=== PATIENT | female | born 1960 | race Caucasian/White ===

== ENCOUNTER 2018-03-26 00:06 | Emergency (ER) | payer SELFPAY ==
[2018-03-26] MEDS ORDERED: LIDOCAINE 1% MPF 5 ML VIAL ONE (00:34)
[2018-03-26] MEDS ORDERED: TETANUS & DIPHTHERIA TOX,ADULT 0.5 ML VIAL ONE (01:05)
--- NOTE | 2018-03-26 01:51 | ER ---
Nurse's Notes [facility] Name: Mica Baker Age: 57 yrs Sex: Female : 1960 Arrival Date: 03/26/2018 Time: 00:10 Bed 17 Private MD: Diagnosis: Finger Laceration Presentation: 03/26 00:10 Presenting complaint: Patient states: that she was making dinner and cut her left index fc finger with a knife. Approx 1.5 cm laceration noted. Bleeding controlled. Transition of care: patient was not received from another setting of care. Onset of symptoms was March 25, 2018 at 20:00. Risk Assessment: Do you want to hurt yourself or someone else? Patient reports no desire to harm self or others. Initial Sepsis Screen: Does the patient meet any 2 criteria? No. Patient's initial sepsis screen is negative. Does the patient have a suspected source of infection? No. Patient's initial sepsis screen is negative. Care prior to arrival: Bleeding of injury controlled. Injury dressed. 00:10 Method Of Arrival: Ambulatory 00:10 Acuity: LUCIANO 4 fc Historical: - Allergies: 00:25 Hydrochlorothiazide; fc 00:25 Iodine; fc 00:25 Latex, Natural Rubber; fc 00:25 telisitine; fc - Home Meds: 00:25 None [Active]; fc - PMHx: 00:25 Hypertension; fc - PSHx: 00:25 ; fc - Immunization history:: Last tetanus immunization: unknown, Flu vaccine is not up to date. - Social history:: Smoking status: Patient/guardian denies using tobacco, Patient uses alcohol, but reports only rare drinking. Patient/guardian denies using street drugs. - Ebola Screening: : Patient negative for fever greater than or equal to 101.5 degrees Fahrenheit, and additional compatible Ebola Virus Disease symptoms Patient denies exposure to infectious person Patient denies travel to an Ebola-affected area in the 21 days before illness onset. Screenin:23 Abuse screen: Denies threats or abuse. Nutritional screening: No deficits noted. fc Tuberculosis screening: No symptoms or risk factors identified. Fall Risk No fall in past 12 months (0 pts). Secondary diagnosis (15 points) impaired mobility, No IV (0 pts). Ambulatory Aid- Crutches/Cane/Walker (15 pts). Gait- Impaired (20 pts.). Mental Status- Overestimates/Forgets Limitations (15 pts.). Total Mancera Fall Scale indicates Low Risk Score (25-44 pts). Fall prevention measures have been instituted. Side Rails Up X 2 Placed close to Nursing Station Frequent Obs/Assesments occuring As available Patient and Family Educated on Fall Prevention Program and strategies. Assessment: 01:07 General: Appears in no apparent distress. Behavior is calm, cooperative, appropriate tl1 for age. Pain: Complains of pain in dorsal aspect of middle phalanx of left middle finger. Neuro: Level of Consciousness is awake, alert, obeys commands. Cardiovascular: No deficits noted. Respiratory: Airway is patent Trachea midline Respiratory effort is even, unlabored, Breath sounds are clear bilaterally. GI: No signs and/or symptoms were reported involving the gastrointestinal system. : No signs and/or symptoms were reported regarding the genitourinary system. EENT: No signs and/or symptoms were reported regarding the EENT system. Derm: No deficits noted. Musculoskeletal: No deficits noted. Injury Description: Laceration sustained to dorsal aspect of middle phalanx of left middle finger is clean, superficial, 0.5 to 2.5 cm long, was sustained 4-6 hours ago. a small amount of bleeding noted at this time. Vital Signs: 00:10 BP 181 / 84; Pulse 65; Resp 18; Temp 98.6(O); Pulse Ox 99% on R/A; Weight 174.8 kg (M); fc Height 5 ft. 8 in. (172.72 cm) (R); Pain 7/10; 01:33 BP 151 / 72; Pulse 53; Resp 16; Pulse Ox 99% ; Pain 0/10; tl1 00:10 Body Mass Index 58.59 (174.80 kg, 172.72 cm) ED Course: 00:10 Patient arrived in ED. es 00:10 Arm band placed on Patient placed in an exam room, on a stretcher. 00:14 Derick Zarate PA is PHCP. jmclaude 00:14 Evelio Williamson MD is Attending Physician. jmm 00:22 Triage completed. 00:23 Patient has correct armband on for positive identification. Bed in low position. Call light in reach. 01:03 Huyen Freedman, RN is Primary Nurse. tl1 01:10 No provider procedures requiring assistance completed. Patient did not have IV access tl1 during this emergency room visit. 01:11 Wound care: to laceration located on dorsal aspect of middle phalanx of left middle tl1 finger was cleaned with Hibiclens. 01:12 Assist provider with laceration repair on dorsal aspect of middle phalanx of left tl1 middle finger that was 2.5 cm. or less using sutures. Set up tray. Performed by Derick WELLS Dressed with Neosporin. 01:32 Dressings:. tl1 Administered Medications: 00:58 Drug: Tetanus-Diphtheria Toxoid Adult 0.5 ml {[employer]: [employer]. Exp: tl2 05/06/2020. Lot #: [id number]. } Route: IM; Site: left deltoid; 02:04 Follow up: Response: No adverse reaction; No change in condition tl1 01:03 Not Given (not in stock): Marcaine (0.5 %) 10 ml 10 ml Infiltration once tl1 01:04 Drug: Lidocaine (1 %) 5 mg {Note: Administered by Derick WELLS to left middle tl1 finger.} Route: Infiltration; Site: wound; 02:04 Follow up: Response: No adverse reaction; No change in condition tl1 Outcome: 01:50 Discharge ordered by MD. pena 02:03 Discharged to home ambulatory. tl1 02:03 Condition: good 02:03 Discharge instructions given to patient, Instructed on discharge instructions, follow up and referral plans. medication usage, Demonstrated understanding of instructions, follow-up care, medications, Prescriptions given X 1. 02:05 Patient left the ED. tl1 Signatures: Derick Zarate PA PA jmm Salyer, Edna es Chretien, Felicia, RN RN Huyen Freedman, RN RN tl1 Ana Lunsford RN RN tl2 Corrections: (The following items were deleted from the chart) 01:23 00:10 Presenting complaint: Patient states: that she was making dinner and cut her fc right index finger with a knife. Approx 1.5 cm laceration noted. Bleeding controlled fc
--- NOTE | 2018-03-26 01:51 | EDPHYS ---
Physician Documentation [facility] Name: Mica Baker Age: 57 yrs Sex: Female : 1960 Arrival Date: 03/26/2018 Time: 00:10 Bed 17 Private MD: ED Physician Evelio Williamson HPI: 03/26 00:17 This 57 yrs old Female presents to ER via Ambulatory with complaints of jmm Finger Injury. 00:17 The patient or guardian reports injury, a laceration. The complaints affect the dorsal jmm aspect of middle phalanx of left index finger. Onset: The symptoms/episode began/occurred acutely, just prior to arrival. Associated signs and symptoms: Pertinent negatives: cyanosis distally, decreased sensation distally, numbness distally, tingling distally. This is a 57 year old female with a history of htn that presents to the ED with a laceration to the left 2nd finger. This occurred while the patient was sharpening a knife. . Historical: - Allergies: 00:25 Hydrochlorothiazide; fc 00:25 Iodine; fc 00:25 Latex, Natural Rubber; fc 00:25 telisitine; fc - Home Meds: 00:25 None [Active]; fc - PMHx: 00:25 Hypertension; fc - PSHx: 00:25 ; fc - Immunization history:: Last tetanus immunization: unknown, Flu vaccine is not up to date. - Social history:: Smoking status: Patient/guardian denies using tobacco, Patient uses alcohol, but reports only rare drinking. Patient/guardian denies using street drugs. - Ebola Screening: : Patient negative for fever greater than or equal to 101.5 degrees Fahrenheit, and additional compatible Ebola Virus Disease symptoms Patient denies exposure to infectious person Patient denies travel to an Ebola-affected area in the 21 days before illness onset. ROS: 00:17 Constitutional: Negative for fever, chills, and weight loss, Cardiovascular: Negative jmm for chest pain, palpitations, and edema, Respiratory: Negative for shortness of breath, cough, wheezing, and pleuritic chest pain. 00:17 Constitutional: Positive for 00:17 Skin: Positive for laceration(s). 00:17 All other systems are negative. Exam: 00:17 Constitutional: This is a well developed, well nourished patient who is awake, alert, jmm and in no acute distress. Head/Face: atraumatic. Eyes: EOMI, no conjunctival erythema appreciated ENT: Moist Mucus Membranes Neck: Trachea midline, Supple Chest/axilla: Normal chest wall appearance and motion. Cardiovascular: Regular rate and rhythm. No edema appreciated Respiratory: Normal respirations, no respiratory distress appreciated Abdomen/GI: Non distended, soft Back: Normal ROM 00:17 Musculoskeletal/extremity: FROM appreciated to the left 2nd PIP, < 2 sec dist cap refill, NVI. 00:17 Skin: 1.5 cm laceration noted ot the left index finger. 00:17 Neuro: Orientation: is normal, Mentation: is normal, Memory: is normal. 00:17 Psych: Behavior/mood is pleasant, cooperative. Vital Signs: 00:10 BP 181 / 84; Pulse 65; Resp 18; Temp 98.6(O); Pulse Ox 99% on R/A; Weight 174.8 kg (M); fc Height 5 ft. 8 in. (172.72 cm) (R); Pain 7/10; 01:33 BP 151 / 72; Pulse 53; Resp 16; Pulse Ox 99% ; Pain 0/10; tl1 00:10 Body Mass Index 58.59 (174.80 kg, 172.72 cm) fc Laceration: 01:48 Wound Repair of 1.5cm ( 0.6in ) subcutaneous laceration to dorsal aspect of middle jmm phalanx of left index finger. Distal neuro/vascular/tendon intact. Anesthesia: Digital block administered with 3 mls of 1% lidocaine. Wound prep: Simple cleansing with betadine by nc. Skin closed with 4 5-0 Prolene using simple sutures and sterile technique. Patient tolerated well. MDM: 00:17 Patient medically screened. [facility] 01:48 Data reviewed: vital signs, nurses notes. [facility] 01:49 Counseling: I had a detailed discussion with the patient and/or guardian regarding: the [facility] historical points, exam findings, and any diagnostic results supporting the discharge/admit diagnosis, the need for outpatient follow up, to return to the emergency department if symptoms worsen or persist or if there are any questions or concerns that arise at home. ED course: Patient given wound infection return precautions. . 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 Exp: tl2 05/06/2020. Lot #: [id number]. } Route: IM; Site: left deltoid; 02:04 Follow up: Response: No adverse reaction; No change in condition tl1 01:03 Not Given (not in stock): Marcaine (0.5 %) 10 ml 10 ml Infiltration once tl1 01:04 Drug: Lidocaine (1 %) 5 mg {Note: Administered by Derick WELLS to left middle tl1 finger.} Route: Infiltration; Site: wound; 02:04 Follow up: Response: No adverse reaction; No change in condition tl1 Disposition: 07:34 Co-signature as Attending Physician, Evelio Williamson MD I agree with the assessment and yadira plan of care. Disposition: 03/26/18 01:50 Discharged to Home. Impression: Finger Laceration. - Condition is Stable. - Discharge Instructions: Laceration Care, Adult. - Prescriptions for Cephalexin 500 mg Oral Capsule - take 1 capsule by ORAL route every 6 hours for 7 days; 28 capsule. - Medication Reconciliation Form, Thank You Letter, Antibiotic Education, Prescription Opioid Use form. - Follow up: Private Physician; When: 1 week; Reason: Recheck today's complaints, Continuance of care, Staple/Suture removal, Re-evaluation by your physician. Signatures: Evelio Williamson MD MD cha Mickail, Joel, PA PA jmm Chretien, Felicia, RN RN Huyen Wallis RN RN tl1 Ana Lunsford RN RN tl2 Corrections: (The following items were deleted from the chart) 02:05 01:50 03/26/2018 01:50 Discharged to Home. Impression: Finger Laceration. Condition is tl1 Stable. Forms are Medication Reconciliation Form, Thank You Letter, Antibiotic Education, Prescription Opioid Use. Follow up: Private Physician; When: 1 week; Reason: Recheck today's complaints, Continuance of care, Staple/Suture removal, Re-evaluation by your physician. jean
[2018-03-26 02:22] VITALS: TEMP 98.6; O2SAT 99
[2018-03-26 02:23] VITALS: BP 151/72
== END 2018-03-26 02:05 | disposition home or self-care (01) ==
LOC: ER 00:06
PROC: 0JQK0ZZ Repair Left Hand Subcutaneous Tissue and Fascia, Open Approach (ICD-10-PCS; principal; 2018-03-26)
DX: S61.211A Laceration without foreign body of left index finger without damage to nail, initial encounter (principal); I10 Essential (primary) hypertension; W26.0XXA Contact with knife, initial encounter; Y93.89 Activity, other specified; Y92.9 Unspecified place or not applicable; Z23 Encounter for immunization; Z88.8 Allergy status to other drugs, medicaments and biological substances; Z91.040 Latex allergy status; Z91.048 Other nonmedicinal substance allergy status
CPT/HCPCS: 90714; 99284

== ENCOUNTER 2018-06-28 11:58 | Inpatient (IN) | payer SELFPAY ==
--- NOTE | 2018-06-28 13:07 | EDPHYS ---
Physician Documentation [facility] Name: Mica Baker Age: 58 yrs Sex: Female : 1960 Arrival Date: 06/28/2018 Time: 12:01 Bed 16 Private MD: ED Physician Evelio Williamson HPI: 06/28 13:01 This 58 yrs old Female presents to ER via Ambulatory with complaints of Ankle yadira Swelling. 13:01 The patient presents with decreased range of motion, pain, swelling, tenderness. The yadira complaints affect the left ankle, left lateral ankle, lateral aspect of left foot, left Achilles, left heel, left medial ankle, medial aspect of left foot, left gutierrez, anterior aspect of left ankle and dorsum of left foot. Onset: The symptoms/episode began/occurred 2 day(s) ago. Context: The problem was sustained at home. Associated signs and symptoms: Pertinent positives: fever. Modifying factors: The symptoms are alleviated by elevation of extremity, the symptoms are aggravated by weight bearing, movement. Severity of symptoms: At their worst the symptoms were mild, moderate, in the emergency department the symptoms are unchanged. The patient has experienced similar episodes in the past, several times. Historical: - Allergies: 12:07 Hydrochlorothiazide; ss 12:07 Iodine; ss 12:07 Latex, Natural Rubber; ss 12:07 telisitine; ss - PMHx: 12:07 Hypertension; ss - PSHx: 12:07 ; ss - Immunization history:: Adult Immunizations unknown. - Social history:: Smoking status: Patient/guardian denies using tobacco. - Ebola Screening: : Patient denies exposure to infectious person Patient denies travel to an Ebola-affected area in the 21 days before illness onset. - Family history:: not pertinent. ROS: 13:01 Eyes: Negative for injury, pain, redness, and discharge, ENT: Negative for injury, yadira pain, and discharge, Neck: Negative for injury, pain, and swelling, Cardiovascular: Negative for chest pain, palpitations, and edema, Respiratory: Negative for shortness of breath, cough, wheezing, and pleuritic chest pain, Abdomen/GI: Negative for abdominal pain, nausea, vomiting, diarrhea, and constipation, Back: Negative for injury and pain, : Negative for injury, bleeding, discharge, and swelling, Skin: Negative for injury, rash, and discoloration, Neuro: Negative for headache, weakness, numbness, tingling, and seizure, Psych: Negative for depression, anxiety, suicide ideation, homicidal ideation, and hallucinations, Allergy/Immunology: Negative for hives, rash, and allergies, Endocrine: Negative for neck swelling, polydipsia, polyuria, polyphagia, and marked weight changes, Hematologic/Lymphatic: Negative for swollen nodes, abnormal bleeding, and unusual bruising. 13:01 : Positive for urinary frequency. Exam: 13:01 Constitutional: This is a well developed, well nourished patient who is awake, alert, yadira and in no acute distress. Head/Face: Normocephalic, atraumatic. Eyes: Pupils equal round and reactive to light, extra-ocular motions intact. Lids and lashes normal. Conjunctiva and sclera are non-icteric and not injected. Cornea within normal limits. Periorbital areas with no swelling, redness, or edema. ENT: Nares patent. No nasal discharge, no septal abnormalities noted. Tympanic membranes are normal and external auditory canals are clear. Oropharynx with no redness, swelling, or masses, exudates, or evidence of obstruction, uvula midline. Mucous membranes moist. Neck: Trachea midline, no thyromegaly or masses palpated, and no cervical lymphadenopathy. Supple, full range of motion without nuchal rigidity, or vertebral point tenderness. No Meningismus. Chest/axilla: Normal chest wall appearance and motion. Nontender with no deformity. No lesions are appreciated. Cardiovascular: Regular rate and rhythm with a normal S1 and S2. No gallops, murmurs, or rubs. Normal PMI, no JVD. No pulse deficits. Respiratory: Lungs have equal breath sounds bilaterally, clear to auscultation and percussion. No rales, rhonchi or wheezes noted. No increased work of breathing, no retractions or nasal flaring. Abdomen/GI: Soft, non-tender, with normal bowel sounds. No distension or tympany. No guarding or rebound. No evidence of tenderness throughout. Back: No spinal tenderness. No costovertebral tenderness. Full range of motion. Neuro: Awake and alert, GCS 15, oriented to person, place, time, and situation. Cranial nerves II-XII grossly intact. Motor strength 5/5 in all extremities. Sensory grossly intact. Cerebellar exam normal. Normal gait. Psych: Awake, alert, with orientation to person, place and time. Behavior, mood, and affect are within normal limits. 13:01 Skin: Appearance: Color: erythematous, Temperature: hot, Moisture: normal moisture, petechiae, not noted, cellulitis, that is mild, that is moderate, induration, that is mild is noted. Vital Signs: 12:07 BP 166 / 99; Pulse 110; Resp 19; Temp 99.4(O); Pulse Ox 99% on R/A; Weight 160.3 kg; ss Height 5 ft. 7 in. (170.18 cm); Pain 9/10; 12:07 Body Mass Index 55.35 (160.30 kg, 170.18 cm) ss MDM: 12:15 Patient medically screened. [facility] 13:03 Data reviewed: vital signs, nurses notes, lab test result(s), EKG, radiologic studies, yadira plain films. 06/28 12:47 Order name: Urine Culture 06/28 13:01 Order name: Basic Metabolic Panel [facility] 06/28 13:01 Order name: CBC with Diff [facility] 06/28 13:01 Order name: LFT's; Complete Time: 16:15 yadira 06/28 13:01 Order name: Magnesium; Complete Time: 16:15 [facility] 06/28 13:01 Order name: NT PRO-BNP; Complete Time: 16:15 [facility] 06/28 13:01 Order name: PT-INR; Complete Time: 16:15 yadira 06/28 13:01 Order name: Troponin (emerg Dept Use Only); Complete Time: 16:15 [facility] 06/28 13:01 Order name: Blood Culture Adult (2) [facility] 06/28 13:01 Order name: Procalcitonin; Complete Time: 16:15 [facility] 06/28 13:01 Order name: Lactate; Complete Time: 16:15 [facility] 06/28 13:01 Order name: Basic Metabolic Panel; Complete Time: 16:15 EDMS 06/28 13:01 Order name: CBC with Automated Diff EDMS 06/28 13:31 Order name: Urine Dipstick--Ancillary (enter results) 06/28 13:01 Order name: XRAY Chest (1 view); Complete Time: 16:15 [facility] 06/28 13:01 Order name: EKG; Complete Time: 13:02 [facility] 06/28 13:01 Order name: Cardiac monitoring; Complete Time: 16:42 [facility] 06/28 13:01 Order name: EKG - Nurse/Tech; Complete Time: 16:42 [facility] 06/28 13:01 Order name: IV Saline Lock; Complete Time: 14:40 [facility] 06/28 13:01 Order name: Labs collected and sent; Complete Time: 14:40 [facility] 06/28 13:01 Order name: O2 Per Protocol; Complete Time: 16:29 [facility] 06/28 13:01 Order name: O2 Sat Monitoring; Complete Time: 16:28 [facility] 06/28 13:01 Order name: US Extremity Venous W Compression Kobe; Complete Time: 14:28 [facility] 06/28 16:28 Order name: CBC Smear Scan EDMS Administered Medications: 14:53 Drug: fentaNYL (PF) 50 mcg Route: IVP; Site: left antecubital; hj 16:41 Follow up: Response: No adverse reaction; Pain is decreased hj 14:53 Drug: Zofran 4 mg Route: IVP; Site: left antecubital; hj 16:40 Follow up: Response: No adverse reaction; Nausea is decreased hj 14:54 Drug: NS 0.9% 1000 ml Route: IV; Rate: 1 bolus; Site: left antecubital; hj 16:42 Follow up: IV Status: Completed infusion hj 14:54 Drug: Zosyn 3.375 grams Route: IVPB; Infused Over: 60 mins; Site: left antecubital; hj 16:41 Follow up: IV Status: Completed infusion hj 15:42 Drug: NS 0.9% 1000 ml Route: IV; Rate: 125 ml/hr; Site: left antecubital; hj 16:42 Follow up: IV Status: Infusion continued upon admission hj 16:10 Drug: vancoMYCIN 1 grams Route: IVPB; Infused Over: 2 hrs; Site: left antecubital; hj 16:41 Follow up: IV Status: Infusion continued upon admission hj Disposition: 06/28/18 13:06 Hospitalization ordered by Jadiel Elam for Inpatient Admission. Preliminary diagnosis are Cellulitis and acute lymphangitis of other parts of limb, Fever, unspecified, Obesity, unspecified, Cystitis, Elevated white blood cell count, Hypokalemia. - Bed requested for Telemetry/MedSurg (Inpatient). - Status is Inpatient Admission. hj - Condition is Fair. - Problem is new. - Symptoms are unchanged. UTI on Admission? Yes Signatures: Dispatcher [employer] EDMS Patricia santos Evelio Asencio MD MD cha Smirch, Shelby, RN RN Eric Smiley RN RN Corrections: (The following items were deleted from the chart) 13:07 13:06 Hospitalization Ordered by Jadiel Elam MD for Inpatient Admission. Preliminary yadira diagnosis is Cellulitis and acute lymphangitis of other parts of limb; Fever, unspecified; Obesity, unspecified. Bed requested for Telemetry/MedSurg (Inpatient). Status is Inpatient Admission. Condition is Fair. Problem is new. Symptoms are unchanged. UTI on Admission? No. [facility] 14:38 13:07 06/28/2018 13:06 Hospitalization Ordered by Jadiel Elam MD for Inpatient bd Admission. Preliminary diagnosis is Cellulitis and acute lymphangitis of other parts of limb; Fever, unspecified; Obesity, unspecified; Cystitis. Bed requested for Telemetry/MedSurg (Inpatient). Status is Inpatient Admission. Condition is Fair. Problem is new. Symptoms are unchanged. UTI on Admission? Yes. [facility] 16:16 14:38 06/28/2018 13:06 Hospitalization Ordered by Jadiel Elam MD for Inpatient yadira Admission. Preliminary diagnosis is Cellulitis and acute lymphangitis of other parts of limb; Fever, unspecified; Obesity, unspecified; Cystitis. Bed requested for Telemetry/MedSurg (Inpatient). Status is Inpatient Admission. Condition is Fair. Problem is new. Symptoms are unchanged. UTI on Admission? Yes. bd 16:53 16:16 06/28/2018 13:06 Hospitalization Ordered by Jadiel Elam MD for Inpatient hj Admission. Preliminary diagnosis is Cellulitis and acute lymphangitis of other parts of limb; Fever, unspecified; Obesity, unspecified; Cystitis; Elevated white blood cell count; Hypokalemia. Bed requested for Telemetry/MedSurg (Inpatient). Status is Inpatient Admission. Condition is Fair. Problem is new. Symptoms are unchanged. UTI on Admission? Yes. yadira
--- NOTE | 2018-06-28 13:07 | ER ---
Nurse's Notes [facility] Name: Mica Baker Age: 58 yrs Sex: Female : 1960 Arrival Date: 06/28/2018 Time: 12:01 Bed 16 Private MD: Diagnosis: Cellulitis and acute lymphangitis of other parts of limb;Fever, unspecified;Obesity, unspecified;Cystitis;Elevated white blood cell count;Hypokalemia Presentation: 06/28 12:05 Presenting complaint: Patient states: redness and swelling to L ankle area that began 3 ss days ago. Pt reports she had a small scrap that had purulent drainage 3 days ago and was attempting to care for it while at home. Transition of care: patient was not received from another setting of care. Onset of symptoms was June 25, 2018. Risk Assessment: Do you want to hurt yourself or someone else? Patient reports no desire to harm self or others. Initial Sepsis Screen: Does the patient meet any 2 criteria? HR > 90 bpm. Does the patient have a suspected source of infection? Yes: Skin breakdown/wound. Care prior to arrival: None. 12:05 Method Of Arrival: Ambulatory ss 12:05 Acuity: LUCIANO 3 ss Historical: - Allergies: 12:07 Hydrochlorothiazide; ss 12:07 Iodine; ss 12:07 Latex, Natural Rubber; ss 12:07 telisitine; ss - PMHx: 12:07 Hypertension; ss - PSHx: 12:07 ; ss - Immunization history:: Adult Immunizations unknown. - Social history:: Smoking status: Patient/guardian denies using tobacco. - Ebola Screening: : Patient denies exposure to infectious person Patient denies travel to an Ebola-affected area in the 21 days before illness onset. - Family history:: not pertinent. Screenin:45 Abuse screen: Denies threats or abuse. Denies injuries from another. Nutritional jl7 screening: No deficits noted. Tuberculosis screening: No symptoms or risk factors identified. Assessment: 12:45 General: Appears in no apparent distress. uncomfortable, Behavior is calm, cooperative, jl7 appropriate for age. Pain: Complains of pain in left ankle Pain radiates to left knee Pain currently is 7 out of 10 on a pain scale. Is continuous. Neuro: Level of Consciousness is awake, alert, obeys commands, Oriented to person, place, time, situation. Cardiovascular: Patient's skin is warm and dry. Respiratory: Airway is patent Respiratory effort is even, unlabored, Respiratory pattern is regular, symmetrical. GI: No signs and/or symptoms were reported involving the gastrointestinal system. : No signs and/or symptoms were reported regarding the genitourinary system. EENT: No signs and/or symptoms were reported regarding the EENT system. Derm: Skin is pink, warm \T\ dry. Musculoskeletal: No signs and/or symptoms reported regarding the musculoskeletal system. Vital Signs: 12:07 BP 166 / 99; Pulse 110; Resp 19; Temp 99.4(O); Pulse Ox 99% on R/A; Weight 160.3 kg; ss Height 5 ft. 7 in. (170.18 cm); Pain 9/10; 12:07 Body Mass Index 55.35 (160.30 kg, 170.18 cm) ED Course: 12:01 Patient arrived in ED. mr 12:06 Triage completed. ss 12:07 Arm band placed on right wrist. ss 12:14 Evelio Williamson MD is Attending Physician. yadira 12:26 Triston Lawrence RN is Primary Nurse. jl7 12:45 Patient has correct armband on for positive identification. Placed in gown. Bed in low jl7 position. Call light in reach. Side rails up X 1. Pulse ox on. NIBP on. Warm blanket given. 13:05 Jadiel Elam MD is Hospitalizing Provider. yadira 13:22 US Extremity Venous W Compression Kobe In Process Unspecified. EDMS 14:28 XRAY Chest (1 view) In Process Unspecified. EDMS 14:30 Initial lab(s) drawn, by wv, sent to lab. First set of blood cultures drawn by wv. hj 14:40 Inserted saline lock: 20 gauge in left antecubital area, using aseptic technique. Blood collected. 14:45 Second set of blood cultures drawn by wv. Administered Medications: 14:53 Drug: fentaNYL (PF) 50 mcg Route: IVP; Site: left antecubital; hj 16:41 Follow up: Response: No adverse reaction; Pain is decreased hj 14:53 Drug: Zofran 4 mg Route: IVP; Site: left antecubital; hj 16:40 Follow up: Response: No adverse reaction; Nausea is decreased hj 14:54 Drug: NS 0.9% 1000 ml Route: IV; Rate: 1 bolus; Site: left antecubital; hj 16:42 Follow up: IV Status: Completed infusion hj 14:54 Drug: Zosyn 3.375 grams Route: IVPB; Infused Over: 60 mins; Site: left antecubital; hj 16:41 Follow up: IV Status: Completed infusion hj 15:42 Drug: NS 0.9% 1000 ml Route: IV; Rate: 125 ml/hr; Site: left antecubital; hj 16:42 Follow up: IV Status: Infusion continued upon admission hj 16:10 Drug: vancoMYCIN 1 grams Route: IVPB; Infused Over: 2 hrs; Site: left antecubital; hj 16:41 Follow up: IV Status: Infusion continued upon admission Outcome: 13:06 Decision to Hospitalize by Provider. [facility] 16:53 Patient left the ED. Signatures: Dispatcher [employer] EDMS Evelio Williamson MD MD cha Rivera, Mary mr Smirch, Shelby, RN RN ss Joaquin, Henry, RN RN hj Leal, Jahala, RN RN jl7
[2018-06-28 13:54] LABS: Urine Blood 1+ (NEG); Urine Glucose NEGATIVE (NEG); Urine Protein NEGATIVE (NEG)
--- NOTE | 2018-06-28 14:02 | RAD REPORT ---
EXAM DESCRIPTION: US - Extrem Venous W Compress Kobe - 06/28/2018 1:46 pm CLINICAL HISTORY: Left leg pain and swelling, palpable mass left calf COMPARISON: None. TECHNIQUE: Real-time sonographic evaluation of the bilateral lower extremity common femoral, superfi cial femoral, popliteal and posterior tibial veins was performed. FINDINGS: Normal compressibility, flow augmentation, phasic flow and spontaneous flow are identified in the left and right lower extremity common femoral, superficial femoral, popliteal and posterior t ibial veins. No intraluminal filling defects seen. Approximately 13 millimeter round mass in the superficial soft tissues of the left calf seen at the a tiffany of concern. Calcifications are evident. This is probably the sequela of old trauma. IMPRESSION: No DVT in either lower extremity.
--- NOTE | 2018-06-28 14:38 | RAD REPORT ---
EXAM DESCRIPTION: RAD - Chest Single View - 06/28/2018 2:27 pm CLINICAL HISTORY: Cough, shortness of breath COMPARISON: November 2008 TECHNIQUE: AP portable chest image was obtained 1407 hours . FINDINGS: Lungs are clear. Heart and vasculature are normal. No measurable pleural effusion and no p neumothorax. No acute bony abnormality seen. No acute aortic findings suspected. IMPRESSION: No acute cardiopulmonary process. No significant interval change.
[2018-06-28] MEDS ORDERED: VANCOMYCIN/NS 1 gm 1 GM/250 ML BAG IV ONE (14:45)
[2018-06-28] MEDS ORDERED: ONDANSETRON 4 MG/2 ML VIAL ONE (14:46)
[2018-06-28] MEDS ORDERED: NA CHLORIDE 0.9% 2,000 ML ONE (14:47)
[2018-06-28] MEDS ORDERED: PIPER/TAZO/NS 3.375gm 3.375 GM/100 ML BAG ONE (14:47)
[2018-06-28 14:49] LABS: Absolute Lymphocytes (CBC) 1.1 K/uL (0.7-4.9); Absolute Monocytes 0.9 K/uL (0.1-1.3); Absolute Neutrophil 11.7 K/uL (1.8-8.0); Basophils % 0.3 % (0-1.3); Eosinophils % 0.1 % (0-4.4); Hematocrit 40.6 % (36.0-45.0); Lymphocytes % 7.8 % (15.3-44.8); MPV 8.7 fL (7.6-11.3); Monocytes % 6.6 % (3.3-12.3); RBC Red Blood Cell Count 4.41 M/uL (3.86-4.86)
[2018-06-28 14:51] LABS: Protime INR 1.11
[2018-06-28 15:23] LABS: ALT/SGPT 30 U/L (12-78); AST/SGOT 26 U/L (15-37); Albumin 3.6 g/dL (3.4-5.0); Alkaline Phosphatase 102 U/L (45-117); BUN Blood Urea Nitrogen 8 mg/dL (7-18); Bicarbonate 27 mmol/L (21-32); Bilirubin Direct 0.3 mg/dL (0-0.2); Glucose Level 115 mg/dL (74-106); Magnesium 2.2 mg/dL (1.8-2.4); NT PRO-BNP 274 pg/mL (<125); Sodium Level 141 mmol/L (136-145); Troponin (Emerg Dept Use Only) < 0.02 ng/mL (0.0-0.045)
[2018-06-28 16:27] LABS: Platelet Estimate ADEQ; Urine White Blood Cell Casts OK
[2018-06-28 16:28] LABS: Blood Morphology Comment NOT SEEN (NOT SEEN)
[2018-06-28] MEDS ORDERED: VANCOMYCIN/NS 1 gm 1 GM/250 ML BAG IVPB SCH (17:35)
[2018-06-28] MEDS ORDERED: ONDANSETRON 4 MG/2 ML VIAL IV PRN (17:35)
[2018-06-28] MEDS: NA CHLORIDE 0.9% 1,000 ML IV SCH (17:35)
[2018-06-28 18:01] VITALS: BMI 54.5
[2018-06-28] MEDS ORDERED: VANCOMYCIN/NS 1 gm 1 GM/250 ML BAG IV SCH (20:00)
[2018-06-28] MEDS ORDERED: VANCOMYCIN 2 GM in NA CHLORIDE 0.9% 500 ML IVPB SCH (20:00)
--- NOTE | 2018-06-28 20:53 | RAD REPORT ---
EXAM DESCRIPTION: US - Pelvis Complete - 06/28/2018 8:46 pm CLINICAL HISTORY: abnormal uterine bleeding Pelvic pain. COMPARISON: No comparisons FINDINGS: The uterus is normal in size, shape and echotexture. The uterus measures 10.6 x 4.9 x 3.1 cm. The endometrial stripe measures 7 mm, normal. Both ovaries were obscured by bowel gas shadowing. No significant pelvic ascites. IMPRESSION: Unremarkable examination except for nonvisualization of the ovaries.
[2018-06-28] MEDS ORDERED: CEFEPIME 2 GM VIAL IV SCH (21:00)
[2018-06-28] MEDS: CEFEPIME/SWI 2gm 2 GM/20 ML SYR IV SCH (21:30)
[2018-06-28] MEDS ORDERED: VANCOMYCIN 1 GM/VIAL ONE (22:35)
[2018-06-28] MEDS ORDERED: NA CHLORIDE 0.9% 250 ML ONE (22:45)
[2018-06-28] MEDS: ACETAMINOPHEN 500 MG TAB PO PRN (23:00)
--- NOTE | 2018-06-29 02:34 | HP ---
Date of Admission: 06/28/2018 Primary Care Physician: At [facility]. Chief Complaint: Erythema, swelling of the left lower extremity. History Of Present Illness: The patient is a 58-year-old female with no significant past medical history other than morbid obesity and abnormal uterine bleeding, who was recently started seeing a physician at the [facility] along with some weight loss of approximately 88 pounds since February, comes in with left lower extremity swelling, edema, and redness. The patient states that the night prior to admission, the patient had some lesion on the lower extremity, which has worsened. She does report chronic lower extremity venous stasis changes and patient uses crutches to help her walk. The patient's symptoms are constant, moderate, progressively worsening. Her workup revealed elevated white blood cell count at 13,000. Doppler was negative for DVT. The patient was then referred for admission. When seen in the ER, she was awake, alert, oriented x3, in some mild distress. Past Medical History: Chronic venous stasis changes, abnormal uterine bleeding , currently under workup. Surgical History: . Allergies: TO HYDROCHLOROTHIAZIDE, IODINE, LATEX, RUBBER Medications: None. Social History: The patient denies tobacco use. Drinks on special occasions, no more than 2 or 3 times a year. No illicit drug use. The patient does require crutches to walk. The patient is , has a daughter and a son. Independent in her activities of daily living. Family History: Positive for diabetes and hypertension. Review of Systems: An 11-point system reviewed, negative except as per HPI. Physical Examination: Vital Signs: Blood pressure 166/99, pulse 110, respirations 19, temperature 99.4, O2 99% on room air. BMI is 55. General: Awake, alert, oriented x3, ill-appearing female, morbidly obese, BMI 55. HEENT: Normocephalic, atraumatic. PERRLA. EOMI. Moist mucous membranes. Oropharynx is clear. Conjunctivae are anicteric. Neck: Supple. No JVD. Trachea midline. CV: S1, S2. Regular rate and rhythm. Peripheral pulses present. No murmurs. Respiratory: Moving air well bilaterally. No wheezing or stridor. Gastrointestinal: Abdomen is soft, nontender, nondistended. Positive bowel sounds. No guarding or rigidity. Extremities: No clubbing, cyanosis. The patient does have bilateral lower extremity edema. No calf tenderness. Neuro: Cranial nerves 2-12 intact grossly. No focal neurological deficit. Speech is normal. Strength is 5/5 in bilateral upper and lower extremities. Sensation intact to light touch. Musculoskeletal: The patient has some tenderness to palpation on the right leg anterior aspect calcified area. Skin: The patient has multiple abrasions and ulcerations on bilateral lower extremities, likely related to her chronic venous stasis changes. The patient has erythema of the left lower extremity and edema. Psych: Mood is okay. Affect is full. Insight and judgment are good. Laboratory Data: WBC 13.7, H and H 13.4 and 40.6, platelets 289, neutrophils 85 %. INR 1.11. Sodium 141, potassium 3, chloride 106, CO2 27, BUN 8, creatinine 0.99, glucose 115, lactate 1.4, calcium 9, magnesium 2.2. Troponin less than 0.02. Procalcitonin 0.06. UA; negative nitrite, 2+ leukocyte esterase. Bronchoscopy pending. Chest x-ray shows no acute cardiopulmonary process, no significant change. Doppler, venous, shows no DVT in either lower extremity, 13 mm round mass in the superficial soft tissues of the left calf seen at the area of concern. Calcifications are evident. This is probably sequela of old trauma. Assessment And Plan: A 58-year-old female with: 1. Left lower extremity cellulitis secondary to chronic venous stasis ulcerations. We will start on broad-spectrum IV antibiotics and follow up on cultures. We will obtain wound cultures as well. We will consult wound healing center. The patient will likely benefit from chronic lymphedema treatment. White count is 13.7. 2. Abnormal UA. No history of dysuria. The patient will be covered with antibiotics regardless. We will follow up on urine culture. 3. Morbid obesity, BMI 55. 4. Abnormal uterine bleeding. We will check uterine ultrasound. The patient may benefit from REAL ESTATE UTILIZATION OFFICER consultation. The patient recently saw PCP at [facility], but no ultrasound was done at that time. 5. Weight loss, unintentional. The patient is on 88 pounds in the past 4 months. The patient denies any significant cancer screening, had a mammogram 2 years ago. Pap smear recently was also normal. Has not had a colonoscopy. Admit the patient to [facility], place as inpatient. Length of stay, greater than 2 midnights. OMAR Voice ID: [id number] MTDD
[2018-06-29] MEDS: NA CHLORIDE 0.9% 1,000 ML IV SCH ×2 (04:09→21:44)
[2018-06-29 06:12] LABS: Absolute Lymphocytes (CBC) 1.6 K/uL (0.7-4.9); Absolute Monocytes 0.6 K/uL (0.1-1.3); Absolute Neutrophil 4.4 K/uL (1.8-8.0); Basophils % 0.7 % (0-1.3); Hematocrit 34.7 % (36.0-45.0); Lymphocytes % 23.3 % (15.3-44.8); Monocytes % 9.4 % (3.3-12.3); RBC Red Blood Cell Count 3.73 M/uL (3.86-4.86)
[2018-06-29 06:27] LABS: Potassium 3.3 mmol/L (3.5-5.1)
[2018-06-29] MEDS: CEFEPIME/SWI 2gm 2 GM/20 ML SYR IV SCH ×2 (07:53→21:39)
[2018-06-29] MEDS: ACETAMINOPHEN 500 MG TAB PO PRN ×2 (09:27→21:39)
--- NOTE | 2018-06-29 11:41 | EKG ---
Test Date: 2018-06-28 Test Time: 13:13:39 Hospital Wellness Coordinator: CHUNG MEASUREMENT RESULTS: Intervals: Rate: 86 MD: 142 QRSD: 88 QT: 346 QTc: 414 Oxly: P: 50 MD: 142 QRS: 43 T: 58 INTERPRETIVE STATEMENTS: Normal sinus rhythm Nonspecific ST abnormality Abnormal ECG Compared to ECG 07/30/2014 17:57:18 ST (T wave) deviation now present Electronically Signed On 06-28-18 16:09:07 CDT by Brenden Austin
[2018-06-29] MEDS: VANCOMYCIN 2 GM in NA CHLORIDE 0.9% 500 ML IVPB SCH (13:14)
--- NOTE | 2018-06-29 23:15 | P.PN ---
Subjective Date of Service: 06/29/18 Subjective: No new changes Patient seen and examined at bedside. No family at bedside. Chart reviewed and case discussed with nursing staff. Patient complaining of left ankle pain and swelling, unchanged from admission Review of Systems 10-point ROS is otherwise unremarkable Physical Examination - Vital Signs Temperature: 98.4 F Blood Pressure: 160/63 Pulse: 66 Respirations: 18 Pulse Ox (%): 100 - Physical Exam General: Alert, In no apparent distress HEENT: Atraumatic, PERRLA, EOMI Neck: Supple, JVD not distended Respiratory: Clear to auscultation bilaterally, Normal air movement Cardiovascular: Regular rate/rhythm, Normal S1 S2 Gastrointestinal: Normal bowel sounds, No tenderness Musculoskeletal: No tenderness Integumentary: Other (multiple abrasions and ulcerations on bilateral lower extremities, likely related to her chronic venous stasis changes. The patient has erythema of the left lower extremity and edema. ) Neurological: Normal speech, Normal tone, Normal affect Lymphatics: No axilla or inguinal lymphadenopathy Assessment And Plan - Plan A 58-year-old female with Left lower extremity cellulitis secondary to chronic venous stasis ulcerations. Continue broad-spectrum IV antibiotics and follow up on cultures. The patient will likely benefit from chronic lymphedema treatment. Abnormal UA. No history of dysuria. The patient already on antibiotics. Urine culture positive for Staph aureus, sensitive to Bactrim. Morbid obesity, BMI 55. Abnormal uterine bleeding. Pelvic ultrasound normal. The patient may benefit from PETROPHYSICIST consultation as an out patient. No active bleeding noted at this time. Hemoglobin remains stable Weight loss, unintentional. The patient is on 88 pounds in the past 4 months. The patient denies any significant cancer screening, had a mammogram 2 years ago. Pap smear recently was also normal. Has not had a colonoscopy. DVT prophylaxis: Lovenox GI prophylaxis: None Diet: Heart healthy Disposition: Pending symptomatic improvement.
[2018-06-30 08:10] LABS: Absolute Lymphocytes (CBC) 1.5 K/uL (0.7-4.9); Absolute Monocytes 0.5 K/uL (0.1-1.3); Absolute Neutrophil 2.9 K/uL (1.8-8.0); Basophils % 1.1 % (0-1.3); Eosinophils % 3.3 % (0-4.4); Hematocrit 36.4 % (36.0-45.0); Lymphocytes % 29.5 % (15.3-44.8); MPV 8.8 fL (7.6-11.3); RBC Red Blood Cell Count 3.85 M/uL (3.86-4.86)
[2018-06-30 08:17] LABS: Potassium 3.5 mmol/L (3.5-5.1)
[2018-06-30] MEDS: CEFEPIME/SWI 2gm 2 GM/20 ML SYR IV SCH (08:34)
[2018-06-30] MEDS: VANCOMYCIN 2 GM in NA CHLORIDE 0.9% 500 ML IVPB SCH (08:34)
[2018-06-30] MEDS: MEDIHONEY 44 ML TOPICAL TUBE TOP SCH (08:35)
[2018-06-30] MEDS: NA CHLORIDE 0.9% 1,000 ML IV SCH (08:36)
--- NOTE | 2018-06-30 16:31 | RAD REPORT ---
EXAM DESCRIPTION: RAD - Ankle Left 3 View - 06/30/2018 4:23 pm CLINICAL HISTORY: Soft tissue infection, soft tissue swelling COMPARISON: August 2016 FINDINGS: No fracture, dislocation or periosteal reaction. Degenerative changes are present at the a nkle joint similar to comparison. Small plantar spur has not changed. No destructive bone process see n. Osteomyelitis can exist prior to radiographic bone destruction. Prominent soft tissue edema changes are present slightly worse than the comparison. No air or suspic ious foreign body in the soft tissues. IMPRESSION: Bony degenerative change at the ankle. No acute or destructive bone process. Osteomyelitis can exist prior to radiographic bone destruction. Soft tissue swelling. No air or foreign body. Plain film cannot fully exclude small soft tissue absce ss.
[2018-06-30] MEDS: HYDROCODONE/APAP 5/325 MG TAB PO PRN (16:54)
--- NOTE | 2018-06-30 17:52 | P.PN ---
Subjective Date of Service: 06/30/18 Chief Complaint: Lower extremity swelling Subjective: Improving Patient seen and examined at bedside. No family at bedside. Chart reviewed and case discussed with nursing staff. Patient complaining of left ankle pain and swelling, slightly improved from admission. Patient ambulating to the bathroom and back. Review of Systems 10-point ROS is otherwise unremarkable Physical Examination - Vital Signs Temperature: 98.4 F Blood Pressure: 160/63 Pulse: 66 Respirations: 18 Pulse Ox (%): 100 - Physical Exam General: Alert, In no apparent distress Integumentary: Other (multiple abrasions and ulcerations on bilateral lower extremities, likely related to her chronic venous stasis changes. The patient has erythema of the left lower extremity and edema. ) - Studies Microbiology Data (last 24 hrs): 06/28/18 12:47 Clean Catch Urine [place] Count - Final >100,000 CFU/ML. 06/28/18 12:47 Clean Catch Urine - Final Assessment And Plan - Plan A 58-year-old female with Left lower extremity cellulitis secondary to chronic venous stasis ulcerations. Continue broad-spectrum IV antibiotics and follow up on cultures. The patient will likely benefit from chronic lymphedema treatment. Left lower extremity x-ray ordered to evaluate for underlying abscess Abnormal UA. No history of dysuria. The patient already on antibiotics. Urine culture positive for Staph aureus, sensitive to Bactrim. Will adjust accordingly Morbid obesity, BMI 55. Abnormal uterine bleeding. Pelvic ultrasound normal. The patient may benefit from WHARF WORKER consultation as an out patient. No active bleeding noted at this time. Hemoglobin remains stable Weight loss, unintentional. The patient is on 88 pounds in the past 4 months. The patient denies any significant cancer screening, had a mammogram 2 years ago. Pap smear recently was also normal. Has not had a colonoscopy. DVT prophylaxis: Lovenox GI prophylaxis: None Diet: Heart healthy Disposition: Pending symptomatic improvement. Possible discharge home in the next 24-48 hr
[2018-07-01] MEDS: HYDROCODONE/APAP 5/325 MG TAB PO PRN ×3 (00:58→17:32)
[2018-07-01] MEDS: VANCOMYCIN 2 GM in NA CHLORIDE 0.9% 500 ML IVPB SCH ×2 (00:59→20:23)
[2018-07-01] MEDS: NA CHLORIDE 0.9% 1,000 ML IV SCH (00:59)
[2018-07-01 05:46] LABS: Absolute Lymphocytes (CBC) 1.6 K/uL (0.7-4.9); Absolute Monocytes 0.4 K/uL (0.1-1.3); Absolute Neutrophil 2.2 K/uL (1.8-8.0); Basophils % 0.8 % (0-1.3); Eosinophils % 2.9 % (0-4.4); Hematocrit 34.4 % (36.0-45.0); Lymphocytes % 36.9 % (15.3-44.8); MPV 9.2 fL (7.6-11.3); Monocytes % 9.3 % (3.3-12.3); RBC Red Blood Cell Count 3.68 M/uL (3.86-4.86)
[2018-07-01 06:03] LABS: Potassium 3.8 mmol/L (3.5-5.1)
[2018-07-01] MEDS: MEDIHONEY 44 ML TOPICAL TUBE TOP SCH (09:58)
--- NOTE | 2018-07-01 16:38 | P.PN ---
Subjective Date of Service: 07/01/18 Chief Complaint: Lower extremity swelling Subjective: Improving Patient seen and examined at bedside. No family at bedside. Chart reviewed and case discussed with nursing staff. Patient continues to complaining of left ankle pain and swelling, slightly improved from admission. Patient ambulating to the bathroom and back. Review of Systems 10-point ROS is otherwise unremarkable Physical Examination - Vital Signs Temperature: 98.7 F Blood Pressure: 149/67 Pulse: 68 Respirations: 16 Pulse Ox (%): 99 - Physical Exam General: Alert, In no apparent distress HEENT: Atraumatic, PERRLA, EOMI Neck: Supple, JVD not distended Respiratory: Clear to auscultation bilaterally, Normal air movement Cardiovascular: Regular rate/rhythm, Normal S1 S2 Gastrointestinal: Normal bowel sounds, No tenderness Integumentary: Skin lesion, Tenderness/swelling, Erythema, Other (Bilateral chronic skin changes) Neurological: Normal speech, Normal tone, Normal affect Assessment And Plan - Plan A 58-year-old female with Left lower extremity cellulitis secondary to chronic venous stasis ulcerations. Continue broad-spectrum IV antibiotics and follow up on cultures. The patient will likely benefit from chronic lymphedema treatment. Left lower extremity x-ray ordered to evaluate for underlying abscess Abnormal UA. No history of dysuria. The patient already on antibiotics. Urine culture positive for Staph aureus, sensitive to Bactrim. Will adjust accordingly Morbid obesity, BMI 55. Abnormal uterine bleeding. Pelvic ultrasound normal. The patient may benefit from COLLECTIONS ANALYST consultation as an out patient. No active bleeding noted at this time. Hemoglobin remains stable Weight loss, unintentional. The patient is on 88 pounds in the past 4 months. The patient denies any significant cancer screening, had a mammogram 2 years ago. Pap smear recently was also normal. Has not had a colonoscopy. DVT prophylaxis: Lovenox GI prophylaxis: None Diet: Heart healthy Disposition: Pending symptomatic improvement. Possible discharge home in the next 24-48 hr
--- NOTE | 2018-07-01 16:52 | RAD REPORT ---
EXAM DESCRIPTION: MRI - Ankle Left Wo Cont - 07/01/2018 4:25 pm CLINICAL HISTORY: Ankle pain and swelling COMPARISON: June 30, 2018 ankle x-ray TECHNIQUE: Axial, sagittal, and coronal magnetic images of the left ankle obtained FINDINGS: Small ulceration is present along the medial aspect of the ankle. Diffuse edema is present within the medial subcutaneous tissues. No significant abnormal signal is seen within the bones. An abscess is not visualized IMPRESSION: Cellulitis No evidence of osteomyelitis
--- NOTE | 2018-07-01 16:56 | RAD REPORT ---
EXAM DESCRIPTION: MRIFoot Left Wo Cont07/01/2018 4:26 pm CLINICAL HISTORY: Left foot pain and swelling COMPARISON: none TECHNIQUE: Axial, sagittal and coronal magnetic resonance imaging of the left foot was obtained. FINDINGS: Diffuse edema is present within the subcutaneous tissues. A soft tissue abscess is not seen. No significant abnormal signal within the bones is noted. An abscess is not noted. IMPRESSION: Cellulitis No evidence of osteomyelitis
[2018-07-01] MEDS: CIPROFLOXACIN HCL 500 MG TAB PO SCH (17:17)
[2018-07-01] MEDS: MUPIROCIN 2% OINT 22GM TUBE TOP SCH (20:24)
[2018-07-02] MEDS: HYDROCODONE/APAP 5/325 MG TAB PO PRN ×2 (05:55→14:25)
[2018-07-02] MEDS: CIPROFLOXACIN HCL 500 MG TAB PO SCH (09:22)
[2018-07-02] MEDS: MEDIHONEY 44 ML TOPICAL TUBE TOP SCH (09:23)
[2018-07-02] MEDS: MUPIROCIN 2% OINT 22GM TUBE TOP SCH (09:23)
[2018-07-02 09:30] VITALS: O2SAT 99
[2018-07-02] MEDS: VANCOMYCIN 2 GM in NA CHLORIDE 0.9% 500 ML IVPB SCH (14:43)
--- NOTE | 2018-07-02 14:47 | P.DS ---
Admission Date: 06/28/18 Discharge Date: 07/02/18 Disposition: ROUTINE DISCHARGE Discharge Condition: GOOD Reason for Admission: Lower extremity swelling Brief History of Present Illness: The patient is a 58-year-old female with no significant past medical history other than morbid obesity and abnormal uterine bleeding, who was recently started seeing a physician at the [facility] along with some weight loss of approximately 88 pounds since February, comes in with left lower extremity swelling, edema, and redness. The patient states that the night prior to admission, the patient had some lesion on the lower extremity, which has worsened. She does report chronic lower extremity venous stasis changes and patient uses crutches to help her walk. The patient's symptoms are constant, moderate, progressively worsening. Her workup revealed elevated white blood cell count at 13,000. Doppler was negative for DVT. The patient was then referred for admission. When seen in the ER, she was awake, alert, oriented x3 , in some mild distress. Hospital Course: Patient was admitted for left lower some extremity cellulitis secondary to chronic venous stasis ulcerations. She was started on IV antibiotics. Cultures were drawn. Her cultures were positive for Klebsiella pneumoniae and Staph aureus. X-rays of the left lower extremity/ankle along with an ankle and foot MRI were negative for any underlying abscess or osteomyelitis. Her antibiotics were adjusted and she was started on oral ciprofloxacin along with IV vancomycin. At discharge, her vancomycin was discontinued and she was transitioned to oral Bactrim to complete a 14 day course. She was also sent a prescription for ciprofloxacin 500 mg twice a day for to complete a 14 day course. Her symptoms of lower extremity swelling and redness improved. She was ambulating around the room and the hallway prior to discharge. She was tolerating an oral diet. She was denying any other symptoms of chest pain, shortness of breath, headaches, vision changes, GI or complaints. Throughout the hospitalization, her urine analysis was abnormal uterus that was sensitive to Bactrim. She will be treated for the UTI along with the site Lantus as noted above. She also had complaints of abnormal uterine bleeding. Her hemoglobin remained stable throughout the stay. No active bleeding was noted during this stay. She will benefit from auto rebuilder consultation as an outpatient. Information provided at discharge. She may also benefit from a colonoscopy as she has not had 1 yet and she did have this unintentional weight loss. GI information provided to her at discharge paperwork She was discharged home in a stable and safe manner. She otherwise remained stable throughout the stay. She was recommended to follow up with her primary care physician in 2-3 days. She was also recommended to follow up with GI and UPHOLSTERY TECHNICIAN for further evaluation as noted above Vital Signs/Physical Exam: Temp Pulse Resp BP Pulse Ox 98.1 F 66 20 143/71 H 100 07/02/18 12:00 07/02/18 12:00 07/02/18 12:00 07/02/18 12:00 07/02/18 12:00 General: Alert, In no apparent distress, Oriented x3 HEENT: Atraumatic, PERRLA, EOMI Neck: Supple, JVD not distended Respiratory: Clear to auscultation bilaterally, Normal air movement Cardiovascular: Regular rate/rhythm, Normal S1 S2 Gastrointestinal: Normal bowel sounds, No tenderness Musculoskeletal: No tenderness Integumentary: Other (Chronic skin changes bilateral lower extremities) Neurological: Normal speech, Normal tone, Normal affect Laboratory Data at Discharge: WBC 4.4 K/uL (4.3-10.9) 07/01/18 04:58 Hgb 11.3 g/dL (12.0-15.0) L 07/01/18 04:58 Hct 34.4 % (36.0-45.0) L 07/01/18 04:58 Plt Count 242 K/uL (152-406) 07/01/18 04:58 PT 13.1 SECONDS (9.5-12.5) H 06/28/18 14:30 INR 1.11 06/28/18 14:30 Sodium 147 mmol/L (136-145) H 07/01/18 04:58 Potassium 3.8 mmol/L (3.5-5.1) 07/01/18 04:58 BUN 8 mg/dL (7-18) 07/01/18 04:58 Creatinine 0.79 mg/dL (0.55-1.3) 07/01/18 04:58 Glucose 105 mg/dL (74-106) 07/01/18 04:58 Magnesium 2.2 mg/dL (1.8-2.4) 06/28/18 14:30 Total Bilirubin 1.0 mg/dL (0.2-1.0) 06/28/18 14:30 AST 26 U/L (15-37) 06/28/18 14:30 ALT 30 U/L (12-78) 06/28/18 14:30 Alkaline Phosphatase 102 U/L (45-117) 06/28/18 14:30 Home Medications: NK [No Home Meds] 06/28/18 Patient Discharge Instructions: Please follow up with the primary care physician in 2-3 days. Please follow up with gynecology in 2 weeks for further evaluation of your bleeding. Please follow up with Gastroenterology for possible colonoscopy for your unintentional weight loss. New medications: Bactrim, ciprofloxacin. These are both antibiotics for your skin infection of her lower extremities. Please return to the emergency room for worsening symptoms. Diet: AHA Activity: Ad ramesh Time spent managing pt's care (in minutes): 55
[2018-07-02 17:45] VITALS: BP 125/62; TEMP 98.4
[2018-07-03] MEDS ORDERED: VANCOMYCIN 2 GM in NA CHLORIDE 0.9% 500 ML IVPB SCH (14:00)
== END 2018-07-02 20:02 | disposition home or self-care (01) | DRG 603 ==
LOC: ER 11:58 → ERHOLD 14:16 → 4TH 16:31
PROVIDERS: ADMIT Family Medicine; ATTEND Family Medicine
DX: L03.116 Cellulitis of left lower limb (principal); Z68.43 Body mass index [BMI] 50.0-59.9, adult; L97.919 Non-pressure chronic ulcer of unspecified part of right lower leg with unspecified severity; L97.929 Non-pressure chronic ulcer of unspecified part of left lower leg with unspecified severity; N39.0 Urinary tract infection, site not specified; I87.8 Other specified disorders of veins; E66.01 Morbid (severe) obesity due to excess calories; N93.8 Other specified abnormal uterine and vaginal bleeding; R63.4 Abnormal weight loss; I83.009 Varicose veins of unspecified lower extremity with ulcer of unspecified site; B96.5 Pseudomonas (aeruginosa) (mallei) (pseudomallei) as the cause of diseases classified elsewhere; I89.0 Lymphedema, not elsewhere classified; B96.1 Klebsiella pneumoniae [K. pneumoniae] as the cause of diseases classified elsewhere; B95.62 Methicillin resistant Staphylococcus aureus infection as the cause of diseases classified elsewhere
CPT/HCPCS: 36415; 71045; 76856; 80048; 80076; 80202; 81003; 83036; 83605; 83735; 83880; 84145; 84484; 85025; 85610; 87040; 87070; 87077; 87086; 87088; 87186; 87205; 93005; 93970; 96365; 96375; 97162; 99284; J0692; J2405; J2543; J3370; J7030

== ENCOUNTER 2018-08-30 15:38 | Emergency (ER) | payer SELFPAY ==
[2018-08-30 16:46] LABS: Absolute Lymphocytes (CBC) 1.2 K/uL (0.7-4.9); Absolute Monocytes 0.6 K/uL (0.1-1.3); Absolute Neutrophil 5.6 K/uL (1.8-8.0); Basophils % 0.5 % (0-1.3); Eosinophils % 0.2 % (0-4.4); Hematocrit 39.2 % (36.0-45.0); MPV 8.7 fL (7.6-11.3); Monocytes % 8.3 % (3.3-12.3); RBC Red Blood Cell Count 4.25 M/uL (3.86-4.86)
[2018-08-30 16:59] LABS: Potassium 3.6 mmol/L (3.5-5.1)
[2018-08-30] MEDS ORDERED: CLINDAMYCIN 900MG/D5W 900 MG/50 ML IVPB IV ONE (17:18)
--- NOTE | 2018-08-30 17:54 | EDPHYS ---
Physician Documentation [facility] Name: Mica Baker Age: 58 yrs Sex: Female : 1960 Arrival Date: 08/30/2018 Time: 15:42 Bed 16 Private MD: ED Physician Evelio Williamson HPI: 08/30 16:16 This 58 yrs old Female presents to ER via Wheelchair with complaints of Feet kb Swelling. 16:16 The patient presents with cellulitis of the right leg. Description: erythematous, hot, kb swollen. Onset: The symptoms/episode began/occurred 2 day(s) ago. Possible cause(s): unknown. Associated signs and symptoms: Pertinent positives: erythema, fever, swelling, Pertinent negatives: discharge, drainage, foreign body sensation, headache, nausea, shortness of breath, vomiting. Modifying factors: the symptoms are alleviated by nothing, the symptoms are aggravated by nothing. Severity of symptoms: At their worst the symptoms were moderate, in the emergency department the symptoms are unchanged. The patient has experienced a previous episode, approximately 2 months ago, and the symptoms today are exactly the same, on left leg. The patient has not recently seen a physician. Pt states she has had a wound to lateral aspect of right calf since the end of May that hasn't healed. States she started having pain to lower right leg 2 days ago, yesterday it started swelling and today it has gotten worse with redness and warmth. States she had the exact same symptoms on the left leg in June and was admitted for 5 days so she didn't want it to get to that point this time. Historical: - Allergies: 15:45 Hydrochlorothiazide; aj 15:45 Iodine; aj 15:45 Latex, Natural Rubber; aj 15:45 telisitine; aj - Home Meds: 15:45 Unable to obtain [Active]; hj - PMHx: 15:45 Hypertension; hj - PSHx: 15:45 ; hj - Immunization history:: Adult Immunizations up to date. - Social history:: Smoking status: Patient/guardian denies using tobacco, Patient/guardian denies using alcohol. - Ebola Screening: : Patient negative for fever greater than or equal to 101.5 degrees Fahrenheit, and additional compatible Ebola Virus Disease symptoms Patient denies exposure to infectious person Patient denies travel to an Ebola-affected area in the 21 days before illness onset. ROS: 16:22 ENT: Negative for injury, pain, and discharge, Neck: Negative for injury, pain, and kb swelling, Cardiovascular: Negative for chest pain, palpitations, and edema, Respiratory: Negative for shortness of breath, cough, wheezing, and pleuritic chest pain, Abdomen/GI: Negative for abdominal pain, nausea, vomiting, diarrhea, and constipation, Neuro: Negative for headache, weakness, numbness, tingling, and seizure. 16:22 Constitutional: Positive for chills, fever. 16:22 Skin: Positive for cellulitis, erythema, swelling, of the right leg. Exam: 16:22 Constitutional: This is a well developed, well nourished patient who is awake, alert, kb and in no acute distress. Head/Face: Normocephalic, atraumatic. Neck: Trachea midline, no thyromegaly or masses palpated, and no cervical lymphadenopathy. Supple, full range of motion without nuchal rigidity, or vertebral point tenderness. No Meningismus. Chest/axilla: Normal chest wall appearance and motion. Nontender with no deformity. No lesions are appreciated. Cardiovascular: Regular rate and rhythm with a normal S1 and S2. No gallops, murmurs, or rubs. Normal PMI, no JVD. No pulse deficits. Respiratory: Lungs have equal breath sounds bilaterally, clear to auscultation and percussion. No rales, rhonchi or wheezes noted. No increased work of breathing, no retractions or nasal flaring. Abdomen/GI: Soft, non-tender, with normal bowel sounds. No distension or tympany. No guarding or rebound. No evidence of tenderness throughout. MS/ Extremity: Pulses equal, no cyanosis. Neurovascular intact. Full, normal range of motion. Neuro: Awake and alert, GCS 15, oriented to person, place, time, and situation. Cranial nerves II-XII grossly intact. Motor strength 5/5 in all extremities. Sensory grossly intact. Cerebellar exam normal. Normal gait. 16:22 Skin: cellulitis, that is moderate, on the right lower leg. Vital Signs: 15:45 BP 139 / 69; Pulse 85; Resp 18; Temp 98.6; Pulse Ox 96% on R/A; Weight 162.39 kg; aj Height 5 ft. 7 in. (170.18 cm); 16:30 BP 130 / 70; Pulse 75; Resp 18; Pulse Ox 100% on R/A; hj 17:22 BP 129 / 54; Pulse 71; Resp 18; Pulse Ox 98% on R/A; hj 18:30 BP 128 / 60; Pulse 70; Resp 18; Pulse Ox 97% on R/A; hj 15:45 Body Mass Index 56.07 (162.39 kg, 170.18 cm) aj MDM: 16:00 Patient medically screened. kb 16:24 Data reviewed: vital signs, nurses notes. Data interpreted: Pulse oximetry: on room air kb is 96 %. Interpretation: normal. 17:53 Counseling: I had a detailed discussion with the patient and/or guardian regarding: the kb historical points, exam findings, and any diagnostic results supporting the discharge/admit diagnosis, lab results, the need for outpatient follow up, a family practitioner, to return to the emergency department if symptoms worsen or persist or if there are any questions or concerns that arise at home. 17:54 ED course: Pt educated on lab results. Given strict instructions to return for kb worsening symptoms or if symptoms do not started improving in 48 hours. Verbal understanding received. . 08/30 16:11 Order name: CBC with Diff; Complete Time: 16:53 kb 08/30 16:11 Order name: Basic Metabolic Panel; Complete Time: 17:05 kb 08/30 16:11 Order name: Blood Culture Adult (2) kb 08/30 16:11 Order name: Lactate; Complete Time: 16:59 kb 08/30 16:11 Order name: Procalcitonin; Complete Time: 17:54 kb 08/30 17:43 Order name: Urine Dipstick--Ancillary (enter results); Complete Time: 18:21 bd 08/30 16:11 Order name: Urine Dipstick-Ancillary (obtain specimen); Complete Time: 17:44 kb 08/30 16:11 Order name: IV Start; Complete Time: 16:40 kb Administered Medications: 17:03 Drug: Clindamycin 900 mg Route: IVPB; Infused Over: 30 mins; Site: left antecubital; hj 18:38 Follow up: IV Status: Completed infusion; IV Intake: 50ml hj Disposition: 08/30/18 17:53 Discharged to Home. Impression: Cellulitis of right lower limb. - Condition is Stable. - Discharge Instructions: Cellulitis, Adult, [id number]. - Prescriptions for Clindamycin HCl 300 mg Oral Capsule - take 1 capsule by ORAL route every 6 hours for 10 days; 40 capsule. Bactrim DS 800- 160 mg Oral Tablet - take 1 tablet by ORAL route every 12 hours for 10 days; 20 tablet. - Medication Reconciliation Form, Thank You Letter, Antibiotic Education, Prescription Opioid Use form. - Follow up: Emergency Department; When: As needed; Reason: Worsening of condition. Follow up: Private Physician; When: 2 - 3 days; Reason: Recheck today's complaints, Continuance of care, Re-evaluation by your physician. Addendum: 09/06/2018 12:37 Co-signature as Attending Physician, Evelio Williamson MD I agree with the assessment and c gonzalez plan of care. Signatures: Dispatcher [employer] EDMS Kassidy Silveira, AURE-C AURE-Jeanna Bravo RN RN aj Anderson, Corey, MD MD cha Joaquin, Henry RN RN hj Corrections: (The following items were deleted from the chart) 08/30 18:55 17:53 08/30/2018 17:53 Discharged to Home. Impression: Cellulitis of right lower limb. hj Condition is Stable. Forms are Medication Reconciliation Form, Thank You Letter, Antibiotic Education, Prescription Opioid Use. Follow up: Emergency Department; When: As needed; Reason: Worsening of condition. Follow up: Private Physician; When: 2 - 3 days; Reason: Recheck today's complaints, Continuance of care, Re-evaluation by your physician. kb
--- NOTE | 2018-08-30 17:54 | ER ---
Nurse's Notes [facility] Name: Mica Baker Age: 58 yrs Sex: Female : 1960 Arrival Date: 08/30/2018 Time: 15:42 Bed 16 Private MD: Diagnosis: Cellulitis of right lower limb Presentation: 08/30 15:44 Presenting complaint: Patient states: Swelling and redness to RLE. Transition of care: aj patient was not received from another setting of care. Onset of symptoms was August 28, 2018. Care prior to arrival: None. 15:44 Method Of Arrival: Wheelchair 15:44 Acuity: LUCIANO 3 aj 15:45 Risk Assessment: Do you want to hurt yourself or someone else? Patient reports no hj desire to harm self or others. Initial Sepsis Screen: Does the patient meet any 2 criteria? No. Patient's initial sepsis screen is negative. Does the patient have a suspected source of infection? No. Patient's initial sepsis screen is negative. Triage Assessment: 15:45 General: Appears in no apparent distress. comfortable, obese, Behavior is calm, aj cooperative, appropriate for age. Pain: Complains of pain in right leg. Neuro: Level of Consciousness is awake, alert, obeys commands, Oriented to person, place, time, situation, Appropriate for age. Respiratory: Airway is patent Respiratory effort is even, unlabored, Respiratory pattern is regular, symmetrical. Derm: Skin is intact, is healthy with good turgor, Skin is Red to RLE. Historical: - Allergies: 15:45 Hydrochlorothiazide; aj 15:45 Iodine; aj 15:45 Latex, Natural Rubber; aj 15:45 telisitine; aj - Home Meds: 15:45 Unable to obtain [Active]; hj - PMHx: 15:45 Hypertension; hj - PSHx: 15:45 ; hj - Immunization history:: Adult Immunizations up to date. - Social history:: Smoking status: Patient/guardian denies using tobacco, Patient/guardian denies using alcohol. - Ebola Screening: : Patient negative for fever greater than or equal to 101.5 degrees Fahrenheit, and additional compatible Ebola Virus Disease symptoms Patient denies exposure to infectious person Patient denies travel to an Ebola-affected area in the 21 days before illness onset. Screenin:45 Abuse screen: Denies threats or abuse. Denies injuries from another. Nutritional hj screening: No deficits noted. Tuberculosis screening: No symptoms or risk factors identified. Fall Risk None identified. Assessment: 15:45 General: Appears in no apparent distress. uncomfortable, obese, Behavior is calm, hj cooperative, appropriate for age. Pain: Complains of pain in right leg and left leg. Neuro: Level of Consciousness is awake, alert, obeys commands, Oriented to person, place, time, situation, Appropriate for age. Cardiovascular: Capillary refill < 3 seconds Patient's skin is warm and dry. Respiratory: Airway is patent Respiratory effort is even, unlabored, Respiratory pattern is regular, symmetrical. GI: No signs and/or symptoms were reported involving the gastrointestinal system. : No signs and/or symptoms were reported regarding the genitourinary system. EENT: No signs and/or symptoms were reported regarding the EENT system. Derm: No signs and/or symptoms reported regarding the dermatologic system. Musculoskeletal: Reports pain in right leg and left leg. 16:30 Reassessment: Patient and/or family updated on plan of care and expected duration. Pain hj level reassessed. Patient is alert, oriented x 3, equal unlabored respirations, skin warm/dry/pink. awaiting results and POC;. 17:22 Reassessment: Patient and/or family updated on plan of care and expected duration. Pain hj level reassessed. Patient is alert, oriented x 3, equal unlabored respirations, skin warm/dry/pink. clindamycin running;. Vital Signs: 15:45 BP 139 / 69; Pulse 85; Resp 18; Temp 98.6; Pulse Ox 96% on R/A; Weight 162.39 kg; aj Height 5 ft. 7 in. (170.18 cm); 16:30 BP 130 / 70; Pulse 75; Resp 18; Pulse Ox 100% on R/A; hj 17:22 BP 129 / 54; Pulse 71; Resp 18; Pulse Ox 98% on R/A; hj 18:30 BP 128 / 60; Pulse 70; Resp 18; Pulse Ox 97% on R/A; hj 15:45 Body Mass Index 56.07 (162.39 kg, 170.18 cm) aj ED Course: 15:42 Patient arrived in ED. tw3 15:45 Triage completed. aj 15:45 Arm band placed on right wrist. Patient placed in waiting room. aj 15:45 Patient has correct armband on for positive identification. Placed in gown. Bed in low hj position. Call light in reach. Side rails up X2. 15:59 Kassidy Silveira FNP-C [facility]. kb 15:59 Evelio Williamson MD is Attending Physician. kb 16:17 Eric Smiley, RN is Primary Nurse. hj 16:30 Initial lab(s) drawn, by me, sent to lab. First set of blood cultures drawn by me. hj 16:34 Inserted saline lock: 22 gauge in left antecubital area, using aseptic technique. Blood hj collected. 16:40 Lactate Sent. hj 16:40 Procalcitonin Sent. hj 16:40 Blood Culture Adult (2) Sent. hj 16:40 Basic Metabolic Panel Sent. hj 16:40 CBC with Diff Sent. hj 17:42 Urine collected: clean catch specimen, cloudy, carrillo colored. jb1 18:37 No provider procedures requiring assistance completed. IV discontinued, intact, hj bleeding controlled, No redness/swelling at site. Pressure dressing applied. Administered Medications: 17:03 Drug: Clindamycin 900 mg Route: IVPB; Infused Over: 30 mins; Site: left antecubital; hj 18:38 Follow up: IV Status: Completed infusion; IV Intake: 50ml hj Intake: 18:38 IV: 50ml; Total: 50ml. hj Outcome: 17:53 Discharge ordered by . kb 18:37 Discharged to home ambulatory. hj 18:37 Condition: stable 18:37 Discharge instructions given to patient, Instructed on discharge instructions, follow up and referral plans. medication usage, Demonstrated understanding of instructions, follow-up care, medications, Prescriptions given X 2. 18:55 Patient left the ED. hj Signatures: Alex Davis jb1 Kassidy Silveira FNP-C FNP-Jeanna Bravo RN RN Eric Kiser, RN RN Maura Whitlock tw3
[2018-08-30 18:18] LABS: Urine Specific Gravity 1.015 (1.005-1.030)
[2018-08-30 18:19] LABS: Urine Blood TRACE (NEG); Urine Glucose NEGATIVE (NEG); Urine Protein NEGATIVE (NEG); Urine pH 6.5 (5.0-7.0)
[2018-08-30 23:28] VITALS: TEMP 98.6
[2018-08-30 23:31] VITALS: BP 128/60; O2SAT 97
== END 2018-08-30 18:55 | disposition home or self-care (01) ==
LOC: ER 15:38
DX: L03.115 Cellulitis of right lower limb (principal); Z91.09 Other allergy status, other than to drugs and biological substances; Z91.040 Latex allergy status; Z88.8 Allergy status to other drugs, medicaments and biological substances
CPT/HCPCS: 36415; 80048; 81003; 83605; 84145; 85025; 87040; 87077; 87186; 96365; 96366; 99284

== ENCOUNTER 2019-03-14 12:52 | Emergency (ER) | payer SELFPAY ==
[2019-03-14 13:26] LABS: Urine Blood 1+ (NEG); Urine Glucose NEGATIVE (NEG); Urine Protein 1+ (NEG); Urine pH 7.5 (5.0-7.0)
[2019-03-14 13:55] LABS: Urine Bacteria 20-50 /HPF (<20)
[2019-03-14 13:56] LABS: Urine Culture Reflex Order NOT NEEDED
--- NOTE | 2019-03-14 14:13 | EDPHYS ---
Physician Documentation [facility] Name: Mica Baker Age: 58 yrs Sex: Female : 1960 Arrival Date: 03/14/2019 Time: 12:54 Bed 26 Private MD: ED Physician Trenton Schaeffer HPI: 03/14 14:15 This 58 yrs old Female presents to ER via Ambulatory with complaints of kdr Urinary Problem. 14:15 The patient presents with urinary symptoms, dysuria, frequency. Onset: The kdr symptoms/episode began/occurred gradually, 1 month(s) ago. Modifying factors: The symptoms are alleviated by nothing, the symptoms are aggravated by urinating. Associated signs and symptoms: Pertinent positives: dysuria, nausea. Historical: - Allergies: 13:04 Hydrochlorothiazide; ss 13:04 Iodine; ss 13:04 Latex, Natural Rubber; ss 13:04 telisitine; ss - PMHx: 13:04 Hypertension; ss - PSHx: 13:04 ; ss - Immunization history:: Adult Immunizations up to date. - Social history:: Smoking status: unknown. - Ebola Screening: : No symptoms or risks identified at this time. ROS: 14:21 Constitutional: Negative for fever, chills, and weight loss, Eyes: Negative for injury, kdr pain, redness, and discharge, Neck: Negative for injury, pain, and swelling, Cardiovascular: Negative for chest pain, palpitations, and edema, Respiratory: Negative for shortness of breath, cough, wheezing, and pleuritic chest pain, Abdomen/GI: Negative for abdominal pain, nausea, vomiting, diarrhea, and constipation, Back: Negative for injury and pain, MS/Extremity: Negative for injury and deformity, Skin: Negative for injury, rash, and discoloration, Neuro: Negative for headache, weakness, numbness, tingling, and seizure activity. Psych: Negative for depression, anxiety, suicide ideation, homicidal ideation, and hallucinations, Allergy/Immunology: Negative for hives, rash, and allergies, Endocrine: Negative for neck swelling, polydipsia, polyuria, polyphagia, and marked weight changes, Hematologic/Lymphatic: Negative for swollen nodes, abnormal bleeding, and unusual bruising. 14:21 : Positive for urinary symptoms, Negative for small amounts, hematuria, vaginal discharge, vaginal itching, menstrual abnormality. Exam: 14:21 Constitutional: This is a well developed, well nourished patient who is awake, alert, kdr and in no acute distress. Head/Face: Normocephalic, atraumatic. Eyes: Pupils equal round and reactive to light, extra-ocular motions intact. Lids and lashes normal. Conjunctiva and sclera are non-icteric and not injected. Cornea within normal limits. Periorbital areas with no swelling, redness, or edema. Neck: Trachea midline, no thyromegaly or masses palpated, and no cervical lymphadenopathy. Supple, full range of motion without nuchal rigidity, or vertebral point tenderness. No Meningismus. Chest/axilla: Normal chest wall appearance and motion. Nontender with no deformity. No lesions are appreciated. Cardiovascular: Regular rate and rhythm with a normal S1 and S2. No gallops, murmurs, or rubs. Normal PMI, no JVD. No pulse deficits. Respiratory: Lungs have equal breath sounds bilaterally, clear to auscultation and percussion. No rales, rhonchi or wheezes noted. No increased work of breathing, no retractions or nasal flaring. Abdomen/GI: Soft, non-tender, with normal bowel sounds. No distension or tympany. No guarding or rebound. No evidence of tenderness throughout. Back: No spinal tenderness. No costovertebral tenderness. Full range of motion. Skin: Warm, dry with normal turgor. Normal color with no rashes, no lesions, and no evidence of cellulitis. MS/ Extremity: Pulses equal, no cyanosis. Neurovascular intact. Full, normal range of motion. Neuro: Awake and alert, GCS 15, oriented to person, place, time, and situation. Cranial nerves II-XII grossly intact. Motor strength 5/5 in all extremities. Sensory grossly intact. Cerebellar exam normal. Normal gait. Psych: Awake, alert, with orientation to person, place and time. Behavior, mood, and affect are within normal limits. 14:21 Back: CVA tenderness, mild left greater than right . Vital Signs: 13:19 BP 136 / 74; Pulse 66; Resp 18; Temp 98; Pulse Ox 100% on R/A; Weight 154.22 kg; Height mg2 5 ft. 7 in. (170.18 cm); Pain 6/10; 14:52 BP 130 / 70; Pulse 65; Resp 18; Temp 99; Pulse Ox 100% on R/A; mg2 13:19 Body Mass Index 53.25 (154.22 kg, 170.18 cm) mg2 MDM: 14:11 Patient medically screened. kdr 14:25 Data reviewed: vital signs, nurses notes, lab test result(s). Counseling: I had a kdr detailed discussion with the patient and/or guardian regarding: the historical points, exam findings, and any diagnostic results supporting the discharge/admit diagnosis, lab results, the need for outpatient follow up. 03/14 13:19 Order name: Urine Dipstick--Ancillary (enter results) 03/14 13:20 Order name: Urine Microscopic Only 03/14 13:20 Order name: Urine Culture 03/14 13:32 Order name: Urine Dipstick-Ancillary (obtain specimen); Complete Time: 13:34 kdr Administered Medications: 14:29 Drug: Rocephin (cefTRIAXone) 2 grams Route: IM; Site: right gluteus; mg2 14:51 Follow up: Response: No adverse reaction mg2 Disposition: 03/14/19 14:11 Discharged to Home. Impression: Urinary tract infection, site not specified. - Condition is Stable. - Discharge Instructions: Urinary Tract Infection, Adult, [id number]. - Prescriptions for Cipro 500 mg Oral Tablet - take 1 tablet by ORAL route every 12 hours for 10 days; 20 tablet. - Medication Reconciliation Form, Thank You Letter, Antibiotic Education form. - Follow up: Private Physician; When: 2 - 3 days; Reason: If symptoms return, Further diagnostic work-up, Recheck today's complaints, Continuance of care, Re-evaluation by your physician. - Problem is new. - Symptoms have improved. Signatures: Dispatcher [employer] EDMS Trenton Schaeffer MD MD kdr Gabriella Morrell RN RN Carlito Avila RN RN mg2 Corrections: (The following items were deleted from the chart) 14:53 14:11 03/14/2019 14:11 Discharged to Home. Impression: Urinary tract infection, site mg2 not specified. Condition is Stable. Forms are Medication Reconciliation Form, Thank You Letter, Antibiotic Education, Prescription Opioid Use. Follow up: Private Physician; When: 2 - 3 days; Reason: If symptoms return, Further diagnostic work-up, Recheck today's complaints, Continuance of care, Re-evaluation by your physician. Problem is new. Symptoms have improved. kdr
--- NOTE | 2019-03-14 14:13 | ER ---
Nurse's Notes [facility] Name: Mica Baker Age: 58 yrs Sex: Female : 1960 Arrival Date: 03/14/2019 Time: 12:54 Bed 26 Private MD: Diagnosis: Urinary tract infection, site not specified Presentation: 03/14 13:18 Presenting complaint: Patient states: i have back pain radiating to my suprapubic area mg2 since feb 20. this week i started to have chills. Transition of care: patient was not received from another setting of care. Onset of symptoms was February 20, 2019. Risk Assessment: Do you want to hurt yourself or someone else? Patient reports no desire to harm self or others. Initial Sepsis Screen: Does the patient meet any 2 criteria? No. Patient's initial sepsis screen is negative. Does the patient have a suspected source of infection? No. Patient's initial sepsis screen is negative. Care prior to arrival: None. 13:18 Method Of Arrival: Ambulatory mg2 13:18 Acuity: LUCIANO 4 mg2 Historical: - Allergies: 13:04 Hydrochlorothiazide; ss 13:04 Iodine; ss 13:04 Latex, Natural Rubber; ss 13:04 telisitine; ss - PMHx: 13:04 Hypertension; ss - PSHx: 13:04 ; ss - Immunization history:: Adult Immunizations up to date. - Social history:: Smoking status: unknown. - Ebola Screening: : No symptoms or risks identified at this time. Screenin:04 Abuse screen: Denies threats or abuse. Denies injuries from another. Nutritional ss screening: No deficits noted. Tuberculosis screening: Never had TB. 13:41 Fall Risk None identified. mg2 Assessment: 13:35 General: Appears in no apparent distress. comfortable, Behavior is calm, cooperative. mg2 Pain: Complains of pain in back Pain radiates to abdomen. Neuro: Level of Consciousness is awake, alert, obeys commands, Oriented to person, place, time, situation. Cardiovascular: Capillary refill < 3 seconds Patient's skin is warm and dry. Respiratory: Airway is patent Respiratory effort is even, unlabored, Respiratory pattern is regular, symmetrical. GI: No signs and/or symptoms were reported involving the gastrointestinal system. : Reports pain in suprapubic area in lower back. EENT: No signs and/or symptoms were reported regarding the EENT system. Derm: Skin is intact, is healthy with good turgor, Skin is pink, warm \T\ dry. normal. Musculoskeletal: Circulation, motion, and sensation intact. Capillary refill < 3 seconds. 14:52 Reassessment: Patient appears in no apparent distress at this time. mg2 Vital Signs: 13:19 BP 136 / 74; Pulse 66; Resp 18; Temp 98; Pulse Ox 100% on R/A; Weight 154.22 kg; Height mg2 5 ft. 7 in. (170.18 cm); Pain 6/10; 14:52 BP 130 / 70; Pulse 65; Resp 18; Temp 99; Pulse Ox 100% on R/A; mg2 13:19 Body Mass Index 53.25 (154.22 kg, 170.18 cm) mg2 ED Course: 12:54 Patient arrived in ED. ag5 13:11 Trenton Schaeffer MD is Attending Physician. kdr 13:11 Carlito Avila, ALFONSO is Primary Nurse. mg2 13:19 Triage completed. mg2 13:20 Arm band placed on. mg2 13:41 Patient has correct armband on for positive identification. mg2 13:41 No provider procedures requiring assistance completed. Patient did not have IV access mg2 during this emergency room visit. Administered Medications: 14:29 Drug: Rocephin (cefTRIAXone) 2 grams Route: IM; Site: right gluteus; mg2 14:51 Follow up: Response: No adverse reaction mg2 Outcome: 14:11 Discharge ordered by . kdr 14:53 Discharged to home ambulatory. mg2 14:53 Condition: stable 14:53 Discharge instructions given to patient, Instructed on discharge instructions, follow up and referral plans. medication usage, Demonstrated understanding of instructions, follow-up care, medications, Prescriptions given X 1. 14:53 Patient left the ED. mg2 Addendum: 03/16/2019 07:32 Addendum: Culture Results: Positive urine culture. No further action required. Bacteria i w sensitive to prescribed antibiotic. Signatures: Trenton Schaeffer MD MD [facility] Jessica Cage RN RN Gabriella Morrell RN RN Carlito Avila RN RN mg2 Cem Peraza ag5
[2019-03-14] MEDS ORDERED: WATER FOR INJ,STERILE 10 ML ONE (14:16)
[2019-03-14] MEDS ORDERED: CEFTRIAXONE 1000 MG/VIAL ONE (14:16)
[2019-03-14 15:02] VITALS: O2SAT 100
[2019-03-14 15:03] VITALS: BP 130/70; TEMP 99
== END 2019-03-14 14:53 | disposition home or self-care (01) ==
LOC: ER 12:52
DX: N39.0 Urinary tract infection, site not specified (principal); I10 Essential (primary) hypertension; Z88.8 Allergy status to other drugs, medicaments and biological substances; Z91.040 Latex allergy status; Z91.048 Other nonmedicinal substance allergy status
CPT/HCPCS: 81003; 81015; 87077; 87086; 87088; 87186; 96372; 99283

== ENCOUNTER 2019-11-10 14:55 | Emergency (ER) | payer SELFPAY ==
--- NOTE | 2019-11-10 16:41 | EDPHYS ---
Physician Documentation [facility] Name: Mica Baker Age: 59 yrs Sex: Female : 1960 Arrival Date: 11/10/2019 Time: 14:57 Bed 15 Private MD: None, None ED Physician Evelio Williamson HPI: 11/09 15:26 This 59 yrs old Female presents to ER via Ambulatory with complaints of jmm Hearing loss, Leg problem. 15:26 The patient presents with swelling. The complaints affect the right gutierrez. Onset: The jmm symptoms/episode began/occurred gradually, 1 week(s) ago. Modifying factors: The symptoms are alleviated by nothing. the symptoms are aggravated by nothing. This is a 59 year old female with a history of htn that presents to the ED with complaints of right lower extremity swelling. Patient states swelling was worse last week but noticed a few areas of increased swelling. Patient denies fever. Denies shortness of breath. Patient also complains of bilateral hearing loss, worse on the left. Denies cough, congestion. . Historical: - Allergies: 15:18 Hydrochlorothiazide; ls4 15:18 Iodine; ls4 15:18 Latex, Natural Rubber; ls4 15:18 telisitine; ls4 - PMHx: 15:18 Hypertension; ls4 - PSHx: 15:18 ; ls4 - Immunization history:: Adult Immunizations up to date, Flu vaccine is not up to date. - Social history:: Smoking status: Patient denies any tobacco usage or history of. ROS: 15:26 Constitutional: Negative for fever, chills, and weight loss. jmm 15:26 ENT: Positive for hearing loss. 15:26 MS/extremity: Positive for pain, swelling. 15:26 All other systems are negative. Exam: 15:26 Constitutional: This is a well developed, well nourished patient who is awake, alert, jmm and in no acute distress. Head/Face: atraumatic. Eyes: EOMI, no conjunctival erythema appreciated 15:26 Neck: Trachea midline, Supple Chest/axilla: Normal chest wall appearance and motion. Cardiovascular: Regular rate and rhythm. No edema appreciated Respiratory: Normal respirations, no respiratory distress appreciated Abdomen/GI: Non distended, soft Back: Normal ROM 15:26 ENT: TM's: bulging, on the right, on the left, erythema, that is moderate, bilaterally. 15:26 Musculoskeletal/extremity: mild right lower extremity swelling, distended veins noted, compartments are soft, full dorsalis pulse, no induration. NVI. 15:26 Skin: Appearance: Color: normal in color. 15:26 Neuro: Orientation: is normal, Mentation: is normal, Memory: is normal. 15:26 Psych: Behavior/mood is pleasant, cooperative. Vital Signs: 15:15 BP 145 / 108; Pulse 67; Resp 16; Temp 98.5; Pulse Ox 99% on R/A; Weight 158.76 kg; ls4 Height 5 ft. 5 in. (165.10 cm); Pain 4/10; 16:50 BP 132 / 70; Pulse 55; Resp 18; Pulse Ox 100% ; ll1 15:15 Body Mass Index 58.24 (158.76 kg, 165.10 cm) ls4 MDM: 15:07 Patient medically screened. [facility] 16:37 Data reviewed: vital signs, nurses notes. Counseling: I had a detailed discussion with jean the patient and/or guardian regarding: the historical points, exam findings, and any diagnostic results supporting the discharge/admit diagnosis, radiology results, the need for outpatient follow up, to return to the emergency department if symptoms worsen or persist or if there are any questions or concerns that arise at home. ED course: US negative. Patient is alert and non toxic in appearance in the ED. PE findings not consistent with cellulitis. Bilateral OM on PE. Patient is otherwise given strict return precautions. Patient understood and agrees with the plan of care. . 11/09 15:25 Order name: US Extremity Venous Unilateral Ltd [facility] Administered Medications: No medications were administered Disposition: 11/10 10:55 Co-signature as Attending Physician, Evelio iWlliamson MD I agree with the assessment and [facility] plan of care. Disposition: 11/10/19 16:40 Discharged to Home. Impression: Edema, unspecified, Acute serous otitis media, bilateral. - Condition is Stable. - Discharge Instructions: Otitis Media, Adult, Peripheral Edema. - Prescriptions for Augmentin 875- 125 mg Oral Tablet - take 1 tablet by ORAL route every 12 hours for 10 days; 20 tablet. - Medication Reconciliation Form, Thank You Letter, Antibiotic Education, Prescription Opioid Use form. - Follow up: Private Physician; When: 2 - 3 days; Reason: Recheck today's complaints, Continuance of care, Re-evaluation by your physician. Signatures: Dispatcher [employer] Evelio Leo MD MD cha Mickail, Joel, PA PA jmm Stewart, Lisa RN RN ls4 Serena Carver RN RN ll1 Corrections: (The following items were deleted from the chart) 11/09 16:57 16:40 11/10/2019 16:40 Discharged to Home. Impression: Edema, unspecified; Acute serous ll1 otitis media, bilateral. Condition is Stable. Forms are Medication Reconciliation Form, Thank You Letter, Antibiotic Education, Prescription Opioid Use. Follow up: Private Physician; When: 2 - 3 days; Reason: Recheck today's complaints, Continuance of care, Re-evaluation by your physician. jean
--- NOTE | 2019-11-10 16:41 | ER ---
Nurse's Notes [facility] Name: Mica Baker Age: 59 yrs Sex: Female : 1960 Arrival Date: 11/10/2019 Time: 14:57 Bed 15 Private MD: None, None Diagnosis: Edema, unspecified;Acute serous otitis media, bilateral Presentation: 11/09 15:15 Chief complaint: Patient states: I cant hear out of my left ear, its like a roaring ls4 sound in it and my right ear is starting to hurt a little. I also have pain in the lower back of my head that is almost to my neck /10. I also have some bumps on my right leg. Coronavirus screen: Client denies travel out of the [place] in the last 14 days. At this time, the client does not indicate any symptoms associated with coronavirus-19. Ebola Screen: No symptoms or risks identified at this time. Initial Sepsis Screen: Does the patient meet any 2 criteria? No. Patient's initial sepsis screen is negative. Does the patient have a suspected source of infection? No. Patient's initial sepsis screen is negative. Risk Assessment: Do you want to hurt yourself or someone else? Patient reports no desire to harm self or others. Onset of symptoms is unknown. Care prior to arrival: None. Activity prior to arrival: None. 15:15 Method Of Arrival: Ambulatory ls4 15:15 Acuity: LUCIANO 3 ls4 Triage Assessment: 15:18 General: Appears uncomfortable, obese, well groomed, Behavior is cooperative. Pain: ls4 Complains of pain in occipital area Pain currently is 4 out of 10 on a pain scale. Historical: - Allergies: 15:18 Hydrochlorothiazide; ls4 15:18 Iodine; ls4 15:18 Latex, Natural Rubber; ls4 15:18 telisitine; ls4 - PMHx: 15:18 Hypertension; ls4 - PSHx: 15:18 ; ls4 - Immunization history:: Adult Immunizations up to date, Flu vaccine is not up to date. - Social history:: Smoking status: Patient denies any tobacco usage or history of. Screenin:55 Abuse screen: Denies threats or abuse. Nutritional screening: No deficits noted. ll1 Tuberculosis screening: No symptoms or risk factors identified. Fall Risk Ambulatory Aid- Crutches/Cane/Walker (15 pts). Gait- Impaired (20 pts.). Total Mancera Fall Scale indicates Low Risk Score (25-44 pts). Fall prevention measures have been instituted. Placed close to Nursing Station Frequent Obs/Assesments occuring As available Patient and Family Educated on Fall Prevention Program and strategies. Assessment: 16:50 General: Appears in no apparent distress. Behavior is calm, cooperative. Pain: ll1 Complains of pain in both ears Quality of pain is described as aching, Is continuous. Neuro: No deficits noted. Cardiovascular: Reports leg swelling Heart tones S1 S2 Capillary refill < 3 seconds Clubbing of nail beds Patient's skin is warm and dry. Pulses are all present. Edema is 2+ to both legs pitting to both legs. Respiratory: No deficits noted. EENT: Ear canal see Christopher Zarate PA-C note for further ear assessment. . Reports decreased hearing in both ears pain in both ears. Derm: Wound noted right gutierrez Abscess located on right gutierrez is pencil eraser size Reports small bumps to right leg, no drainage. Musculoskeletal: Circulation, motion, and sensation intact. Capillary refill < 3 seconds, Swelling present in B legs Reports pain in both legs. Vital Signs: 15:15 BP 145 / 108; Pulse 67; Resp 16; Temp 98.5; Pulse Ox 99% on R/A; Weight 158.76 kg; ls4 Height 5 ft. 5 in. (165.10 cm); Pain 4/10; 16:50 BP 132 / 70; Pulse 55; Resp 18; Pulse Ox 100% ; ll1 15:15 Body Mass Index 58.24 (158.76 kg, 165.10 cm) ls4 ED Course: 14:57 Patient arrived in ED. mr 14:58 None, None is Private Physician. mr 15:05 Serena Carver, ALFONSO is Primary Nurse. ll1 15:06 Derick Zarate PA is PHCP. jmm 15:06 Evelio Williamson MD is Attending Physician. jmm 15:17 Triage completed. ls4 15:19 Arm band placed on. ls4 16:43 US Extremity Venous Unilateral Ltd In Process Unspecified. EDMS 16:56 Patient has correct armband on for positive identification. Bed in low position. Call ll1 light in reach. Side rails up X 1. 16:56 No provider procedures requiring assistance completed. Patient did not have IV access ll1 during this emergency room visit. Administered Medications: No medications were administered Outcome: 16:40 Discharge ordered by . jean 16:56 Discharged to home ambulatory. ll1 16:56 Condition: stable 16:56 Discharge instructions given to patient, Instructed on discharge instructions, follow up and referral plans. medication usage, Demonstrated understanding of instructions, follow-up care, medications, Prescriptions given X 1. 16:57 Patient left the ED. ll1 Signatures: Dispatcher [employer] EDMS Derick Zarate PA PA jmm Rivera, Mary mr Kita Hagan, RN RN ls4 Serena Carver RN RN ll1
--- NOTE | 2019-11-10 16:56 | RAD REPORT ---
EXAM DESCRIPTION: US - Extremity Venous Uni Ltd - 11/10/2019 4:43 pm CLINICAL HISTORY: swelling, pain COMPARISON: DVT study June 2018 TECHNIQUE: Real-time sonographic evaluation of the left lower extremity deep venous system was perfo rmed. FINDINGS: Normal compressibility, flow augmentation, phasic flow and spontaneous flow are identified in the left lower extremity common femoral, superficial femoral, popliteal and posterior tibial vein s. No intraluminal filling defects seen. IMPRESSION: No DVT in the left lower extremity.
[2019-11-10 17:09] VITALS: TEMP 98.5
[2019-11-10 17:10] VITALS: BP 132/70; O2SAT 100
== END 2019-11-10 16:57 | disposition home or self-care (01) ==
LOC: ER 14:55
DX: H65.03 Acute serous otitis media, bilateral (principal); I10 Essential (primary) hypertension; Z91.040 Latex allergy status; Z88.8 Allergy status to other drugs, medicaments and biological substances; Z91.048 Other nonmedicinal substance allergy status
CPT/HCPCS: 93971; 99283

== ENCOUNTER 2020-06-02 23:56 | Emergency (ER) | payer OTHER, SELFPAY ==
--- NOTE | 2020-06-03 00:38 | EDPHYS ---
Physician Documentation [facility] Name: Mica Baker Age: 60 yrs Sex: Female : 1960 Arrival Date: 06/02/2020 Time: 23:57 Bed 17 Private MD: ED Physician Vaibhav Verde HPI: 06/03 00:31 This 60 yrs old Female presents to ER via Ambulatory with complaints of Ear rn Pain. 00:31 The patient presents with pain. The complaints affect the right jaw. rn 00:32 Onset: The symptoms/episode began/occurred today. Modifying factors: The symptoms are rn alleviated by nothing, the symptoms are aggravated by nothing. 00:32 Duration: The symptoms are continuous. Modifying factors: The symptoms are alleviated rn by nothing, the symptoms are aggravated by nothing. Severity of symptoms: At their worst the symptoms were moderate, in the emergency department the symptoms are unchanged. The patient has not experienced similar symptoms in the past. The patient has not recently seen a physician. Reports right jaw pain, radiates to right ear, no fever or chills, reports bad teeth. . Historical: - Allergies: 00:13 Iodine; bb 00:13 Latex, Natural Rubber; bb 00:13 Hydrochlorothiazide; bb 00:13 telisitine; bb - PMHx: 00:13 lymphadema; Cellulitis; bb - PSHx: 00:13 ; bb - Immunization history:: Adult Immunizations up to date. - Social history:: Smoking status: Patient denies any tobacco usage or history of. - Family history:: not pertinent. - Hospitalizations: : No recent hospitalization is reported. ROS: 00:32 Constitutional: Negative for fever, chills, and weight loss, Eyes: Negative for injury, rn pain, redness, and discharge, ENT: + right jaw pain Cardiovascular: Negative for chest pain, palpitations Respiratory: Negative for shortness of breath, cough, wheezing, and pleuritic chest pain, Abdomen/GI: Negative for abdominal pain, nausea, vomiting, diarrhea, and constipation, Back: Negative for injury and pain, MS/Extremity: Negative for injury and deformity, Skin: Negative for injury, rash, and discoloration, Neuro: Negative for headache, weakness, numbness, tingling, and seizure. 00:32 All other systems are negative. Exam: 00:32 Constitutional: This is a well developed, well nourished patient who is awake, alert, rn holding right jaw Head/Face: Normocephalic, atraumatic. Eyes: Pupils equal round and reactive to light, extra-ocular motions intact. Lids and lashes normal. Conjunctiva and sclera are non-icteric and not injected. Cornea within normal limits. Periorbital areas with no swelling, redness, or edema. ENT: + poor dentition without introral abscess or swelling, + mild tenderness along right submandibular region without swelling/crepitus. Normal right TM. Neck: Trachea midline, no masses palpated, + mildly tender right cervical LAD Cardiovascular: Regular rate and rhythm. No pulse deficits. Respiratory: No increased work of breathing, no retractions or nasal flaring. Skin: Warm, dry, no erythema of lower ext, + chronic lymphedema changes bilateral lower ext MS/ Extremity: Pulses equal, no cyanosis. Neurovascular intact. Full, normal range of motion. Equal circumference. Neuro: Awake and alert, GCS 15, oriented to person, place, time, and situation. Cranial nerves II-XII grossly intact. Motor strength 5/5 in all extremities. Sensory grossly intact. Vital Signs: 00:10 BP 145 / 63; Pulse 61; Resp 16 S; Temp 98.1(O); Pulse Ox 99% on R/A; Weight 149.23 kg bb (R); Height 5 ft. 7 in. (170.18 cm) (R); Pain 9/10; 00:10 Body Mass Index 51.53 (149.23 kg, 170.18 cm) bb MDM: 00:22 Patient medically screened. rn 00:32 Differential diagnosis: dental caries, dental abscess, lymphadenitis, otitis. Data rn reviewed: vital signs, nurses notes, and as a result, I will discharge patient. Counseling: I had a detailed discussion with the patient and/or guardian regarding: the historical points, exam findings, and any diagnostic results supporting the discharge/admit diagnosis, the need for outpatient follow up, to return to the emergency department if symptoms worsen or persist or if there are any questions or concerns that arise at home. Response to treatment: the patient's symptoms have mildly improved after treatment, and as a result, I will discharge patient. Special discussion: I discussed with the patient/guardian in detail that at this point there is no indication for admission to the hospital. It is understood, however, that if the symptoms persist or worsen the patient needs to return immediately for re-evaluation. Administered Medications: 00:47 Drug: TORadol 30 mg Route: IM; Site: left deltoid; jb4 01:07 Follow up: Response: No adverse reaction; Pain is decreased jb4 00:48 Drug: Bactrim (160 mg-800 mg (DS) 1 tablet Route: PO; jb4 01:07 Follow up: Response: No adverse reaction jb4 Disposition: 06/03/20 00:36 Discharged to Home. Impression: Dental caries, Acute lymphadenitis of face, head and neck. - Condition is Stable. - Discharge Instructions: Lymphadenopathy. - Prescriptions for Bactrim DS 800- 160 mg Oral Tablet - take 1 tablet by ORAL route every 12 hours for 10 days; 20 tablet. Tylenol- Codeine #3 300-30 mg Oral Tablet - take 1 tablet by ORAL route every 6 hours As needed; 15 tablet. - Medication Reconciliation Form, Thank You Letter, Antibiotic Education, Prescription Opioid Use form. - Follow up: Private Physician; When: As needed; Reason: Recheck today's complaints, Re-evaluation by your physician. - Problem is new. - Symptoms have improved. Signatures: Jennifer Zamudio RN RN bb Nieto, Roman, MD MD rn Bryson, James, RN RN jb4 Corrections: (The following items were deleted from the chart) 01:07 00:36 06/03/2020 00:36 Discharged to Home. Impression: Dental caries; Acute jb4 lymphadenitis of face, head and neck. Condition is Stable. Forms are Medication Reconciliation Form, Thank You Letter, Antibiotic Education, Prescription Opioid Use. Follow up: Private Physician; When: As needed; Reason: Recheck today's complaints, Re-evaluation by your physician. Problem is new. Symptoms have improved. rn
--- NOTE | 2020-06-03 00:38 | ER ---
Nurse's Notes [facility] Name: Mica Baker Age: 60 yrs Sex: Female : 1960 Arrival Date: 06/02/2020 Time: 23:57 Bed 17 Private MD: Diagnosis: Dental caries;Acute lymphadenitis of face, head and neck Presentation: 06/03 00:10 Chief complaint: Patient states: she is having right jaw pain radiating down her neck bb thinks she may have a bad tooth she is also having right foot pain which is starting to swell a little. Coronavirus screen: At this time, the client does not indicate any symptoms associated with coronavirus-19. Ebola Screen: No symptoms or risks identified at this time. Initial Sepsis Screen: Does the patient meet any 2 criteria? No. Patient's initial sepsis screen is negative. Does the patient have a suspected source of infection? No. Patient's initial sepsis screen is negative. Risk Assessment: Do you want to hurt yourself or someone else? Patient reports no desire to harm self or others. Onset of symptoms was June 03, 2020. 00:10 Method Of Arrival: Ambulatory bb 00:10 Acuity: LUCIANO 3 bb Historical: - Allergies: 00:13 Iodine; bb 00:13 Latex, Natural Rubber; bb 00:13 Hydrochlorothiazide; bb 00:13 telisitine; bb - PMHx: 00:13 lymphadema; Cellulitis; bb - PSHx: 00:13 ; bb - Immunization history:: Adult Immunizations up to date. - Social history:: Smoking status: Patient denies any tobacco usage or history of. - Family history:: not pertinent. - Hospitalizations: : No recent hospitalization is reported. Screenin:48 Abuse screen: Denies threats or abuse. Nutritional screening: No deficits noted. jb4 Tuberculosis screening: No symptoms or risk factors identified. Fall Risk None identified. Assessment: 00:48 General: Appears in no apparent distress. uncomfortable, Behavior is calm, cooperative, jb4 appropriate for age. Pain: Complains of pain in right ear Pain does not radiate. Pain currently is 9 out of 10 on a pain scale. Neuro: Level of Consciousness is awake, alert, obeys commands, Oriented to person, place, time, situation. Cardiovascular: Patient's skin is warm and dry. Respiratory: Airway is patent Respiratory effort is even, unlabored, Respiratory pattern is regular, symmetrical. GI: No signs and/or symptoms were reported involving the gastrointestinal system. : No signs and/or symptoms were reported regarding the genitourinary system. EENT: Reports pain in right ear. Derm: Skin is intact, Skin is pink, warm \T\ dry. Musculoskeletal: Circulation, motion, and sensation intact. Range of motion: intact in all extremities. 00:53 Reassessment: PT on shot time. jb4 Vital Signs: 00:10 BP 145 / 63; Pulse 61; Resp 16 S; Temp 98.1(O); Pulse Ox 99% on R/A; Weight 149.23 kg bb (R); Height 5 ft. 7 in. (170.18 cm) (R); Pain 9/10; 00:10 Body Mass Index 51.53 (149.23 kg, 170.18 cm) bb ED Course: 06/02 23:57 Patient arrived in ED. cl3 06/03 00:12 Triage completed. bb 00:13 Arm band placed on Patient placed in an exam room, on a stretcher, on pulse oximetry. bb 00:21 Vaibhav Verde MD is Attending Physician. rn 00:38 Andi Gutierrez, ALFONSO is Primary Nurse. jb4 00:48 Patient has correct armband on for positive identification. Bed in low position. Call jb4 light in reach. Side rails up X 1. 00:48 No provider procedures requiring assistance completed. Patient did not have IV access jb4 during this emergency room visit. Administered Medications: 00:47 Drug: TORadol 30 mg Route: IM; Site: left deltoid; jb4 01:07 Follow up: Response: No adverse reaction; Pain is decreased jb4 00:48 Drug: Bactrim (160 mg-800 mg (DS) 1 tablet Route: PO; jb4 01:07 Follow up: Response: No adverse reaction jb4 Outcome: 00:36 Discharge ordered by . rn 01:06 Discharged to home ambulatory. jb4 01:06 Condition: stable 01:06 Discharge instructions given to patient, Instructed on discharge instructions, follow up and referral plans. no driving heavy equipment, Demonstrated understanding of instructions, follow-up care, medications, Prescriptions given X 2. 01:07 Patient left the ED. jb4 Signatures: Jennifer Zamudio RN RN bb Vaibhav Verde MD MD rn Bryson, James, RN RN jb4 Radha Carver cl3
[2020-06-03] MEDS ORDERED: KETOROLAC 30 MG/ML INJ ONE (01:00)
[2020-06-03] MEDS ORDERED: SMZ./TMP. 800/160 MG TABLET ONE (01:00)
[2020-06-03 01:11] VITALS: BP 145/63; TEMP 98.1; O2SAT 99
== END 2020-06-03 01:07 | disposition home or self-care (01) ==
LOC: ER 23:56
DX: K02.9 Dental caries, unspecified (principal); L04.0 Acute lymphadenitis of face, head and neck; Z88.8 Allergy status to other drugs, medicaments and biological substances; Z91.040 Latex allergy status; Z91.048 Other nonmedicinal substance allergy status
CPT/HCPCS: 96372; 99283

== ENCOUNTER 2020-08-28 21:46 | Emergency (ER) | payer OTHER ==
--- NOTE | 2020-08-28 22:30 | ER ---
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 Bleeding controlled at this time that patient placed prior to arrival. Bleeding reportedly began 20-30 minutes ago. Coronavirus screen: Client denies travel out of the [place] in the last 14 days. Ebola Screen: Patient denies exposure to infectious person. Patient denies travel to an Ebola-affected area in the 21 days before illness onset. Initial Sepsis Screen: Does the patient meet any 2 criteria? No. Patient's initial sepsis screen is negative. Does the patient have a suspected source of infection? No. Patient's initial sepsis screen is negative. Risk Assessment: Do you want to hurt yourself or someone else? Patient reports no desire to harm self or others. Onset of symptoms was August 28, 2020. 22:00 Method Of Arrival: Ambulatory ss 22:00 Acuity: LUCIANO 4 ss Triage Assessment: 22:15 General: Appears in no apparent distress. Behavior is calm, cooperative. Pain: Denies ak2 pain. Historical: - Allergies: 22:02 Hydrochlorothiazide; ss 22:02 Iodine; ss 22:02 Latex, Natural Rubber; ss 22:02 telisitine; ss - PMHx: 22:02 Cellulitis; Hypertension; Lymphadema; ss - PSHx: 22:02 ; ss - Immunization history:: Adult Immunizations up to date. - Social history:: Smoking status: Patient denies any tobacco usage or history of. Screenin:03 Abuse screen: Denies threats or abuse. Denies injuries from another. Nutritional ss screening: No deficits noted. Tuberculosis screening: Never had TB. Fall Risk None identified. Assessment: 22:20 General: Appears in no apparent distress. comfortable, Behavior is calm, cooperative, jm8 appropriate for age. Pain: Complains of pain in right ankle Pain currently is 2 out of 10 on a pain scale. Quality of pain is described as aching. Neuro: No deficits noted. Level of Consciousness is awake, alert, obeys commands, Oriented to person, place, time. Cardiovascular: No deficits noted. Cardiovascular: Reports varicose vein burst in right ankle 1 hour prior to arrival. Respiratory: No deficits noted. Airway is patent Trachea midline Respiratory effort is even, unlabored, Respiratory pattern is regular, symmetrical. GI: No deficits noted. No signs and/or symptoms were reported involving the gastrointestinal system. : No deficits noted. No signs and/or symptoms were reported regarding the genitourinary system. EENT: No deficits noted. No signs and/or symptoms were reported regarding the EENT system. Derm:. Derm: No deficits noted. No signs and/or symptoms reported regarding the dermatologic system. Musculoskeletal: No deficits noted. No signs and/or symptoms reported regarding the musculoskeletal system. Vital Signs: 22:00 BP 160 / 69; Pulse 68; Resp 18; Temp 98.3(O); Pulse Ox 100% on R/A; Weight 154.22 kg; Height 5 ft. 7 in. (170.18 cm); Pain 0/10; 22:39 BP 142 / 76; Pulse 71; Resp 20; Pulse Ox 97% on R/A; ak2 22:00 Body Mass Index 53.25 (154.22 kg, 170.18 cm) ED Course: 21:49 Patient arrived in ED. bp1 21:59 Amado Ruiz MD is Attending Physician. [facility] 22:02 Triage completed. 22:02 Arm band placed on right wrist. 22:03 Patient has correct armband on for positive identification. Bed in low position. Call light in reach. Side rails up X 1. 22:14 Ruel Greenberg is Primary Nurse. ak2 22:15 No provider procedures requiring assistance completed. ak2 Administered Medications: No medications were administered Outcome: 22:30 Discharge ordered by . 7 22:40 Discharged to home ambulatory. ak2 22:40 Condition: good 22:40 Discharge instructions given to patient. 22:40 Patient left the ED. ak2 Signatures: Gabriella Morrell, ALFONSO RN Annelise Harrison bp1 Amado Ruiz MD MD [facility] Sam Norris RN RN jm8 Ruel Greenberg ak2
--- NOTE | 2020-08-28 22:30 | EDPHYS ---
Physician Documentation [facility] Name: Mica Baker Age: 60 yrs Sex: Female : 1960 Arrival Date: 08/28/2020 Time: 21:49 Bed 17 Private MD: SAMSON Physician Amado Ruiz HPI: 08/28 22:13 This 60 yrs old Female presents to ER via Ambulatory with complaints of mh7 Bleeding from Ankle. 22:13 The patient presents with Bleeding varicose vein. The complaints affect the right mh7 ankle. Onset: The symptoms/episode began/occurred just prior to arrival, today. Context: The problem was sustained at home, resulted from an unknown cause, None The patient can fully bear weight on the affected extremity. the patient is able to ambulate, without difficulty. Associated signs and symptoms: Pertinent negatives: calf tenderness, fever, nausea, numbness, rash, swelling, tingling, vomiting, warmth, weakness. Modifying factors: The symptoms are alleviated by Applying pressure to area the symptoms are aggravated by nothing. Severity of symptoms: At their worst the symptoms were mild, earlier today, in the emergency department the symptoms have resolved, and did so while in waiting room. Historical: - Allergies: 22:02 Hydrochlorothiazide; ss 22:02 Iodine; ss 22:02 Latex, Natural Rubber; ss 22:02 telisitine; ss - PMHx: 22:02 Cellulitis; Hypertension; Lymphadema; ss - PSHx: 22:02 ; ss - Immunization history:: Adult Immunizations up to date. - Social history:: Smoking status: Patient denies any tobacco usage or history of. ROS: 22:13 Constitutional: Negative for fever, chills, and weight loss, Eyes: Negative for injury, mh7 pain, redness, and discharge, ENT: Negative for injury, pain, and discharge, Neck: Negative for injury, pain, and swelling, Cardiovascular: Negative for chest pain, palpitations, and edema, Respiratory: Negative for shortness of breath, cough, wheezing, and pleuritic chest pain, Abdomen/GI: Negative for abdominal pain, nausea, vomiting, diarrhea, and constipation, Back: Negative for injury and pain, : Negative for injury, bleeding, discharge, and swelling, Neuro: Negative for headache, weakness, numbness, tingling, and seizure, Psych: Negative for depression, anxiety, suicide ideation, homicidal ideation, and hallucinations, Allergy/Immunology: Negative for hives, rash, and allergies, Endocrine: Negative for neck swelling, polydipsia, polyuria, polyphagia, and marked weight changes, Hematologic/Lymphatic: Negative for swollen nodes, abnormal bleeding, and unusual bruising. Exam: 22:13 Constitutional: This is a well developed, well nourished patient who is awake, alert, mh7 and in no acute distress. Head/Face: Normocephalic, atraumatic. Eyes: Pupils equal round and reactive to light, extra-ocular motions intact. Lids and lashes normal. Conjunctiva and sclera are non-icteric and not injected. Cornea within normal limits. Periorbital areas with no swelling, redness, or edema. Chest/axilla: Normal chest wall appearance and motion. Nontender with no deformity. No lesions are appreciated. Cardiovascular: Regular rate and rhythm with a normal S1 and S2. No gallops, murmurs, or rubs. Normal PMI, no JVD. No pulse deficits. Respiratory: Lungs have equal breath sounds bilaterally, clear to auscultation and percussion. No rales, rhonchi or wheezes noted. No increased work of breathing, no retractions or nasal flaring. Abdomen/GI: Soft, non-tender, with normal bowel sounds. No distension or tympany. No guarding or rebound. No evidence of tenderness throughout. 22:13 Neuro: Awake and alert, GCS 15, oriented to person, place, time, and situation. Cranial nerves II-XII grossly intact. Motor strength 5/5 in all extremities. Sensory grossly intact. Cerebellar exam normal. Normal gait. Psych: Awake, alert, with orientation to person, place and time. Behavior, mood, and affect are within normal limits. 22:13 Musculoskeletal/extremity: Extremities: noted in the right medial ankle: small pinpoint ulcerated area <0.25 cm, no active bleeding, multiple small varicose veins, ROM: intact in all extremities, Circulation is intact in all extremities. Sensation intact. Compartment Syndrome exam of affected extremity: is normal. no pain, no numbness, no tingling, no sensation deficit, no palor, no weak pulses, Joints: All joints appear normal with full range of motion. Weight bearing: able to fully bear weight, without difficulty, Tendon exam: specific tendon testing normal through active and passive range of motion 22:13 Skin: right medial small pinpoint ulcerated area < 0.25 cm, no active bleeding, multiple small varicose veins. Vital Signs: 22:00 BP 160 / 69; Pulse 68; Resp 18; Temp 98.3(O); Pulse Ox 100% on R/A; Weight 154.22 kg; ss Height 5 ft. 7 in. (170.18 cm); Pain 0/10; 22:39 BP 142 / 76; Pulse 71; Resp 20; Pulse Ox 97% on R/A; ak2 22:00 Body Mass Index 53.25 (154.22 kg, 170.18 cm) ss Procedures: 22:25 Performed Varicose Vein Care. Surgicel and Vaseline gauze dressing to right medial mh7 ankle. No active bleeding. Neurovascularly intact after dressing placement.. MDM: 22:25 Differential diagnosis: cellulitis, puncture wound, abrasion, varicose vein bleeding. [facility] Data reviewed: vital signs, nurses notes. Counseling: I had a detailed discussion with the patient and/or guardian regarding: the historical points, exam findings, and any diagnostic results supporting the discharge/admit diagnosis, the need for outpatient follow up, to return to the emergency department if symptoms worsen or persist or if there are any questions or concerns that arise at home. Response to treatment: the patient's symptoms have resolved after treatment, the patient's blood pressure is in an acceptable range, mental status has returned to baseline, the patient no longer shows bradycardia, the patient is not short of breath, the patient is not tachycardic, the patient's pain is gone, the patient's temperature has normalized. 22:30 Patient medically screened. [facility] 08/28 22:30 Order name: Jas Wrap; Complete Time: 22:31 [facility] Administered Medications: No medications were administered Disposition: 08/28/20 22:30 Discharged to Home. 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 - Condition is Stable. - Discharge Instructions: Varicose Veins, Venous Ulcer, [id number]. - Medication Reconciliation Form, Thank You Letter, Antibiotic Education, Prescription Opioid Use form. - Follow up: Private Physician; When: 1 - 2 days; Reason: Wound Recheck, Worsening of condition, Recheck today's complaints, Continuance of care, Re-evaluation by your physician. - Problem is new. - Symptoms are resolved. Signatures: Gabriella Morrell RN RN Amado Ortiz MD MD [facility] Ruel Greenberg ak2 Corrections: (The following items were deleted from the chart) 22:40 22:30 08/28/2020 22:30 Discharged to Home. Impression: Varicose veins of right lower ak2 extremity with ulcer of ankle - Bleeding, Resolved. Condition is Stable. Forms are Medication Reconciliation Form, Thank You Letter, Antibiotic Education, Prescription Opioid Use. Follow up: Private Physician; When: 1 - 2 days; Reason: Wound Recheck, Worsening of condition, Recheck today's complaints, Continuance of care, Re-evaluation by your physician. Problem is new. Symptoms are resolved. mh7
[2020-08-28 22:51] VITALS: TEMP 98.3
[2020-08-28 22:52] VITALS: BP 142/76; O2SAT 97
== END 2020-08-28 22:40 | disposition home or self-care (01) ==
LOC: ER 21:46
DX: I83.013 Varicose veins of right lower extremity with ulcer of ankle (principal); I10 Essential (primary) hypertension; Z88.8 Allergy status to other drugs, medicaments and biological substances; Z91.040 Latex allergy status; Z91.048 Other nonmedicinal substance allergy status
CPT/HCPCS: 99281

== ENCOUNTER 2020-09-09 17:13 | Emergency (ER) | payer OTHER ==
--- NOTE | 2020-09-09 17:38 | ER ---
Nurse's Notes [facility] Name: Mica Baker Age: 60 yrs Sex: Female : 1960 Arrival Date: 09/09/2020 Time: 17:18 Bed 19 Private MD: Diagnosis: Dental caries Presentation: 09/09 17:20 Chief complaint: Patient states: "I don't know if it is my jaw or my ear, but my right jd3 side of my head hurt and it comes down through my neck.". Coronavirus screen: At this time, the client does not indicate any symptoms associated with coronavirus-19. Ebola Screen: Patient negative for fever greater than or equal to 101.5 degrees Fahrenheit, and additional compatible Ebola Virus Disease symptoms. Initial Sepsis Screen: Does the patient meet any 2 criteria? No. Patient's initial sepsis screen is negative. Does the patient have a suspected source of infection? No. Patient's initial sepsis screen is negative. Risk Assessment: Do you want to hurt yourself or someone else? Patient reports no desire to harm self or others. Note Tylenol at 1500. Onset of symptoms was September 08, 2020. 17:20 Acuity: LUCIANO 4 jd3 17:20 Method Of Arrival: Ambulatory jd3 Triage Assessment: 17:47 General: Appears uncomfortable, Behavior is calm, cooperative. Pain: Complains of pain zb in right ear and right jaw Pain currently is 10 out of 10 on a pain scale. Quality of pain is described as aching, tender. EENT: Ear canal clear on right ear and left ear Oral mucosa is dry. Poor dentition noted. Dental caries noted in lower left third molar (#17), lower right second bicuspid (#29), lower right first molar (#30), lower right second molar (#31) and lower right third molar (#32). Neuro: Level of Consciousness is awake, alert, obeys commands, Oriented to person, place, time, situation, Appropriate for age. Cardiovascular: Patient's skin is warm and dry. Respiratory: Airway is patent Respiratory effort is even, unlabored, Respiratory pattern is regular, symmetrical. GI: No deficits noted. Musculoskeletal: Circulation, motion, and sensation intact. Range of motion: intact in all extremities. Historical: - Allergies: 17:23 telisitine; jd3 17:23 Iodine; jd3 17:23 Latex, Natural Rubber; jd3 17:23 Hydrochlorothiazide; jd3 - Home Meds: 17:23 None [Active]; jd3 - PMHx: 17:23 Cellulitis; Hypertension; Lymphadema; jd3 - PSHx: 17:23 ; jd3 - Immunization history:: Adult Immunizations up to date. - Social history:: Smoking status: Patient denies any tobacco usage or history of. Screenin:47 Abuse screen: Denies threats or abuse. Denies injuries from another. Nutritional zb screening: No deficits noted. On. Tuberculosis screening: No symptoms or risk factors identified. Fall Risk None identified. Vital Signs: 17:23 BP 151 / 73; Pulse 70; Resp 17 S; Temp 97.8(TE); Pulse Ox 98% on R/A; Weight 154.22 kg jd3 (R); Height 5 ft. 7 in. (170.18 cm) (R); Pain 8/10; 17:47 BP 141 / 90; Pulse 70; Resp 18; Pulse Ox 100% on R/A; zb 17:23 Body Mass Index 53.25 (154.22 kg, 170.18 cm) jd3 ED Course: 17:18 Patient arrived in ED. mr 17:22 Triage completed. jd3 17:24 Arm band placed on. jd3 17:25 Carlee Mixon, ALFONSO is Primary Nurse. zb 17:26 Carson Shore NP is PHCP. pm1 17:27 Faith Velazquez MD is Attending Physician. pm1 17:48 No provider procedures requiring assistance completed. Patient did not have IV access zb during this emergency room visit. 17:49 Patient has correct armband on for positive identification. Pulse ox on. NIBP on. zb Administered Medications: 17:46 Drug: [place] (HYDROcodone-acetaminophen) 10 mg-325 mg 1 tabs {Note: RASS +1.} Route: PO; zb 17:46 Follow up: Response: Medication administered at discharge. zb 17:46 Drug: Ondansetron 4 mg Route: PO; zb 17:47 Follow up: Response: Medication administered at discharge. zb Outcome: 17:37 Discharge ordered by . pm1 17:49 Discharged to home ambulatory. zb 17:49 Condition: stable 17:49 Discharge instructions given to patient, Instructed on discharge instructions, follow up and referral plans. medication usage, Demonstrated understanding of instructions, follow-up care, medications, Prescriptions given X 2. 17:49 Patient left the ED. evelio Signatures: Sommer Centeno mr ShoreCarson, DOUGHNUT MACHINE OPERATOR DOUGHNUT MACHINE OPERATOR pm1 Jero Albarado RN RN Carlee Sherman RN RN zb
--- NOTE | 2020-09-09 17:38 | EDPHYS ---
Physician Documentation [facility] Name: Mica Baker Age: 60 yrs Sex: Female : 1960 Arrival Date: 09/09/2020 Time: 17:18 Bed 19 Private MD: ED Physician Faith Velazquez HPI: 09/09 17:41 This 60 yrs old Female presents to ER via Ambulatory with complaints of Ear pm1 Pain. 17:41 The patient presents with pain, to right ear and right lower jaw. The problem is pm1 located in the lower right second molar and lower right third molar. 17:41 Onset: The symptoms/episode began/occurred yesterday. Duration: The symptoms are pm1 continuous. Modifying factors: The symptoms are alleviated by nothing. Associated signs and symptoms: Pertinent negatives: fever. Severity of symptoms: in the emergency department the symptoms are actually worse. Patient reports crown on teeth have been missing since 2001. Historical: - Allergies: 17:23 telisitine; jd3 17:23 Iodine; jd3 17:23 Latex, Natural Rubber; jd3 17:23 Hydrochlorothiazide; jd3 - Home Meds: 17:23 None [Active]; jd3 - PMHx: 17:23 Cellulitis; Hypertension; Lymphadema; jd3 - PSHx: 17:23 ; jd3 - Immunization history:: Adult Immunizations up to date. - Social history:: Smoking status: Patient denies any tobacco usage or history of. ROS: 17:41 Constitutional: Negative for fever, chills, and weight loss. pm1 17:41 Neck: Negative for injury, pain, and swelling, Cardiovascular: Negative for chest pain, palpitations, and edema, Respiratory: Negative for shortness of breath, cough, wheezing, and pleuritic chest pain, Abdomen/GI: Negative for abdominal pain, nausea, vomiting, diarrhea, and constipation, Neuro: Negative for headache, weakness, numbness, tingling, and seizure. 17:41 ENT: Positive for dental pain, ear pain, Negative for sore throat, difficulty swallowing, difficulty handling secretions, hoarseness. 17:41 All other systems are negative. Exam: 17:41 Constitutional: This is a well developed, well nourished patient who is awake, alert, pm1 and in no acute distress. Head/Face: Normocephalic, atraumatic. 17:41 Neck: Trachea midline, no thyromegaly or masses palpated, and no cervical lymphadenopathy. Supple, full range of motion without nuchal rigidity, or vertebral point tenderness. No Meningismus. 17:41 Skin: Warm, dry with normal turgor. Normal color with no rashes, no lesions, and no evidence of cellulitis. MS/ Extremity: Pulses equal, no cyanosis. Neurovascular intact. Full, normal range of motion. 17:41 Eyes: Exam is negative for acute changes, Extraocular movements: no acute changes. 17:41 ENT: External ear(s): are unremarkable, Ear canal(s): are normal, TM's: are normal, Mouth: Lips: normal, Oral mucosa: normal, pink and intact, moist, Dental exam: dental caries, that is moderate, specifically in the lower right second molar (#31) and lower right third molar (#32). 17:41 Cardiovascular: Exam negative for acute changes, Rate: normal, Rhythm: regular, Pulses: no pulse deficits are appreciated. 17:41 Respiratory: Exam negative for acute changes, respiratory distress, shortness of breath. 17:41 Neuro: Exam negative for acute changes, Orientation: is normal, Mentation: is normal, Motor: is normal, moves all fours. Vital Signs: 17:23 BP 151 / 73; Pulse 70; Resp 17 S; Temp 97.8(TE); Pulse Ox 98% on R/A; Weight 154.22 kg jd3 (R); Height 5 ft. 7 in. (170.18 cm) (R); Pain 8/10; 17:47 BP 141 / 90; Pulse 70; Resp 18; Pulse Ox 100% on R/A; zb 17:23 Body Mass Index 53.25 (154.22 kg, 170.18 cm) jd3 MDM: 17:29 Patient medically screened. pm1 17:37 Data reviewed: vital signs. Data interpreted: Pulse oximetry: on room air is 98 %. pm1 Interpretation: normal. 17:41 ED course: [place]MP[place] reviewed. pm1 Administered Medications: 17:46 Drug: [place] (HYDROcodone-acetaminophen) 10 mg-325 mg 1 tabs {Note: RASS +1.} Route: PO; zb 17:46 Follow up: Response: Medication administered at discharge. zb 17:46 Drug: Ondansetron 4 mg Route: PO; zb 17:47 Follow up: Response: Medication administered at discharge. zb Disposition: 09/09/20 17:37 Discharged to Home. Impression: Dental caries. - Condition is Stable. - Discharge Instructions: Dental Pain. - Prescriptions for Augmentin 875- 125 mg Oral Tablet - take 1 tablet by ORAL route every 12 hours for 10 days; 20 tablet. Tylenol- Codeine #3 300-30 mg Oral Tablet - take 2 tablets by ORAL route every 6 hours As needed; 20 tablet. - Medication Reconciliation Form, Thank You Letter, Antibiotic Education, Prescription Opioid Use form. - Follow up: Emergency Department; When: As needed; Reason: Worsening of condition. Follow up: Private Physician; When: 2 - 3 days; Reason: Recheck today's complaints, Continuance of care, Re-evaluation by your physician. - Problem is new. - Symptoms have improved. Signatures: Carson Shore NP SENIOR COUNSEL pm1 Jero Albarado RN RN jd3 Brown, Zipporah, RN RN zb Corrections: (The following items were deleted from the chart) 17:49 17:37 09/09/2020 17:37 Discharged to Home. Impression: Dental caries. Condition is zb Stable. Forms are Medication Reconciliation Form, Thank You Letter, Antibiotic Education, Prescription Opioid Use. Follow up: Emergency Department; When: As needed; Reason: Worsening of condition. Follow up: Private Physician; When: 2 - 3 days; Reason: Recheck today's complaints, Continuance of care, Re-evaluation by your physician. Problem is new. Symptoms have improved. pm1 18:06 17:41 The patient presents with pain, pm1 pm1
[2020-09-09 17:54] VITALS: TEMP 97.8
[2020-09-09 17:56] VITALS: BP 141/90; O2SAT 100
[2020-09-09] MEDS ORDERED: ONDANSETRON 4 MG (ODT) TAB ONE (18:03)
[2020-09-09] MEDS ORDERED: HYDROCODONE/APAP 10/325 TAB ONE (18:03)
== END 2020-09-09 17:49 | disposition home or self-care (01) ==
LOC: ER 17:13
DX: K02.9 Dental caries, unspecified (principal); I10 Essential (primary) hypertension; Z88.8 Allergy status to other drugs, medicaments and biological substances; Z91.040 Latex allergy status; Z91.048 Other nonmedicinal substance allergy status
CPT/HCPCS: 99283

== ENCOUNTER 2020-09-27 09:59 | Emergency (ER) | payer OTHER ==
[2020-09-27] MEDS ORDERED: dexAMETHasone 10 MG/ML VIAL ONE (11:03)
[2020-09-27] MEDS ORDERED: DIPHENHYDRAMINE 25 MG TAB/CAP ONE (11:03)
--- NOTE | 2020-09-27 12:41 | ER ---
Nurse's Notes [facility] Name: Mica Baker Age: 60 yrs Sex: Female : 1960 Arrival Date: 09/27/2020 Time: 10:01 Bed 14 Private MD: Diagnosis: Allergy status to sulfonamides status Presentation: 09/27 10:16 Chief complaint: Patient states: pt went to clinic yesterday for swelling of her feet. tr6 possible cellulitis. pt states she took the abx prescribed to her mupirocin, sulfamethox, and amoxicillin and reports that she has swelling, redness, and itching of her face. Coronavirus screen: At this time, unable to obtain information related to travel outside the [place] Ebola Screen: No symptoms or risks identified at this time. Onset: The symptoms/episode began/occurred acutely. Anaphylaxis evaluation, redness of face. Initial Sepsis Screen: Does the patient meet any 2 criteria? No. Patient's initial sepsis screen is negative. Does the patient have a suspected source of infection? No. Patient's initial sepsis screen is negative. Risk Assessment: Do you want to hurt yourself or someone else? Patient reports no desire to harm self or others. Onset of symptoms was September 27, 2020. 10:16 Method Of Arrival: Ambulatory tr6 11:08 Acuity: LUCIANO 2 tr6 Triage Assessment: 10:18 General: Appears in no apparent distress. Behavior is calm, cooperative, appropriate tr6 for age. Pain: Complains of pain in face. EENT: redness of cheeks and some inflammation. Reports itching of cheeks. Neuro: No deficits noted. Cardiovascular: No deficits noted. Respiratory: No deficits noted. GI: No deficits noted. : No deficits noted. Derm: No deficits noted. Derm: No deficits noted. Skin is red. Musculoskeletal: No deficits noted. Historical: - Allergies: 10:18 hydrochlorothiazide; tr6 10:18 Iodine; tr6 10:18 Latex, Natural Rubber; tr6 10:18 telisitine; tr6 10:35 sulfa drugs; tr6 - PMHx: 10:18 Cellulitis; Hypertension; Lymphadema; tr6 - Immunization history:: Adult Immunizations up to date. - Social history:: Smoking status: unknown. Screenin:20 Abuse screen: Denies threats or abuse. Denies injuries from another. Nutritional tr6 screening: No deficits noted. Tuberculosis screening: No symptoms or risk factors identified. Fall Risk None identified. Assessment: 10:21 Reassessment: see triage assessment. tr6 10:21 Respiratory: Airway is patent Respiratory effort is even, unlabored, Respiratory tr6 pattern is regular, Parent/caregiver reports the patient having pt states "my tongue and throat are swelling." pt was able to ambulate to room with out a problem. pt speaking in clear full sentences with out requiring a break. pt clearing oral secretions without problem. Vital Signs: 11:07 BP 132 / 62; Pulse 52; Resp 18; Temp 97.9(O); Pulse Ox 100% on R/A; tr6 ED Course: 10:01 Patient arrived in ED. 10:02 Lorena Traore, RN is Primary Nurse. tr6 10:08 Andres Rosenbaum PA is PHCP. jr8 10:08 Vaibhav Verde MD is Attending Physician. jr8 10:20 Resting quietly. Awaiting ED provider evaluation. tr6 10:20 Patient has correct armband on for positive identification. Bed in low position. Call tr6 light in reach. Side rails up X 1. Door closed. Noise minimized. Visitors limited. Lights dimmed. Moved to private room. 10:20 No provider procedures requiring assistance completed. tr6 11:08 Triage completed. tr6 13:05 Patient did not have IV access during this emergency room visit. tr6 Administered Medications: 11:00 Drug: Decadron (dexamethasone) 10 mg Route: IM; Site: right deltoid; tr6 11:00 Drug: Benadryl (diphenhydrAMINE) 50 mg Route: PO; tr6 Outcome: 12:40 Discharge ordered by . jr8 13:05 Discharged to home ambulatory. tr6 13:05 Condition: stable 13:05 Discharge instructions given to patient, Instructed on discharge instructions, follow up and referral plans. no drinking with medication, medication usage, safety practices, Demonstrated understanding of instructions, follow-up care, medications, Prescriptions given X 1. 13:05 Patient left the ED. tr6 Signatures: Andres Rosenbaum PA PA jrLorena Snider, ALFONSO RN tr6 Annabelle Garcia
--- NOTE | 2020-09-27 12:41 | EDPHYS ---
Physician Documentation [facility] Name: Mica Baker Age: 60 yrs Sex: Female : 1960 Arrival Date: 09/27/2020 Time: 10:01 Bed 14 Private MD: ED Physician Vaibhav Verde HPI: 09/27 10:48 This 60 yrs old Female presents to ER via Ambulatory with complaints of jr8 Allergic Reaction. 10:48 The patient presents with rash. Onset: The symptoms/episode began/occurred acutely, jr8 today. Associated signs and symptoms: The patient has no apparent associated signs or symptoms. Possible causes: antibiotics, Bactrim. Severity of symptoms: At their worst the symptoms were mild in the emergency department the symptoms are unchanged. The patient has not experienced similar symptoms in the past. The patient has been recently seen by a physician:. Patient recently started on Bactrim and Augmentin for infected venous stasis ulcer. Stated that she started them yesterday. Since then has had redness to face and feels swollen on face. Historical: - Allergies: 10:18 hydrochlorothiazide; tr6 10:18 Iodine; tr6 10:18 Latex, Natural Rubber; tr6 10:18 telisitine; tr6 10:35 sulfa drugs; tr6 - PMHx: 10:18 Cellulitis; Hypertension; Lymphadema; tr6 - Immunization history:: Adult Immunizations up to date. - Social history:: Smoking status: unknown. ROS: 10:48 Constitutional: Negative for fever, chills, and weight loss, Eyes: Negative for injury, jr8 pain, redness, and discharge, ENT: Negative for injury, pain, and discharge, Neck: Negative for injury, pain, and swelling, Cardiovascular: Negative for chest pain, palpitations, and edema, Respiratory: Negative for shortness of breath, cough, wheezing, and pleuritic chest pain, Abdomen/GI: Negative for abdominal pain, nausea, vomiting, diarrhea, and constipation, Back: Negative for injury and pain, MS/Extremity: Negative for injury and deformity, Neuro: Negative for headache, weakness, numbness, tingling, and seizure. 10:48 Skin: Positive for erythema, of the face. Exam: 10:48 Constitutional: This is a well developed, well nourished patient who is awake, alert, jr8 and in no acute distress. Head/Face: Normocephalic, atraumatic. Eyes: Pupils equal round and reactive to light, extra-ocular motions intact. Lids and lashes normal. Conjunctiva and sclera are non-icteric and not injected. Cornea within normal limits. Periorbital areas with no swelling, redness, or edema. ENT: Nares patent. No nasal discharge, no septal abnormalities noted. Tympanic membranes are normal and external auditory canals are clear. Oropharynx with no redness, ulcerations, swelling, or masses, exudates, or evidence of obstruction, uvula midline. Mucous membranes moist. Neck: Trachea midline, no thyromegaly or masses palpated, and no cervical lymphadenopathy. Supple, full range of motion without nuchal rigidity, or vertebral point tenderness. No Meningismus. Cardiovascular: Regular rate and rhythm with a normal S1 and S2. No gallops, murmurs, or rubs. Normal PMI, no JVD. No pulse deficits. Respiratory: Lungs have equal breath sounds bilaterally, clear to auscultation and percussion. No rales, rhonchi or wheezes noted. No increased work of breathing, no retractions or nasal flaring. Abdomen/GI: Soft, non-tender, with normal bowel sounds. No distension or tympany. No guarding or rebound. No evidence of tenderness throughout. Back: No spinal tenderness. No costovertebral tenderness. Full range of motion. MS/ Extremity: Pulses equal, no cyanosis. Neurovascular intact. Full, normal range of motion. Neuro: Awake and alert, GCS 15, oriented to person, place, time, and situation. Motor strength 5/5 in all extremities. Sensory grossly intact. 10:48 Skin: mild erythema noted to forehead and cheeks. No lesions or peeling of skin . Vital Signs: 11:07 BP 132 / 62; Pulse 52; Resp 18; Temp 97.9(O); Pulse Ox 100% on R/A; tr6 MDM: 10:08 Patient medically screened. jr8 10:48 Data reviewed: vital signs, nurses notes. Data interpreted: Pulse oximetry: on room air jr8 is 100 %. Interpretation: normal. Counseling: I had a detailed discussion with the patient and/or guardian regarding: the historical points, exam findings, and any diagnostic results supporting the discharge/admit diagnosis, the need for outpatient follow up, a family practitioner, to return to the emergency department if symptoms worsen or persist or if there are any questions or concerns that arise at home. ED course: Discussed with patient that this is most likely a sulfa allergy. Will treat as such. Needs to monitor herself closely at home for worsening of condition. S/S given to watch for. If worse to immediately come back. Patient good with plan. Explained to her that she could no longer take sulfa based medications and to notify her PCP of this and make sure she adds it to her allergy list. Administered Medications: 11:00 Drug: Decadron (dexamethasone) 10 mg Route: IM; Site: right deltoid; tr6 11:00 Drug: Benadryl (diphenhydrAMINE) 50 mg Route: PO; tr6 Disposition: 15:33 Co-signature as Attending Physician, Vaibhav Verde MD I agree with the assessment and rn plan of care. Disposition Summary: 09/27/20 12:40 Discharge Ordered Location: Home jr8 Problem: new jr8 Symptoms: have improved jr8 Condition: Stable jr8 Diagnosis - Allergy status to sulfonamides status jr8 Followup: jr8 - With: Private Physician - When: 2 - 3 days - Reason: Recheck today's complaints, Continuance of care, Re-evaluation by your physician Discharge Instructions: - Discharge Summary Sheet jr8 - Allergies, Adult jr8 Forms: - Medication Reconciliation Form jr8 - Thank You Letter jr8 - Antibiotic Education jr8 - Prescription Opioid Use jr8 Prescriptions: - Prednisone 20 mg Oral Tablet - take 1 tablet by ORAL route once daily for 5 days; 5 tablet; Refills: 0, jr8 Product Selection Permitted Signatures: Vaibhav Verde MD MD rn Roszak, Josh, PA PA jr8 Lorena Traore RN RN tr6
[2020-09-27 13:12] VITALS: BP 132/62; TEMP 97.9; O2SAT 100
== END 2020-09-27 13:05 | disposition home or self-care (01) ==
LOC: ER 09:59
DX: R21 Rash and other nonspecific skin eruption (principal); Z88.2 Allergy status to sulfonamides; I10 Essential (primary) hypertension; Z88.8 Allergy status to other drugs, medicaments and biological substances; Z91.040 Latex allergy status; Z91.048 Other nonmedicinal substance allergy status
CPT/HCPCS: 96372; 99283; J1100

== ENCOUNTER 2021-02-07 14:18 | Emergency (ER) | payer OTHER ==
--- OUTSIDE RECORDS SUMMARY | 2021-02-07 14:22 | XMS REPORT | Continuity of Care Document ---
:1960 Author Organization [facility] Address [address] [place] [address] [address] [place] [address] Care Team Providers Name Role Phone Pcp, Does Not Have A Primary Care Physician Tomás LUCERO Attending Clinician TOMÁS Attending Clinician Unavailable Payers Payer Name Policy Type Policy Number Effective Date Expiration Date S ource Problems This patient has no known problems. Allergies, Adverse Reactions, Alerts Allergy Allergy Status Severity Reaction(s) Onset Inactive Treating Comm ents Source Name Type Date Date Clinician NO KNOWN Drug Active [facility] ALLERGIE [facility] Social History Social Habit Start Date Stop Date Quantity Comments Source Sex Assigned At [birth year] [facility] 00:00:00 00:00:00 [facility] Smoking Status Start Date Stop Date Source Unknown if ever smoked [facility] Medications This patient has no known medications. Procedures Procedure Date / Time Performing Clinician Source Performed LOWER EXTREMITY ARTERIAL 2020-11-15 16:42:00 Danette Vargas [facility] DUPLEX BILATERAL - BY [facility] VASCULAR LAB DUPLEX VENOUS LEGS 2020-11-15 15:29:00 Danette Vargas [facility] BILATERAL - BY VASCULAR [facility] LAB [facility] PATIENT FINANCIAL 2020-11-15 14:05:44 Doctor Unavinodigned, [facility] POLICY [facility] NO SHOW OR MISSED 2020-11-15 14:05:20 Doctor Slick, [facility] APPOINTMENT POLICY [place] [facility] ACKNOWLEDGEMENT NOTICE OF PRIVACY 2020-11-15 14:05:00 Doctor Slick, [facility] PRACTICES [facility] CONSENT/REFUSAL FOR 2020-11-15 14:04:43 Doctor Unassigned, Unive [facility] DIAGNOSIS AND TREATMENT [facility] ASSIGNMENT OF BENEFITS 2020-11-15 14:04:27 Doctor Unassigned, Saul [facility] Encounters Start End Encounter Admission Attending Care Care Encounter Source Date/Time Date/Time Type Type Clinicians Facility Department ID 2020-12-25 2020-12-25 Telephone [facility] [id number] [facility] 00:00:00 00:00:00 Sosa [facility] [id number] ity of [place] [id number] [place] [id number] [facility] 059 Branch 2020-11-15 2020-11-15 [facility] [id number] Univers 09:10:44 23:59:00 Encounter Rhodasergveronica Kaur [id number] ity of [place] [id number] [facility] [id number] [facility] 850 Branch 2020-11-15 2020-11-15 [facility] [id number] Univers 09:00:00 09:09:00 Encounter Sosa Kaur [id number] ity of [place] [id number] [facility] [id number] [facility] 850 Branch 2020-11-15 2020-11-15 Outpatient R [facility] [id number] Univers 00:00:00 00:00:00 SOSA anderson o f [facility] Results This patient has no known results.
[2021-02-07 15:19] LABS: Urine Blood 3+ (Negative); Urine Glucose Negative (Negative); Urine Protein 3+ (Negative); Urine Specific Gravity 1.025 (1.005-1.030); Urine pH 6.5 (5.0-7.0)
[2021-02-07 15:20] LABS: Absolute Lymphocytes (CBC) 1.3 K/uL (0.7-4.9); Basophils % 0.4 % (0-1.3); Lymphocytes % 14.9 % (15.3-44.8); MPV 7.8 fL (7.6-11.3); RBC Red Blood Cell Count 4.16 M/uL (3.86-4.86)
[2021-02-07 15:36] LABS: Albumin 3.2 g/dL (3.4-5.0); Bilirubin Direct 0.2 mg/dL (0-0.2); Bilirubin Total 0.4 mg/dL (0.2-1.0); Potassium 3.7 mmol/L (3.5-5.1); Protein, Total 7.3 g/dL (6.4-8.2)
[2021-02-07 16:00] LABS: Urine Bacteria <20 /HPF (<20); Urine RBC 20-50 /HPF (NONE SEEN)
--- NOTE | 2021-02-07 17:30 | RAD REPORT ---
EXAM DESCRIPTION: CTStone Protocol - 02/07/2021 5:09 pm CLINICAL HISTORY: ABD PAIN COMPARISON: CT-STONE PROTOCOL dated 03/18/2011 TECHNIQUE: CT of the abdomen and pelvis was performed. All CT scans are performed using dose optimization technique as appropriate and may include automated exposure control or mA/KV adjustment according to patient size. FINDINGS: Lower chest: No acute abnormality. Liver: No acute abnormality or suspicious lesions. Biliary: No biliary ductal dilatation. Cholelithiasis. Stomach: No significant focal abnormality. Duodenum: No significant focal abnormality. Pancreas: No significant abnormality. Spleen: No significant abnormality. Adrenal: No suspicious lesions. Kidney/ureter: Moderate left-sided hydronephrosis. There is renal cortical thinning that is mild. No stones. Retroperitoneum: No retroperitoneal adenopathy. Vascular: No aneurysm. Bowel: No significant focal abnormality. Peritoneum: No ascites or free air. Bladder: Grossly unremarkable. Reproductive: No adnexal masses. Bones: No acute fracture. Other: n/a IMPRESSION: Moderate left-sided hydronephrosis without obstructing stone or mass identified. This gonzalez s worsened since 03/18/2011. This could be secondary to a UPJ stenosis.
--- NOTE | 2021-02-07 17:58 | EDPHYS ---
Physician Documentation [facility] Name: Mica Baker Age: 60 yrs Sex: Female : 1960 Arrival Date: 02/07/2021 Time: 14:21 Bed 13 Private MD: None, None ED Physician Trenton Schaeffer HPI: 02/07 17:30 This 60 yrs old Female presents to ER via Ambulatory with complaints of Possible Kidney jr8 Stone, Back Pain. 17:30 Onset: The symptoms/episode began/occurred gradually, 2 day(s) ago. Modifying factors: jr8 The symptoms are alleviated by nothing. the symptoms are aggravated by nothing. Associated signs and symptoms: The patient has no apparent associated signs or symptoms. Severity of pain: At its worst the pain was moderate in the emergency department the pain is unchanged. It is unknown whether or not the patient has had similar symptoms in the past. The patient has been recently seen by a physician:. This is a 60-year-old female that presented to the emergency room with complaints of left flank pain. Stated that she was treated several days ago for urinary tract infection but continues to have left-sided pain.. Historical: - Allergies: 14:40 hydrochlorothiazide; ss 14:40 Iodine; ss 14:40 Latex, Natural Rubber; ss 14:40 sulfa drugs; ss 14:40 telisitine; ss - PMHx: 14:40 Cellulitis; Hypertension; Lymphadema; ss 14:43 Varicose veins; ss - PSHx: 14:43 section; ss - Immunization history:: Client reports having NOT received the Covid vaccine. - Social history:: Smoking status: Patient denies any tobacco usage or history of. ROS: 17:46 Eyes: Negative for injury, pain, redness, and discharge, ENT: Negative for injury, jr8 pain, and discharge, Neck: Negative for injury, pain, and swelling, Cardiovascular: Negative for chest pain, palpitations, and edema, Respiratory: Negative for shortness of breath, cough, wheezing, and pleuritic chest pain, MS/Extremity: Negative for injury and deformity, Skin: Negative for injury, rash, and discoloration, Neuro: Negative for headache, weakness, numbness, tingling, and seizure. 17:46 Abdomen/GI: Negative for abdominal pain, nausea, vomiting, diarrhea, and constipation. 17:46 Back: Positive for flank pain, on the left. Exam: 17:46 Constitutional: This is a well developed, well nourished patient who is awake, alert, jr8 and in no acute distress. Cardiovascular: Regular rate and rhythm with a normal S1 and S2. No gallops, murmurs, or rubs. Normal PMI, no JVD. No pulse deficits. Respiratory: Lungs have equal breath sounds bilaterally, clear to auscultation and percussion. No rales, rhonchi or wheezes noted. No increased work of breathing, no retractions or nasal flaring. Abdomen/GI: Soft, non-tender, with normal bowel sounds. No distension or tympany. No guarding or rebound. No evidence of tenderness throughout. Skin: Warm, dry with normal turgor. Normal color with no rashes, no lesions, and no evidence of cellulitis. MS/ Extremity: Pulses equal, no cyanosis. Neurovascular intact. Full, normal range of motion. Neuro: Awake and alert, GCS 15, oriented to person, place, time, and situation. Cranial nerves II-XII grossly intact. Motor strength 5/5 in all extremities. Sensory grossly intact. Cerebellar exam normal. Normal gait. 17:46 Back: pain, that is mild, of the left flank, ROM is normal, normal spinal alignment noted, CVA tenderness, is absent, vertebral tenderness, is not appreciated. Vital Signs: 14:38 Pulse 77; Resp 17; Temp 98.9(TE); Pulse Ox 100% on R/A; Weight 142.88 kg; Height 5 ft. ss 7 in. (170.18 cm); Pain 8/10; 14:40 BP 156 / 65; ss 16:11 BP 141 / 66; Pulse 60; Pulse Ox 100% on R/A; ap3 17:23 BP 139 / 67; Pulse 61; Pulse Ox 100% on R/A; ap3 14:38 Body Mass Index 49.34 (142.88 kg, 170.18 cm) ss MDM: 14:53 Patient medically screened. jr8 17:46 Data reviewed: vital signs, nurses notes, lab test result(s), radiologic studies, CT jr8 scan. Data interpreted: Pulse oximetry: on room air is 100 %. Interpretation: normal. Counseling: I had a detailed discussion with the patient and/or guardian regarding: the historical points, exam findings, and any diagnostic results supporting the discharge/admit diagnosis, lab results, radiology results, the need for outpatient follow up, a urologist, to return to the emergency department if symptoms worsen or persist or if there are any questions or concerns that arise at home. ED course: Discussed with patient that she has chronic hydronephrosis of the left side that has worsened. No sign of mass or urolithiasis. Recommended follow-up with urology for further evaluation. Otherwise hemodynamically stable, no increase in white cell count, no bacteriuria noted, and no renal dysfunction. If she were to worsening point time to come back for further evaluation. Patient good with this plan at this time.. 02/07 14:53 Order name: Basic Metabolic Panel; Complete Time: 16:30 [facility] 02/07 14:53 Order name: CBC with Diff; Complete Time: 16:30 [facility] 02/07 14:53 Order name: Hepatic Function; Complete Time: 16:30 [facility] 02/07 14:53 Order name: Lipase; Complete Time: 16:30 [facility] 02/07 14:53 Order name: Urine Microscopic Only; Complete Time: 16:30 [facility] 02/07 15:19 Order name: Urine Dipstick-Ancillary; Complete Time: 16:30 EDMO 02/07 14:53 Order name: IV Saline Lock; Complete Time: 15:16 [facility] 02/07 14:53 Order name: Labs collected and sent; Complete Time: 15:16 [facility] 02/07 14:53 Order name: Urine Dipstick-Ancillary (obtain specimen); Complete Time: 15:16 [facility] 02/07 16:03 Order name: Urine Culture EDMO 02/07 17:06 Order name: Stone Protocol; Complete Time: 17:39 EDMS Administered Medications: No medications were administered Disposition: 02/08 07:15 Co-signature as Attending Physician, Trenton Schaeffer MD I agree with the assessment and kdr plan of care. Disposition Summary: 02/07/21 17:58 Discharge Ordered Location: Home jr8 Problem: new jr8 Symptoms: have improved jr8 Condition: Stable jr8 Diagnosis - Unspecified hydronephrosis jr8 Followup: jr8 - With: Osvaldo Palm MD - When: 2 - 3 days - Reason: Recheck today's complaints, Continuance of care, Re-evaluation by your physician Discharge Instructions: - Discharge Summary Sheet jr8 - Hydronephrosis jr8 Forms: - Medication Reconciliation Form jr8 - Thank You Letter jr8 - Antibiotic Education jr8 - Prescription Opioid Use jr8 Prescriptions: - Tylenol-Codeine #3 300 mg-30 mg Oral - take 2 tablet by ORAL route every 8 hours As needed; 20 tablet; Refills: 0, jr8 Product Selection Permitted - Cipro 500 mg Oral Tablet - take 1 tablet by ORAL route every 12 hours for 7 days; 14 tablet; Refills: 0, jr8 Product Selection Permitted Signatures: Dispatcher [employer] EDMS Trenton Schaeffer MD MD kdr Gabriella Morrell RN RN ss Andres Rosenbaum PA PA jr8 Corrections: (The following items were deleted from the chart) 02/07 16:37 16:31 Stone Protocol+CT.RAD.BRZ ordered. EDMS EDMS 17:06 16:36 Abdomen Pelvis W Con+CT.RAD.BRZ ordered. EDMS EDMS 17:56 17:30 This is a 60-year-old female that presented to the emergency room. jr8 jr8
--- NOTE | 2021-02-07 17:58 | ER ---
Nurse's Notes [facility] Name: Mica Baker Age: 60 yrs Sex: Female : 1960 Arrival Date: 02/07/2021 Time: 14:21 Bed 13 Private MD: None, None Diagnosis: Unspecified hydronephrosis Presentation: 02/07 14:38 Chief complaint: Patient states: Diagnosed with UTI on 01/29. Took 5 day course of Nitrofurantoin, was feeling a little better, but last night began having L flank pain that radiates towards LLQ since last night with blood in urine. Coronavirus screen: Client denies travel out of the [place] in the last 14 days. Ebola Screen: Patient denies exposure to infectious person. Patient denies travel to an Ebola-affected area in the 21 days before illness onset. Initial Sepsis Screen: Does the patient meet any 2 criteria? No. Patient's initial sepsis screen is negative. Does the patient have a suspected source of infection? Yes: Dysuria/Frequency/Urgency/UTI. Risk Assessment: Do you want to hurt yourself or someone else? Patient reports no desire to harm self or others. Onset of symptoms was February 06, 2021. 14:38 Method Of Arrival: Ambulatory ss 14:38 Acuity: LUCIANO 3 ss Historical: - Allergies: 14:40 hydrochlorothiazide; ss 14:40 Iodine; ss 14:40 Latex, Natural Rubber; ss 14:40 sulfa drugs; ss 14:40 telisitine; ss - PMHx: 14:40 Cellulitis; Hypertension; Lymphadema; ss 14:43 Varicose veins; ss - PSHx: 14:43 section; ss - Immunization history:: Client reports having NOT received the Covid vaccine. - Social history:: Smoking status: Patient denies any tobacco usage or history of. Screenin:50 Abuse screen: Denies threats or abuse. Nutritional screening: No deficits noted. ap3 Tuberculosis screening: No symptoms or risk factors identified. Fall Risk None identified. Assessment: 15:17 General: Appears in no apparent distress. comfortable, Behavior is calm, cooperative, ap3 appropriate for age. Pain: Complains of pain in flank Pain currently is 4 out of 10 on a pain scale. Neuro: Level of Consciousness is awake, alert, obeys commands, Oriented to person, place, time, situation, Gait is steady, Speech is normal. Cardiovascular: Patient's skin is warm and dry. Respiratory: Airway is patent Respiratory effort is even, unlabored, Respiratory pattern is regular, symmetrical. GI: Bowel sounds present X 4 quads. Abd is soft X 4 quads Abdomen is tender to palpation in left lower quadrant. : Reports UTI Dx on 01/29. 17:24 Reassessment: No changes from previously documented assessment. Patient and/or family ap3 updated on plan of care and expected duration. Pain level reassessed. Vital Signs: 14:38 Pulse 77; Resp 17; Temp 98.9(TE); Pulse Ox 100% on R/A; Weight 142.88 kg; Height 5 ft. ss 7 in. (170.18 cm); Pain 8/10; 14:40 BP 156 / 65; ss 16:11 BP 141 / 66; Pulse 60; Pulse Ox 100% on R/A; ap3 17:23 BP 139 / 67; Pulse 61; Pulse Ox 100% on R/A; ap3 14:38 Body Mass Index 49.34 (142.88 kg, 170.18 cm) ss ED Course: 14:21 Patient arrived in ED. ap4 14:22 None, None is Private Physician. ap4 14:40 Triage completed. ss 14:40 Arm band placed on right wrist. ss 14:43 Jeanna Gary, RN is Primary Nurse. ap3 14:50 Patient has correct armband on for positive identification. Placed in gown. Bed in low ap3 position. Call light in reach. Side rails up X 1. Pulse ox on. NIBP on. Door closed. Noise minimized. 14:52 Andres Rosenbaum PA is PHCP. jr8 14:52 Trenton Schaeffer MD is Attending Physician. jr8 15:16 Inserted saline lock: 20 gauge in right antecubital area, using aseptic technique. ap3 Blood collected. 17:08 Stone Protocol In Process Unspecified. EDMS 17:58 Osvaldo Palm MD is Referral Physician. jr8 18:23 No provider procedures requiring assistance completed. IV discontinued, intact, ap3 bleeding controlled, No redness/swelling at site. Pressure dressing applied. Administered Medications: No medications were administered Outcome: 17:58 Discharge ordered by . jr8 18:23 Discharged to home ambulatory. ap3 18:23 Condition: good 18:23 Discharge instructions given to patient, Instructed on discharge instructions, follow up and referral plans. Demonstrated understanding of instructions, follow-up care, medications, Prescriptions given X 2. 18:24 Patient left the ED. ap3 Signatures: Dispatcher [employer] EDGabriella Dockery RN RN ss Roszak, Josh, PA PA jr8 Jeanna Gary RN RN ap3 Jocelyne Vazquez4
[2021-02-07 18:45] VITALS: TEMP 98.9; O2SAT 100
[2021-02-07 18:49] VITALS: BP 139/67
== END 2021-02-07 18:24 | disposition home or self-care (01) ==
LOC: ER 14:18
DX: N13.30 Unspecified hydronephrosis (principal); I10 Essential (primary) hypertension; Z88.2 Allergy status to sulfonamides; Z91.040 Latex allergy status; Z91.048 Other nonmedicinal substance allergy status
CPT/HCPCS: 36415; 74176; 76377; 80048; 80076; 81003; 81015; 83690; 85025; 87086; 87088; 99284

== ENCOUNTER 2021-05-21 09:22 | Day surgery (SDC) | payer OTHER ==
--- NOTE | 2021-05-16 16:23 | RAD REPORT ---
EXAM DESCRIPTION: RAD - Chest Pa And Lat (2 Views) - 05/16/2021 4:16 pm CLINICAL HISTORY: Pre op COMPARISON: Chest Single View dated 06/28/2018; CHEST PA AND LAT 2 VIEW dated 12/14/2008; CHEST PA AND LAT 2 VIEW dated 10/11/2008; CHEST SINGLE VIEW dated 10/10/2008 FINDINGS: Lines: None. Lungs: No evidence of edema or pneumonia. Pleural: No significant pleural effusions or pneumothorax. Cardiac: The heart size is within normal limits. Bones: No acute fractures. Other: IMPRESSION: No acute cardiopulmonary disease.
[2021-05-16 16:29] LABS: Absolute Lymphocytes (CBC) 1.5 K/uL (0.7-4.9); Hematocrit 39.2 % (36.0-45.0); Lymphocytes % 24.7 % (15.3-44.8); MPV 8.1 fL (7.6-11.3); RBC Red Blood Cell Count 4.31 M/uL (3.86-4.86)
[2021-05-16 16:30] LABS: Protime INR 0.96
[2021-05-16 16:57] LABS: Potassium 3.5 mmol/L (3.5-5.1)
[2021-05-21] MEDS ORDERED: CEFAZOLIN/SWI 2gm 2 GM/20 ML SYR ONE (09:35)
[2021-05-21] MEDS ORDERED: Ringers Lactate 1,000 ML IV ONE (09:35)
[2021-05-21 10:23] VITALS: O2SAT 100
[2021-05-21] MEDS ORDERED: MIDAZOLAM HCL 2 MG/2 ML INJ ONE (11:08)
[2021-05-21] MEDS ORDERED: propofoL 200 MG/20 ML VIAL IV ONE (11:08)
[2021-05-21] MEDS ORDERED: LIDOCAINE 1% MPF 5 ML VIAL ONE (11:08)
[2021-05-21] MEDS ORDERED: FENTANYL CITR 100 MCG/2 ML ONE (11:08)
[2021-05-21] MEDS ORDERED: dexAMETHasone 10 MG/ML VIAL ONE (11:45)
[2021-05-21] MEDS ORDERED: KETOROLAC 30 MG/ML INJ ONE (11:45)
[2021-05-21] MEDS ORDERED: ONDANSETRON 4 MG/2 ML VIAL ONE (11:52)
[2021-05-21 13:15] VITALS: BP 134/67; TEMP 96.3
--- NOTE | 2021-05-22 13:29 | RAD REPORT ---
EXAM DESCRIPTION: RAD - Urethrocystogrphy Retrograde - 05/22/2021 9:06 am CLINICAL HISTORY: CYSTOSCOPY COMPARISON: No comparisons FINDINGS: Total fluoro time: 0.8 minutes
--- NOTE | 2021-05-23 09:03 | OP ---
Surgeon: ALESHIA MCGOWAN Preoperative Diagnosis: Left hydronephrosis, suspected ureteropelvic junction obstruction. Postoperative Diagnosis: Left hydronephrosis, ureteropelvic junction obstruction. Principal Procedures: 1.Cystoscopy. 2.Left retrograde pyelography. 3.Left ureteroscopy. 4.Left ureteral stent placement. Findings: No evidence of malignancy at the point of obstruction, but anteroposterior compression steven pected potentially due to crossing vessels? The appearance was atypical/not typical for ureteral str icture disease. Indication For Procedure: Ms. Baker presented to the Urology Clinic, referred because of left-sided hydronephrosis. She was counseled on the suspicion for UPJ obstruction, with the need for operative evaluation and stent placement to relieve the obstruction and preserve the renal function. Procedure In Detail: The patient was consented in the preoperative holding area before being transfe rred to the operative suite, where general anesthesia was induced. She was given Ancef IV antimicrob ial prophylaxis and pneumo boots were provided for DVT prophylaxis. She was placed in the lithotomy position, padded and secured to the table appropriately. Her genitalia were prepped using Hibiclens and draped in standard fashion. The case was begun using a 22-Ecuadorean rigid cystoscope to traverse th e urethra and into the bladder with ease. The bladder was surveyed in its entirety, and there were n o mucosal lesions, foreign bodies, or stones noted throughout. The ureteral orifices were orthotopic in location, though slightly more distal and near the bladder neck than perhaps typically would be e xpected. The left ureteral orifice was patent and normal in configuration; so I cannulated it with a tip of a 5-Ecuadorean ureteral access catheter. Left retrograde pyelography: Using a 100% full-strength Cysto-Conray contrast, which was used instead of Omnipaque given the patie nt's noted iodine allergy. The Conray was injected into the distal ureter via the 5-Ecuadorean ureteral access catheter. It did propagate without evidence of dilation of the distal ureter into the mid dis patrick ureter before effluxing into the bladder. I thus advanced the 5-Ecuadorean ureteral access catheter further into the mid distal ureter and again injected contrast, enabling the contrast this time to em anate into the proximal ureter, where a point of narrowing was observed before a very significant deg ree of pelviectasis with caliectasis was observed and an incompletely illuminated renal pelvis. I th us advanced the 5-Ecuadorean ureteral access catheter further into the mid proximal ureter and again inje cted full-strength Cysto-Conray at that point, clearly delineating a point of obstruction at the UPJ with a very hydronephrotic renal pelvis. The pelvis was filled with contrast, and there were no intr aluminal filling defects. As a result, I then advanced a Sensor wire via the 5-Ecuadorean ureteral acces s catheter with ease into the upper pole of the kidney. A coil was observed fluoroscopically there. I then decompressed her bladder and removed the cystoscope leaving the wire in place as a safety wir e. I then employed a semi-rigid ureteroscope, which I was able to navigate with ease via the uretera l orifice under direct vision into the mid and proximal ureter to the point of the UPJ where I was ab le to directly observe the point of obstruction. An image was taken of that point of obstruction and identified what appeared to be superior and inferior compression extrinsically involving the ureter without definitive evidence of scar or stricture. This left a slit like opening across the entire di ameter of the ureteral lumen at the point of obstruction for which the wire did progress and into the renal pelvis. There was no visible evidence of tumor in that location. There was no erythema or ir regularity of the mucosa in that location. As a result, I removed the ureteroscope and backloaded e cystoscope over the indwelling safety wire. I was then able to pass a 6-Ecuadorean x 26 cm double-J le ureteral stent with a coil observed fluoroscopically in the renal pelvis above the point of obstru ction and one cystoscopically within her bladder. Her bladder was then decompressed of fluid and uri ne, and she was taken out of the lithotomy position. She was then awakened from general anesthesia, transferred to a stretcher, and then transferred to the recovery room in good condition. Complications: None. Discharge Disposition: We will arrange a CT scan of her abdomen only with IV contrast administered i n order to obtain arterial phase imaging to assess for the suspected presence of a crossing renal ves dk causing extrinsic compression and left UPJ obstruction. She may then follow up with me after com pleting the CT scan, and we will discuss options for management. BETTY/SORINL Voice ID: [id number] Report ID: [id number]
== END 2021-05-21 14:10 | disposition home or self-care (01) ==
LOC: OR 09:22
PROVIDERS: ATTEND Urology
PROC: 0T778DZ Dilation of Left Ureter with Intraluminal Device, Via Natural or Artificial Opening Endoscopic (ICD-10-PCS; principal; 2021-05-21 10:30)
DX: N30.01 Acute cystitis with hematuria (principal); N13.30 Unspecified hydronephrosis; N13.5 Crossing vessel and stricture of ureter without hydronephrosis; Z20.822 Contact with and (suspected) exposure to COVID-19
CPT/HCPCS: 87088; 85025; 87086; 80048; 36415; 85610; 87077; 87186; 71046; 74450; 51610; 52332; 52351; U0003; J2704; J2250; J3010; J1100; J0690; J7120; J2405

== ENCOUNTER 2021-05-21 20:43 | Emergency (ER) | payer OTHER ==
--- OUTSIDE RECORDS SUMMARY | 2021-05-21 20:48 | XMS REPORT | Continuity of Care Document ---
:1960 Author Organization [facility] t Address [address] [place] [address] Care Team Providers Name Role Phone Pcp, [...] Date Date Clinician NO KNOWN Drug Active [facility] ALLERGIE [facility] Social History Social Habit Start Date Stop Date Quantity Comments Source Sex Assigned At [birth year] [facility] 00:00:00 00:00:00 [facility] Smoking Status Start Date Stop Date Source Unknown if ever smoked [facility] Medications This patient has no known medications. Procedures Procedure Date / Time Performing Clinician Source Performed LOWER EXTREMITY ARTERIAL 2020-11-15 16:42:00 Danette Vargas [facility] DUPLEX BILATERAL - BY Medical anch VASCULAR LAB DUPLEX VENOUS LEGS 2020-11-15 15:29:00 Danette Vargas [facility] BILATERAL - BY VASCULAR Medical Branch LAB [facility] PATIENT FINANCIAL 2020-11-15 14:05:44 [facility] NO SHOW OR MISSED 2020-11-15 14:05:20 Doctor Slick, [facility] APPOINTMENT POLICY [facility] ACKNOWLEDGEMENT NOTICE OF PRIVACY 2020-11-15 14:05:00 Doctor Slick, [facility] PRACTICES [facility] CONSENT/REFUSAL FOR 2020-11-15 14:04:43 Doctor Unassigned, Unive [facility] DIAGNOSIS AND TREATMENT [facility] ASSIGNMENT OF BENEFITS 2020-11-15 14:04:27 Doctor Unassigned, [facility] Encounters Start End Encounter Admission Attending Care Care Encounter Source Date/Time Date/Time Type Type Clinicians Facility Department ID 2020-12-25 2020-12-25 Telephone [facility] [id number] Univers 00:00:00 00:00:[address] [facility] [id number] ity [place] [id number] [id number] [facility] 059 Branch 2020-11-15 2020-11-15 [facility] [id number] Univers 09:10:44 23:59:00 Encounter Marceloveronica [place] [id number] ity of [place] [id number] [facility] [id number] [facility] 850 Branch 2020-11-15 2020-11-15 [facility] [id number] Univers 09:00:00 09:09:00 Encounter Marceloveronica [place] [id number] ity of [place] [id number] [facility] [id number] [facility] 850 Branch 2020-11-15 2020-11-15 [facility] [id number] Univers 00:00:00 00:00:00 SOSA anderson o f [facility] Results This patient has no known results.
[2021-05-21 21:22] LABS: Urine Blood 3+ (Negative); Urine Glucose Negative (Negative); Urine Protein 2+ (Negative); Urine Specific Gravity 1.025 (1.005-1.030); Urine pH 7.5 (5.0-7.0)
[2021-05-21 22:16] LABS: Absolute Lymphocytes (CBC) 0.4 K/uL (0.7-4.9); Hematocrit 40.2 % (36.0-45.0); Lymphocytes % 11.7 % (15.3-44.8); MPV 8.2 fL (7.6-11.3); RBC Red Blood Cell Count 4.44 M/uL (3.86-4.86)
[2021-05-21] MEDS ORDERED: MORPHINE 4 MG/ML SYR ONE (22:18)
[2021-05-21] MEDS ORDERED: ONDANSETRON 4 MG/2 ML VIAL ONE (22:18)
[2021-05-21 22:33] LABS: Protime INR 0.97
[2021-05-21 22:38] LABS: ALT/SGPT 22 U/L (12-78); Albumin 3.6 g/dL (3.4-5.0); Alkaline Phosphatase 97 U/L (45-117); BUN Blood Urea Nitrogen 20 mg/dL (7-18); Bicarbonate 27 mmol/L (21-32); Bilirubin Total 0.3 mg/dL (0.2-1.0); Glucose Level 143 mg/dL (74-106); NT PRO-BNP 389 pg/mL (<125); Protein, Total 8.2 g/dL (6.4-8.2); Sodium Level 140 mmol/L (136-145)
[2021-05-21 22:39] LABS: AST/SGOT 21 U/L (15-37); Bilirubin Direct < 0.1 mg/dL (0-0.2); Magnesium 2.3 mg/dL (1.8-2.4); Potassium 3.9 mmol/L (3.5-5.1)
[2021-05-21 22:49] LABS: Urine Bacteria <20 /HPF (<20); Urine RBC >50 /HPF (NONE SEEN)
[2021-05-21 23:36] LABS: Blood Morphology Comment NOT SEEN (NOT SEEN); Platelet Estimate ADEQ
--- NOTE | 2021-05-21 23:39 | EDPHYS ---
Physician Documentation [facility] Name: Mica Baker Age: 61 yrs Sex: Female : 1960 Arrival Date: 05/21/2021 Time: 20:48 Bed 15 Private MD: ED Physician Vaibhav Verde HPI: 05/21 21:44 This 61 yrs old Female presents to ER via Wheelchair with complaints of Ankle Swelling, cp Urinary Problem, Pain. 21:44 The patient presents with pain, that is acute, swelling, tenderness. The complaints cp affect the right lower leg and left lower leg. 21:44 Onset: The symptoms/episode began/occurred today. Associated signs and symptoms: cp Pertinent positives: calf tenderness, swelling, Pertinent negatives fever, numbness, warmth, weakness. The patient presents with urinary symptoms, hematuria. Onset: The symptoms/episode began/occurred today. 21:45 Patient reports having left side ureter stent placed this morning by DR Palm. cp Discharged home today and noticed blood in urine and small blood clot. Patient reports pain to left flank, swelling of ankles and lower legs after removing compression stockings. Denies shortness of breath, denies chest. Historical: - Allergies: 21:08 hydrochlorothiazide; vc1 21:08 Iodine; vc1 21:08 Latex, Natural Rubber; vc1 21:08 sulfa drugs; vc1 21:08 telisitine; vc1 - Home Meds: 21:08 aspirin 81 mg Oral TbEC once daily [Active]; Leg Veins [Active]; Ciprofloxacin [Active];vc1 - PMHx: 21:08 Cellulitis; varicose veins; Lymphadema; vc1 - PSHx: 21:08 section; vc1 - Immunization history:: Adult Immunizations up to date, Client reports having NOT received the Covid vaccine. Flu vaccine is not up to date. - Social history:: Smoking status: Patient denies any tobacco usage or history of. ROS: 21:50 Constitutional: Negative for body aches, chills, fever, poor PO intake. cp 21:50 Eyes: Negative for injury, pain, redness, and discharge. cp 21:50 Cardiovascular: Negative for chest pain, edema, palpitations. 21:50 Respiratory: Negative for cough, shortness of breath, wheezing. 21:50 Abdomen/GI: Negative for abdominal pain, nausea, vomiting, and diarrhea. 21:50 Back: Negative for pain at rest, pain with movement. 21:50 : Positive for hematuria, left flank pain. 21:50 MS/extremity: Positive for swelling, tenderness, of the left lower leg and right lower leg, Negative for injury or acute deformity, paresthesias. 21:50 Neuro: Negative for altered mental status, dizziness, headache, syncope, weakness. 21:50 All other systems are negative. cp Exam: 21:55 Constitutional: The patient appears in no acute distress, alert, awake, cp non-diaphoretic, non-toxic, well developed, well nourished, obese. 21:55 Head/Face: Normocephalic, atraumatic. cp 21:55 Eyes: Periorbital structures: appear normal, Conjunctiva: normal, no exudate, no cp injection, Sclera: no appreciated abnormality, Lids and lashes: appear normal, bilaterally. 21:55 ENT: External ear(s): are unremarkable, Nose: is normal, Mouth: Lips: moist, Oral cp mucosa: pink and intact, moist, Posterior pharynx: Airway: no evidence of obstruction, patent. 21:55 Neck: ROM/movement: is normal, is supple, without pain, no range of motions limitations. 21:55 Chest/axilla: Inspection: normal, Palpation: is normal, no crepitus, no tenderness. 21:55 Cardiovascular: Rate: normal, Rhythm: regular, Edema: ankle edema, that is very mild, JVD: is not appreciated. 21:55 Respiratory: the patient does not display signs of respiratory distress, Respirations: normal, no use of accessory muscles, no retractions, labored breathing, is not present, Breath sounds: are clear throughout, no decreased breath sounds, no stridor, no wheezing. 21:55 Abdomen/GI: Inspection: abdomen appears normal, Palpation: abdomen is soft and non-tender, in all quadrants. 21:55 Back: pain, is absent, ROM is normal. 21:55 Skin: cellulitis, is not appreciated, no rash present. 21:55 Neuro: Orientation: to person, place \T\ time. Mentation: is normal. 22:10 ECG was reviewed by the Attending Physician. cp Vital Signs: 21:11 Weight 145.15 kg; Height 5 ft. 7 in. (170.18 cm); vc1 21:19 BP 157 / 68; Pulse 61; Resp 16; Temp 97.8(TE); Pulse Ox 100% on R/A; Pain 5/10; vc1 22:30 BP 130 / 52 RA Supine (auto/reg); Pulse 50 MON; Resp 16 S; Temp 98(O); Pulse Ox 100% on tk1 R/A; Pain 2/10; 23:38 BP 140 / 58 RA Supine (auto/reg); Pulse 56 MON; Resp 18 S; Temp 98.3(O); Pulse Ox 99% ; tk1 Pain 2/10; 21:11 Body Mass Index 50.12 (145.15 kg, 170.18 cm) vc1 MDM: 21:22 Patient medically screened. cp 21:55 Physician consultation: Osvaldo Palm MD was called at 21:50, was contacted at 21:50, cp regarding patient's condition, does not want a CT of abdomen/pelvis at this time. Patient can expect hematuria with recent stent placement and ureteroscope. Patient to contact clinic in morning. 22:10 ED course: US tech reports lower extremity US negative for DVT. cp 23:35 Data reviewed: vital signs, nurses notes, lab test result(s), EKG, radiologic studies, cp ultrasound. 23:35 Test interpretation: by ED physician or midlevel provider: ECG. cp 05/21 21:18 Order name: Urine Dipstick-Ancillary; Complete Time: 21:36 EDHI 05/21 21:36 Interpretation: Normal except: UBLD 3+; UPH 7.5; UPROT 2+; UESTR 1+. cp 05/21 21:37 Order name: Urine Microscopic Only; Complete Time: 22:55 cp 05/21 22:55 Interpretation: Abnormal: URBC >50. cp 05/21 21:37 Order name: Basic Metabolic Panel; Complete Time: 22:55 cp 05/21 22:56 Interpretation: Normal except: CL 108; GLUC 143; BUN 20; GFR 57. cp 05/21 21:37 Order name: CBC with Diff; Complete Time: 23:37 cp 05/21 22:33 Interpretation: Normal except: WBC 3.20; MARY% 86.8; LYM% 11.7; MN% 1.4; LYMA 0.4; MNA cp 0.0. 03/01 21:37 Order name: LFT's; Complete Time: 22:55 cp 05/21 21:37 Order name: Magnesium; Complete Time: 22:55 cp 05/21 21:37 Order name: US Extremity Venous W Compression Kobe cp 05/21 21:37 Order name: NT PRO-BNP; Complete Time: 22:55 cp 05/21 21:37 Order name: PT-INR; Complete Time: 22:55 cp 05/21 21:37 Order name: Troponin HS; Complete Time: 22:55 cp 05/21 21:37 Order name: EKG; Complete Time: 21:37 cp 05/21 22:22 Order name: Manual Differential; Complete Time: 23:37 EDMS 05/21 23:37 Interpretation: BANDS [F] 3; Reviewed. cp 05/21 21:37 Order name: Cardiac monitoring; Complete Time: 22:01 cp 05/21 21:37 Order name: EKG - Nurse/Tech; Complete Time: 22:01 cp 05/21 21:37 Order name: IV Saline Lock; Complete Time: 22: cp 05/21 21:37 Order name: Labs collected and sent; Complete Time: 22:01 cp 05/21 21:37 Order name: O2 Per Protocol; Complete Time: 22:01 cp 05/21 21:37 Order name: O2 Sat Monitoring; Complete Time: 22:01 cp 05/21 23:39 Order name: Jas Wrap; Complete Time: 23:54 cp EC:10 Rate is 50 beats/min. Rhythm is regular. [place] interval is normal. QRS interval is normal. cp QT interval is normal. T waves are Inverted in lead aVR. Interpreted by me. Reviewed by me. Administered Medications: 22:19 Drug: Zofran (Ondansetron) 4 mg Route: IVP; Rate: 2 mg/min; Infused Over: 2 mins; Site: tk1 left antecubital; 22:55 Follow up: Response: No adverse reaction tk1 22:21 Drug: morphine 4 mg Route: IVP; Rate: 2 mg/min; Infused Over: 2 mins; Site: left tk1 antecubital; 22:54 Follow up: Response: Pain is decreased; RASS: Alert and Calm (0) tk1 Disposition: 05/22 01:23 Co-signature as Attending Physician, Vaibhav Verde MD I agree with the assessment and rn plan of care. Attestation: The patient's history, exam findings, diagnostics, and a summary of any interventions or procedures was reviewed in detail with Evelio WLELS. Disposition Summary: 05/21/21 23:38 Discharge Ordered Location: Home cp Problem: new cp Symptoms: have improved cp Condition: Stable cp Diagnosis - Hematuria, unspecified cp - Edema, unspecified cp Followup: cp - With: Osvaldo Palm MD - When: As needed - Reason: Worsening of condition Discharge Instructions: - Discharge Summary Sheet cp - Edema cp - Hematuria, Adult cp Forms: - Medication Reconciliation Form cp - Thank You Letter cp - Antibiotic Education cp - Prescription Opioid Use cp Signatures: Dispatcher [employer] EDMS Vaibhav Verde MD MD rn Page, Corey, PA PA cp Lilli Huang tk1 Shante Torrez RN RN vc1 Corrections: (The following items were deleted from the chart) 05/21 21:10 21:08 PSHx: section; vc1 vc1 05/22 22:50 05/21 23:55 Data reviewed: vital signs, nurses notes, lab test result(s), EKG, cp radiologic studies, ultrasound, cp
--- NOTE | 2021-05-21 23:39 | ER ---
Nurse's Notes [facility] Name: Mica Baker Age: 61 yrs Sex: Female : 1960 Arrival Date: 05/21/2021 Time: 20:48 Bed 15 Private MD: Diagnosis: Hematuria, unspecified;Edema, unspecified Presentation: 05/21 21:05 Chief complaint: Patient states: I had a stent placed today in my left ureter for vc1 hydronephrosis. Around 6 o'clock I started feeling burning and hurting to my legs and feet. I had my daughter take off my compression socks and my legs were swollen. I also noticed some blood and one little clot in my urine. 21:08 Coronavirus screen: Vaccine status: Patient reports being unvaccinated. Ebola Screen: vc1 No symptoms or risks identified at this time. Onset of symptoms was May 21, 2021 at 18:00. Care prior to arrival: Medication(s) given: Motrin, 800 mg. 21:08 Method Of Arrival: Wheelchair vc1 21:08 Acuity: LUCIANO 3 vc1 21:20 Initial Sepsis Screen: Does the patient meet any 2 criteria? No. Patient's initial vc1 sepsis screen is negative. Does the patient have a suspected source of infection? No. Patient's initial sepsis screen is negative. Risk Assessment: Do you want to hurt yourself or someone else? Patient reports no desire to harm self or others. Triage Assessment: 21:08 General: Appears in no apparent distress. uncomfortable, obese, Behavior is calm, vc1 cooperative, appropriate for age. Pain: Complains of pain in right leg and left leg Pain does not radiate. Alleviated by rest. Neuro: Level of Consciousness is awake, alert, obeys commands, Oriented to person, place, time, situation, Appropriate for age. Cardiovascular:. Historical: - Allergies: 21:08 hydrochlorothiazide; vc1 21:08 Iodine; vc1 21:08 Latex, Natural Rubber; vc1 21:08 sulfa drugs; vc1 21:08 telisitine; vc1 - Home Meds: 21:08 aspirin 81 mg Oral TbEC once daily [Active]; Leg Veins [Active]; Ciprofloxacin [Active];vc1 - PMHx: 21:08 Cellulitis; varicose veins; Lymphadema; vc1 - PSHx: 21:08 section; vc1 - Immunization history:: Adult Immunizations up to date, Client reports having NOT received the Covid vaccine. Flu vaccine is not up to date. - Social history:: Smoking status: Patient denies any tobacco usage or history of. Screenin:20 Abuse screen: Denies threats or abuse. Nutritional screening: No deficits noted. vc1 Tuberculosis screening: No symptoms or risk factors identified. Fall Risk None identified. Assessment: 21:22 General: Appears in no apparent distress. uncomfortable, obese, well groomed, well tk1 developed, well nourished, Behavior is calm, cooperative, appropriate for age. Neuro: No deficits noted. Level of Consciousness is awake, alert, obeys commands, Oriented to person, place, time, situation, Appropriate for age Cryptographer are equal bilaterally Moves all extremities. Gait is steady, Speech is normal, Facial symmetry appears normal, Pupils are PERRLA, Intact. Cardiovascular: Heart tones S1 S2 Capillary refill < 3 seconds is brisk in bilateral fingers Clubbing of nail beds is absent. Respiratory: No deficits noted. Airway is patent Trachea midline Respiratory effort is even, unlabored, Respiratory pattern is regular, symmetrical. GI: No deficits noted. No signs and/or symptoms were reported involving the gastrointestinal system. : Urine is cloudy, blood tinged, Last void was May 21, 2021. at 21:15. 21:22 Reassessment: 3+ pitting edema to bilateral lower extremities. Skin discolored, tk1 brownish and leathery in appearance. 22:30 Reassessment: No changes from previously documented assessment. Patient and/or family tk1 updated on plan of care and expected duration. Pain level reassessed. Patient is alert, oriented x 3, equal unlabored respirations, skin warm/dry/pink. Pain: Complains of pain in left upper quadrant Pain radiates to left leg Pain currently is 2 out of 10 on a pain scale. Quality of pain is described as pressure, Pain began suddenly, 4 hours ago. Is intermittent. 23:52 Reassessment: D/C per MD order. Discharge instructions given to patient and son. tk1 Verbalized understanding. Vital Signs: 21:11 Weight 145.15 kg; Height 5 ft. 7 in. (170.18 cm); vc1 21:19 BP 157 / 68; Pulse 61; Resp 16; Temp 97.8(TE); Pulse Ox 100% on R/A; Pain 5/10; vc1 22:30 BP 130 / 52 RA Supine (auto/reg); Pulse 50 MON; Resp 16 S; Temp 98(O); Pulse Ox 100% on tk1 R/A; Pain 2/10; 23:38 BP 140 / 58 RA Supine (auto/reg); Pulse 56 MON; Resp 18 S; Temp 98.3(O); Pulse Ox 99% ; tk1 Pain 2/10; 21:11 Body Mass Index 50.12 (145.15 kg, 170.18 cm) vc1 ED Course: 20:48 Patient arrived in ED. ja2 21:03 Evelio Leggett PA is PHCP. cp 21:03 Vaibhav Verde MD is Attending Physician. cp 21:08 Triage completed. vc1 21:08 Arm band placed on right wrist. vc1 21:11 Lilli Huang is Primary Nurse. tk1 21:21 Patient has correct armband on for positive identification. Bed in low position. Call vc1 light in reach. Pulse ox on. NIBP on. 21:30 No provider procedures requiring assistance completed. tk1 21:51 Ultrasound in progress. tk1 21:52 Urine Microscopic Only Sent. tk1 22:01 Basic Metabolic Panel Sent. tk1 22:01 CBC with Diff Sent. tk1 22:01 LFT's Sent. tk1 22:01 Magnesium Sent. tk1 22:01 NT PRO-BNP Sent. tk1 22:01 PT-INR Sent. tk1 22:01 Troponin HS Sent. tk1 22:01 Initial lab(s) drawn, by me, sent to lab. EKG done, by ED staff. tk1 22:01 Inserted saline lock: 20 gauge in left antecubital area, using aseptic technique. Blood tk1 collected. 22:10 Basic Metabolic Panel Sent. tk1 22:10 CBC with Diff Sent. tk1 22:10 LFT's Sent. tk1 22:10 Magnesium Sent. tk1 22:11 NT PRO-BNP Sent. tk1 22:11 PT-INR Sent. tk1 22:11 Troponin HS Sent. tk1 22:13 Urine Microscopic Only Sent. tk1 22:45 US Extremity Venous W Compression Kobe In Process Unspecified. EDMS 23:38 Osvaldo Palm MD is Referral Physician. cp 23:52 IV discontinued, intact, bleeding controlled, No redness/swelling at site. Pressure tk1 dressing applied. 23:52 Jas wrap to left lower leg and right lower leg. tk1 Administered Medications: 22:19 Drug: Zofran (Ondansetron) 4 mg Route: IVP; Rate: 2 mg/min; Infused Over: 2 mins; Site: tk1 left antecubital; 22:55 Follow up: Response: No adverse reaction tk1 22:21 Drug: morphine 4 mg Route: IVP; Rate: 2 mg/min; Infused Over: 2 mins; Site: left tk1 antecubital; 22:54 Follow up: Response: Pain is decreased; RASS: Alert and Calm (0) tk1 Outcome: 23:38 Discharge ordered by MD. cp 23:52 Discharged to home via wheelchair, with family. tk1 23:52 Condition: stable 23:52 Discharge instructions given to patient, family, Instructed on discharge instructions, follow up and referral plans. Demonstrated understanding of instructions, follow-up care. 23:56 Patient left the ED. tk1 Signatures: Dispatcher [employer] EDMS Evelio Leggett PA PA cp Alexander, Jessica ja2 Kirby, Tammie tk1 Shante Torrez RN RN vc1 Corrections: (The following items were deleted from the chart) 21:10 21:08 PSHx: section; vc1 vc1
[2021-05-22 00:18] VITALS: BP 140/58; TEMP 98.3; O2SAT 99
--- NOTE | 2021-05-22 07:54 | RAD REPORT ---
EXAM DESCRIPTION: US - Extrem Venous W Compress Kobe - 05/21/2021 10:45 pm CLINICAL HISTORY: Swelling COMPARISON: None. TECHNIQUE: Real-time sonographic evaluation of the bilateral lower extremity deep venous systems was performed. FINDINGS: Normal compressibility, flow augmentation, phasic flow and spontaneous flow is identified in both the left and right lower extremity deep venous systems. No intraluminal filling defects seen. IMPRESSION: No DVT in either lower extremity.
--- NOTE | 2021-05-22 11:07 | EKG ---
Test Date: 2021-05-21 Test Time: 22:00:34 Staff Psychologist: ZACK MEASUREMENT RESULTS: Intervals: Rate: 50 RI: 138 QRSD: 94 QT: 460 QTc: 419 [place]: P: 45 RI: 138 QRS: 46 T: 54 INTERPRETIVE STATEMENTS: Sinus bradycardia Otherwise normal ECG Compared to ECG 05/16/2021 16:00:55 No significant changes Electronically Signed On 05-22-21 11:07:01 [employer] by Armando Brownlee
== END 2021-05-21 23:56 | disposition home or self-care (01) ==
LOC: ER 20:43
DX: R60.9 Edema, unspecified (principal); R31.9 Hematuria, unspecified; Z79.82 Long term (current) use of aspirin; Z88.2 Allergy status to sulfonamides; Z88.8 Allergy status to other drugs, medicaments and biological substances; Z91.040 Latex allergy status; Z91.048 Other nonmedicinal substance allergy status; Z96.0 Presence of urogenital implants
CPT/HCPCS: 93005; 85025; 80048; 36415; 83735; 85610; 80076; 84484; 83880; 93970; 96375; 96374; 99284; J2405; 81003; 81015

== ENCOUNTER 2021-06-27 21:01 | Emergency (ER) | payer OTHER ==
--- OUTSIDE RECORDS SUMMARY | 2021-06-27 21:03 | XMS REPORT | Continuity of Care Document ---
:1960 Author Organization [facility] t Address [address] [place] [address] Care Team Providers Name Role Phone Pcp, [...] Date Date Clinician NO KNOWN Drug Active [facility] ALLERGIE [facility] [place] Social History Social Habit Start Date Stop Date Quantity Comments Source Sex Assigned At [birth year] [facility] 00:00:00 00:00:00 Medical Branch Smoking Status Start Date Stop Date Source Unknown if ever smoked [facility] [place] Medications This patient has no known medications. Procedures Procedure Date / Time Performing Clinician Source Performed LOWER EXTREMITY ARTERIAL 2020-11-15 16:42:00 Danette Vargas [facility] DUPLEX BILATERAL - BY Medical anch VASCULAR LAB DUPLEX VENOUS LEGS 2020-11-15 15:29:00 Danette Vargas [facility] BILATERAL - BY VASCULAR Medical Branch LAB [facility] PATIENT FINANCIAL 2020-11-15 14:05:44 [facility] [place] [facility] NO SHOW OR MISSED 2020-11-15 14:05:20 Doctor Slick, [facility] APPOINTMENT POLICY [place] [facility] ACKNOWLEDGEMENT NOTICE OF PRIVACY 2020-11-15 14:05:00 Doctor Slick, [facility] PRACTICES [place] [facility] CONSENT/REFUSAL FOR 2020-11-15 14:04:43 Doctor Unassigned, Unive [facility] DIAGNOSIS AND TREATMENT [place] [facility] ASSIGNMENT OF BENEFITS 2020-11-15 14:04:27 Doctor Unassigned, [facility] [place] [facility] Encounters Start End Encounter Admission Attending Care Care Encounter Source Date/Time Date/Time Type Type Clinicians Facility Department ID 2020-12-25 2020-12-[address] [facility] [id number] [facility] 00:00:00 00:00:[address] [facility] [id number] ity of CLINICS [id number] [place] [id number] [facility] 059 Branch 2020-11-15 2020-11-15 [facility] [id number] Univers 09:10:44 23:59:00 Encounter Marceloveronica [place] [id number] ity of [place] [id number] [facility] [id number] [facility] 850 Branch 2020-11-15 2020-11-15 [facility] [id number] Univers 09:00:00 09:09:00 Encounter Marceloveronica [place] [id number] ity of [place] [id number] [facility] [id number] [facility] 850 Branch 2020-11-15 2020-11-15 [facility] [id number] Univers 00:00:00 00:00:00 SOSA anderson o f [facility] Results This patient has no known results.
[2021-06-28 00:09] LABS: Absolute Lymphocytes (CBC) 1.9 K/uL (0.7-4.9); Hematocrit 37.7 % (36.0-45.0); Lymphocytes % 31.4 % (15.3-44.8); MPV 7.9 fL (7.6-11.3); RBC Red Blood Cell Count 4.16 M/uL (3.86-4.86)
[2021-06-28 00:46] LABS: Albumin 3.3 g/dL (3.4-5.0); Bilirubin Direct 0.2 mg/dL (0-0.2); Bilirubin Total 0.6 mg/dL (0.2-1.0); Magnesium 2.2 mg/dL (1.8-2.4); Potassium 3.5 mmol/L (3.5-5.1); Protein, Total 7.2 g/dL (6.4-8.2); Troponin High Sensitivity 5.1 pg/mL (<58.9)
[2021-06-28 01:35] LABS: Urine Blood 3+ (Negative); Urine Glucose Negative (Negative); Urine Protein 2+ (Negative)
[2021-06-28 01:50] LABS: Urine Bacteria 20-50 /HPF (<20); Urine RBC <5 /HPF (NONE SEEN)
--- NOTE | 2021-06-28 02:00 | ER ---
Nurse's Notes [facility] Name: Mica Baker Age: 61 yrs Sex: Female : 1960 Arrival Date: 06/27/2021 Time: 21:04 Bed 23 Private MD: Diagnosis: Peripheral edema;Elevated blood pressure;UTI Presentation: 06/27 21:11 Chief complaint: Patient states: "Thursday evening I started swelling in my left ankle ab2 and now its starting in my right ankle. I told my PCP and she told me to come here to get checked for blood clots". Coronavirus screen: Vaccine status: Patient reports being unvaccinated. Client denies travel out of the [place] in the last 14 days. At this time, the client does not indicate any symptoms associated with coronavirus-19. Ebola Screen: Patient negative for fever greater than or equal to 101.5 degrees Fahrenheit, and additional compatible Ebola Virus Disease symptoms Patient denies exposure to infectious person. Patient denies travel to an Ebola-affected area in the 21 days before illness onset. No symptoms or risks identified at this time. Initial Sepsis Screen: Does the patient meet any 2 criteria? No. Patient's initial sepsis screen is negative. Does the patient have a suspected source of infection? No. Patient's initial sepsis screen is negative. Risk Assessment: Do you want to hurt yourself or someone else? Patient reports no desire to harm self or others. Onset of symptoms is unknown. 21:11 Method Of Arrival: Ambulatory ab2 21:11 Acuity: LUCIANO 3 ab2 Triage Assessment: 21:14 General: Appears in no apparent distress. comfortable, Behavior is calm, cooperative, ab2 appropriate for age. Pain: Complains of pain in right leg and left leg. Neuro: Level of Consciousness is awake, alert, obeys commands, Oriented to person, place, time, situation, Appropriate for age General Accountant are equal bilaterally Moves all extremities. Gait is steady, Speech is normal, Facial symmetry appears normal. Cardiovascular: No deficits noted. Denies chest pain, shortness of breath, Patient's skin is warm and dry. Respiratory: Airway is patent Respiratory effort is even, unlabored, Respiratory pattern is regular, symmetrical. GI: No deficits noted. No signs and/or symptoms were reported involving the gastrointestinal system. Musculoskeletal: Swelling present in right leg and left leg. Historical: - Allergies: 21:12 hydrochlorothiazide; ab2 21:12 Iodine; ab2 21:12 Latex, Natural Rubber; ab2 21:12 sulfa drugs; ab2 21:12 telisitine; ab2 21:12 oxybutynin; ab2 - Home Meds: 06/28 01:39 aspirin 81 mg Oral TbEC once daily [Active]; andre - PMHx: 06/27 21:12 Cellulitis; Hypertension; Lymphadema; varicose veins; ab2 - PSHx: 21:12 section; Kidney Stent; ab2 - Immunization history:: Adult Immunizations up to date. - Social history:: Smoking status: Patient denies any tobacco usage or history of. Screenin:30 Abuse screen: Denies threats or abuse. Denies injuries from another. Nutritional andre screening: No deficits noted. Tuberculosis screening: No symptoms or risk factors identified. Fall Risk None identified. Assessment: 22:31 Reassessment: I recv'd the pt to room 23 \\T\\ [id number]. andre 23:31 Cardiovascular:. Musculoskeletal: Swelling Per the pt's report, her ankles are swollen. andre The pt has anasarca to bilateral ankles and her legs are very large, but this is baseline. The [employer] is performing her study at this time. 06/28 02:36 Reassessment: The MD was informed that the abx he ordered and prescribed, is not andre available in the hospital. The pt acknowledged understanding of getting her prescription filled tomorrow. Vital Signs: 06/27 21:13 BP 154 / 75; Pulse 73; Resp 17; Temp 98.6(TE); Pulse Ox 99% on R/A; Weight 147.87 kg; ab2 Height 5 ft. 7 in. (170.18 cm); Pain 3/10; 22:30 BP 137 / 58; Pulse 66; Resp 18; Temp 98.5; Pulse Ox 99% on R/A; Pain 0/10; andre 06/28 00:49 BP 130 / 57; Pulse 60; Resp 18; Pulse Ox 100% on R/A; Pain 0/10; andre 01:38 BP 137 / 60; Pulse 63; Resp 16; Pulse Ox 100% on R/A; Pain 0/10; andre 02:30 BP 118 / 47; Pulse 64; Resp 16; Temp 98.5; Pulse Ox 100% on R/A; Pain 0/10; andre 06/27 21:13 Body Mass Index 51.06 (147.87 kg, 170.18 cm) ab2 ED Course: 06/27 21:04 Patient arrived in ED. kz 21:12 Triage completed. ab2 21:14 Arm band placed on left wrist. ab2 21:35 Evelio Leggett PA is PHCP. cp 21:35 Dex Garcia DO is Attending Physician. cp 22:31 Jennifer Muhammad, RN is Primary Nurse. andre 23:19 EKG done, by engineering technical writer. wm 23:45 US Extremity Venous W Compression Kobe In Process Unspecified. EDMS 23:48 Basic Metabolic Panel Sent. andre 23:48 CBC with Diff Sent. andre 23:48 LFT's Sent. andre 23:48 Magnesium Sent. andre 23:48 NT PRO-BNP Sent. andre 23:48 Troponin HS Sent. nadre 06/28 01:39 No provider procedures requiring assistance completed. andre 01:40 Patient has correct armband on for positive identification. Placed in gown. Bed in low andre position. Call light in reach. Side rails up X 1. personnel monitor on. Pulse ox on. NIBP on. 01:40 Urine Microscopic Only Sent. andre 01:49 Urine Microscopic Only Sent. andre 02:25 Urine Culture Sent. andre 02:37 intact, bleeding controlled, No redness/swelling at site. Pressure dressing applied. andre Administered Medications: 02:35 Not Given (not availablee): cefPODOXime 100 mg PO once andre Outcome: 01:39 Condition: stable andre 01:59 Discharge ordered by . ms3 02:31 Discharged to home ambulatory. andre 02:31 Discharge instructions given to patient, Instructed on discharge instructions, follow up and referral plans. medication usage, Demonstrated understanding of instructions, follow-up care, medications, Prescriptions given X 1. 02:37 Patient left the ED. andre Signatures: Dispatcher [employer] EDMS Evelio Leggett PA PA cp Dex Garcia DO DO ms3 Annabelle Garcia Jennifer Muhammad RN RN Buzz Suarez ab2 Ivet Gallego
--- NOTE | 2021-06-28 02:00 | EDPHYS ---
Physician Documentation [facility] Name: Mica Baker Age: 61 yrs Sex: Female : 1960 Arrival Date: 06/27/2021 Time: 21:04 Bed 23 Private MD: ED Physician Dex Garcia HPI: 06/27 22:50 This 61 yrs old Female presents to ER via Ambulatory with complaints of Ankle Swelling cp - Both. 22:50 The patient presents with swelling, tenderness. cp 22:50 The complaints affect the left ankle and right ankle. Context: resulted from an unknown cp cause, the patient can fully bear weight, Patient reports swelling started in left ankle and 4 days ago and now having swelling in right ankle. Associated signs and symptoms: Pertinent negatives fever, numbness, warmth, weakness. Historical: - Allergies: 21:12 hydrochlorothiazide; ab2 21:12 Iodine; ab2 21:12 Latex, Natural Rubber; ab2 21:12 sulfa drugs; ab2 21:12 telisitine; ab2 21:12 oxybutynin; ab2 - Home Meds: 06/28 01:39 aspirin 81 mg Oral TbEC once daily [Active]; andre - PMHx: 06/27 21:12 Cellulitis; Hypertension; Lymphadema; varicose veins; ab2 - PSHx: 21:12 section; Kidney Stent; ab2 - Immunization history:: Adult Immunizations up to date. - Social history:: Smoking status: Patient denies any tobacco usage or history of. ROS: 22:55 Constitutional: Negative for body aches, chills, fever, poor PO intake. cp 22:55 Cardiovascular: Negative for chest pain, palpitations. cp 22:55 Respiratory: Negative for cough, shortness of breath, wheezing. 22:55 Abdomen/GI: Negative for abdominal pain, nausea, vomiting, and diarrhea. 22:55 Back: Negative for pain at rest, pain with movement. 22:55 MS/extremity: Positive for swelling, tenderness, of the left ankle and right ankle, Negative for injury or acute deformity, decreased range of motion, paresthesias. 22:55 Skin: Negative for cellulitis, rash. 22:55 Neuro: Negative for altered mental status, dizziness, headache, weakness. 22:55 All other systems are negative. 06/28 02:04 Constitutional: Negative for fever, and chills. ms3 Exam: 06/27 23:00 Constitutional: The patient appears in no acute distress, alert, awake, non-toxic, well cp developed, well nourished. 23:00 Head/Face: Normocephalic, atraumatic. cp 23:00 Eyes: Periorbital structures: appear normal, Conjunctiva: normal, no exudate, no injection, Sclera: no appreciated abnormality, Lids and lashes: appear normal, bilaterally. 23:00 ENT: External ear(s): are unremarkable, Nose: is normal, Mouth: Lips: moist, Oral mucosa: moist, Posterior pharynx: Airway: no evidence of obstruction, patent. 23:00 Chest/axilla: Inspection: normal. 23:00 Cardiovascular: Rate: normal, Rhythm: regular, JVD: is not appreciated. 23:00 Respiratory: the patient does not display signs of respiratory distress, Respirations: normal, no use of accessory muscles, no retractions, labored breathing, is not present, Breath sounds: are clear throughout, no decreased breath sounds, no stridor, no wheezing. 23:00 Abdomen/GI: Exam negative for discomfort, distension, guarding, Inspection: abdomen appears normal. 23:00 Back: pain, is absent, ROM is normal. 23:00 Musculoskeletal/extremity: ROM: full active range of motion, in the left ankle and right ankle, Pulses: noted to be 2+ in the right dorsalis pedis artery and left dorsalis pedis artery, Joints: All joints are normal except the left ankle displays swelling, tenderness, the right ankle displays swelling, tenderness, Weight bearing: able to fully bear weight. 23:00 Skin: cellulitis, is not appreciated, no rash present. 23:25 ECG was reviewed by the Attending Physician. cp Vital Signs: 21:13 BP 154 / 75; Pulse 73; Resp 17; Temp 98.6(TE); Pulse Ox 99% on R/A; Weight 147.87 kg; ab2 Height 5 ft. 7 in. (170.18 cm); Pain 3/10; 22:30 BP 137 / 58; Pulse 66; Resp 18; Temp 98.5; Pulse Ox 99% on R/A; Pain 0/10; andre 06/28 00:49 BP 130 / 57; Pulse 60; Resp 18; Pulse Ox 100% on R/A; Pain 0/10; andre 01:38 BP 137 / 60; Pulse 63; Resp 16; Pulse Ox 100% on R/A; Pain 0/10; andre 02:30 BP 118 / 47; Pulse 64; Resp 16; Temp 98.5; Pulse Ox 100% on R/A; Pain 0/10; andre 06/27 21:13 Body Mass Index 51.06 (147.87 kg, 170.18 cm) ab2 MDM: 06/27 22:25 Patient medically screened. cp 06/28 01:57 Differential diagnosis: DVT vs Lymphedema vs UTI. Data reviewed: vital signs, nurses ms3 notes, lab test result(s), radiologic studies. Data interpreted: air sampling and monitoring: rate is 60 beats/min, rhythm is normal sinus rhythm, with no ectopy, Interpretation: normal rate, normal rhythm. Counseling: I had a detailed discussion with the patient and/or guardian regarding: the historical points, exam findings, and any diagnostic results supporting the discharge/admit diagnosis, the presence of at least one elevated blood pressure reading (>120/80) during this emergency department visit, lab results, radiology results, the need for outpatient follow up, to return to the emergency department if symptoms worsen or persist or if there are any questions or concerns that arise at home. ED course: Discussed labs, venous Doppler with patient. Patient follow-up with her primary care physician within 2 to 3 days. Patient understands agrees with plan. All questions were answered. Return precautions discussed include worsening symptoms, or any other concerns. On reevaluation patient is alert and oriented x4, no apparent distress, nontoxic, ambulatory in emergency department. 06/27 22:39 Order name: Basic Metabolic Panel; Complete Time: 00:56 cp 06/28 00:56 Interpretation: Normal except: GFR 71. cp 06/27 22:39 Order name: CBC with Diff; Complete Time: 00:56 cp 06/27 22:39 Order name: LFT's; Complete Time: 00:56 cp 06/28 00:56 Interpretation: Normal except: ALB 3.3; GLOB 3.9; A/G 0.8. cp 06/27 22:39 Order name: Magnesium; Complete Time: 00:56 cp 06/27 22:39 Order name: NT PRO-BNP; Complete Time: 00:56 cp 06/28 00:56 Interpretation: Abnormal: NT PRO-BNP 184. cp 06/27 22:39 Order name: Troponin HS; Complete Time: 00:56 cp 06/27 22:39 Order name: US Extremity Venous W Compression Kobe cp 06/27 22:39 Order name: EKG; Complete Time: 22:40 cp 06/27 22:39 Order name: Cardiac monitoring; Complete Time: 23:48 cp 06/27 22:39 Order name: EKG - Nurse/Tech; Complete Time: 23:48 cp 06/28 00:13 Order name: Urine Microscopic Only; Complete Time: 01:52 cp 06/28 01:35 Order name: Urine Dipstick-Ancillary; Complete Time: 01:52 EDMS 06/28 01:53 Order name: Urine Culture EDMS 06/27 22:39 Order name: IV Saline Lock; Complete Time: 23:48 cp 06/27 22:39 Order name: Labs collected and sent; Complete Time: 23:48 cp 06/27 22:39 Order name: O2 Per Protocol; Complete Time: 23:48 cp 06/27 22:39 Order name: O2 Sat Monitoring; Complete Time: 23:48 cp 06/28 00:13 Order name: Urine Dipstick-Ancillary (obtain specimen); Complete Time: 01:39 cp EC/07 23:25 Rate is 63 beats/min. Rhythm is regular. RI interval is normal. QRS interval is normal. cp QT interval is normal. T waves are Inverted in lead aVR. Interpreted by me. Reviewed by me. Administered Medications: 06/28 02:35 Not Given (not availablee): cefPODOXime 100 mg PO once andre Disposition: 01:57 Co-signature as Attending Physician, Dex Garcia DO. ms3 Disposition Summary: 06/28/21 01:59 Discharge Ordered Location: Home ms3 Condition: Stable ms3 Diagnosis - Peripheral edema ms3 - Elevated blood pressure ms3 - UTI ms3 Followup: ms3 - With: Private Physician - When: 2 - 3 days - Reason: Re-evaluation by your physician Discharge Instructions: - Discharge Summary Sheet ms3 - Urinary Tract Infection, Adult, [id number] ms3 - Peripheral Edema ms3 Forms: - Medication Reconciliation Form ms3 - Thank You Letter ms3 - Antibiotic Education ms3 - Prescription Opioid Use ms3 Prescriptions: - cefpodoxime 100 mg Oral Tablet - take 1 tablet by ORAL route every 12 hours for 10 days take with food; 14 ms3 tablet; Refills: 0, Product Selection Permitted Signatures: Dispatcher [employer] EDEvelio Ruggiero PA PA cp Sims, Marcus, DO DO ms3 Jennifer Muhammad, RN RN Buzz Suarez
--- NOTE | 2021-06-28 07:45 | EKG ---
Test Date: 2021-06-27 Test Time: 23:15:53 Shoe Dresser: MEASUREMENT RESULTS: Intervals: Rate: 63 [place]: 162 QRSD: 100 QT: 422 QTc: 431 [place]: P: 19 [place]: 162 QRS: 55 T: 40 INTERPRETIVE STATEMENTS: Normal sinus rhythm Normal ECG Compared to ECG 05/21/2021 22:00:34 Sinus bradycardia no longer present Electronically Signed On 06-28-21 07:44:43 CDT by Armando Brownlee
[2021-06-28 10:38] VITALS: TEMP 98.5
[2021-06-28 10:40] VITALS: O2SAT 100
[2021-06-28 10:43] VITALS: BP 118/47
--- NOTE | 2021-07-01 10:37 | RAD REPORT ---
EXAM DESCRIPTION: Extrem Venous W Compress Kobe US Bilateral Lower Extremity Venous Duplex Doppler CLINICAL HISTORY: Swelling. COMPARISON: US bilateral leg vein 05/22/2021 report without images. TECHNIQUE: Grayscale, color Doppler, duplex Doppler, spectral Doppler images and analysis with compr ession and augmentation of right and left lower extremity veins. FINDINGS: Right and Left common femoral, greater saphenous, femoral, deep (profunda) femoral, poplit eal, posterior tibial veins unremarkable without evidence of clot. IMPRESSION: No sonographic evidence of right or left lower extremity DVT. Electronically signed by: Jed Zee MD 06/28/2021 12:03 AM CDT Due to temporary technical issues with the PACS/Fluency reporting system, reports are being signed by the in house radiologist without review as a courtesy to ensure prompt reporting. The interpreting r adiologist is fully responsible for the content of the report.
== END 2021-06-28 02:37 | disposition home or self-care (01) ==
LOC: ER 21:01
DX: R60.9 Edema, unspecified (principal); N39.0 Urinary tract infection, site not specified; I10 Essential (primary) hypertension; Z79.82 Long term (current) use of aspirin; Z88.2 Allergy status to sulfonamides; Z88.8 Allergy status to other drugs, medicaments and biological substances; Z91.040 Latex allergy status
CPT/HCPCS: 36415; 80048; 80076; 81003; 81015; 83735; 83880; 84484; 85025; 87077; 87086; 87088; 87186; 93005; 93970; 99284

== ENCOUNTER 2021-09-30 21:27 | Emergency (ER) | payer OTHER ==
[2021-10-01] MEDS ORDERED: FENTANYL CITR 100 MCG/2 ML ONE (01:50)
[2021-10-01] MEDS ORDERED: CLINDAMYCIN 900MG/D5W 900 MG/50 ML IVPB IV ONE (02:28)
[2021-10-01 02:36] LABS: Absolute Lymphocytes (CBC) 2.1 K/uL (0.7-4.9); Hematocrit 41.8 % (36.0-45.0); Lymphocytes % 36.2 % (15.3-44.8); MCV 91.7 fL (80-100); MPV 8.2 fL (7.6-11.3); RBC Red Blood Cell Count 4.56 M/uL (3.86-4.86)
[2021-10-01 02:41] LABS: Potassium 3.4 mmol/L (3.5-5.1)
--- NOTE | 2021-10-01 04:35 | EDPHYS ---
Physician Documentation [facility] Name: Mica Baker Age: 61 yrs Sex: Female : 1960 Arrival Date: 09/30/2021 Time: 21:31 Bed 7 Private MD: ED Physician Evelio Williamson HPI: 10/01 00:55 This 61 yrs old Female presents to ER via Ambulatory with complaints of Foot Pain, Feet cp Swelling, Fever. 00:55 The patient presents with pain, that is acute, swelling, tenderness. The complaints cp affect the lateral aspect of left foot, lateral aspect of right foot. Context: Patient reports history of lymphedema with increasing swelling to left foot and right foot. Patient reports pain to left foot. Denies injury. 00:55 Onset: The symptoms/episode began/occurred yesterday. Associated signs and symptoms: cp Pertinent positives: warmth, Pertinent negatives fever. Historical: - Allergies: 09/30 22:54 telisitine; kd3 22:54 sulfa drugs; kd3 22:54 oxybutynin; kd3 22:54 Latex, Natural Rubber; kd3 22:54 Iodine; kd3 22:54 hydrochlorothiazide; kd3 - PMHx: 22:54 Cellulitis; Hypertension; Lymphadema; varicose veins; kd3 - PSHx: 22:54 section; kidney stent; kd3 - Immunization history:: Adult Immunizations up to date. - Social history:: Smoking status: Patient denies any tobacco usage or history of. ROS: 10/01 00:55 Eyes: Negative for injury, pain, redness, and discharge. cp Constitutional: Negative for body aches, chills, fever, poor PO intake. Neck: Negative for pain with movement, pain at rest, stiffness. Cardiovascular: Positive for edema, Negative for chest pain, palpitations. Respiratory: Negative for cough, shortness of breath, wheezing. Abdomen/GI: Negative for abdominal pain, nausea, vomiting, and diarrhea. Back: Negative for pain at rest, pain with movement. MS/extremity: Positive for pain, swelling, tenderness, of the right foot and left foot, Negative for injury or acute deformity, decreased range of motion, paresthesias. Skin: Positive for erythema, of the lateral side left foot. 00:55 Neuro: Negative for numbness, tingling, weakness. cp 00:55 All other systems are negative. Exam: 01:00 Head/Face: Normocephalic, atraumatic. cp 01:00 Constitutional: The patient appears in no acute distress, alert, awake, non-diaphoretic, non-toxic, well developed, well nourished, obese. 01:00 Eyes: Periorbital structures: appear normal, Conjunctiva: normal, no exudate, no injection, Sclera: no appreciated abnormality, Lids and lashes: appear normal, bilaterally. 01:00 ENT: External ear(s): are unremarkable, Nose: is normal, Mouth: Lips: moist, Oral mucosa: pink and intact, moist, Posterior pharynx: Airway: no evidence of obstruction, patent. 01:00 Chest/axilla: Inspection: normal. 01:00 Cardiovascular: Rate: normal, Edema: ankle edema, that is mild, JVD: is not appreciated. 01:00 Respiratory: the patient does not display signs of respiratory distress, Respirations: normal, no use of accessory muscles, no retractions, labored breathing, is not present, Breath sounds: are clear throughout, no decreased breath sounds, no stridor, no wheezing. 01:00 Abdomen/GI: Exam negative for discomfort, distension, guarding, Inspection: abdomen appears normal. 01:00 Skin: mild erythema, increased skin warmth noted lateral aspect left foot, marked tenderness to palpation. 02:13 ECG was reviewed by the Attending Physician. cp Vital Signs: 09/30 22:52 BP 173 / 76; Pulse 66; Resp 18; Temp 98; Pulse Ox 100% on R/A; Weight 142.88 kg; Height kd3 5 ft. 7 in. (170.18 cm); Pain 7/10; 10/01 02:30 Pain 2/10; ke1 03:18 BP 127 / 63; Pulse 60; Resp 16; Pulse Ox 100% ; ke1 09/30 22:52 Body Mass Index 49.34 (142.88 kg, 170.18 cm) kd3 MDM: 00:07 Patient medically screened. yadira 01:00 Differential diagnosis: cellulitis, fracture, DVT. cp 02:35 Data reviewed: vital signs, nurses notes, radiologic studies, plain films, ultrasound. cp 02:35 Test interpretation: by ED physician or midlevel provider: plain radiologic studies. cp 10/01 00:46 Order name: CBC with Diff; Complete Time: 04:29 cp 10/01 00:46 Order name: BMP; Complete Time: 04:29 cp 10/01 00:46 Order name: US Extremity Venous W Compression Kobe cp 07 00:46 Order name: XRAY Foot LEFT 3 View cp 07 00:46 Order name: XRAY Foot RIGHT 3 View cp 10/01 00:47 Order name: BNP; Complete Time: 04:29 cp 10/01 00:47 Order name: EKG - Nurse/Tech; Complete Time: 02:14 cp EC:13 Rate is 51 beats/min. Rhythm is regular. OK interval is normal. QRS interval is normal. cp QT interval is normal. T waves are Inverted in lead aVR. Interpreted by me. Reviewed by me. Administered Medications: 02:00 Drug: fentaNYL (PF) 25 mcg Route: IVP; Site: left antecubital; ke1 02:30 Follow up: Pain 2/10 Adult; Response: Pain is decreased ke1 02:30 Drug: Clindamycin 900 mg Route: IVPB; Infused Over: 30 mins; Site: left antecubital; ke1 03:00 Follow up: IV Status: Completed infusion ke1 04:45 Drug: Clindamycin 300 mg Route: PO; ke1 04:46 Follow up: Response: Medication administered at discharge. ke1 04:45 Drug: Doxycycline 200 mg Route: PO; ke1 04:46 Follow up: Response: Medication administered at discharge. ke1 Disposition Summary: 10/01/21 04:34 Discharge Ordered Location: Home yadira Problem: new yadira Symptoms: have improved yadira Condition: Stable yadira Diagnosis - Cellulitis of left lower limb - left foot yadira Followup: cp - With: Private Physician - When: 1 - 2 days - Reason: Recheck today's complaints Discharge Instructions: - Cellulitis, Adult, [id number] yadira - Lymphangitis, Adult yadira - Discharge Summary Sheet cp - Cellulitis, Adult cp Forms: - Medication Reconciliation Form yadira - Thank You Letter yadira - Antibiotic Education yadira - Prescription Opioid Use yadira Prescriptions: - Clindamycin HCl 300 mg Oral Capsule - take 1 capsule by ORAL route every 6 hours for 10 days; 40 capsule; Refills: 0, cp Product Selection Permitted - Doxycycline Hyclate 100 mg Oral Tablet - take 1 tablet by ORAL route every 12 hours; 20 tablet; Refills: 0, Product yadira Selection Permitted Addendum: 10/06/2021 15:12 Co-signature as Attending Physician, Evelio Williamson MD I agree with the assessment and c gonzalez plan of care. Signatures: Dispatcher [employer] Evelio Leo MD MD cha Page, Corey, PA PA cp Doucette, Kyli RN RN kd3 Rodger Martinez RN RN ke1
--- NOTE | 2021-10-01 04:35 | ER ---
Nurse's Notes [facility] Name: Mica Baker Age: 61 yrs Sex: Female : 1960 Arrival Date: 09/30/2021 Time: 21:31 Bed 7 Private MD: Diagnosis: Cellulitis of left lower limb-left foot Presentation: 09/30 22:52 Chief complaint: Patient states: I HAVE LYMPHEDEMA AND CELLULITIS BEFORE. I THINK kd3 THAT'S WH ATS GOING ON WITH MY LEFT FOOT. BOTH OF MY ANKLES AND MY FEET ARE SWOLLEN BUT THE LEFT ONE IS WORSE. THE RIGHT ONE HAS A SCAB, THE LEFT ONE HAS NO OPEN WOUNDS. Coronavirus screen: Vaccine status: Patient reports being unvaccinated. Ebola Screen: No symptoms or risks identified at this time. Initial Sepsis Screen: Does the patient meet any 2 criteria? No. Patient's initial sepsis screen is negative. Does the patient have a suspected source of infection? No. Patient's initial sepsis screen is negative. Risk Assessment: Do you want to hurt yourself or someone else? Patient reports no desire to harm self or others. Onset of symptoms was September 30, 2021. 22:52 Method Of Arrival: Ambulatory kd3 22:52 Acuity: LUCIANO 3 kd3 Triage Assessment: 22:54 General: Appears in no apparent distress. Behavior is calm, cooperative. Pain: kd3 Complains of pain in left foot. Historical: - Allergies: 22:54 telisitine; kd3 22:54 sulfa drugs; kd3 22:54 oxybutynin; kd3 22:54 Latex, Natural Rubber; kd3 22:54 Iodine; kd3 22:54 hydrochlorothiazide; kd3 - PMHx: 22:54 Cellulitis; Hypertension; Lymphadema; varicose veins; kd3 - PSHx: 22:54 section; kidney stent; kd3 - Immunization history:: Adult Immunizations up to date. - Social history:: Smoking status: Patient denies any tobacco usage or history of. Screenin:56 Abuse screen: Denies threats or abuse. Denies injuries from another. Nutritional kd3 screening: No deficits noted. Tuberculosis screening: No symptoms or risk factors identified. Fall Risk None identified. Assessment: 10/01 00:39 General: Appears in no apparent distress. uncomfortable, obese, Behavior is calm, bb cooperative. Pain: Complains of pain in left foot. Neuro: Level of Consciousness is awake, alert, obeys commands, Oriented to person, place, time, situation. Cardiovascular: Capillary refill < 3 seconds Patient's skin is warm and dry. Respiratory: Respiratory effort is even, unlabored, Respiratory pattern is regular. GI: No signs and/or symptoms were reported involving the gastrointestinal system. Derm: Skin is dry, Skin is normal, Skin temperature is warm. Musculoskeletal: Swelling present in right leg and left leg. 02:00 Pain: Complains of pain in left leg and right leg and left foot Pain currently is 7 out ke1 of 10 on a pain scale. 03:17 Reassessment: Patient appears in no apparent distress at this time. Patient and/or ke1 family updated on plan of care and expected duration. Pain level reassessed. Patient is alert, oriented x 3, equal unlabored respirations, skin warm/dry/pink. Patient states feeling better. Patient states symptoms have improved. Pain: Complains of pain in right foot and left leg and right leg and left foot Pain currently is 2 out of 10 on a pain scale. Vital Signs: 09/30 22:52 BP 173 / 76; Pulse 66; Resp 18; Temp 98; Pulse Ox 100% on R/A; Weight 142.88 kg; Height kd3 5 ft. 7 in. (170.18 cm); Pain 7/10; 10/01 02:30 Pain 2/10; ke1 03:18 BP 127 / 63; Pulse 60; Resp 16; Pulse Ox 100% ; ke1 09/30 22:52 Body Mass Index 49.34 (142.88 kg, 170.18 cm) kd3 ED Course: 09/30 21:31 Patient arrived in ED. jj6 22:54 Triage completed. kd3 22:54 Arm band placed on left wrist. kd3 22:56 Patient has correct armband on for positive identification. kd3 22:56 No provider procedures requiring assistance completed. kd3 23:54 Evelio Leggett PA is PHCP. cp 23:54 Evelio Williamson MD is Attending Physician. cp 10/01 00:22 Rodger Martinez, ALFONSO is Primary Nurse. ke1 01:05 XRAY Foot LEFT 3 View In Process Unspecified. EDMS 01:05 XRAY Foot RIGHT 3 View In Process Unspecified. EDMS 01:38 US Extremity Venous W Compression Kobe In Process Unspecified. EDMS 02:01 Inserted saline lock: 20 gauge in left antecubital area, using aseptic technique. Blood wm collected. 04:52 IV discontinued. ke1 Administered Medications: 02:00 Drug: fentaNYL (PF) 25 mcg Route: IVP; Site: left antecubital; ke1 02:30 Follow up: Pain 2/10 Adult; Response: Pain is decreased ke1 02:30 Drug: Clindamycin 900 mg Route: IVPB; Infused Over: 30 mins; Site: left antecubital; ke1 03:00 Follow up: IV Status: Completed infusion ke1 04:45 Drug: Clindamycin 300 mg Route: PO; ke1 04:46 Follow up: Response: Medication administered at discharge. ke1 04:45 Drug: Doxycycline 200 mg Route: PO; ke1 04:46 Follow up: Response: Medication administered at discharge. ke1 Medication: 09/30 22:56 VIS not applicable for this client. kd3 Outcome: 10/01 04:34 Discharge ordered by MD. may 04:52 Discharged to home ambulatory. ke1 04:52 Condition: good 04:52 Discharge instructions given to patient. 04:53 Patient left the ED. ke1 Signatures: Dispatcher [employer] Evelio Leo MD MD cha Ballard, Brenda, RN RN Evelio Raymundo PA PA cp Marsh, Wendy wm Jeffries, Jennifer jj6 Bee Carlin RN RN kd3 Rodger Martinez RN RN ke1
[2021-10-01 04:59] VITALS: TEMP 98; O2SAT 100
[2021-10-01 05:02] VITALS: BP 127/63
--- NOTE | 2021-10-01 08:18 | EKG ---
Test Date: 2021-10-01 Test Time: 02:13:13 District Loss Prevention Manager: KYA MEASUREMENT RESULTS: Intervals: Rate: 51 ME: 156 QRSD: 96 QT: 442 QTc: 407 [place]dock: P: 53 ME: 156 QRS: 44 T: 44 INTERPRETIVE STATEMENTS: Sinus bradycardia Cannot rule out Anterior infarct, age undetermined Abnormal ECG Compared to ECG 06/27/2021 23:15:53 Myocardial infarct finding now present Sinus rhythm no longer present Electronically Signed On 10-01-21 08:18:05 CDT by Armando Brownlee
--- NOTE | 2021-10-01 11:15 | RAD REPORT ---
EXAM DESCRIPTION: US - Extrem Venous W Compress Kobe - 10/01/2021 4:07 am CLINICAL HISTORY: The patient is 61 years old and is Female; Pain TECHNIQUE: Real-time duplex ultrasound scan of the bilateral lower extremity veins integrating B-mod e two-dimensional vascular structure, Doppler spectral analysis, color flow Doppler imaging and compr ession. COMPARISON: No relevant prior studies available. FINDINGS: RIGHT DEEP VEINS: Unremarkable. No DVT in the right common femoral, femoral, proximal deep femoral or popliteal veins. The veins demonstrate normal color flow, are normally compressible , with normal phasic flow and/or augmentation response. RIGHT SUPERFICIAL VEINS: Unremarkable. No thrombus in the visualized right great saphenous vein . LEFT DEEP VEINS: Unremarkable. No DVT in the left common femoral, femoral, proximal deep femora l or popliteal veins. The veins demonstrate normal color flow, are normally compressible, with norm al phasic flow and/or augmentation response. LEFT SUPERFICIAL VEINS: Unremarkable. No thrombus in the visualized left great saphenous vein. SOFT TISSUES: No acute findings. No popliteal cyst. IMPRESSION: Normal bilateral lower extremity duplex venous ultrasound. Electronically signed by: Asiya Ayala MD 10/01/2021 3:13 AM CDT Due to temporary technical issues with the PACS/Fluency reporting system, reports are being signed by the in house radiologists without review as a courtesy to insure prompt reporting. The interpreting radiologist is fully responsible for the content of the report.
--- NOTE | 2021-10-01 12:28 | RAD REPORT ---
EXAM DESCRIPTION: RAD - Foot Right 3 View - 10/01/2021 1:03 am CLINICAL HISTORY: PAIN TECHNIQUE: Frontal, lateral and oblique views of the right foot. COMPARISON: No relevant prior studies available. FINDINGS: Bones/joints: Osseous structures are osteopenic. No acute or remote fracture deformity. Bipartite medial sesamoid. Small inferior calcaneal enthesophyte. Mild to moderate degenerative wilkins es at the level of the midfoot. Mild degenerative changes at the 1st metatarsophalangeal articulation . 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 No dislocation. Soft tissues: Unremarkable. No radiopaque foreign body. IMPRESSION: No acute abnormality. Electronically signed by: Zuleyka De Leon MD 10/01/2021 1:34 AM CDT Due to temporary technical issues with the PACS/Fluency reporting system, reports are being signed by the in house radiologists without review as a courtesy to insure prompt reporting. The interpreting radiologist is fully responsible for the content of the report.
--- NOTE | 2021-10-01 14:39 | RAD REPORT ---
EXAM DESCRIPTION: RAD - Foot Left 3 View - 10/01/2021 1:03 am CLINICAL HISTORY: PAIN TECHNIQUE: Frontal, lateral and oblique views of the left foot. COMPARISON: No relevant prior studies available. FINDINGS: Bones/joints: Osseous structures are osteopenic. No acute or remote fracture deformity. Bipartite medial sesamoid. Small inferior calcaneal enthesophyte. Mild to moderate degenerative wilkins es at the midfoot and the 1st metatarsophalangeal articulation. Developmental fusion at the 5th DIP a rticulation. No dislocation. Soft tissues: Unremarkable. No radiopaque foreign body. IMPRESSION: No acute abnormality. Electronically signed by: Zuleyka De Leon MD 10/01/2021 1:31 AM CDT Due to temporary technical issues with the PACS/Fluency reporting system, reports are being signed by the in house radiologists without review as a courtesy to insure prompt reporting. The interpreting radiologist is fully responsible for the content of the report.
--- OUTSIDE RECORDS SUMMARY | 2021-10-10 00:44 | XMS REPORT | Continuity of Care Document ---
:1960 Author Organization [facility] t Address [address] [place] [address] Care Team Providers Name Role Phone Pcp, [...] Date Date Clinician NO KNOWN Drug Active [facility] [place] Social History Social Habit Start Date Stop Date Quantity Comments Source Sex Assigned At [birth year] [facility] 00:00:00 00:00:00 Medical Branch Smoking Status Start Date Stop Date Source Unknown if ever smoked [facility] [place] Medications This patient has no known medications. Procedures Procedure Date / Time Performing Clinician Source Performed LOWER EXTREMITY ARTERIAL 2020-11-15 16:42:00 Danette Vargas [facility] DUPLEX BILATERAL - BY Medical anch VASCULAR LAB DUPLEX VENOUS LEGS 2020-11-15 15:29:00 Danette Vargas [facility] BILATERAL - BY VASCULAR Medical Branch LAB [facility] PATIENT FINANCIAL 2020-11-15 14:05:44 [facility] [place] [facility] NO SHOW OR MISSED 2020-11-15 14:05:20 Doctor Slick, [facility] APPOINTMENT POLICY [place] [facility] ACKNOWLEDGEMENT NOTICE OF PRIVACY 2020-11-15 14:05:00 Doctor Slick, [facility] PRACTICES [place] [facility] CONSENT/REFUSAL FOR 2020-11-15 14:04:43 Doctor Unassigned, Unive [facility] DIAGNOSIS AND TREATMENT [place] [facility] ASSIGNMENT OF BENEFITS 2020-11-15 14:04:27 Doctor Unassigned, Saul [facility] [place] [facility] Encounters Start End Encounter Admission Attending Care Care Encounter Source Date/Time Date/Time Type Type Clinicians Facility Department ID 2020-12-25 2020-12-25 Telephone [facility] [id number] Univers 00:00:00 00:00:00 Sosa [facility] [id number] ity of CLINICS [id number] [place] [id number] [facility] 059 Branch 2020-11-15 2020-11-15 [facility] [id number] Univers 09:10:44 23:59:00 Encounter Marceloveronica [place] [id number] ity of [place] [id number] [facility] [id number] [facility] 850 Branch 2020-11-15 2020-11-15 [facility] [id number] Univers 09:00:00 09:09:00 Encounter Marceloveronica [place] [id number] ity of [place] [id number] [facility] [id number] [facility] 850 Branch 2020-11-15 2020-11-15 [facility] [id number] Univers 00:00:00 00:00:00 SOSA anderson o f [facility] Results This patient has no known results.
== END 2021-10-01 04:53 | disposition home or self-care (01) ==
LOC: ER 21:27
DX: L03.116 Cellulitis of left lower limb (principal); I10 Essential (primary) hypertension; Z88.2 Allergy status to sulfonamides; Z88.8 Allergy status to other drugs, medicaments and biological substances; Z91.040 Latex allergy status; Z91.048 Other nonmedicinal substance allergy status
CPT/HCPCS: 96365; 93005; 85025; 80048; 36415; 83880; 73630 ×2; 93970; 96375; 99284; J3010

== ENCOUNTER 2021-10-09 01:06 | Inpatient (IN) | payer OTHER ==
--- NOTE | 2021-10-09 03:15 | EDPHYS ---
Physician Documentation [facility] Name: Mica Baker Age: 61 yrs Sex: Female : 1960 Arrival Date: 10/09/2021 Time: 01:10 Bed 28 Private MD: ED Physician Vaibhav Verde HPI: 10/09 01:35 This 61 yrs old Female presents to ER via Unassigned with complaints of Feet Swelling, rn Foot Pain. 01:37 The patient presents with cellulitis of the right leg and left leg. Onset: The rn symptoms/episode began/occurred 1 week(s) ago. Possible cause(s): unknown. Associated signs and symptoms: Pertinent positives: erythema, swelling, Pertinent negatives: discharge, drainage. Modifying factors: the symptoms are alleviated by nothing, the symptoms are aggravated by walking, pressure, touching. Severity of symptoms: At their worst the symptoms were moderate, in the emergency department the symptoms are actually worse. The patient has experienced similar episodes in the past. The patient has been recently seen at the [facility] Emergency Department. Pt reports seen 1 week ago for cellulitis, had neg u/s, offered admission but chose to go home, taking clindamycin and doxycycline, not improving, feels redness and pain is worse. NO fever. . Historical: - Allergies: 02:02 hydrochlorothiazide; sm5 02:02 Iodine; sm5 02:02 Latex, Natural Rubber; sm5 02:02 oxybutynin; sm5 02:02 sulfa drugs; sm5 02:02 telisitine; sm5 - PMHx: 02:02 Cellulitis; Lymphadema; varicose veins; Hypertension; sm5 - PSHx: 02:02 section; kidney stent; sm5 - Immunization history:: Client reports having NOT received the Covid vaccine. - Family history:: not pertinent. - Social history:: Smoking status: Patient denies any tobacco usage or history of. - Hospitalizations: : No recent hospitalization is reported. ROS: 01:37 Constitutional: Negative for fever, chills, and weight loss, Eyes: Negative for injury, rn pain, redness, and discharge, Cardiovascular: Negative for chest pain, palpitations, and edema, Respiratory: Negative for shortness of breath, cough, wheezing, and pleuritic chest pain, Abdomen/GI: Negative for abdominal pain, nausea, vomiting, diarrhea, and constipation, Back: Negative for injury and pain, MS/Extremity: + pain/swelling/redness bilateral lower ext Skin: + redness of skin of legs Neuro: Negative for headache, weakness, numbness, tingling, and seizure. Exam: 01:37 Constitutional: This is a well developed, well nourished patient who is awake, alert, rn and in no acute distress. Ambulatory to room without difficulty. Head/Face: Normocephalic, atraumatic. Cardiovascular: Regular rate and rhythm. No pulse deficits. Respiratory: No increased work of breathing, no retractions or nasal flaring. Skin: Warm, dry, + erythema and chronic lymphedema changes bilateral lower extremities. MS/ Extremity: Pulses equal, no cyanosis. Neurovascular intact. Neuro: Awake and alert, GCS 15 Vital Signs: 01:59 BP 159 / 75; Pulse 67; Resp 18; Temp 97.9(O); Pulse Ox 100% on R/A; sm5 MDM: 01:25 Patient medically screened. rn 03:12 Differential diagnosis: cellulitis, lymphedema, lymphangitis. Data reviewed: vital rn signs, nurses notes, old medical records, lab test result(s), and as a result, I will admit patient. Counseling: I had a detailed discussion with the patient and/or guardian regarding: the historical points, exam findings, and any diagnostic results supporting the discharge/admit diagnosis, lab results, radiology results, the need for further work-up and treatment in the hospital. Admission orders: after a detailed discussion of the patient's condition and case, the admit orders are written by me. 10/09 01:29 Order name: CBC with Diff rn 10/09 01:29 Order name: Basic Metabolic Panel rn 10/09 01:29 Order name: Procalcitonin rn 10/09 01:29 Order name: Lactate rn 10/09 01:29 Order name: Blood Culture Adult (2) rn 10/09 03:33 Order name: SARS-COV-2 Antigen Rapid mw2 10/09 01:29 Order name: IV Start; Complete Time: 03:52 rn 10/09 05:31 Order name: CBC with Automated Diff EDMS 10/09 05:38 Order name: SARS-COV-2 Antigen Rapid EDMS 10/09 05:45 Order name: Basic Metabolic Panel EDMS 10/09 05:46 Order name: Lactate EDMS 10/09 05:47 Order name: Procalcitonin EDMS Administered Medications: 03:52 Drug: HYDROcodone-acetaminophen 5 mg-325 mg 1 tabs Route: PO; lg3 03:52 Follow up: Response: No adverse reaction lg3 04:35 Drug: vancoMYCIN 2 grams Route: IVPB; Rate: calculated rate; Site: right antecubital; kd3 04:40 Follow up: IV Status: Infusion continued upon admission lg3 Disposition Summary: 10/09/21 03:14 Hospitalization Ordered Hospitalization Status: Inpatient Admission rn Provider: Bhupinder Camara rn Condition: Stable rn Problem: an ongoing problem rn Symptoms: have worsened rn Bed/Room Type: Standard rn Location: [facility] ER HOLD(10/09/21 03:43) mw2 Room Assignment: ERHOLD-(10/09/21 03:43) mw2 Diagnosis - Cellulitis of left lower limb rn - Cellulitis of right lower limb rn - Lymphedema, not elsewhere classified rn - Failure of outpatient treatment rn Forms: - Medication Reconciliation Form rn - SBAR form rn Signatures: Dispatcher [employer] EDMS Vaibhav Verde MD MD rn Attema, Lee, CUSTOM PROTECTION OFFICER-C CUSTOM PROTECTION OFFICER-Cla1 Pedro Davey 2 Reena Lozano, RN RN lg3 Bee Carlin, RN RN kd3 Ariella Jenkins, RN RN sm5 Corrections: (The following items were deleted from the chart) 03:43 03:14 Telemetry/MedSurg (Inpatient) rn 2 03:43 03:14 rn mw2
--- NOTE | 2021-10-09 03:15 | ER ---
Nurse's Notes [facility] Name: Mica Baker Age: 61 yrs Sex: Female : 1960 Arrival Date: 10/09/2021 Time: 01:10 Bed 28 Private MD: Diagnosis: Cellulitis of left lower limb;Cellulitis of right lower limb;Lymphedema, not elsewhere classified;Failure of outpatient treatment Presentation: 10/09 01:59 Chief complaint: Patient states: seen here last week for cellulitis/lymphedema, been on sm5 antibiotics since Thursday, states her legs and feet started getting tender/worse on Thursday. seen at clinic today and was told she needs IV antibiotics. Coronavirus screen: Vaccine status: Patient reports being unvaccinated. Ebola Screen: No symptoms or risks identified at this time. Initial Sepsis Screen: Does the patient meet any 2 criteria? No. Patient's initial sepsis screen is negative. Does the patient have a suspected source of infection? No. Patient's initial sepsis screen is negative. Risk Assessment: Do you want to hurt yourself or someone else? Patient reports no desire to harm self or others. Onset of symptoms was October 09, 2021. 01:59 Method Of Arrival: Ambulatory 5 01:59 Acuity: LUCIANO 3 sm5 Historical: - Allergies: 02:02 hydrochlorothiazide; sm5 02:02 Iodine; sm5 02:02 Latex, Natural Rubber; sm5 02:02 oxybutynin; sm5 02:02 sulfa drugs; sm5 02:02 telisitine; sm5 - PMHx: 02:02 Cellulitis; Lymphadema; varicose veins; Hypertension; sm5 - PSHx: 02:02 section; kidney stent; sm5 - Immunization history:: Client reports having NOT received the Covid vaccine. - Family history:: not pertinent. - Social history:: Smoking status: Patient denies any tobacco usage or history of. - Hospitalizations: : No recent hospitalization is reported. Screenin:02 Abuse screen: Denies threats or abuse. Denies injuries from another. Nutritional sm5 screening: No deficits noted. Tuberculosis screening: No symptoms or risk factors identified. Fall Risk None identified. Assessment: 02:49 General: Appears in no apparent distress. comfortable, Behavior is calm, cooperative. lg3 Pain: Complains of pain in right foot, left foot, right leg and left leg. Neuro: No deficits noted. Level of Consciousness is awake, alert, obeys commands, Oriented to person, place, time, situation. Cardiovascular: No deficits noted. Denies chest pain, shortness of breath, Capillary refill < 3 seconds Clubbing of nail beds is absent JVD is absent Patient's skin is warm and dry. Respiratory: No deficits noted. Airway is patent Trachea midline Respiratory effort is even, unlabored, Respiratory pattern is regular, symmetrical. GI: No deficits noted. No signs and/or symptoms were reported involving the gastrointestinal system. Abdomen is round non-distended, Abd is soft and non tender X 4 quads. : No deficits noted. No signs and/or symptoms were reported regarding the genitourinary system. EENT: No deficits noted. No signs and/or symptoms were reported regarding the EENT system. Derm: Skin is intact, is healthy with good turgor, Skin is dry, Skin temperature is warm. Musculoskeletal: Swelling present in right foot and left foot and left leg and right leg. Vital Signs: 01:59 BP 159 / 75; Pulse 67; Resp 18; Temp 97.9(O); Pulse Ox 100% on R/A; sm5 ED Course: 01:10 Patient arrived in ED. ja2 01:25 Vaibhav Verde MD is Attending Physician. rn 01:49 Reena Lozano, ALFONSO is Primary Nurse. lg3 02:02 Triage completed. sm5 02:02 Arm band placed on right wrist. sm5 02:03 Patient has correct armband on for positive identification. Bed in low position. Call 5 light in reach. Side rails up X2. 02:13 Inserted saline lock: 20 gauge in left antecubital area, using aseptic technique. Blood oe collected. 03:13 Bhupinder Camara MD is Hospitalizing Provider. rn 04:39 No provider procedures requiring assistance completed. Patient admitted, IV remains in lg3 place. intact, No redness/swelling at site. Administered Medications: 03:52 Drug: HYDROcodone-acetaminophen 5 mg-325 mg 1 tabs Route: PO; lg3 03:52 Follow up: Response: No adverse reaction lg3 04:35 Drug: vancoMYCIN 2 grams Route: IVPB; Rate: calculated rate; Site: right antecubital; kd3 04:40 Follow up: IV Status: Infusion continued upon admission lg3 Medication: 04:40 VIS not applicable for this client. lg3 Outcome: 03:14 Decision to Hospitalize by Provider. rn 04:39 Admitted to ER Hold. Please see [facility] for further documentation. lg3 04:39 Condition: stable 04:39 Instructed on the need for admit, Demonstrated understanding of instructions. 05:58 Patient left the ED. mw2 Signatures: Vaibhav Verde MD MD rn Espinosa, [place] oe [place], MyKena mw2 Reena Lozano RN RN lg3 Irais Rebollar Kyli RN RN kd3 Ariella Jenkins RN RN sm5
[2021-10-09] MEDS ORDERED: HYDROCODONE/APAP 5/325 MG TAB ONE (03:54)
[2021-10-09] MEDS ORDERED: VANCOMYCIN 1 GM/VIAL ONE (04:31)
[2021-10-09] MEDS ORDERED: NA CHLORIDE 0.9% 500 ML ONE (04:31)
--- NOTE | 2021-10-09 05:16 | P.HP ---
Certification for Inpatient Patient admitted to: Inpatient With expected LOS: >2 Midnights Patient will require the following post-hospital care: None Practitioner: I am a practitioner with admitting privileges, knowledge of patient current condition, hospital course, and medical plan of care. Services: Services provided to patient in accordance with Admission requirements found in Title 42 Section 412.3 of the Code of Federal Regulations <Kranthi Ibrahim - Last Filed: 10/09/21 05:13> Patient History Date of Service: 10/09/21 Reason for admission: Cellulitis JOSE LE History of Present Illness: 61-year-old female with history of lymphedema presented to the emergency department for redness, pain of bilateral lower extremities. She was seen in the emergency department on 10/01/2021 and offered admission by ED provider but declined at that time she was given a prescription for clindamycin and doxycycline which she has been taking ever since her discharge. She went for a follow-up appointment with her primary care doctor in [place] today and noted that she is having increasing pain and redness to her lower extremities. She was referred to the emergency department and recommended for IV antibiotics/admission. She was evaluated by the ED provider had labs including CBC, BMP, Pro-Srinath and lactate which were unremarkable. She had ultrasounds of bilateral lower extremity on the which were negative for DVT bilaterally also had an x-ray of the left foot and right foot which were both negative. She was given a dose of vancomycin in the emergency department, ED prior wishes to admit for further evaluation and management of cellulitis of bilateral lower extremitiesfailed outpatient therapy. - Past Medical/Surgical History -: Lymphedema -: obesity -: Psychosocial/ Personal History: Unemployed, lives with family - Family History Mother -: Heart disease, Diabetes, Cancer Father -: Cancer Brother -: Diabetes - Social History Smoking Status: Never smoker Alcohol use: Yes CD- Drugs: No Caffeine use: No Place of Residence: Home <Kranthi Ibrahim - Last Filed: 10/09/21 05:13> Date of Service: 10/09/21 <Bhupinder Camara - Last Filed: 10/09/21 12:50> Allergies hydrochlorothiazide Allergy (Intermediate, Verified 05/17/21 12:13) Itching iodine Allergy (Intermediate, Verified 05/17/21 12:13) unknown but allergic to latex and shellfish latex Allergy (Intermediate, Verified 05/17/21 12:13) Itching shellfish derived Allergy (Verified 05/17/21 12:13) Itching/Hives/Rash sulfamethoxazole [From Bactrim] Allergy (Verified 05/17/21 12:13) Swelling/Redness trimethoprim [From Bactrim] Allergy (Verified 05/17/21 12:13) Swelling/Redness tellisitin Allergy (Intermediate, Uncoded 05/17/21 12:13) Swelling, Redness Home Medications: NK [No Home Meds] 10/09/21 Review of Systems 10-point ROS is otherwise unremarkable Musculoskeletal: Leg Pain Integumentary: Rash, As per HPI <Kranthi Ibrahim - Last Filed: 10/09/21 05:13> Physical Examination - Physical Exam General: Alert, In no apparent distress, Oriented x3, Obese HEENT: Atraumatic, PERRLA, Mucous membr. moist/pink, EOMI, Sclerae nonicteric Neck: Supple, 2+ carotid pulse no bruit, No LAD, Without JVD or thyroid abnormality Respiratory: Clear to auscultation bilaterally, Normal air movement Cardiovascular: Regular rate/rhythm, Normal S1 S2 Gastrointestinal: Normal bowel sounds, No tenderness Musculoskeletal: Erythema, Tenderness, Warmth, Other (lymphedema changes JOSE LE) Integumentary: No rashes Neurological: Normal gait, Normal speech, Normal strength at 5/5 x4 extr, Normal tone, Normal affect Lymphatics: No axilla or inguinal lymphadenopathy <Kranthi Ibrahim - Last Filed: 10/09/21 05:13> - Studies Laboratory Data (last 24 hrs) 10/09/21 02:00: Sodium 142, Potassium 3.8, BUN 19 H, Creatinine 1.10, Glucose 93 10/09/21 02:00: WBC 6.7, Hgb 13.3, Hct 38.8, Plt Count 251 10/09/21 01:29: Sodium Cancelled, Potassium Cancelled, BUN Cancelled, Creatinine Cancelled, Glucose Cancelled 10/09/21 01:29: WBC Cancelled, Hgb Cancelled, Hct Cancelled, Plt Count Cancelled <Bhupinder Camara - Last Filed: 10/09/21 12:50> Assessment and Plan - Plan Assessment: Cellulitis bilateral lower extremities complicated with chronic lymphedemafailed outpatient therapy Morbid obesity BMI of 51 Plan: Cellulitis bilateral lower extremities complicated with chronic lymphedemafailed outpatient therapy: She has been taking clindamycin/doxycycline for the past 7 days she reports worsening pain/redness at this time. She has been started on vancomycin, blood cultures were obtained anticipate clinical improvement over the course the next 48-72 hours. On 10/01/2021 she had ultrasounds of bilateral lower extremities which were negative for DVT and x-rays of both feet which were negative. Morbid obesity BMI of 51: Counseled on lifestyle changes Discharge Plan: Home Plan to discharge in: 72 Hours - Advance Directives Does patient have a Living Will: No Does patient have a Durable POA for Healthcare: No - Code Status/Comfort Care Code Status Assessed: Yes (Full code) Critical Care: No Time Spent Managing Pts Care (In Minutes): 50 <Kranthi Ibrahim - Last Filed: 10/09/21 05:13> Physician Review Additional Text: I have personally seen and evaluated Ms. Mica Baker. I reviewed the notes and assessments performed by Kranthi Ibrahim NP. I independently performed my own history and physical examination. I agree with the assessment and plan as outlined in his note. I concur with his documentation of Ms. Baker. On exam, she demonstrates bilateral lower extremity swelling and erythema, making it difficult to exclude bilateral cellulitis. However, she certainly demonstrates bilateral lower extremity lymphedema. Given that her symptoms have not improved with 7 days of clindamycin + doxycycline, will continue IV antibiotics for 1-2 days, and potentially discharge with an additional 5-days of cephalexin + doxycycline. She is allergic to sulfamethoxazole-trimethorpim. I have also asked nursing staff to provide her with compression stockings for her lymphedema. <Bhupinder Camara - Last Filed: 10/09/21 12:50>
[2021-10-09 05:31] LABS: Absolute Lymphocytes (CBC) 2.1 K/uL (0.7-4.9); Hematocrit 38.8 % (36.0-45.0); Lymphocytes % 31.3 % (15.3-44.8); MCV 91.4 fL (80-100); MPV 8.5 fL (7.6-11.3); RBC Red Blood Cell Count 4.24 M/uL (3.86-4.86)
[2021-10-09 05:37] LABS: SARS-CoV-2 Antigen Rapid Res Negative (Negative)
[2021-10-09 05:45] LABS: Potassium 3.8 mmol/L (3.5-5.1)
[2021-10-09 07:33] VITALS: O2SAT 100
[2021-10-09] MEDS: MORPHINE 2 MG/ML SYR IV PRN (10:07)
[2021-10-09] MEDS ORDERED: VANCOMYCIN 1 GM in NA CHLORIDE 0.9% 250 ML IVPB SCH (10:52)
[2021-10-09] MEDS: VANCOMYCIN 2 GM in NA CHLORIDE 0.9% 500 ML IVPB SCH (11:54)
[2021-10-09] MEDS: HYDROCODONE/APAP 5/325 MG TAB PO PRN (18:13)
[2021-10-10 04:01] LABS: Absolute Lymphocytes (CBC) 1.3 K/uL (0.7-4.9); Hematocrit 34.1 % (36.0-45.0); Lymphocytes % 22.1 % (15.3-44.8); MCV 91.7 fL (80-100); MPV 8.2 fL (7.6-11.3); RBC Red Blood Cell Count 3.72 M/uL (3.86-4.86)
[2021-10-10 04:25] LABS: Albumin 2.8 g/dL (3.4-5.0); Bilirubin Total 0.4 mg/dL (0.2-1.0); Potassium 3.9 mmol/L (3.5-5.1)
[2021-10-10] MEDS: ENOXAPARIN 40 MG/0.4 ML SQ SCH (09:05)
[2021-10-10] MEDS: MICONAZOLE 2% TOPICAL 15 GM TOP SCH ×2 (09:05→22:35)
[2021-10-10 10:12] VITALS: BMI 51.5
[2021-10-10] MEDS: HYDROCODONE/APAP 5/325 MG TAB PO PRN (11:39)
[2021-10-10] MEDS: VANCOMYCIN 2 GM in NA CHLORIDE 0.9% 500 ML IVPB SCH (12:28)
--- OUTSIDE RECORDS SUMMARY | 2021-10-10 14:59 | XMS REPORT | Continuity of Care Document ---
:1960 Author Organization [facility] Address [address] [place] [address] [address] [place] [address] Care Team Providers Name Role Phone Pcp, [...] Date Date Clinician NO KNOWN Drug Active [facility] ALLERGIE [facility] Social History Social Habit Start Date Stop Date Quantity Comments Source Sex Assigned At [birth year] [facility] 00:00:00 00:00:00 Medical Branch Smoking Status Start Date Stop Date Source Unknown if ever smoked [facility] Medications This patient has no known medications. Procedures Procedure Date / Time Performing Clinician Source Performed LOWER EXTREMITY ARTERIAL 2020-11-15 16:42:[address] [facility] DUPLEX BILATERAL - BY Medical anch VASCULAR LAB DUPLEX VENOUS LEGS 2020-11-15 15:29:00 Danette Vargas [facility] BILATERAL - BY VASCULAR Medical Branch LAB [facility] PATIENT FINANCIAL 2020-11-15 14:05:44 Doctor Unavinodigned, [facility] POLICY [place] [facility] NO SHOW OR MISSED 2020-11-15 14:05:20 Doctor Slick, [facility] APPOINTMENT POLICY [place] [facility] h ACKNOWLEDGEMENT NOTICE OF PRIVACY 2020-11-15 14:05:00 Doctor Slick, [facility] PRACTICES [place] [facility] CONSENT/REFUSAL FOR 2020-11-15 14:04:43 Doctor Unassigned, Unive [facility] DIAGNOSIS AND TREATMENT [place] [facility] ASSIGNMENT OF BENEFITS 2020-11-15 14:04:27 Doctor Unassigned, Saul [facility] [place] [facility] Encounters Start End Encounter Admission Attending Care Care Encounter Source Date/Time Date/Time Type Type Clinicians Facility Department ID 2020-12-25 2020-12-25 Telephone [facility] [id number] Univers 00:00:00 00:00:00 Sosa [facility] [id number] ity of CL[place]ICS [id number] [place] [id number] [facility] 059 Branch 2020-11-15 2020-11-15 [facility] [id number] Univers 09:10:44 23:59:00 Encounter Rhodasergveronica Kaur [id number] ity of [place] [id number] [facility] [id number] [facility] 850 Branch 2020-11-15 2020-11-15 [facility] [id number] Univers 09:00:00 09:09:00 Encounter Sosa Kaur [id number] ity of [place] [id number] [facility] [id number] [facility] 850 Branch 2020-11-15 2020-11-15 Outpatient R [facility] [id number] Univers 00:00:00 00:00:00 SOSA anderson o f [facility] Results This patient has no known results.
--- NOTE | 2021-10-10 18:09 | P.PN ---
Subjective Date of Service: 10/10/21 Chief Complaint: Cellulitis JOSE LE Subjective: Improving No acute events overnight. She reports some mild pain in her bilateral lower extremities. Swelling appears to be improving with compression stockings. Review of Systems 10-point ROS is otherwise unremarkable Integumentary: Rash (bilateral lower extremity as per HPI) Physical Examination - Vital Signs Temperature: 97.9 F Blood Pressure: 101/55 Pulse: 59 Respirations: 18 Pulse Ox (%): 99 - Physical Exam General: Alert, In no apparent distress, Oriented x3 HEENT: Atraumatic, PERRLA, Mucous membr. moist/pink, EOMI, Sclerae nonicteric Neck: Supple, JVD not distended Respiratory: Clear to auscultation bilaterally, Normal air movement Cardiovascular: Regular rate/rhythm, Normal S1 S2, No gallops, No rubs, No murmurs, Edema (chronic lower extremity lymphedema with mild erythema/tenderness noted) Gastrointestinal: Normal bowel sounds, Soft and benign, Non-distended, No tenderness, No rebound, No guarding Musculoskeletal: No clubbing Integumentary: Other (chronic lower extremity lymphedema with mild erythema/tenderness noted) - Studies Medications List Reviewed: Yes Assessment And Plan - Plan # Bilateral Lower Extremity Lymphedema with concern for Superimposed Cellulitis # Morbid Obesity - BMI 51.5 kg/m2 - Does not meet sepsis criteria - Appears to be improving on IV vancomycin - Will continue for today and potentially discharge tomorrow with an additional 5-days of cephalexin + doxycycline - Blood cultures x 2 = NGTD - Lactate = 0.6 - Ordered bilateral lower extremity Doppler to evaluate for DVT - Continue compression stockings # Bilateral Toe Onychomycosis - Started topical miconazole Bhupinder Camara M.D. Discharge Plan: Home Plan to discharge in: 24 Hours
--- NOTE | 2021-10-10 19:20 | RAD REPORT ---
EXAM DESCRIPTION: US - Extrem Venous W Compress Kobe - 10/10/2021 7:12 pm CLINICAL HISTORY: rule out DVT COMPARISON: Extrem Venous W Compress Kobe dated 10/01/2021 TECHNIQUE: Real-time sonographic evaluation of the lower extremity deep venous systems was performed using color Doppler, grayscale, and compression. FINDINGS: Bilateral lower extremities. Normal compressibility, flow augmentation, phasic flow and spontaneous flow is identified in both the left and right lower extremity deep venous systems. No intraluminal filling defects seen. IMPRESSION: No DVT in either lower extremity.
[2021-10-10] MEDS: MORPHINE 2 MG/ML SYR IV PRN (22:34)
--- NOTE | 2021-10-11 08:15 | P.DS ---
Admission Date: 10/09/21 Discharge Date: 10/11/21 Disposition: ROUTINE DISCHARGE Discharge Condition: GOOD Reason for Admission: Cellulitis JOSE LE Hospital Course: # DIAGNOSES # Bilateral Lower Extremity Lymphedema with concern for Superimposed Cellulitis # Morbid Obesity - BMI 51.5 kg/m2 # Bilateral Toe Onychomycosis HOSPITAL COURSE: Ms. Mica Baker is a pleasant 61-year-old female with a past medical history significant for morbid obesity complicated by bilateral lower extremity lymphedema who was admitted to the [facility] on 10/09/2021 for concerns of bilateral cellulitis. Upon further evaluation, she did not meet sepsis criteria. On exam, she demonstrated bilateral lower extremity lymphedema as well as bilateral venous stasis dermatitis; however, it was difficult to differentiate whether or not she had a superimposed cellulitis. Bilateral lower extremity Doppler did not reveal evidence of deep venous thromboses. She was treated as an outpatient with clindamycin and doxycycline prior to presentation, without alleviation of her symptoms. She was admitted for a short course of intravenous antibiotics for presumed failed outpatient therapy. After 2 days of IV vancomycin, her symptoms improved significantly. She was discharged with an additional 5 days of cephalexin and doxycycline to complete an additional 7-day course of antibiotics. She was advised to manage her lymphedema with lifestyle modifications, compression stockings, and elevation of the lower extremities when able. She was also incidentally found to have bilateral toe onychomycosis, which responded to topical miconazole. Given her morbid obesity, I recommended that she consider bariatric surgery, and she was interested in this. I have provided her with the information of bariatric surgeon (Dr. Hamilton), should she decide to pursue this. Additionally, we have given her referral information for the lymphedema clinic. On 10/11/2021, she was seen on morning rounds and deemed medically stable for discharge. She was discharged with instructions to schedule follow-up appointments with her PCP in 3-5 days, lymphedema clinic in 1-2 weeks, and with the Bariatric Surgeon if she chooses to. She was provided prescriptions for cephalexin, doxycycline, and miconazole. She was given the opportunity to ask questions and reported no further questions. Furthermore, all questions were answered to the best of my ability. Today, I personally spent 25 minutes with her, of which greater than 50% of the time was spent in patient education, counseling, and coordination of care as described above. PHYSICAL EXAMINATION: General: Alert, In no apparent distress, Oriented x3 HEENT: Atraumatic, PERRLA, Mucous membr. moist/pink, EOMI, Sclerae nonicteric Neck: Supple, JVD not distended Respiratory: Clear to auscultation bilaterally, Normal air movement Cardiovascular: Regular rate/rhythm, Normal S1 S2, No gallops, No rubs, No murmurs, Edema (chronic lower extremity lymphedema with mild erythema/tenderness noted) Gastrointestinal: Normal bowel sounds, Soft and benign, Non-distended, No tenderness, No rebound, No guarding Musculoskeletal: No clubbing Integumentary: Other (chronic lower extremity lymphedema with mild erythema/tenderness noted) Vital Signs/Physical Exam: Temp Pulse Resp BP Pulse Ox 97.8 F 56 17 128/52 L 98 10/11/21 04:00 10/11/21 04:00 10/11/21 04:00 10/11/21 04:00 10/11/21 04:00 Laboratory Data at Discharge: WBC 5.7 K/uL (4.3-10.9) D 10/10/21 03:46 Hgb 11.7 g/dL (12.0-15.0) L 10/10/21 03:46 Hct 34.1 % (36.0-45.0) L 10/10/21 03:46 Plt Count 189 K/uL (152-406) D 10/10/21 03:46 Sodium 141 mmol/L (136-145) 10/10/21 03:46 Potassium 3.9 mmol/L (3.5-5.1) 10/10/21 03:46 BUN 16 mg/dL (7-18) 10/10/21 03:46 Creatinine 0.77 mg/dL (0.55-1.3) 10/10/21 03:46 Glucose 103 mg/dL (74-106) 10/10/21 03:46 Total Bilirubin 0.4 mg/dL (0.2-1.0) 10/10/21 03:46 AST 14 U/L (15-37) L 10/10/21 03:46 ALT 15 U/L (12-78) 10/10/21 03:46 Alkaline Phosphatase 78 U/L (45-117) 10/10/21 03:46 Home Medications: Cephalexin [Keflex] 500 mg PO BID 5 Days #10 cap 10/11/21 Doxycycline Hyclate 100 mg PO BID 5 Days #10 tablet 10/11/21 Miconazole Cream [Monistat-Derm*] 1 appl TOP BID 10 Days #1 tube 10/11/21 New Medications: Doxycycline Hyclate 100 mg PO BID 5 Days #10 tablet Cephalexin [Keflex] 500 mg PO BID 5 Days #10 cap Miconazole Cream [Monistat-Derm*] 1 appl TOP BID 10 Days #1 tube Physician Discharge Instructions: 1. Please schedule a follow-up with your PCP in 3-5 days 2. Please schedule a follow-up with [facility] for your chronic lymphedema 3. If interested, please schedule a consultation with Bariatric Surgery (Dr. Hamilton) Diet: AHA Activity: Ad ramesh Followup: Marty Hamilton MD [Other] (call if you would like to follow up with potential bariatic surg.) NONE,NONE [Primary Care Provider] - 1-2 Weeks ([facility]. call for an apointment) [facility] [OUTSIDE AGENCY] - 1 Week (call the wound clinic to follow up on Lymphedema.)
[2021-10-11] MEDS: ENOXAPARIN 40 MG/0.4 ML SQ SCH (09:19)
[2021-10-11] MEDS: MICONAZOLE 2% TOPICAL 15 GM TOP SCH (09:28)
[2021-10-11] MEDS: HYDROCODONE/APAP 5/325 MG TAB PO PRN (09:29)
[2021-10-11] MEDS: VANCOMYCIN 2 GM in NA CHLORIDE 0.9% 500 ML IVPB SCH (12:00)
[2021-10-11 12:35] VITALS: BP 145/75; TEMP 98.2
== END 2021-10-11 13:46 | disposition home or self-care (01) | DRG 603 ==
LOC: ER 01:06 → ERHOLD 04:00 → 4TH 05:44
PROVIDERS: ADMIT Internal Medicine; ATTEND Internal Medicine
DX: L03.116 Cellulitis of left lower limb (principal); Z68.43 Body mass index [BMI] 50.0-59.9, adult; L03.115 Cellulitis of right lower limb; I89.0 Lymphedema, not elsewhere classified; E66.01 Morbid (severe) obesity due to excess calories; B35.1 Tinea unguium; I87.2 Venous insufficiency (chronic) (peripheral); Z88.2 Allergy status to sulfonamides; Z91.040 Latex allergy status; Z91.013 Allergy to seafood; Z20.822 Contact with and (suspected) exposure to COVID-19
CPT/HCPCS: 36415; 80048; 80053; 80202; 83605; 84145; 85025; 87040; 87811; 93970; 96374; 99285; J1650; J2270; J3370; J7040

== ENCOUNTER 2021-10-24 15:54 | Emergency (ER) | payer OTHER ==
--- OUTSIDE RECORDS SUMMARY | 2021-10-24 15:57 | XMS REPORT | Continuity of Care Document ---
:1960 Author Organization [facility] t Address [facility] Patrice Kim [address] [place] [id number] Care Team Providers Name Role Phone Unavailable Unavailable Unavailable Problems This patient has no known problems. Allergies, Adverse Reactions, Alerts This patient has no known allergies or adverse reactions. Medications This patient has no known medications. Procedures This patient has no known procedures. Results Test Description Test Time Test Comments Results Result Comments Source CBC W/AUTO DIFF WITH PLATELETS 2021-10-24 11:25:56 Test Item Value Reference Range Interpretation Comme nts WBC (test code = 1001) 5.5 K/UL 3.5-11.0 RBC (test code = 1002) 4.16 M/UL 3.80-5.40 HEMOGLOBIN (test code = 12.8 G/DL 11.5-15.5 1003) HEMATOCRIT (test code = 39.1 % 34.0-45.0 1004) MCV (test code = 1005) 94.0 fL 80.0-99.0 MCH (test code = 1006) 30.8 PG 25.0-33.0 MCHC (test code = 1007) 32.7 G/DL 31.0-36.0 RDW (test code = 1038) 13.2 % 11.5-15.0 NEUTROPHILS (test code = 62.5 % AU TOMATED DIFFERENTIAL 1008) CONFIRMED WITH MANUAL SLIDE REVIEW. LYMPHOCYTES (test code = 28.3 % 1010) MONOCYTES (test code = 7.2 % 1011) EOSINOPHILS (test code = 0.7 % 1012) BASOPHILS (test code = 0.7 % 1013) IMMATURE GRANULOCYTES (test 0.6 % code = 1036) NUCLEATED RBCS (test code = 0.0 /100 WBC'S See_Comment [Automated message] The 1065) system which ge nerated this result transmit jeremiah reference range: 0.0. The reference range was not u sed to interpret this result as normal/abnormal . PLATELET COUNT (test code = 101 K/UL 130-400 L 1015) ABSOLUTE NEUTROPHILS (test 3.41 K/UL 1.50-7.50 code = 1066) ABSOLUTE LYMPHOCYTES (test 1.54 K/UL 1.00-4.00 code = 1067) ABSOLUTE MONOCYTES (test 0.39 K/UL 0.20-1.00 code = 1068) ABSOLUTE EOSINOPHILS (test 0.04 K/UL 0.00-0.50 code = 1040) ABSOLUTE BASOPHILS (test 0.04 K/UL 0.00-0.20 code = 1069) ABS IMMATURE GRANULOCYTES 0.03 K/UL 0.00-0.10 (test code = 1020) ABS NUCLEATED RBCS (test 0.00 K/UL 0.00-0.11 code = 63522) COMMENTS (test code = 1016) (NOTE) NO SPECIFIC RBC ABNORMALITIES I DENTIFIED SEE ADDITIONAL COMM ENTS BELOW: PLATELET CLUMPI NG PRESENT; TRUE PLATELET C OUNT MAY BE HIGHER. IF CLIN ICALLY INDICATED, ALEXANDRA R REPEAT PLATELET COUNT WITH CITRATE ANTICOAGULATED TUBE (CPL ORDER CODE 1047 ). HEMOGLOBIN [id number] 06:07:51 Test Item Value Reference Range Interpretation Comments HEMOGLOBIN A1c (test 5.2 % 4.2-5.6 UNLESS OTHERWISE code = 50463) INDICATED, ALL TESTING PERFORMED [facility] [address] [place] [address] DIRECTOR: ISIDRA AYERS M.D. CLIA NUMBER [id number] CAP ACCREDITATION N O. [id number] COMPREHENSIVE METABOLIC [id number] 05:35:34 Test Item Value Reference Range Interpretation Comments GLUCOSE (test code = 95 MG/DL 70-99 2216) BUN (test code = 18 MG/DL 8-23 2207) CREATININE (test 0.94 MG/DL 0.60-1.30 code = 2214) eGFR (2020 CKD-EPI) 69 ML/MIN/1.73 >60 (test code = 65878) CALC BUN/CREAT (test 19 RATIO 6-28 code = 2235) SODIUM (test code = 143 MEQ/L 179-115 2097) POTASSIUM (test code 3.9 MEQ/L 3.5-5.4 = 8) CHLORIDE (test code 104 MEQ/L 95-107 = 2215) CARBON DIOXIDE (test 26 MEQ/L 19-31 code = 220) CALCIUM (test code = 9.7 MG/DL 8.5-10.5 2208) PROTEIN, TOTAL (test 7.5 G/DL 6.1-8.3 code = 2229) ALBUMIN (test code = 4.3 G/DL 3.5-5.2 2200) CALC GLOBULIN (test 3.2 G/DL 1.9-3.7 code = 2240) CALC A/G RATIO (test 1.3 RATIO 1.0-2.6 code = 2234) BILIRUBIN, TOTAL 0.4 MG/DL See_Comment [Automated message] (test code = 220) The syste m which generated this result transmit jeremiah reference range : <=1.2. The refe rence range was not u sed to interpret th is result as normal/abnormal . ALKALINE PHOSPHATASE 89 U/L 40-136 (test code = 2203) AST (test code = 18 U/L 9-40 2217) ALT (test code = 15 U/L 5-40 2218) LIPID [id number] 05:35:34 Test Item Value Reference Range Interpretation Comments CHOLESTEROL (test 186 MG/DL <200 code = 2210) TRIGLYCERIDES (test 94 MG/DL <150 code = 2232) HDL CHOLESTEROL (test 58 MG/DL >39 code = 2220) CALC LDL CHOL (test 109 MG/DL <100 H NOTE: C ALCULATED LDL code = 2237) IS BASED ON MARY-CRUZ METHOD WHICHINCLUDES ADJUSTABLE TRIGLYCERIDE:VL DL CHOLESTEROL RAT IO.THIS FACTOR VARIES B Y MEASURED TRIGLY CERIDE AND NON-HDLCHOL ESTEROL CONCENTRATIONS WITH INCREASED CALCU LATED LDL SEENIN HIGH ER TRIGLYCERIDE OR LOWER NON-HDL SPECIME NS. FOR MOREINFORMATION , SEE CLIENT ANNOUNCE MENT AT [email or web address] RATIO LDL/HDL 1.88 RATIO <3.22 (test code = 223)
[2021-10-24] MEDS ORDERED: GABAPENTIN 300 MG CAP ONE (18:09)
[2021-10-24] MEDS ORDERED: PROMETHAZINE INJ 25 MG/ML AMP ONE (18:09)
[2021-10-24] MEDS ORDERED: MEPERIDINE HCL 50 MG/ML ONE (18:09)
[2021-10-24] MEDS ORDERED: COLLAGENASE 30 GM OINTMENT TOP SCH (18:15)
--- NOTE | 2021-10-24 18:47 | EDPHYS ---
Physician Documentation [facility] Name: Mica Baker Age: 61 yrs Sex: Female : 1960 Arrival Date: 10/24/2021 Time: 15:55 Bed 14 Private MD: ED Physician Trenton Schaeffer HPI: 10/24 19:04 This 61 yrs old Female presents to ER via Ambulatory with complaints of Ankle Injury. snw 19:04 The patient presents with pain, that is acute. The complaints affect the left ankle, snw dorsum of left foot. Onset: The symptoms/episode began/occurred gradually, and became worse. Context: resulted from PVD, The mechanism of injury is unknown. The patient can partially bear weight on the affected extremity. Severity of symptoms: At their worst the symptoms were severe. The patient has experienced similar episodes in the past. The patient has been recently seen by a physician: wound care yesterday. Historical: - Allergies: 16:19 hydrochlorothiazide; ld1 16:19 Iodine; ld1 16:19 Latex, Natural Rubber; ld1 16:19 oxybutynin; ld1 16:19 sulfa drugs; ld1 16:19 telisitine; ld1 - PMHx: 16:19 Cellulitis; Hypertension; Lymphadema; varicose veins; ld1 - PSHx: 16:19 section; kidney stent; ld1 - Immunization history:: Adult Immunizations up to date, Client reports having NOT received the Covid vaccine. - Social history:: Smoking status: Patient denies any tobacco usage or history of. Patient uses alcohol, occasionally. ROS: 18:44 Constitutional: Negative for fever, chills, and weight loss, Eyes: Negative for injury, snw pain, redness, and discharge, ENT: Negative for injury, pain, and discharge, Neck: Negative for injury, pain, and swelling, Cardiovascular: Negative for chest pain, palpitations, and edema, Respiratory: Negative for shortness of breath, cough, wheezing, and pleuritic chest pain, Abdomen/GI: Negative for abdominal pain, nausea, vomiting, diarrhea, and constipation, Back: Negative for injury and pain, : Negative for injury, bleeding, discharge, and swelling, Skin: Negative for injury, rash, and discoloration, Neuro: Negative for headache, weakness, numbness, tingling, and seizure, Psych: Negative for depression, anxiety, suicide ideation, homicidal ideation, and hallucinations. 18:44 MS/extremity: Positive for decreased range of motion, pain, swelling. Exam: 18:42 Constitutional: This is a well developed, well nourished patient who is awake, alert, snw and in no acute distress. Head/Face: Normocephalic, atraumatic. Eyes: Pupils equal round and reactive to light, extra-ocular motions intact. Lids and lashes normal. Conjunctiva and sclera are non-icteric and not injected. Cornea within normal limits. Periorbital areas with no swelling, redness, or edema. ENT: Nares patent. No nasal discharge, no septal abnormalities noted. Tympanic membranes are normal and external auditory canals are clear. Oropharynx with no redness, swelling, or masses, exudates, or evidence of obstruction, uvula midline. Mucous membranes moist. Neck: Trachea midline, no thyromegaly or masses palpated, and no cervical lymphadenopathy. Supple, full range of motion without nuchal rigidity, or vertebral point tenderness. No Meningismus. Chest/axilla: Normal chest wall appearance and motion. Nontender with no deformity. No lesions are appreciated. Cardiovascular: Regular rate and rhythm with a normal S1 and S2. No gallops, murmurs, or rubs. Normal PMI, no JVD. No pulse deficits. Respiratory: Lungs have equal breath sounds bilaterally, clear to auscultation and percussion. No rales, rhonchi or wheezes noted. No increased work of breathing, no retractions or nasal flaring. Abdomen/GI: Soft, non-tender, with normal bowel sounds. No distension or tympany. No guarding or rebound. No evidence of tenderness throughout. Neuro: Awake and alert, GCS 15, oriented to person, place, time, and situation. Cranial nerves II-XII grossly intact. Motor strength 5/5 in all extremities. Sensory grossly intact. Cerebellar exam normal. Normal gait. Psych: Awake, alert, with orientation to person, place and time. Behavior, mood, and affect are within normal limits. 18:42 Skin: Appearance: normal except for affected area, discolored peripheral vascular disease to bilateral ankles. Left lateral foot edema with pressure ulcer tx in wound care yesterday. Pt with stabbing, burning pain. Not sleeping secondary to pain.. Vital Signs: 16:20 BP 166 / 67; Pulse 62; Resp 18; Temp 97.9(TE); Pulse Ox 100% on R/A; Weight 146.96 kg; ld1 Height 5 ft. 7 in. (170.18 cm); Pain 9/10; 17:30 BP 152 / 70; Pulse 66; Resp 17; Pulse Ox 98% ; Pain 7/10; jh6 16:20 Body Mass Index 50.75 (146.96 kg, 170.18 cm) ld1 MDM: 17:30 Patient medically screened. snw 18:52 Data reviewed: vital signs, nurses notes. Data interpreted: Pulse oximetry: on room air snw is 98 %. Interpretation: normal. Counseling: I had a detailed discussion with the patient and/or guardian regarding: the presence of at least one elevated blood pressure reading (>120/80) during this emergency department visit, the need for outpatient follow up, for definitive care, to return to the emergency department if symptoms worsen or persist or if there are any questions or concerns that arise at home. 10/24 17:36 Order name: Wound dressing; Complete Time: 18:23 snw Administered Medications: 18:10 Drug: Demerol (meperidine) 50 mg Route: IM; Site: left deltoid; 6 18:53 Follow up: Response: Pain is decreased [facility] 18:10 Drug: Phenergan (promethazine) 25 mg Route: IM; Site: right deltoid; 6 18:53 Follow up: Response: No adverse reaction [facility] 18:10 Drug: Neurontin (gabapentin) 300 mg Route: PO; 6 18:53 Follow up: Response: Pain is decreased [facility] 18:23 Drug: Santyl (collagenase) Ointment 250 unit/g 1 application Route: Topical; Site: [facility] affected area; 18:53 Follow up: Response: No adverse reaction [facility] Disposition: 10/25 09:07 Co-signature as Attending Physician, Trenton Schaeffer MD I agree with the assessment and kdr plan of care. Disposition Summary: 10/24/21 18:46 Discharge Ordered Location: Home snw Condition: Stable snw Diagnosis - Peripheral vascular disease, unspecified - with stasis ulcer to left lateral foot snw - Mononeuropathy, unspecified snw Followup: snw - With: Private Physician - When: 2 - 3 days - Reason: Recheck today's complaints, Continuance of care, Re-evaluation by your physician Followup: snw - With: Emergency Department - When: As needed - Reason: Worsening of condition Discharge Instructions: - Discharge Summary Sheet snw - Neuropathic Pain snw - Peripheral Vascular Disease snw - Stasis Dermatitis snw - Mechanical Wound Debridement, Care After snw Forms: - Medication Reconciliation Form snw - Thank You Letter snw - Antibiotic Education snw - Prescription Opioid Use snw Prescriptions: - Neurontin 300 mg Oral Capsule - take 1 capsule by ORAL route every 8 hours; 30 capsule; Refills: 0, Product snw Selection Permitted - Tramadol 50 mg Oral Tablet - take 1 tablet by ORAL route every 8 hours as needed; 12 tablet; Refills: 0, snw Product Selection Permitted Signatures: Trenton Schaeffer MD MD kdr Waters, Shelly, QUALITY ASSURANCE CLERK-C QUALITY ASSURANCE CLERK-Csnw Emily Toney RN RN ld1 Tosha Griggs RN RN jh6 Corrections: (The following items were deleted from the chart) 10/24 16:20 16:20 PSHx: kidney stent; ld1 ld1
--- NOTE | 2021-10-24 18:47 | ER ---
Nurse's Notes [facility] Name: Mica Baker Age: 61 yrs Sex: Female : 1960 Arrival Date: 10/24/2021 Time: 15:55 Bed 14 Private MD: Diagnosis: Peripheral vascular disease, unspecified-with stasis ulcer to left lateral foot;Mononeuropathy, unspecified Presentation: 10/24 16:20 Chief complaint: Patient states: Venous ulcer to left ankle/foot. Pt reports going to ld1 wound clinic in hospital yesterday and received care, now reports being in severe pain. Coronavirus screen: At this time, the client does not indicate any symptoms associated with coronavirus-19. Ebola Screen: No symptoms or risks identified at this time. Initial Sepsis Screen: Does the patient meet any 2 criteria? No. Patient's initial sepsis screen is negative. Does the patient have a suspected source of infection? Yes: Skin breakdown/wound. Risk Assessment: Do you want to hurt yourself or someone else? Patient reports no desire to harm self or others. Onset of symptoms was October 24, 2021. 16:20 Method Of Arrival: Ambulatory ld1 16:20 Acuity: LUCIANO 3 ld1 Triage Assessment: 16:20 General: Appears in no apparent distress. comfortable, Behavior is calm, cooperative, ld1 appropriate for age. 16:23 Pain: Complains of pain in left foot, left lateral ankle and lateral aspect of left ld1 foot Pain does not radiate. Pain currently is 9 out of 10 on a pain scale. Quality of pain is described as sharp, shooting, throbbing, Is continuous. Neuro: Level of Consciousness is awake, alert, obeys commands, Oriented to person, place, time, situation, Appropriate for age. Cardiovascular: Capillary refill < 3 seconds Patient's skin is warm and dry. Respiratory: Airway is patent Respiratory effort is even, unlabored. GI: Abdomen is round obese. : No signs and/or symptoms were reported regarding the genitourinary system. Derm: No signs and/or symptoms reported regarding the dermatologic system. Derm: Wound noted left foot, left lateral ankle and lateral aspect of left foot. Musculoskeletal: No signs and/or symptoms reported regarding the musculoskeletal system. Historical: - Allergies: 16:19 hydrochlorothiazide; ld1 16:19 Iodine; ld1 16:19 Latex, Natural Rubber; ld1 16:19 oxybutynin; ld1 16:19 sulfa drugs; ld1 16:19 telisitine; ld1 - PMHx: 16:19 Cellulitis; Hypertension; Lymphadema; varicose veins; ld1 - PSHx: 16:19 section; kidney stent; ld1 - Immunization history:: Adult Immunizations up to date, Client reports having NOT received the Covid vaccine. - Social history:: Smoking status: Patient denies any tobacco usage or history of. Patient uses alcohol, occasionally. Screenin:30 Abuse screen: Denies threats or abuse. Denies injuries from another. Nutritional jh6 screening: No deficits noted. Tuberculosis screening: No symptoms or risk factors identified. Fall Risk Gait- Impaired (20 pts.). Assessment: 16:30 General: Appears in no apparent distress. Behavior is calm, cooperative. Pain: jh6 Complains of pain in lateral aspect of left foot Pain currently is 7 out of 10 on a pain scale. Quality of pain is described as sharp, shooting, stabbing, Pain began 2-3 days ago. Is intermittent, Alleviated by rest, repositioning, Aggravated by increased activity, weight bearing. Injury Description: open wound to bilateral feet lateral top of feet. no bleeding or redness noted to wounds. reports that she has follow up this next week with wound care. 17:30 Reassessment: No changes from previously documented assessment. Patient and/or family jh6 updated on plan of care and expected duration. Pain level reassessed. Vital Signs: 16:20 BP 166 / 67; Pulse 62; Resp 18; Temp 97.9(TE); Pulse Ox 100% on R/A; Weight 146.96 kg; ld1 Height 5 ft. 7 in. (170.18 cm); Pain 9/10; 17:30 BP 152 / 70; Pulse 66; Resp 17; Pulse Ox 98% ; Pain 7/10; jh6 16:20 Body Mass Index 50.75 (146.96 kg, 170.18 cm) ld1 ED Course: 15:55 Patient arrived in ED. rg4 16:22 Triage completed. ld1 16:23 Arm band placed on right wrist. ld1 16:25 Tosha Griggs, ALFONSO is Primary Nurse. jh6 16:27 Kareen Hernandez FNP-C [facility]. snw 16:27 Trenton Schaeffer MD is Attending Physician. snw 16:35 Bed in low position. Call light in reach. Side rails up X 1. jh6 18:24 Dressings: Elvia non-adherent dressing x 2 right leg and dorsum of left foot. Wound jh6 care: located on lateral aspect of left foot was cleaned with soap and water, irrigated with normal saline, dressed with. Administered Medications: 18:10 Drug: Demerol (meperidine) 50 mg Route: IM; Site: left deltoid; jh6 18:53 Follow up: Response: Pain is decreased jh6 18:10 Drug: Phenergan (promethazine) 25 mg Route: IM; Site: right deltoid; jh6 18:53 Follow up: Response: No adverse reaction jh6 18:10 Drug: Neurontin (gabapentin) 300 mg Route: PO; jh6 18:53 Follow up: Response: Pain is decreased jh6 18:23 Drug: Santyl (collagenase) Ointment 250 unit/g 1 application Route: Topical; Site: jh6 affected area; 18:53 Follow up: Response: No adverse reaction [facility] Outcome: 18:46 Discharge ordered by . snw 19:25 Patient left the ED. ja4 Signatures: Kareen Hernandez FNP-C ACADEMIC INTERVENTIONIST-Duyen Delgado rg4 Emily Toney RN RN ld1 Tosha Griggs RN RN jh6 Aman Jarquin RN RN ja4 Corrections: (The following items were deleted from the chart) 16:20 16:20 PSHx: kidney stent; ld1 ld1 16:24 16:19 Chief complaint: ld1 ld1
[2021-10-24 20:25] VITALS: BP 166/67; TEMP 97.9; O2SAT 100
== END 2021-10-24 19:25 | disposition home or self-care (01) ==
LOC: ER 15:54
DX: I73.9 Peripheral vascular disease, unspecified (principal); I83.025 Varicose veins of left lower extremity with ulcer other part of foot; G58.9 Mononeuropathy, unspecified; I10 Essential (primary) hypertension; Z88.2 Allergy status to sulfonamides; Z88.8 Allergy status to other drugs, medicaments and biological substances; Z91.040 Latex allergy status; Z91.048 Other nonmedicinal substance allergy status
CPT/HCPCS: 96372; 99283; J2550; J3590; J2175

== ENCOUNTER 2022-01-06 22:03 | Inpatient (IN) | payer OTHER ==
--- OUTSIDE RECORDS SUMMARY | 2022-01-06 22:11 | XMS REPORT | Continuity of Care Document ---
:1960 Author Organization [facility] t Address [address] [place] [address] Dr. Kim [address] [place] [address] Care Team Providers Name Role Phone Pcp, Patient Does Not Have A Primary Care Physician +[id number] Doctor Unassigned, Pabellones Attending Clinician Unavailable Clinton England MD Attending Clinician CLINTON ENGLAND Attending Clinician Unavailable Payers Payer Name Policy Type Policy Number Effective Date Expiration Date S ource Problems This patient has no known problems. Allergies, Adverse Reactions, Alerts Allergy Allergy Status Severity Reaction(s) Onset Inactive Treating Comm ents Source Name Type Date Date Clinician hydroCHL Prop[facility]i Active OROthiaz ty to 9-29 alessandro - adverse 00:00: Oral reaction 00 to drug Iodine Prop[facility] Active Strong - ty to 4-07 Oral adverse 00:00: reaction 00 to drug Sulfa Propensi Active (Sulfona ty to 8-04 mide adverse 00:00: Antibiot reaction 00 ics) to drug Latex Propensi Active ty to 3-22 adverse 00:00: reaction 00 to drug NO KNOWN Drug Active [facility] Social History Social Habit Start Date Stop Date Quantity Comments Source Sex Assigned At [birth year] [facility] 00:00:00 00:00:00 [facility] Smoking Status Start Date Stop Date Source Tobacco smoking consumption [facility] unknown [facility] Medications Ordered Filled Start Stop Current Ordering Indication Dosage Frequency Signature Comments Components Source Medication Medication Date Date Medication? Clinician (SIG) Name Name TAKE 1 TAB 2022-0 No 50 BY MOUTH 24 8-18 HOURS PRIOR 00:00: TO CT SCAN, 00 1 TAB 12 HOURS PROIOR AND 1 TAB 1 HOUR PRIOR TO SCAN TAKE 1 TAB 2022-0 No BY MOUTH 24 8-18 HOURS PRIOR 00:00: TO CT SCAN, 00 1 TAB 12 HOURS PROIOR AND 1 TAB 1 HOUR PRIOR TO SCAN TAKE 1 TAB 2022-0 No BY MOUTH 24 8-18 HOURS PRIOR 00:00: TO CT SCAN, 00 1 TAB 12 HOURS PROIOR AND 1 TAB 1 HOUR PRIOR TO SCAN TAKE 1 2022-0 No 5 TABLET BY 8-11 MOUTH EVERY 00:00: DAY FOR 30 DAYS Dose 2022-0 No Unknown 10-31 00:00: 00 Dose 2022-0 No 500 Unknown 10-31 00:00: 00 TAKE 1 2022-0 No 500 TABLET BY 8-11 MOUTH EVERY 00:00: DAY 00 TAKE 1 2022-0 No TABLET BY 8-11 MOUTH EVERY 00:00: 6 HOURS 00 NEEDED FOR PAIN Dose 2-0 No Unknown 10-31 00:00: 00 &lt 2022-0 No 10-31 00:00: 00 TAKE 1 2022-0 No 5 TABLET BY 8-11 MOUTH EVERY 00:00: DAY FOR 30 00 DAYS Dose 2022-0 No Unknown 10-31 00:00: 00 Dose 2022-0 No 500 Unknown 10-31 00:00: 00 TAKE 1 2022-0 No 500 TABLET BY 8-11 MOUTH EVERY 00:00: DAY 00 TAKE 1 2022-0 No TABLET BY 8-11 MOUTH EVERY 00:00: 6 HOURS 00 NEEDED FOR PAIN Dose 2022-0 No Unknown 10-31 00:00: 00 AMOX/K CLAV 2022-0 No TAB 875-125 10-31 00:00: 00 TAKE 1 2022-0 No 5 TABLET BY 8-11 MOUTH EVERY 00:00: DAY FOR 30 DAYS Dose 2022-0 No Unknown 10-31 00:00: 00 Dose 2022-0 No 500 Unknown 10-31 00:00: 00 TAKE 1 2022-0 No 500 TABLET BY 8-11 MOUTH EVERY 00:00: DAY 00 TAKE 1 2022-0 No TABLET BY 8-11 MOUTH EVERY 00:00: 6 HOURS 00 NEEDED FOR PAIN Dose 2022-0 No Unknown 10-31 00:00: 00 AMOX/K CLAV 2022-0 No TAB 875-125 8-11 00:00: 00 &lt 2022-0 No 500 8-10 00:00: 00 TAKE 1 2022-0 No TABLET BY 8-10 MOUTH EVERY 00:00: 6 HOURS 00 NEEDED FOR PAIN &lt 2022-0 No 50 8-10 00:00: 00 Dose 2022-0 No Unknown 8- 00:00: 00 &lt 2022-0 No 500 8- 00:00: 00 TAKE 1 2022-0 No TABLET BY 8-10 MOUTH EVERY 00:00: 6 HOURS 00 NEEDED FOR PAIN &lt 2022-0 No 50 8-10 00:00: 00 Dose 2022-0 No Unknown 8 00:00: 00 &lt 2022-0 No 500 8- 00:00: 00 TAKE 1 2022-0 No TABLET BY 8-10 MOUTH EVERY 00:00: 6 HOURS 00 NEEDED FOR PAIN &lt 2022-0 No 50 8-10 00:00: 00 Dose 2022-0 No Unknown 8 00:00: 00 &lt 2022-0 No 500 8- 00:00: 00 TAKE 1 2022-0 No 500 TABLET BY 8-06 MOUTH EVERY 00:00: DAY 00 &lt 2022-0 No 500 8 00:00: 00 TAKE 1 2022-0 No 500 TABLET BY 8-06 MOUTH EVERY 00:00: DAY 00 &lt 2022-0 No 500 8 00:00: 00 TAKE 1 2022-0 No 500 TABLET BY 8-06 MOUTH EVERY 00:00: DAY 00 &lt 2022-0 No 8-05 00:00: 00 &lt 2022-0 No 8-05 00:00: 00 &lt 2022-0 No 8-05 00:00: 00 TAKE 1 2022-0 No 5 TABLET BY 8- MOUTH EVERY 00:00: DAY FOR 30 00 DAYS &lt 2022-0 No 500 10-22 00:00: 00 Dose 2022-0 No Unknown 10-22 00:00: 00 TAKE 1 2022-0 No 500 TABLET TWO 8- TIMES DAILY 00:00: FOR 7 DAYS 00 &lt 2022-0 No 500 8 00:00: 00 Dose 2022-0 No Unknown 10-22 00:00: 00 Santyl 250 2022-0 No 1unit/g unit/gram 8- zohra topical 00:00: ointment 00 TAKE 1 2021-0 No 5 TABLET BY 8- MOUTH EVERY 00:00: DAY FOR 30 00 DAYS &lt 2022-0 No 500 8- 00:00: 00 Dose 2022-0 No Unknown 10-22 00:00: 00 TAKE 1 2-0 No 500 TABLET TWO 8- TIMES DAILY 00:00: FOR 7 DAYS 00 &lt 2022-0 No 500 8- 00:00: 00 Dose 2022-0 No Unknown 8 00:00: 00 Santyl 250 2-0 No 1unit/g unit/gram 8- zohra topical 00:00: ointment 00 TAKE 1 2021-0 No 5 TABLET BY 8 MOUTH EVERY 00:00: DAY FOR 30 00 DAYS &lt 2022-0 No 500 8- 00:00: 00 Dose 2022-0 No Unknown 10-22 00:00: 00 TAKE 1 2021-0 No 500 TABLET TWO 8- TIMES DAILY 00:00: FOR 7 DAYS 00 &lt 2022-0 No 500 8 00:00: 00 Dose 2022-0 No Unknown 8 00:00: 00 Santyl 250 2-0 No 1unit/g unit/gram - zohra topical 00:00: ointment 00 TAKE 1 2021-0 No 5 TABLET BY 8 MOUTH EVERY 00:00: DAY FOR 30 00 DAYS &lt 2022-0 No 500 8- 00:00: 00 Dose 2022-0 No Unknown 10-22 00:00: 00 TAKE 1 2-0 No 500 TABLET TWO 8- TIMES DAILY 00:00: FOR 7 DAYS 00 &lt 2022-0 No 500 8- 00:00: 00 Dose 2022-0 No Unknown 8 00:00: 00 &lt 2022-0 No 300 8- 00:00: 00 &lt 2022-0 No 20 8- 00:00: 00 &lt 2022-0 No 300 8- 00:00: 00 &lt 2022-0 No 20 8- 00:00: 00 &lt 2022-0 No 300 8- 00:00: 00 &lt 2022-0 No 20 8- 00:00: 00 &lt 2022-0 No 300 8- 00:00: 00 &lt 2022-0 No 20 8- 00:00: 00 &lt 2022-0 No 500 7- 00:00: 00 &lt 2022-0 No 20 7- 00:00: 00 Dose 2022-0 No Unknown 7 00:00: 00 &lt 2022-0 No 20 7- 00:00: 00 Dose 2022-0 No Unknown 7 00:00: 00 TAKE 1 2-0 No TABLET BY 7- MOUTH EVERY 00:00: 6 HOURS 00 NEEDED FOR PAIN TAKE 1 2021-0 No 500 TABLET BY 7- MOUTH EVERY 00:00: DAY 00 &lt 2022-0 No 500 7 00:00: 00 &lt 2022-0 No 20 7 00:00: 00 Dose 2022-0 No Unknown 7 00:00: 00 &lt 2022-0 No 20 10-08 00:00: 00 Dose 2022-0 No Unknown 10-08 00:00: 00 TAKE 1 2-0 No TABLET BY 7- MOUTH EVERY 00:00: 6 HOURS 00 NEEDED FOR PAIN TAKE 1 2021-0 No 500 TABLET BY 7-19 MOUTH EVERY 00:00: DAY 00 &lt 2022-0 No 500 10-08 00:00: 00 &lt 2022-0 No 20 10-08 00:00: 00 Dose 2022-0 No Unknown 10-08 00:00: 00 &lt 2022-0 No 20 10-08 00:00: 00 Dose 2022-0 No Unknown 10-08 00:00: 00 TAKE 1 2-0 No TABLET BY 7-19 MOUTH EVERY 00:00: 6 HOURS 00 NEEDED FOR PAIN TAKE 1 2021-0 No 500 TABLET BY 7- MOUTH EVERY 00:00: DAY 00 &lt 2022-0 No 500 7 00:00: 00 &lt 2022-0 No 20 10-08 00:00: 00 Dose 2022-0 No Unknown 10-08 00:00: 00 &lt 2022-0 No 20 10-08 00:00: 00 Dose 2022-0 No Unknown 10-08 00:00: 00 TAKE 1 2-0 No TABLET BY 7-19 MOUTH EVERY 00:00: 6 HOURS 00 NEEDED FOR PAIN TAKE 1 2-0 No 500 TABLET BY 7-19 MOUTH EVERY 00:00: DAY 00 Dose 2-0 No Unknown 4-22 00:00: 00 Dose 2-0 No Unknown 4-22 00:00: 00 Dose 2022-0 No Unknown 4-22 00:00: 00 Dose 2022-0 No Unknown 4-22 00:00: 00 Dose 2-0 No Unknown 4-22 00:00: 00 Dose 2-0 No Unknown 4-22 00:00: 00 Dose 2-0 No Unknown 4-22 00:00: 00 Dose 2-0 No Unknown 4-22 00:00: 00 prednisone 2-0 No 1mg 20 mg 4-21 tablet 00:00: 00 amoxicillin 2-0 No 1mg 875 4-21 mg-potassiu 00:00: m 00 clavulanate 125 mg tablet Dose 2-0 No Unknown 4-21 00:00: 00 Dose 2-0 No Unknown 4-21 00:00: 00 Dose 2-0 No Unknown 4-21 00:00: 00 Dose 2-0 No Unknown 4-21 00:00: 00 Dose 2-0 No Unknown 4-21 00:00: 00 Dose 2-0 No Unknown 4-21 00:00: 00 Dose 2-0 No Unknown 4-21 00:00: 00 prednisone 2022-0 No 1mg 20 mg 4-21 tablet 00:00: 00 amoxicillin 2-0 No 1mg 875 4-21 mg-potassiu 00:00: m 00 clavulanate 125 mg tablet Dose 2-0 No Unknown 4-21 00:00: 00 Dose 2022-0 No Unknown 4-21 00:00: 00 Dose 2022-0 No Unknown 4-21 00:00: 00 Dose 2-0 No Unknown 4-21 00:00: 00 Dose 2-0 No Unknown 4-21 00:00: 00 Dose 2022-0 No Unknown 4-21 00:00: 00 Dose 2022-0 No Unknown 4-21 00:00: 00 prednisone 2022-0 No 1mg 20 mg 4-21 tablet 00:00: 00 amoxicillin 2022-0 No 1mg 875 4-21 mg-potassiu 00:00: m 00 clavulanate 125 mg tablet Dose 2022-0 No Unknown 4-21 00:00: 00 Dose 2022-0 No Unknown 4-21 00:00: 00 Dose 2022-0 No Unknown 4-21 00:00: 00 Dose 2022-0 No Unknown 4-21 00:00: 00 Dose 2022-0 No Unknown 4-21 00:00: 00 Dose 2022-0 No Unknown 4-21 00:00: 00 Dose 2022-0 No Unknown 4-21 00:00: 00 prednisone 2022-0 No 1mg 20 mg 4-21 tablet 00:00: 00 amoxicillin 2022-0 No 1mg 875 4-21 mg-potassiu 00:00: m 00 clavulanate 125 mg tablet Dose 2-0 No Unknown 4-21 00:00: 00 Dose 2022-0 No Unknown 4-21 00:00: 00 Dose 2022-0 No Unknown 4-21 00:00: 00 Dose 2022-0 No Unknown 4-21 00:00: 00 Dose 2022-0 No Unknown 4-21 00:00: 00 Dose 2022-0 No Unknown 4-21 00:00: 00 Dose 2022-0 No Unknown 4-21 00:00: 00 Lasix 20 mg 2022-0 No 1mg tablet 4-07 00:00: 00 Dose 2022-0 No Unknown 4-07 00:00: 00 Dose 2022-0 No Unknown 4-07 00:00: 00 Dose 2022-0 No Unknown 4-07 00:00: 00 Dose 2022-0 No Unknown 4-07 00:00: 00 Dose 2022-0 No Unknown 4-07 00:00: 00 Dose 2022-0 No Unknown 4-07 00:00: 00 Lasix 20 mg 2022-0 No 1mg tablet 4-07 00:00: 00 Dose 2022-0 No Unknown 4-07 00:00: 00 Dose 2022-0 No Unknown 4-07 00:00: 00 Dose 2022-0 No Unknown 4-07 00:00: 00 Dose 2022-0 No Unknown 4-07 00:00: 00 Dose 2022-0 No Unknown 4-07 00:00: 00 Dose 2022-0 No Unknown 4-07 00:00: 00 Dose 2022-0 No Unknown 4-07 00:00: 00 Dose 2022-0 No Unknown 4-07 00:00: 00 Dose 2022-0 No Unknown 4-07 00:00: 00 Dose 2022-0 No Unknown 4-07 00:00: 00 Dose 2022-0 No Unknown 4-07 00:00: 00 Dose 2022-0 No Unknown 4-07 00:00: 00 Dose 2022-0 No Unknown 4-07 00:00: 00 Dose 2022-0 No Unknown 4-07 00:00: 00 Dose 2022-0 No Unknown 4-07 00:00: 00 Dose 2022-0 No Unknown 4-07 00:00: 00 Dose 2022-0 No Unknown 4-07 00:00: 00 Dose 2022-0 No Unknown 4-07 00:00: 00 Dose 2022-0 No Unknown 4-07 00:00: 00 Dose 2022-0 No Unknown 4-07 00:00: 00 Dose 2022-0 No Unknown 4-07 00:00: 00 Dose 2022-0 No Unknown 4-07 00:00: 00 Dose 2022-0 No Unknown 4-07 00:00: 00 Dose 2022-0 No Unknown 4-07 00:00: 00 Dose 2022-0 No Unknown 4-07 00:00: 00 Dose 2022-0 No Unknown 4-07 00:00: 00 Dose 2022-0 No Unknown 4-07 00:00: 00 Dose 2022-0 No Unknown 4-07 00:00: 00 Dose 2022-0 No Unknown 4-07 00:00: 00 Dose 2022-0 No Unknown 4-07 00:00: 00 Dose 2022-0 No Unknown 4-07 00:00: 00 Dose 2022-0 No Unknown 4-07 00:00: 00 Dose 2022-0 No Unknown 4-07 00:00: 00 Dose 2022-0 No Unknown 4-07 00:00: 00 Dose 2022-0 No Unknown 4-07 00:00: 00 Dose 2022-0 No Unknown 4-07 00:00: 00 Dose 2022-0 No Unknown 4-07 00:00: 00 Dose 2022-0 No Unknown 4-07 00:00: 00 Dose 2022-0 No Unknown 4-07 00:00: 00 Dose 2022-0 No Unknown 4-07 00:00: 00 Dose 2022-0 No Unknown 4-07 00:00: 00 Dose 2022-0 No Unknown 4-07 00:00: 00 Dose 2022-0 No Unknown 4-07 00:00: 00 Dose 2022-0 No Unknown 4-07 00:00: 00 Dose 2022-0 No Unknown 4-07 00:00: 00 Dose 2022-0 No Unknown 4-07 00:00: 00 Dose 2022-0 No Unknown 4-07 00:00: 00 Dose 2022-0 No Unknown 4-07 00:00: 00 Dose 2022-0 No Unknown 4-07 00:00: 00 Dose 2022-0 No Unknown 4-07 00:00: 00 Dose 2022-0 No Unknown 4-07 00:00: 00 Dose 2022-0 No Unknown 4-07 00:00: 00 Dose 2022-0 No Unknown 4-07 00:00: 00 Dose 2022-0 No Unknown 4-07 00:00: 00 Dose 2022-0 No Unknown 4-07 00:00: 00 Dose 2022-0 No Unknown 4-07 00:00: 00 Dose 2022-0 No Unknown 4-07 00:00: 00 Dose 2022-0 No Unknown 4-07 00:00: 00 Dose 2022-0 No Unknown 4-07 00:00: 00 Dose 2022-0 No Unknown 4-07 00:00: 00 Dose 2022-0 No Unknown 4-07 00:00: 00 Dose 2022-0 No Unknown 4-07 00:00: 00 Dose 2022-0 No Unknown 4-07 00:00: 00 Dose 2022-0 No Unknown 4-07 00:00: 00 Dose 2022-0 No Unknown 4-07 00:00: 00 Dose 2022-0 No Unknown 4-07 00:00: 00 Dose 2022-0 No Unknown 4-07 00:00: 00 Dose 2022-0 No Unknown 4-07 00:00: 00 Dose 2022-0 No Unknown 4-07 00:00: 00 Dose 2022-0 No Unknown 4-07 00:00: 00 Dose 2022-0 No Unknown 4-07 00:00: 00 Dose 2022-0 No Unknown 4-07 00:00: 00 Dose 2022-0 No Unknown 4-07 00:00: 00 Dose 2022-0 No Unknown 4-07 00:00: 00 Dose 2022-0 No Unknown 4-07 00:00: 00 Dose 2022-0 No Unknown 4-07 00:00: 00 Dose 2022-0 No Unknown 4-07 00:00: 00 Dose 2022-0 No Unknown 4-07 00:00: 00 Dose 2022-0 No Unknown 4-07 00:00: 00 Dose 2022-0 No Unknown 4-07 00:00: 00 Dose 2022-0 No Unknown 4-07 00:00: 00 Dose 2022-0 No Unknown 4-07 00:00: 00 Dose 2022-0 No Unknown 4-07 00:00: 00 Dose 2022-0 No Unknown 4-07 00:00: 00 Dose 2022-0 No Unknown 4-07 00:00: 00 Dose 2022-0 No Unknown 4-07 00:00: 00 Dose 2022-0 No Unknown 4-07 00:00: 00 Dose 2022-0 No Unknown 4-07 00:00: 00 Dose 2022-0 No Unknown 4-07 00:00: 00 Dose 2022-0 No Unknown 4-07 00:00: 00 Lasix 20 mg 2022-0 No 1mg tablet 4-07 00:00: 00 Dose 2022-0 No Unknown 4-07 00:00: 00 Dose 2022-0 No Unknown 4-07 00:00: 00 Dose 2022-0 No Unknown 4-07 00:00: 00 Dose 2022-0 No Unknown 4-07 00:00: 00 Dose 2022-0 No Unknown 4-07 00:00: 00 Dose 2022-0 No Unknown 4-07 00:00: 00 Dose 2022-0 No Unknown 4-07 00:00: 00 Dose 2022-0 No Unknown 4-07 00:00: 00 Dose 2022-0 No Unknown 4-07 00:00: 00 Dose 2022-0 No Unknown 4-07 00:00: 00 Dose 2022-0 No Unknown 4-07 00:00: 00 Dose 2022-0 No Unknown 4-07 00:00: 00 Dose 2022-0 No Unknown 4-07 00:00: 00 Dose 2022-0 No Unknown 4-07 00:00: 00 Dose 2022-0 No Unknown 4-07 00:00: 00 Dose 2022-0 No Unknown 4-07 00:00: 00 Dose 2022-0 No Unknown 4-07 00:00: 00 Dose 2022-0 No Unknown 4-07 00:00: 00 Dose 2022-0 No Unknown 4-07 00:00: 00 Dose 2022-0 No Unknown 4-07 00:00: 00 Dose 2022-0 No Unknown 4-07 00:00: 00 Dose 2022-0 No Unknown 4-07 00:00: 00 Dose 2022-0 No Unknown 4-07 00:00: 00 Dose 2022-0 No Unknown 4-07 00:00: 00 Dose 2022-0 No Unknown 4-07 00:00: 00 Dose 2022-0 No Unknown 4-07 00:00: 00 Dose 2022-0 No Unknown 4-07 00:00: 00 Dose 2022-0 No Unknown 4-07 00:00: 00 Dose 2022-0 No Unknown 4-07 00:00: 00 Dose 2022-0 No Unknown 4-07 00:00: 00 Dose 2022-0 No Unknown 4-07 00:00: 00 Dose 2022-0 No Unknown 4-07 00:00: 00 Dose 2022-0 No Unknown 4-07 00:00: 00 Dose 2022-0 No Unknown 4-07 00:00: 00 Dose 2022-0 No Unknown 4-07 00:00: 00 Dose 2022-0 No Unknown 4-07 00:00: 00 Dose 2022-0 No Unknown 4-07 00:00: 00 Dose 2022-0 No Unknown 4-07 00:00: 00 Dose 2022-0 No Unknown 4-07 00:00: 00 Dose 2022-0 No Unknown 4-07 00:00: 00 Dose 2022-0 No Unknown 4-07 00:00: 00 Dose 2022-0 No Unknown 4-07 00:00: 00 Dose 2022-0 No Unknown 4-07 00:00: 00 Dose 2022-0 No Unknown 4-07 00:00: 00 Dose 2022-0 No Unknown 4-07 00:00: 00 Dose 2022-0 No Unknown 4-07 00:00: 00 Dose 2022-0 No Unknown 4-07 00:00: 00 Dose 2022-0 No Unknown 4-07 00:00: 00 Dose 2022-0 No Unknown 4-07 00:00: 00 Dose 2022-0 No Unknown 4-07 00:00: 00 Dose 2022-0 No Unknown 4-07 00:00: 00 Dose 2022-0 No Unknown 4-07 00:00: 00 Dose 2022-0 No Unknown 4-07 00:00: 00 Dose 2022-0 No Unknown 4-07 00:00: 00 Dose 2022-0 No Unknown 4-07 00:00: 00 Dose 2022-0 No Unknown 4-07 00:00: 00 Dose 2022-0 No Unknown 4-07 00:00: 00 Dose 2022-0 No Unknown 4-07 00:00: 00 Dose 2022-0 No Unknown 4-07 00:00: 00 Dose 2022-0 No Unknown 4-07 00:00: 00 Dose 2022-0 No Unknown 4-07 00:00: 00 Dose 2022-0 No Unknown 4-07 00:00: 00 Dose 2022-0 No Unknown 4-07 00:00: 00 Dose 2022-0 No Unknown 4-07 00:00: 00 Dose 2022-0 No Unknown 4-07 00:00: 00 Dose 2022-0 No Unknown 4-07 00:00: 00 Dose 2022-0 No Unknown 4-07 00:00: 00 Dose 2022-0 No Unknown 4-07 00:00: 00 Dose 2022-0 No Unknown 4-07 00:00: 00 Dose 2022-0 No Unknown 4-07 00:00: 00 Dose 2022-0 No Unknown 4-07 00:00: 00 Dose 2022-0 No Unknown 4-07 00:00: 00 Dose 2022-0 No Unknown 4-07 00:00: 00 Dose 2022-0 No Unknown 4-07 00:00: 00 Dose 2022-0 No Unknown 4-07 00:00: 00 Dose 2022-0 No Unknown 4-07 00:00: 00 Dose 2022-0 No Unknown 4-07 00:00: 00 Dose 2022-0 No Unknown 4-07 00:00: 00 Dose 2022-0 No Unknown 4-07 00:00: 00 Dose 2022-0 No Unknown 4-07 00:00: 00 Dose 2022-0 No Unknown 4-07 00:00: 00 Dose 2022-0 No Unknown 4-07 00:00: 00 Dose 2022-0 No Unknown 4-07 00:00: 00 Dose 2022-0 No Unknown 4-07 00:00: 00 Dose 2022-0 No Unknown 4-07 00:00: 00 Dose 2022-0 No Unknown 4-07 00:00: 00 Dose 2022-0 No Unknown 4-07 00:00: 00 Dose 2022-0 No Unknown 4-07 00:00: 00 Dose 2022-0 No Unknown 4-07 00:00: 00 Dose 2022-0 No Unknown 4-07 00:00: 00 Dose 2022-0 No Unknown 4-07 00:00: 00 Lasix 20 mg 2022-0 No 1mg tablet 4-07 00:00: 00 Dose 2022-0 No Unknown 4-07 00:00: 00 Dose 2022-0 No Unknown 4-07 00:00: 00 Dose 2022-0 No Unknown 4-07 00:00: 00 Dose 2022-0 No Unknown 4-07 00:00: 00 Dose 2022-0 No Unknown 4-07 00:00: 00 Dose 2022-0 No Unknown 4-07 00:00: 00 Dose 2022-0 No Unknown 4-07 00:00: 00 Dose 2022-0 No Unknown 4-07 00:00: 00 Dose 2022-0 No Unknown 4-07 00:00: 00 Dose 2022-0 No Unknown 4-07 00:00: 00 Dose 2022-0 No Unknown 4-07 00:00: 00 Dose 2022-0 No Unknown 4-07 00:00: 00 Dose 2022-0 No Unknown 4-07 00:00: 00 Dose 2022-0 No Unknown 4-07 00:00: 00 Dose 2022-0 No Unknown 4-07 00:00: 00 Dose 2022-0 No Unknown 4-07 00:00: 00 Dose 2022-0 No Unknown 4-07 00:00: 00 Dose 2022-0 No Unknown 4-07 00:00: 00 Dose 2022-0 No Unknown 4-07 00:00: 00 Dose 2022-0 No Unknown 4-07 00:00: 00 Dose 2022-0 No Unknown 4-07 00:00: 00 Dose 2022-0 No Unknown 4-07 00:00: 00 Dose 2022-0 No Unknown 4-07 00:00: 00 Dose 2022-0 No Unknown 4-07 00:00: 00 Dose 2022-0 No Unknown 4-07 00:00: 00 Dose 2022-0 No Unknown 4-07 00:00: 00 Dose 2022-0 No Unknown 4-07 00:00: 00 Dose 2022-0 No Unknown 4-07 00:00: 00 Dose 2022-0 No Unknown 4-07 00:00: 00 Dose 2022-0 No Unknown 4-07 00:00: 00 Dose 2022-0 No Unknown 4-07 00:00: 00 Dose 2022-0 No Unknown 4-07 00:00: 00 Dose 2022-0 No Unknown 4-07 00:00: 00 Dose 2022-0 No Unknown 4-07 00:00: 00 Dose 2022-0 No Unknown 4-07 00:00: 00 Dose 2022-0 No Unknown 4-07 00:00: 00 Dose 2022-0 No Unknown 4-07 00:00: 00 Dose 2022-0 No Unknown 4-07 00:00: 00 Dose 2022-0 No Unknown 4-07 00:00: 00 Dose 2022-0 No Unknown 4-07 00:00: 00 Dose 2022-0 No Unknown 4-07 00:00: 00 Dose 2022-0 No Unknown 4-07 00:00: 00 Dose 2022-0 No Unknown 4-07 00:00: 00 Dose 2022-0 No Unknown 4-07 00:00: 00 Dose 2022-0 No Unknown 4-07 00:00: 00 Dose 2022-0 No Unknown 4-07 00:00: 00 Dose 2022-0 No Unknown 4-07 00:00: 00 Dose 2022-0 No Unknown 4-07 00:00: 00 Dose 2022-0 No Unknown 4-07 00:00: 00 Dose 2022-0 No Unknown 4-07 00:00: 00 Dose 2022-0 No Unknown 4-07 00:00: 00 Dose 2022-0 No Unknown 4-07 00:00: 00 Dose 2022-0 No Unknown 4-07 00:00: 00 Dose 2022-0 No Unknown 4-07 00:00: 00 Dose 2022-0 No Unknown 4-07 00:00: 00 Dose 2022-0 No Unknown 4-07 00:00: 00 Dose 2022-0 No Unknown 4-07 00:00: 00 Dose 2022-0 No Unknown 4-07 00:00: 00 Dose 2022-0 No Unknown 4-07 00:00: 00 Dose 2022-0 No Unknown 4-07 00:00: 00 Dose 2022-0 No Unknown 4-07 00:00: 00 Dose 2022-0 No Unknown 4-07 00:00: 00 Dose 2022-0 No Unknown 4-07 00:00: 00 Dose 2022-0 No Unknown 4-07 00:00: 00 Dose 2022-0 No Unknown 4-07 00:00: 00 Dose 2022-0 No Unknown 4-07 00:00: 00 Dose 2022-0 No Unknown 4-07 00:00: 00 Dose 2022-0 No Unknown 4-07 00:00: 00 Dose 2022-0 No Unknown 4-07 00:00: 00 Dose 2022-0 No Unknown 4-07 00:00: 00 Dose 2022-0 No Unknown 4-07 00:00: 00 Dose 2022-0 No Unknown 4-07 00:00: 00 Dose 2022-0 No Unknown 4-07 00:00: 00 Dose 2022-0 No Unknown 4-07 00:00: 00 Dose 2022-0 No Unknown 4-07 00:00: 00 Dose 2022-0 No Unknown 4-07 00:00: 00 Dose 2022-0 No Unknown 4-07 00:00: 00 Dose 2022-0 No Unknown 4-07 00:00: 00 Dose 2022-0 No Unknown 4-07 00:00: 00 Dose 2022-0 No Unknown 4-07 00:00: 00 Dose 2022-0 No Unknown 4-07 00:00: 00 Dose 2022-0 No Unknown 4-07 00:00: 00 Dose 2022-0 No Unknown 4-07 00:00: 00 Dose 2022-0 No Unknown 4-07 00:00: 00 Dose 2022-0 No Unknown 4-07 00:00: 00 Dose 2022-0 No Unknown 4-07 00:00: 00 Dose 2022-0 No Unknown 4-07 00:00: 00 Dose 2022-0 No Unknown 4-07 00:00: 00 Dose 2022-0 No Unknown 4-07 00:00: 00 Dose 2022-0 No Unknown 4-07 00:00: 00 Dose 2022-0 No Unknown 4-07 00:00: 00 Dose 2022-0 No Unknown 4-07 00:00: 00 Dose 2022-0 No Unknown 4-07 00:00: 00 Macrobid 2021-1 No 1mg 100 mg 1-09 capsule 00:00: 00 Macrobid 2021-1 No 1mg 100 mg 1-09 capsule 00:00: 00 Macrobid 2021-1 No 1mg 100 mg 1-09 capsule 00:00: 00 Macrobid 2021-1 No 1mg 100 mg 1-09 capsule 00:00: 00 aspirin 81 2021-1 No 1mg mg 0-06 tablet,mannie 00:00: yed release 00 aspirin 81 2021-1 No 1mg mg 0-06 tablet,mannie 00:00: yed release 00 aspirin 81 2021-1 No 1mg mg 0-06 tablet,mannie 00:00: yed release 00 aspirin 81 2021-1 No 1mg mg 0-06 tablet,mannie 00:00: yed release 00 Augmentin 2021-1 No 1mg 875 mg-125 0-05 mg tablet 00:00: 00 Augmentin 2021-1 No 1mg 875 mg-125 0-05 mg tablet 00:00: 00 Augmentin 2021-1 No 1mg 875 mg-125 0-05 mg tablet 00:00: 00 Augmentin 2021-1 No 1mg 875 mg-125 0-05 mg tablet 00:00: 00 levofloxaci 2021-0 No 1mg n 750 mg 8-10 tablet 00:00: 00 metronidazo 2021-0 No 1mg le 500 mg 8-10 tablet 00:00: 00 levofloxaci 2021-0 No 1mg n 750 mg 8-10 tablet 00:00: 00 metronidazo 2021-0 No 1mg le 500 mg 8-10 tablet 00:00: 00 levofloxaci 2021-0 No 1mg n 750 mg 8-10 tablet 00:00: 00 metronidazo 2021-0 No 1mg le 500 mg 8-10 tablet 00:00: 00 levofloxaci 2021-0 No 1mg n 750 mg 8-10 tablet 00:00: 00 metronidazo 2021-0 No 1mg le 500 mg 8-10 tablet 00:00: 00 clindamycin 2021-0 No 1mg HCl 300 mg 8-04 capsule 00:00: 00 clindamycin 2021-0 No 1mg HCl 300 mg 8-04 capsule 00:00: 00 clindamycin 2021-0 No 1mg HCl 300 mg 8-04 capsule 00:00: 00 clindamycin 2021-0 No 1mg HCl 300 mg 8-04 capsule 00:00: 00 mupirocin 2 2021-0 No 1% % topical 7-07 ointment 00:00: 00 amoxicillin 1-0 No 1mg 875 7-07 mg-potassiu 00:00: m 00 clavulanate 125 mg tablet sulfamethox 1-0 No 1mg azole 800 7-07 mg-trimetho 00:00: prim 160 mg 00 tablet ibuprofen 1-0 No 1mg 800 mg 7-07 tablet 00:00: 00 mupirocin 2 1-0 No 1% % topical 7-07 ointment 00:00: 00 amoxicillin 1-0 No 1mg 875 7-07 mg-potassiu 00:00: m 00 clavulanate 125 mg tablet sulfamethox 1-0 No 1mg azole 800 7-07 mg-trimetho 00:00: prim 160 mg 00 tablet ibuprofen 1-0 No 1mg 800 mg 7-07 tablet 00:00: 00 mupirocin 2 1-0 No 1% % topical 7-07 ointment 00:00: 00 mupirocin 2 1-0 No 1% % topical 7-07 ointment 00:00: 00 amoxicillin 1-0 No 1mg 875 7-07 mg-potassiu 00:00: m 00 clavulanate 125 mg tablet sulfamethox 1-0 No 1mg azole 800 7-07 mg-trimetho 00:00: prim 160 mg 00 tablet ibuprofen 2021-0 No 1mg 800 mg 7-07 tablet 00:00: 00 amoxicillin 2021-0 No 1mg 875 7-07 mg-potassiu 00:00: m 00 clavulanate 125 mg tablet sulfamethox 1-0 No 1mg azole 800 7-07 mg-trimetho 00:00: prim 160 mg 00 tablet ibuprofen No 1mg 800 mg 7-07 tablet 00:00: 00 Vital Signs Vital Name Observation Time Observation Value Comments Source BP Systolic 2021-12-12 15:13:00 158 mm[Hg] BP Diastolic 2021-12-12 15:13:00 77 mm[Hg] Weight Measured 2021-12-12 15:13:00 317.00 pounds Height Measured 2021-12-12 15:13:00 67.50 inches Body Temperature 2021-12-12 15:13:00 98.20 degrees Heart Rate 2021-12-12 15:13:00 67.00 /min Respiratory Rate 2021-12-12 15:13:00 18.00 /min BP Systolic 2021-10-31 17:23:00 128 mm[Hg] BP Diastolic 2021-10-31 17:23:00 71 mm[Hg] Weight Measured 2021-10-31 17:23:00 322.60 pounds Height Measured 2021-10-31 17:23:00 67.50 inches Body Temperature 2021-10-31 17:23:00 99.30 degrees Heart Rate 2021-10-31 17:23:00 69.00 /min Respiratory Rate 2021-10-31 17:23:00 24.00 /min BP Systolic 2021-10-22 15:13:00 152 mm[Hg] BP Diastolic 2021-10-22 15:13:00 78 mm[Hg] Weight Measured 2021-10-22 15:13:00 324.80 pounds Height Measured 2021-10-22 15:13:00 67.50 inches Body Temperature 2021-10-22 15:13:00 98.00 degrees Heart Rate 2021-10-22 15:13:00 63.00 /min Respiratory Rate 2021-10-22 15:13:00 16.00 /min BP Systolic 2021-10-08 16:37:00 163 mm[Hg] BP Diastolic 2021-10-08 16:37:00 69 mm[Hg] Weight Measured 2021-10-08 16:37:00 330.00 pounds Height Measured 2021-10-08 16:37:00 67.50 inches Body Temperature 2021-10-08 16:37:00 97.90 degrees Heart Rate 2021-10-08 16:37:00 72.00 /min Respiratory Rate 2021-10-08 16:37:00 16.00 /min BP Systolic 2021-07-11 14:38:00 123 mm[Hg] BP Diastolic 2021-07-11 14:38:00 68 mm[Hg] Weight Measured 2021-07-11 14:38:00 239.40 pounds Height Measured 2021-07-11 14:38:00 67.50 inches Body Temperature 2021-07-11 14:38:00 98.10 degrees Heart Rate 2021-07-11 14:38:00 101.00 /min Respiratory Rate 2021-07-11 14:38:00 21.00 /min BP Systolic 2021-06-27 14:23:00 168 mm[Hg] BP Diastolic 2021-06-27 14:23:00 82 mm[Hg] Weight Measured 2021-06-27 14:23:00 326.20 pounds Height Measured 2021-06-27 14:23:00 67.50 inches Body Temperature 2021-06-27 14:23:00 97.50 degrees Heart Rate 2021-06-27 14:23:00 64.00 /min Respiratory Rate 2021-06-27 14:23:00 BP Systolic 2021-01-29 13:37:00 138 mm[Hg] BP Diastolic 2021-01-29 13:37:00 71 mm[Hg] Weight Measured 2021-01-29 13:37:00 318.80 pounds Height Measured 2021-01-29 13:37:00 67.50 inches Body Temperature 2021-01-29 13:37:00 98.20 degrees Heart Rate 2021-01-29 13:37:00 69.00 /min Respiratory Rate 2021-01-29 13:37:00 BP Systolic 2020-12-25 13:24:00 154 mm[Hg] BP Diastolic 2020-12-25 13:24:00 76 mm[Hg] Weight Measured 2020-12-25 13:24:00 316.40 pounds Height Measured 2020-12-25 13:24:00 67.50 inches Body Temperature 2020-12-25 13:24:00 98.10 degrees Heart Rate 2020-12-25 13:24:00 60.00 /min Respiratory Rate 2020-12-25 13:24:00 BP Systolic 2020-11-12 13:46:00 159 mm[Hg] BP Diastolic 2020-11-12 13:46:00 78 mm[Hg] Weight Measured 2020-11-12 13:46:00 322.20 pounds Height Measured 2020-11-12 13:46:00 67.50 inches Body Temperature 2020-11-12 13:46:00 98.60 degrees Heart Rate 2020-11-12 13:46:00 61.00 /min Respiratory Rate 2020-11-12 13:46:00 21.00 /min BP Systolic 2020-10-24 15:41:00 144 mm[Hg] BP Diastolic 2020-10-24 15:41:00 62 mm[Hg] Weight Measured 2020-10-24 15:41:00 323.60 pounds Height Measured 2020-10-24 15:41:00 67.50 inches Body Temperature 2020-10-24 15:41:00 98.10 degrees Heart Rate 2020-10-24 15:41:00 64.00 /min Respiratory Rate 2020-10-24 15:41:00 BP Systolic 2020-09-26 15:35:00 135 mm[Hg] BP Diastolic 2020-09-26 15:35:00 63 mm[Hg] Weight Measured 2020-09-26 15:35:00 318.60 pounds Height Measured 2020-09-26 15:35:00 67.50 inches Body Temperature 2020-09-26 15:35:00 98.70 degrees Heart Rate 2020-09-26 15:35:00 71.00 /min Respiratory Rate 2020-09-26 15:35:00 Procedures Procedure Date / Time Performing Clinician Source Performed AUTHORIZATION TO RELEASE 2021-12-10 05:01:00 Doctor Unassigned, [facility] PHI TO [facility] LOWER EXTREMITY ARTERIAL 2020-11-15 16:42:00 Danette Vargas [facility] DUPLEX BILATERAL - BY Medical Br anch VASCULAR LAB DUPLEX VENOUS LEGS 2020-11-15 15:29:00 Danette Vargas [facility] BILATERAL - BY VASCULAR Medical Branch LAB [facility] PATIENT FINANCIAL 2020-11-15 14:05:44 Doctor Unassigned, Un [facility] POLICY [facility] NO SHOW OR MISSED 2020-11-15 14:05:20 Doctor Unassigned, [facility] APPOINTMENT POLICY [facility] ACKNOWLEDGEMENT NOTICE OF PRIVACY 2020-11-15 14:05:00 Doctor Unassigned, [facility] PRACTICES [facility] CONSENT/REFUSAL FOR 2020-11-15 14:04:43 [facility] ASSIGNMENT OF BENEFITS 2020-11-15 14:04:27 Doctor Unassigned, Un [facility] Plan of Care Planned Activity Planned Date Details Comments Source Goal Plan of Care Note [code = 80413-1] Goal Plan of Care Note [code = 22813-9] Goal Plan of Care Note [code = 83369-0] Goal Plan of Care Note [code = 56333-7] Goal Plan of Care Note [code = 32476-9] Goal Plan of Care Note [code = 53723-1] Goal Plan of Care Note [code = 88630-2] Goal Plan of Care Note [code = 83852-2] Goal Plan of Care Note [code = 86145-2] Goal Plan of Care Note [code = 28687-4] Goal Plan of Care Note [code = 50587-1] Goal Plan of Care Note [code = 18330-3] Goal Plan of Care Note [code = 03159-6] Goal Plan of Care Note [code = 12168-9] Goal Plan of Care Note [code = 45208-0] Goal Plan of Care Note [code = 28455-1] Goal Plan of Care Note [code = 77745-5] Goal Plan of Care Note [code = 06125-6] Goal Plan of Care Note [code = 98668-1] Goal Plan of Care Note [code = 64817-5] Goal Plan of Care Note [code = 80293-4] Goal Plan of Care Note [code = 68603-5] Goal Plan of Care Note [code = 84701-9] Goal Plan of Care Note [code = 47533-3] Goal Plan of Care Note [code = 50434-2] Goal Plan of Care Note [code = 75617-3] Goal Plan of Care Note [code = 44438-1] Goal Plan of Care Note [code = 88575-2] Goal Plan of Care Note [code = 33779-6] Goal Plan of Care Note [code = 10751-6] Goal Plan of Care Note [code = 10350-3] Goal Plan of Care Note [code = 86013-5] Goal Plan of Care Note [code = 43729-9] Goal Plan of Care Note [code = 55297-7] Goal Plan of Care Note [code = 24019-3] Goal Plan of Care Note [code = 43361-0] Goal Plan of Care Note [code = 68085-4] Goal Plan of Care Note [code = 53559-5] Goal Plan of Care Note [code = 59210-6] Goal Plan of Care Note [code = 19325-9] Goal Plan of Care Note [code = 01385-9] Goal Plan of Care Note [code = 46530-7] Goal Plan of Care Note [code = 67606-3] Goal Plan of Care Note [code = 16849-3] Goal Plan of Care Note [code = 59520-7] Goal Plan of Care Note [code = 94789-9] Goal Plan of Care Note [code = 50521-7] Goal Plan of Care Note [code = 37784-3] Goal Plan of Care Note [code = 43155-1] Goal Plan of Care Note [code = 36824-6] Goal Plan of Care Note [code = 01225-2] Goal Plan of Care Note [code = 54379-7] Goal Plan of Care Note [code = 22881-4] Goal Plan of Care Note [code = 82431-0] Goal Plan of Care Note [code = 78509-9] Goal Plan of Care Note [code = 11433-8] Goal Plan of Care Note [code = 55074-7] Goal Plan of Care Note [code = 61473-5] Goal Plan of Care Note [code = 21411-1] Goal Plan of Care Note [code = 99352-4] Goal Plan of Care Note [code = 52714-8] Goal Plan of Care Note [code = 35349-8] Goal Plan of Care Note [code = 16367-8] Goal Plan of Care Note [code = 94841-7] Goal Plan of Care Note [code = 80146-9] Goal Plan of Care Note [code = 41981-9] Goal Plan of Care Note [code = 61506-2] Goal Plan of Care Note [code = 42152-5] Goal Plan of Care Note [code = 10119-6] Goal Plan of Care Note [code = 08478-8] Goal Plan of Care Note [code = 32933-1] Goal Plan of Care Note [code = 31985-2] Goal Plan of Care Note [code = 84426-9] Goal Plan of Care Note [code = 07419-5] Goal Plan of Care Note [code = 88157-1] Goal Plan of Care Note [code = 80717-3] Goal Plan of Care Note [code = 76814-3] Goal Plan of Care Note [code = 79951-6] Goal Plan of Care Note [code = 19545-2] Goal Plan of Care Note [code = 27057-1] Goal Plan of Care Note [code = 24946-0] Goal Plan of Care Note [code = 88809-3] Goal Plan of Care Note [code = 49370-4] Goal Plan of Care Note [code = 49563-8] Goal Plan of Care Note [code = 90710-6] Goal Plan of Care Note [code = 35973-5] Goal Plan of Care Note [code = 93673-7] Goal Plan of Care Note [code = 69777-7] Goal Plan of Care Note [code = 71514-2] Goal Plan of Care Note [code = 20752-5] Goal Plan of Care Note [code = 27734-7] Goal Plan of Care Note [code = 50903-8] Goal Plan of Care Note [code = 14946-7] Encounters Start End Encounter Admission Attending Care Care Encounter Source Date/Time Date/Time Type Type Clinicians Facility Department ID 2021-12-19 2021-12-19 Outpatient [facility] SFA [id number] Nilay Manolo 14:45:29 14:45:29 928 Aldo Lezama 2021-12-19 2021-12-19 Outpatient [id number]- [id number] b3kk6n-3 00:00:00 00:00:00 Visit 2b9t-509z z6s-801n-a -dr6x-70a a5g-07u578 837i0n6ym b0d1ab 2021-12-12 2021-12-12 Outpatient [id number]- [id number] d9 445q1z-j 00:00:00 00:00:00 Visit lb17-0xy1 d71-8hi1-8 -990a-keri 90a-efe2b5 3r2503al5 021bb1 2021-12-10 2021-12-10 Orders Doctor LJ 1.2.840.114 [id number] 00:00:00 00:00:00 Only Unassigned, ALVARADO 350.1.13.10 [facility] 4.2.7.2.686 Sae as [id number] [facility] 009 Branch 2021-10-31 2021-10-31 Outpatient [id number]- [id number] 0b 2e62b3-d 00:00:00 00:00:00 Visit j4c9-5753 2k1-9629-p -sw60-094 n92-249s4x p7x305765 360600 4903-08-02 2021-10-22 Outpatient [id number]- [id number] 58jd6x-2 00:00:00 00:00:00 Visit 2p2p-16zu v9s-25vi-s -y242-7lg 945-6dcbf4 tx81516m4 6702a1 2020-12-25 2020-12-25 [facility] 1.2.840.[id number] [facility] 00:00:00 00:00:00 [facility] 350.1.13.10 ity of [facility] [place] [id number] [facility] 059 Branch 2020-11-15 2020-11-15 [facility] 1.2.840.[address] [place] [address] 09:10:44 23:59:00 Encounter [facility] 350.1.13.10 [place] [id number] [facility] 850 Branch 2020-11-15 2020-11-15 [facility] 1.2.840.114 [id number] 784 [facility] 09:00:00 09:09:00 Encounter Clinton Kaur 350.1.13.10 [place] 4.2.7.2.686 [facility] [id number] [place] [address] Branch 2020-11-15 2020-11-15 Outpatient R TOMÁS, [facility] [id number] Univers 00:00:00 00:00:00 MARCELOJONAH ity o f [facility] Results Test Description Test Time Test Comments Results Result Comments Source CULTURE, ANAEROBIC 2021-10-31 SPECIMEN NUMBER: 15:09:51 [id number] CULTURE, ANAEROBIC SPECIMEN NUMBER: [id number] SPECIMEN COMMENT: LEFT FOOT;[id number] SOURCE: FOOT REPORT STATUS: FINAL FINAL REPORT: 10/31/2021 NO ANAEROBES RECOVERED AFTER 5 DAYS UNLESS OTHERWISE INDICATED, ALL TESTING PERFORMED [facility] [address] [place] [address] MAINT MECHANIC: ISIDRA AYERS M.D. CLIA NUMBER [id number] [facility] [place]. [id number] CULTURE, ANAEROBIC [ADDED] 2021-10-31 00:00:00 Test Item Value Reference Range Interpretation Comme nts CULTURE, ANAEROBIC (test code = 25939) SPECIMEN NUMBER: [id number] CULTURE, ANAEROBIC [ADDED]2021-10-31 00:00:00 Test Item Value Reference Range Interpretation Comments CULTURE, ANAEROBIC SPECIMEN NUMBER: (test code = 88521) [id number] CULTURE, ANAEROBIC [ADDED]2021-10-31 00:00:00 Test Item Value Reference Range Interpretation Comments CULTURE, ANAEROBIC SPECIMEN NUMBER: (test code = 43621) [id number] CULTURE, ANAEROBIC [ADDED]2021-10-31 00:00:00 Test Item Value Reference Range Interpretation Comments CULTURE, ANAEROBIC SPECIMEN NUMBER: (test code = 62715) [id number] CULTURE, ANAEROBIC [ADDED]2021-10-31 00:00:00 Test Item Value Reference Range Interpretation Comments CULTURE, ANAEROBIC SPECIMEN NUMBER: (test code = 70411) [id number] CULTURE, ANAEROBIC [ADDED]2021-10-31 00:00:00 Test Item Value Reference Range Interpretation Comments CULTURE, ANAEROBIC SPECIMEN NUMBER: (test code = 28828) [id number] CULTURE, [id number] 15:04:12SPECIMEN NUMBER: [id number] CULTURE, ROUTINE SPECIMEN NUMBER: [id number] SPECIMEN COMMENT: Mariela FOOT WOU SOURCE: FOOT REPORT STATUS: FINAL DIRECT GRAM STAIN: NO WBCs SEEN RARE GRAM POSITIVE COCCI ABUNDANT GRAM NEGATIVE BACILLI ISOLATE NUMBER 1: ORGANISM: 10/25/2021 ABUNDANT GRAM NEGATIVE BACILLI IDENTIFICATION: 10/26/2021 PSEUDOMONAS AERUGINOSA ISOLATE NUMBER 2: ORGANISM: 10/29/2021 ABUNDANT GRAM NEGATIVE BACILLI IDENTIFICATION: 10/30/2021 KLEBSIELLA AEROGENES ISOLATE NUMBER 3: IDENTIFICATION: 10/30/2021 MODERATE BETA-STREPTOCOCCUS GROUP B ADDITIONAL OBSERVATIONS: PENICILLIN AND AMPICILLIN ARE DRUGS OFCHOICE FOR TREATMENT OF B-HEMOLYTIC STREPTOCOCCAL INFECTIONS. SUSCEPTIBILITY TESTING OF PENICILLIN AND OTHER B-LACTAMS APPROVED BY THE US FOOD AND DRUG ADMINISTRATION FOR TREATMENT OF B-HEMOLYTIC STREPTOCOCCAL INFECTIONS NEED NOT BE PERFORMED ROUTINELY. P. AERUGINOSA K. AEROGENES AMIKACIN SENSITIVE <=16AMOXICILLIN/CA RESISTANT <=8/4AMPICILLIN RESISTANT <=8CEFAZOLIN RESISTANT >16CEFEPIME SENSITIVE <=2CEFTAZIDIME SENSITIVE 4CIPROFLOXACIN SENSITIVE <=1 INTERMED 2LEVOFLOXACIN SENSITIVE <=2 SENSITIVE <=2MEROPENEM SENSITIVE <=1PIP/TAZOBAC SENSITIVE <=16 SENSITIVE <=16TETRACYCLINE SENSITIVE <=4TOBRAMYCIN SENSITIVE <=4 SENSITIVE <=4TRIMETH/SULFA SENSITIVE <=2/38 NOTE: NUMBERS DISPLAYED REPRESENT MINIMUM INHIBITORY CONCENTRATION (ABHISHEK) WHICH IS EXPRESSED IN MCG/ML. UNLESS OTHERWISE INDICATED, ALL TESTING PERFORMED [facility] [address] [place] [address] MAINT MECHANIC: ISIDRA AYERS M.D.CLIA NUMBER [id number] [place]. [id number], [id number] 00:00:00 Test Item Value Reference Range Interpretation Comments CULTURE, ROUTINE (test SPECIMEN NUMBER: code = 13921) [id number] CULTURE, [id number] 00:00:00 Test Item Value Reference Range Interpretation Comments CULTURE, ROUTINE (test SPECIMEN NUMBER: code = 76316) [id number] CULTURE, [id number] 00:00:00 Test Item Value Reference Range Interpretation Comments CULTURE, ROUTINE (test SPECIMEN NUMBER: code = 46156) [id number] CULTURE, [id number] 00:00:00 Test Item Value Reference Range Interpretation Comments CULTURE, ROUTINE (test SPECIMEN NUMBER: code = 13516) [id number] CULTURE, [id number] 00:00:00 Test Item Value Reference Range Interpretation Comments CULTURE, ROUTINE (test SPECIMEN NUMBER: code = 54753) [id number] CULTURE, [id number] 00:00:00 Test Item Value Reference Range Interpretation Comments CULTURE, ROUTINE (test SPECIMEN NUMBER: code = 23785) [id number] CULTURE, [id number] 00:00:00 Test Item Value Reference Range Interpretation Comments CULTURE, ROUTINE (test SPECIMEN NUMBER: code = 69010) [id number] CULTURE, [id number] 00:00:00 Test Item Value Reference Range Interpretation Comments CULTURE, ROUTINE (test SPECIMEN NUMBER: code = 24174) [id number] CULTURE, [id number] 00:00:00 Test Item Value Reference Range Interpretation Comments CULTURE, ROUTINE (test SPECIMEN NUMBER: code = 91272) [id number] CBC W/AUTO DIFF WITH [id number] 11:25:56 Test Item Value Reference Range Interpretation Comments WBC (test code = 5.5 K/UL 3.5-11.0 1001) RBC (test code = 4.16 M/UL 3.80-5.40 1002) HEMOGLOBIN (test 12.8 G/DL 11.5-15.5 code = 1003) HEMATOCRIT (test 39.1 % 34.0-45.0 code = 1004) MCV (test code = 94.0 fL 80.0-99.0 1005) MCH (test code = 30.8 PG 25.0-33.0 1006) MCHC (test code = 32.7 G/DL 31.0-36.0 1007) RDW (test code = 13.2 % 11.5-15.0 1038) NEUTROPHILS (test 62.5 % AUTOMATED code = 1008) DIFFERENTIAL CONFIRMED WITH MANUAL SLIDE RE VIEW. LYMPHOCYTES (test 28.3 % code = 1010) MONOCYTES (test code 7.2 % = 1011) EOSINOPHILS (test 0.7 % code = 1012) BASOPHILS (test code 0.7 % = 1013) IMMATURE 0.6 % GRANULOCYTES (test code = 1036) NUCLEATED RBCS (test 0.0 /100 See_Comment [Autom ated message] code = 1065) WBC'S The system [employer] generated this result transmitted ref erence range: 0.0. The reference range was not used to int erpret this result as normal/abnormal . PLATELET COUNT (test 101 K/UL 130-400 L code = 1015) ABSOLUTE NEUTROPHILS 3.41 K/UL 1.50-7.50 (test code = 1066) ABSOLUTE LYMPHOCYTES 1.54 K/UL 1.00-4.00 (test code = 1067) ABSOLUTE MONOCYTES 0.39 K/UL 0.20-1.00 (test code = 1068) ABSOLUTE EOSINOPHILS 0.04 K/UL 0.00-0.50 (test code = 1040) ABSOLUTE BASOPHILS 0.04 K/UL 0.00-0.20 (test code = 1069) ABS IMMATURE 0.03 K/UL 0.00-0.10 GRANULOCYTES (test code = 1020) ABS NUCLEATED RBCS 0.00 K/UL 0.00-0.11 (test code = 70496) COMMENTS (test code (NOTE) NO SPEC [facility] RBC = 1016) ABNORMALITIES IDENTIFIED SEE ADDITIONAL COMM ENTS BELOW: PLATELET CLUMPING PRESEN T; TRUE PLATELET C OUNT MAY BE HIGHER. IF CLINICALLY BARBARA CATED, ORDER REPEAT PL ATELET COUNT WITH CITR ATE ANTICOAGULATED TUBE (CPL ORDER CODE 1047). HEMOGLOBIN [id number] 06:07:51 Test Item Value Reference Range Interpretation Comments HEMOGLOBIN A1c (test 5.2 % 4.2-5.6 UNLESS OTHERWISE code = 51932) INDICATED, ALL TESTING PERFORMED [facility] [address] [facility] [place] [address] [facility]: Bessie RAMIA NUMBER [id number] CAP ACCREDITATION N O. [id number] COMPREHENSIVE METABOLIC [id number] 05:35:34 Test Item Value Reference Range Interpretation Comments GLUCOSE (test code = 95 MG/DL 70-99 2216) BUN (test code = 18 MG/DL 8-2207) CREATININE (test 0.94 MG/DL 0.60-1.30 code = 221) eGFR (2020 CKD-EPI) 69 ML/MIN/1.73 >60 (test code = 68777) CALC BUN/CREAT (test 19 RATIO 6-28 code = 2235) SODIUM (test code = 143 MEQ/L 463-246 9321) POTASSIUM (test code 3.9 MEQ/L 3.5-5.4 = 2227) CHLORIDE (test code 104 MEQ/L 95-107 = 2214) CARBON DIOXIDE (test 26 MEQ/L 19-31 code = 220) CALCIUM (test code = 9.7 MG/DL 8.5-10.5 2208) PROTEIN, TOTAL (test 7.5 G/DL 6.1-8.3 code = 2228) ALBUMIN (test code = 4.3 G/DL 3.5-5.2 2200) CALC GLOBULIN (test 3.2 G/DL 1.9-3.7 code = 2239) CALC A/G RATIO (test 1.3 RATIO 1.0-2.6 code = 2233) BILIRUBIN, TOTAL 0.4 MG/DL See_Comment [Automated message] (test code = 220) The syste m which generated this result transmit jeremiah reference range : <=1.2. The refe rence range was not u sed to interpret th is result as normal/abnormal . ALKALINE PHOSPHATASE 89 U/L 40-136 (test code = 220) AST (test code = 18 U/L 9-40 2217) ALT (test code = 15 U/L 5-40 2218) LIPID [id number] 05:35:34 Test Item Value Reference Range Interpretation [...] MOREINFORMATION , SEE CLIENT ANNOUNCE MENT AT [email or web address] [email or web address] RATIO LDL/HDL 1.88 RATIO <3.22 (test code = 2238) CBC W/AUTO [id number] 00:00:00 Test Item Value Reference Range Interpretation Comments WBC (test code = 1001) 5.5 K/UL RBC (test code = 1002) 4.16 M/UL HEMOGLOBIN (test code = 1003) 12.8 G/DL HEMATOCRIT (test code = 1004) 39.1 % MCV (test code = 1005) 94.0 fL MCH (test code = 1006) 30.8 PG MCHC (test code = 1007) 32.7 G/DL RDW (test code = 1038) 13.2 % NEUTROPHILS (test code = 1008) 62.5 % LYMPHOCYTES (test code = 1010) 28.3 % MONOCYTES (test code = 1011) 7.2 % EOSINOPHILS (test code = 1012) 0.7 % BASOPHILS (test code = 1013) 0.7 % IMMATURE GRANULOCYTES (test 0.6 % code = 1036) NUCLEATED RBCS (test code = 0.0 /100WBC'S 1065) PLATELET COUNT (test code = 101 K/UL 1015) ABSOLUTE NEUTROPHILS (test code 3.41 K/UL = 1066) ABSOLUTE LYMPHOCYTES (test code 1.54 K/UL = 1067) ABSOLUTE MONOCYTES (test code = 0.39 K/UL 1068) ABSOLUTE EOSINOPHILS (test code 0.04 K/UL = 1040) ABSOLUTE BASOPHILS (test code = 0.04 K/UL 1069) ABS IMMATURE GRANULOCYTES (test 0.03 K/UL code = 1020) ABS NUCLEATED RBCS (test code = 0.00 K/UL 42052) COMMENTS (test code = 1016) (NOTE) CBC W/AUTO [id number] 00:00:00 Test Item Value Reference Range Interpretation Comments WBC (test code = 1001) 5.5 K/UL RBC (test code = 1002) 4.16 M/UL HEMOGLOBIN (test code = 1003) 12.8 G/DL HEMATOCRIT (test code = 1004) 39.1 % MCV (test code = 1005) 94.0 fL MCH (test code = 1006) 30.8 PG MCHC (test code = 1007) 32.7 G/DL RDW (test code = 1038) 13.2 % NEUTROPHILS (test code = 1008) 62.5 % LYMPHOCYTES (test code = 1010) 28.3 % MONOCYTES (test code = 1011) 7.2 % EOSINOPHILS (test code = 1012) 0.7 % BASOPHILS (test code = 1013) 0.7 % IMMATURE GRANULOCYTES (test 0.6 % code = 1036) NUCLEATED RBCS (test code = 0.0 /100WBC'S 1065) PLATELET COUNT (test code = 101 K/UL 1015) ABSOLUTE NEUTROPHILS (test code 3.41 K/UL = 1066) ABSOLUTE LYMPHOCYTES (test code 1.54 K/UL = 1067) ABSOLUTE MONOCYTES (test code = 0.39 K/UL 1068) ABSOLUTE EOSINOPHILS (test code 0.04 K/UL = 1040) ABSOLUTE BASOPHILS (test code = 0.04 K/UL 1069) ABS IMMATURE GRANULOCYTES (test 0.03 K/UL code = 1020) ABS NUCLEATED RBCS (test code = 0.00 K/UL 79776) COMMENTS (test code = 1016) (NOTE) CBC W/AUTO [id number] 00:00:00 Test Item Value Reference Range Interpretation Comments WBC (test code = 1001) 5.5 K/UL RBC (test code = 1002) 4.16 M/UL HEMOGLOBIN (test code = 1003) 12.8 G/DL HEMATOCRIT (test code = 1004) 39.1 % MCV (test code = 1005) 94.0 fL MCH (test code = 1006) 30.8 PG MCHC (test code = 1007) 32.7 G/DL RDW (test code = 1038) 13.2 % NEUTROPHILS (test code = 1008) 62.5 % LYMPHOCYTES (test code = 1010) 28.3 % MONOCYTES (test code = 1011) 7.2 % EOSINOPHILS (test code = 1012) 0.7 % BASOPHILS (test code = 1013) 0.7 % IMMATURE GRANULOCYTES (test 0.6 % code = 1036) NUCLEATED RBCS (test code = 0.0 /100WBC'S 1065) PLATELET COUNT (test code = 101 K/UL 1015) ABSOLUTE NEUTROPHILS (test code 3.41 K/UL = 1066) ABSOLUTE LYMPHOCYTES (test code 1.54 K/UL = 1067) ABSOLUTE MONOCYTES (test code = 0.39 K/UL 1068) ABSOLUTE EOSINOPHILS (test code 0.04 K/UL = 1040) ABSOLUTE BASOPHILS (test code = 0.04 K/UL 1069) ABS IMMATURE GRANULOCYTES (test 0.03 K/UL code = 1020) ABS NUCLEATED RBCS (test code = 0.00 K/UL 28517) COMMENTS (test code = 1016) (NOTE) COMPREHENSIVE METABOLIC [id number] 00:00:00 Test Item Value Reference Range Interpretation Comments GLUCOSE (test code = 2217) 95 MG/DL BUN (test code = 2208) 18 MG/DL CREATININE (test code = 2214) 0.94 MG/DL eGFR (2020 CKD-EPI) (test code 69 ML/MIN/1.73 = 69572) CALC BUN/CREAT (test code = 19 RATIO 2235) SODIUM (test code = 2231) 143 MEQ/L POTASSIUM (test code = 2228) 3.9 MEQ/L CHLORIDE (test code = 2215) 104 MEQ/L CARBON DIOXIDE (test code = 26 MEQ/L 220) CALCIUM (test code = 2209) 9.7 MG/DL PROTEIN, TOTAL (test code = 7.5 G/DL 2228) ALBUMIN (test code = 2201) 4.3 G/DL CALC GLOBULIN (test code = 3.2 G/DL 2240) CALC A/G RATIO (test code = 1.3 RATIO 2234) BILIRUBIN, TOTAL (test code = 0.4 MG/DL 2206) ALKALINE PHOSPHATASE (test 89 U/L code = 2204) AST (test code = 2218) 18 U/L ALT (test code = 2219) 15 U/L COMPREHENSIVE METABOLIC [id number] 00:00:00 Test Item Value Reference Range Interpretation Comments GLUCOSE (test code = 2217) 95 MG/DL BUN (test code = 2208) 18 MG/DL CREATININE (test code = 2214) 0.94 MG/DL eGFR (2020 CKD-EPI) (test code 69 ML/MIN/1.73 = 78024) CALC BUN/CREAT (test code = 19 RATIO 2235) SODIUM (test code = 2231) 143 MEQ/L POTASSIUM (test code = 2228) 3.9 MEQ/L CHLORIDE (test code = 2215) 104 MEQ/L CARBON DIOXIDE (test code = 26 MEQ/L 2206) CALCIUM (test code = 2209) 9.7 MG/DL PROTEIN, TOTAL (test code = 7.5 G/DL 2228) ALBUMIN (test code = 2201) 4.3 G/DL CALC GLOBULIN (test code = 3.2 G/DL 2240) CALC A/G RATIO (test code = 1.3 RATIO 2234) BILIRUBIN, TOTAL (test code = 0.4 MG/DL 2206) ALKALINE PHOSPHATASE (test 89 U/L code = 2204) AST (test code = 2218) 18 U/L ALT (test code = 2219) 15 U/L LIPID [id number] 00:00:00 Test Item Value Reference Range Interpretation Comments CHOLESTEROL (test code = 2210) 186 MG/DL TRIGLYCERIDES (test code = 2232) 94 MG/DL HDL CHOLESTEROL (test code = 2220) 58 MG/DL CALC LDL CHOL (test code = 2237) 109 MG/DL RISK RATIO LDL/HDL (test code = 1.88 RATIO 2238) LIPID [id number] 00:00:00 Test Item Value Reference Range Interpretation Comments CHOLESTEROL (test code = 2210) 186 MG/DL TRIGLYCERIDES (test code = 2232) 94 MG/DL HDL CHOLESTEROL (test code = 2220) 58 MG/DL CALC LDL CHOL (test code = 2237) 109 MG/DL RISK RATIO LDL/HDL (test code = 1.88 RATIO 2238) HEMOGLOBIN [id number] 00:00:00 Test Item Value Reference Range Interpretation Comments HEMOGLOBIN A1c (test code = 52993) 5.2 % HEMOGLOBIN [id number] 00:00:00 Test Item Value Reference Range Interpretation Comments HEMOGLOBIN A1c (test code = 43403) 5.2 % HEMOGLOBIN [id number] 00:00:00 Test Item Value Reference Range Interpretation Comments HEMOGLOBIN A1c (test code = 11042) 5.2 % CBC W/AUTO [id number] 00:00:00 Test Item Value Reference Range Interpretation Comments WBC (test code = 1001) 5.5 K/UL RBC (test code = 1002) 4.16 M/UL HEMOGLOBIN (test code = 1003) 12.8 G/DL HEMATOCRIT (test code = 1004) 39.1 % MCV (test code = 1005) 94.0 fL MCH (test code = 1006) 30.8 PG MCHC (test code = 1007) 32.7 G/DL RDW (test code = 1038) 13.2 % NEUTROPHILS (test code = 1008) 62.5 % LYMPHOCYTES (test code = 1010) 28.3 % MONOCYTES (test code = 1011) 7.2 % EOSINOPHILS (test code = 1012) 0.7 % BASOPHILS (test code = 1013) 0.7 % IMMATURE GRANULOCYTES (test 0.6 % code = 1036) NUCLEATED RBCS (test code = 0.0 /100WBC'S 1065) PLATELET COUNT (test code = 101 K/UL 1015) ABSOLUTE NEUTROPHILS (test code 3.41 K/UL = 1066) ABSOLUTE LYMPHOCYTES (test code 1.54 K/UL = 1067) ABSOLUTE MONOCYTES (test code = 0.39 K/UL 1068) ABSOLUTE EOSINOPHILS (test code 0.04 K/UL = 1040) ABSOLUTE BASOPHILS (test code = 0.04 K/UL 1069) ABS IMMATURE GRANULOCYTES (test 0.03 K/UL code = 1020) ABS NUCLEATED RBCS (test code = 0.00 K/UL 75791) COMMENTS (test code = 1016) (NOTE) CBC W/AUTO [id number] 00:00:00 Test Item Value Reference Range Interpretation Comments WBC (test code = 1001) 5.5 K/UL RBC (test code = 1002) 4.16 M/UL HEMOGLOBIN (test code = 1003) 12.8 G/DL HEMATOCRIT (test code = 1004) 39.1 % MCV (test code = 1005) 94.0 fL MCH (test code = 1006) 30.8 PG MCHC (test code = 1007) 32.7 G/DL RDW (test code = 1038) 13.2 % NEUTROPHILS (test code = 1008) 62.5 % LYMPHOCYTES (test code = 1010) 28.3 % MONOCYTES (test code = 1011) 7.2 % EOSINOPHILS (test code = 1012) 0.7 % BASOPHILS (test code = 1013) 0.7 % IMMATURE GRANULOCYTES (test 0.6 % code = 1036) NUCLEATED RBCS (test code = 0.0 /100WBC'S 1065) PLATELET COUNT (test code = 101 K/UL 1015) ABSOLUTE NEUTROPHILS (test code 3.41 K/UL = 1066) ABSOLUTE LYMPHOCYTES (test code 1.54 K/UL = 1067) ABSOLUTE MONOCYTES (test code = 0.39 K/UL 1068) ABSOLUTE EOSINOPHILS (test code 0.04 K/UL = 1040) ABSOLUTE BASOPHILS (test code = 0.04 K/UL 1069) ABS IMMATURE GRANULOCYTES (test 0.03 K/UL code = 1020) ABS NUCLEATED RBCS (test code = 0.00 K/UL 39565) COMMENTS (test code = 1016) (NOTE) CBC W/AUTO [id number] 00:00:00 Test Item Value Reference Range Interpretation Comments WBC (test code = 1001) 5.5 K/UL RBC (test code = 1002) 4.16 M/UL HEMOGLOBIN (test code = 1003) 12.8 G/DL HEMATOCRIT (test code = 1004) 39.1 % MCV (test code = 1005) 94.0 fL MCH (test code = 1006) 30.8 PG MCHC (test code = 1007) 32.7 G/DL RDW (test code = 1038) 13.2 % NEUTROPHILS (test code = 1008) 62.5 % LYMPHOCYTES (test code = 1010) 28.3 % MONOCYTES (test code = 1011) 7.2 % EOSINOPHILS (test code = 1012) 0.7 % BASOPHILS (test code = 1013) 0.7 % IMMATURE GRANULOCYTES (test 0.6 % code = 1036) NUCLEATED RBCS (test code = 0.0 /100WBC'S 1065) PLATELET COUNT (test code = 101 K/UL 1015) ABSOLUTE NEUTROPHILS (test code 3.41 K/UL = 1066) ABSOLUTE LYMPHOCYTES (test code 1.54 K/UL = 1067) ABSOLUTE MONOCYTES (test code = 0.39 K/UL 1068) ABSOLUTE EOSINOPHILS (test code 0.04 K/UL = 1040) ABSOLUTE BASOPHILS (test code = 0.04 K/UL 1069) ABS IMMATURE GRANULOCYTES (test 0.03 K/UL code = 1020) ABS NUCLEATED RBCS (test code = 0.00 K/UL 63656) COMMENTS (test code = 1016) (NOTE) COMPREHENSIVE METABOLIC [id number] 00:00:00 Test Item Value Reference Range Interpretation Comments GLUCOSE (test code = 2217) 95 MG/DL BUN (test code = 2208) 18 MG/DL CREATININE (test code = 2214) 0.94 MG/DL eGFR (2020 CKD-EPI) (test code 69 ML/MIN/1.73 = 01791) CALC BUN/CREAT (test code = 19 RATIO 2235) SODIUM (test code = 2231) 143 MEQ/L POTASSIUM (test code = 2228) 3.9 MEQ/L CHLORIDE (test code = 2215) 104 MEQ/L CARBON DIOXIDE (test code = 26 MEQ/L 2206) CALCIUM (test code = 2209) 9.7 MG/DL PROTEIN, TOTAL (test code = 7.5 G/DL 222) ALBUMIN (test code = 2201) 4.3 G/DL CALC GLOBULIN (test code = 3.2 G/DL 2240) CALC A/G RATIO (test code = 1.3 RATIO 2234) BILIRUBIN, TOTAL (test code = 0.4 MG/DL 2206) ALKALINE PHOSPHATASE (test 89 U/L code = 220) AST (test code = 2218) 18 U/L ALT (test code = 2219) 15 U/L COMPREHENSIVE METABOLIC [id number] 00:00:00 Test Item Value Reference Range Interpretation Comments GLUCOSE (test code = 2217) 95 MG/DL BUN (test code = 2208) 18 MG/DL CREATININE (test code = 2214) 0.94 MG/DL eGFR (2020 CKD-EPI) (test code 69 ML/MIN/1.73 = 02040) CALC BUN/CREAT (test code = 19 RATIO 2235) SODIUM (test code = 2231) 143 MEQ/L POTASSIUM (test code = 2228) 3.9 MEQ/L CHLORIDE (test code = 2215) 104 MEQ/L CARBON DIOXIDE (test code = 26 MEQ/L 2205) CALCIUM (test code = 2209) 9.7 MG/DL PROTEIN, TOTAL (test code = 7.5 G/DL 9) ALBUMIN (test code = 2201) 4.3 G/DL CALC GLOBULIN (test code = 3.2 G/DL 2240) CALC A/G RATIO (test code = 1.3 RATIO 2234) BILIRUBIN, TOTAL (test code = 0.4 MG/DL 2206) ALKALINE PHOSPHATASE (test 89 U/L code = 2204) AST (test code = 2218) 18 U/L ALT (test code = 2219) 15 U/L LIPID [id number] 00:00:00 Test Item Value Reference Range Interpretation Comments CHOLESTEROL (test code = 2210) 186 MG/DL TRIGLYCERIDES (test code = 2232) 94 MG/DL HDL CHOLESTEROL (test code = 2220) 58 MG/DL CALC LDL CHOL (test code = 2237) 109 MG/DL RISK RATIO LDL/HDL (test code = 1.88 RATIO 2238) LIPID [id number] 00:00:00 Test Item Value Reference Range Interpretation Comments CHOLESTEROL (test code = 2210) 186 MG/DL TRIGLYCERIDES (test code = 2232) 94 MG/DL HDL CHOLESTEROL (test code = 2220) 58 MG/DL CALC LDL CHOL (test code = 2237) 109 MG/DL RISK RATIO LDL/HDL (test code = 1.88 RATIO 2238) HEMOGLOBIN [id number] 00:00:00 Test Item Value Reference Range Interpretation Comments HEMOGLOBIN A1c (test code = 74373) 5.2 % HEMOGLOBIN [id number] 00:00:00 Test Item Value Reference Range Interpretation Comments HEMOGLOBIN A1c (test code = 81859) 5.2 % HEMOGLOBIN [id number] 00:00:00 Test Item Value Reference Range Interpretation Comments HEMOGLOBIN A1c (test code = 51920) 5.2 % CBC W/AUTO [id number] 00:00:00 Test Item Value Reference Range Interpretation Comments WBC (test code = 1001) 5.5 K/UL RBC (test code = 1002) 4.16 M/UL HEMOGLOBIN (test code = 1003) 12.8 G/DL HEMATOCRIT (test code = 1004) 39.1 % MCV (test code = 1005) 94.0 fL MCH (test code = 1006) 30.8 PG MCHC (test code = 1007) 32.7 G/DL RDW (test code = 1038) 13.2 % NEUTROPHILS (test code = 1008) 62.5 % LYMPHOCYTES (test code = 1010) 28.3 % MONOCYTES (test code = 1011) 7.2 % EOSINOPHILS (test code = 1012) 0.7 % BASOPHILS (test code = 1013) 0.7 % IMMATURE GRANULOCYTES (test 0.6 % code = 1036) NUCLEATED RBCS (test code = 0.0 /100WBC'S 1065) PLATELET COUNT (test code = 101 K/UL 1015) ABSOLUTE NEUTROPHILS (test code 3.41 K/UL = 1066) ABSOLUTE LYMPHOCYTES (test code 1.54 K/UL = 1067) ABSOLUTE MONOCYTES (test code = 0.39 K/UL 1068) ABSOLUTE EOSINOPHILS (test code 0.04 K/UL = 1040) ABSOLUTE BASOPHILS (test code = 0.04 K/UL 1069) ABS IMMATURE GRANULOCYTES (test 0.03 K/UL code = 1020) ABS NUCLEATED RBCS (test code = 0.00 K/UL 41709) COMMENTS (test code = 1016) (NOTE) CBC W/AUTO [id number] 00:00:00 Test Item Value Reference Range Interpretation Comments WBC (test code = 1001) 5.5 K/UL RBC (test code = 1002) 4.16 M/UL HEMOGLOBIN (test code = 1003) 12.8 G/DL HEMATOCRIT (test code = 1004) 39.1 % MCV (test code = 1005) 94.0 fL MCH (test code = 1006) 30.8 PG MCHC (test code = 1007) 32.7 G/DL RDW (test code = 1038) 13.2 % NEUTROPHILS (test code = 1008) 62.5 % LYMPHOCYTES (test code = 1010) 28.3 % MONOCYTES (test code = 1011) 7.2 % EOSINOPHILS (test code = 1012) 0.7 % BASOPHILS (test code = 1013) 0.7 % IMMATURE GRANULOCYTES (test 0.6 % code = 1036) NUCLEATED RBCS (test code = 0.0 /100WBC'S 1065) PLATELET COUNT (test code = 101 K/UL 1015) ABSOLUTE NEUTROPHILS (test code 3.41 K/UL = 1066) ABSOLUTE LYMPHOCYTES (test code 1.54 K/UL = 1067) ABSOLUTE MONOCYTES (test code = 0.39 K/UL 1068) ABSOLUTE EOSINOPHILS (test code 0.04 K/UL = 1040) ABSOLUTE BASOPHILS (test code = 0.04 K/UL 1069) ABS IMMATURE GRANULOCYTES (test 0.03 K/UL code = 1020) ABS NUCLEATED RBCS (test code = 0.00 K/UL 44478) COMMENTS (test code = 1016) (NOTE) CBC W/AUTO [id number] 00:00:00 Test Item Value Reference Range Interpretation Comments WBC (test code = 1001) 5.5 K/UL RBC (test code = 1002) 4.16 M/UL HEMOGLOBIN (test code = 1003) 12.8 G/DL HEMATOCRIT (test code = 1004) 39.1 % MCV (test code = 1005) 94.0 fL MCH (test code = 1006) 30.8 PG MCHC (test code = 1007) 32.7 G/DL RDW (test code = 1038) 13.2 % NEUTROPHILS (test code = 1008) 62.5 % LYMPHOCYTES (test code = 1010) 28.3 % MONOCYTES (test code = 1011) 7.2 % EOSINOPHILS (test code = 1012) 0.7 % BASOPHILS (test code = 1013) 0.7 % IMMATURE GRANULOCYTES (test 0.6 % code = 1036) NUCLEATED RBCS (test code = 0.0 /100WBC'S 1065) PLATELET COUNT (test code = 101 K/UL 1015) ABSOLUTE NEUTROPHILS (test code 3.41 K/UL = 1066) ABSOLUTE LYMPHOCYTES (test code 1.54 K/UL = 1067) ABSOLUTE MONOCYTES (test code = 0.39 K/UL 1068) ABSOLUTE EOSINOPHILS (test code 0.04 K/UL = 1040) ABSOLUTE BASOPHILS (test code = 0.04 K/UL 1069) ABS IMMATURE GRANULOCYTES (test 0.03 K/UL code = 1020) ABS NUCLEATED RBCS (test code = 0.00 K/UL 23027) COMMENTS (test code = 1016) (NOTE) COMPREHENSIVE METABOLIC [id number] 00:00:00 Test Item Value Reference Range Interpretation Comments GLUCOSE (test code = 2217) 95 MG/DL BUN (test code = 2208) 18 MG/DL CREATININE (test code = 2214) 0.94 MG/DL eGFR (2020 CKD-EPI) (test code 69 ML/MIN/1.73 = 19155) CALC BUN/CREAT (test code = 19 RATIO 2235) SODIUM (test code = 2231) 143 MEQ/L POTASSIUM (test code = 2228) 3.9 MEQ/L CHLORIDE (test code = 2215) 104 MEQ/L CARBON DIOXIDE (test code = 26 MEQ/L 2205) CALCIUM (test code = 2209) 9.7 MG/DL PROTEIN, TOTAL (test code = 7.5 G/DL 2228) ALBUMIN (test code = 2201) 4.3 G/DL CALC GLOBULIN (test code = 3.2 G/DL 2240) CALC A/G RATIO (test code = 1.3 RATIO 2234) BILIRUBIN, TOTAL (test code = 0.4 MG/DL 2206) ALKALINE PHOSPHATASE (test 89 U/L code = 2204) AST (test code = 2218) 18 U/L ALT (test code = 2219) 15 U/L COMPREHENSIVE METABOLIC [id number] 00:00:00 Test Item Value Reference Range Interpretation Comments GLUCOSE (test code = 2217) 95 MG/DL BUN (test code = 2208) 18 MG/DL CREATININE (test code = 2214) 0.94 MG/DL eGFR (2020 CKD-EPI) (test code 69 ML/MIN/1.73 = 59565) CALC BUN/CREAT (test code = 19 RATIO 2235) SODIUM (test code = 2231) 143 MEQ/L POTASSIUM (test code = 2228) 3.9 MEQ/L CHLORIDE (test code = 2215) 104 MEQ/L CARBON DIOXIDE (test code = 26 MEQ/L 2205) CALCIUM (test code = 2209) 9.7 MG/DL PROTEIN, TOTAL (test code = 7.5 G/DL 2228) ALBUMIN (test code = 2201) 4.3 G/DL CALC GLOBULIN (test code = 3.2 G/DL 2240) CALC A/G RATIO (test code = 1.3 RATIO 2234) BILIRUBIN, TOTAL (test code = 0.4 MG/DL 2206) ALKALINE PHOSPHATASE (test 89 U/L code = 2204) AST (test code = 2218) 18 U/L ALT (test code = 2219) 15 U/L LIPID [id number] 00:00:00 Test Item Value Reference Range Interpretation Comments CHOLESTEROL (test code = 2210) 186 MG/DL TRIGLYCERIDES (test code = 2232) 94 MG/DL HDL CHOLESTEROL (test code = 2220) 58 MG/DL CALC LDL CHOL (test code = 2237) 109 MG/DL RISK RATIO LDL/HDL (test code = 1.88 RATIO 2238) LIPID [id number] 00:00:00 Test Item Value Reference Range Interpretation Comments CHOLESTEROL (test code = 2210) 186 MG/DL TRIGLYCERIDES (test code = 2232) 94 MG/DL HDL CHOLESTEROL (test code = 2220) 58 MG/DL CALC LDL CHOL (test code = 2237) 109 MG/DL RISK RATIO LDL/HDL (test code = 1.88 RATIO 2238) HEMOGLOBIN [id number] 00:00:00 Test Item Value Reference Range Interpretation Comments HEMOGLOBIN A1c (test code = 85904) 5.2 % HEMOGLOBIN [id number] 00:00:00 Test Item Value Reference Range Interpretation Comments HEMOGLOBIN A1c (test code = 16095) 5.2 % HEMOGLOBIN [id number] 00:00:00 Test Item Value Reference Range Interpretation Comments HEMOGLOBIN A1c (test code = 78716) 5.2 % CULTURE, [id number] 00:00:00 Test Item Value Reference Range Interpretation Comments CULTURE, URINE (test SPECIMEN NUMBER: code = 33699) [id number] CULTURE, [id number] 00:00:00 Test Item Value Reference Range Interpretation Comments CULTURE, URINE (test SPECIMEN NUMBER: code = 43234) [id number] CULTURE, [id number] 00:00:00 Test Item Value Reference Range Interpretation Comments CULTURE, URINE (test SPECIMEN NUMBER: code = 31211) [id number] CULTURE, [id number] 00:00:00 Test Item Value Reference Range Interpretation Comments CULTURE, URINE (test SPECIMEN NUMBER: code = 93500) [id number] CULTURE, [id number] 00:00:00 Test Item Value Reference Range Interpretation Comments CULTURE, URINE (test SPECIMEN NUMBER: code = 76973) [id number] CULTURE, [id number] 00:00:00 Test Item Value Reference Range Interpretation Comments CULTURE, URINE (test SPECIMEN NUMBER: code = 17647) [id number] CULTURE, [id number] 00:00:00 Test Item Value Reference Range Interpretation Comments CULTURE, URINE (test SPECIMEN NUMBER: code = 27904) [id number] COMPREHENSIVE METABOLIC [id number] 00:00:00 Test Item Value Reference Range Interpretation Comments GLUCOSE (test code = 2217) 99 MG/DL BUN (test code = 2208) 14 MG/DL CREATININE (test code = 2214) 0.79 MG/DL eGFR AMER. (test code 95 ML/MIN/1.73 = 82437) eGFR NON- AMER. (test 82 ML/MIN/1.73 code = 95930) CALC BUN/CREAT (test code = 18 RATIO 2235) SODIUM (test code = 2231) 143 MEQ/L POTASSIUM (test code = 2228) 3.9 MEQ/L CHLORIDE (test code = 2215) 105 MEQ/L CARBON DIOXIDE (test code = 26 MEQ/L 2205) CALCIUM (test code = 2209) 9.8 MG/DL PROTEIN, TOTAL (test code = 7.4 G/DL 2228) ALBUMIN (test code = 2201) 4.3 G/DL CALC GLOBULIN (test code = 3.1 G/DL 2239) CALC A/G RATIO (test code = 1.4 RATIO 2233) BILIRUBIN, TOTAL (test code = 0.5 MG/DL 2206) ALKALINE PHOSPHATASE (test 105 U/L code = 2204) AST (test code = 2218) 18 U/L ALT (test code = 2219) 14 U/L HEMOGLOBIN [id number] 00:00:00 Test Item Value Reference Range Interpretation Comments HEMOGLOBIN A1c (test code = 61227) 5.2 % HEMOGLOBIN [id number] 00:00:00 Test Item Value Reference Range Interpretation Comments HEMOGLOBIN A1c (test code = 12150) 5.2 % [id number] 00:00:00 Test Item Value Reference Range Interpretation Comments TSH, THIRD GENERATION (test code 2.780 UIU/ML = 2821) [id number] 00:00:00 Test Item Value Reference Range Interpretation Comments TSH, THIRD GENERATION (test code 2.780 UIU/ML = 2821) LIPID [id number] 00:00:00 Test Item Value Reference Range Interpretation Comments CHOLESTEROL (test code = 2210) 195 MG/DL TRIGLYCERIDES (test code = 2232) 61 MG/DL HDL CHOLESTEROL (test code = 2220) 64 MG/DL CALC LDL CHOL (test code = 2237) 116 MG/DL RISK RATIO LDL/HDL (test code = 1.81 RATIO 2238) [id number] 00:00:00 Test Item Value Reference Range Interpretation Comments NT-proBNP (test code = 35629) 204 PG/ML [id number] 00:00:00 Test Item Value Reference Range Interpretation Comments NT-proBNP (test code = 94932) 204 PG/ML COMPREHENSIVE METABOLIC [id number] 00:00:00 Test Item Value Reference Range Interpretation Comments GLUCOSE (test code = 2217) 99 MG/DL BUN (test code = 2208) 14 MG/DL CREATININE (test code = 2214) 0.79 MG/DL eGFR AMER. (test code 95 ML/MIN/1.73 = 38341) eGFR NON- AMER. (test 82 ML/MIN/1.73 code = 40983) CALC BUN/CREAT (test code = 18 RATIO 2235) SODIUM (test code = 2231) 143 MEQ/L POTASSIUM (test code = 2228) 3.9 MEQ/L CHLORIDE (test code = 2215) 105 MEQ/L CARBON DIOXIDE (test code = 26 MEQ/L 220) CALCIUM (test code = 2209) 9.8 MG/DL PROTEIN, TOTAL (test code = 7.4 G/DL 2228) ALBUMIN (test code = 2201) 4.3 G/DL CALC GLOBULIN (test code = 3.1 G/DL 2240) CALC A/G RATIO (test code = 1.4 RATIO 2233) BILIRUBIN, TOTAL (test code = 0.5 MG/DL 2206) ALKALINE PHOSPHATASE (test 105 U/L code = 2204) AST (test code = 2218) 18 U/L ALT (test code = 2219) 14 U/L COMPREHENSIVE METABOLIC [id number] 00:00:00 Test Item Value Reference Range Interpretation Comments GLUCOSE (test code = 2217) 99 MG/DL BUN (test code = 2208) 14 MG/DL CREATININE (test code = 2214) 0.79 MG/DL eGFR AMER. (test code 95 ML/MIN/1.73 = 00111) eGFR NON- AMER. (test 82 ML/MIN/1.73 code = 10866) CALC BUN/CREAT (test code = 18 RATIO 2235) SODIUM (test code = 2231) 143 MEQ/L POTASSIUM (test code = 2228) 3.9 MEQ/L CHLORIDE (test code = 2215) 105 MEQ/L CARBON DIOXIDE (test code = 26 MEQ/L 2206) CALCIUM (test code = 2209) 9.8 MG/DL PROTEIN, TOTAL (test code = 7.4 G/DL 2228) ALBUMIN (test code = 2201) 4.3 G/DL CALC GLOBULIN (test code = 3.1 G/DL 2240) CALC A/G RATIO (test code = 1.4 RATIO 2234) BILIRUBIN, TOTAL (test code = 0.5 MG/DL 7) ALKALINE PHOSPHATASE (test 105 U/L code = 2204) AST (test code = 2218) 18 U/L ALT (test code = 2219) 14 U/L HEMOGLOBIN [id number] 00:00:00 Test Item Value Reference Range Interpretation Comments HEMOGLOBIN A1c (test code = 75986) 5.2 % HEMOGLOBIN [id number] 00:00:00 Test Item Value Reference Range Interpretation Comments HEMOGLOBIN A1c (test code = 55333) 5.2 % HEMOGLOBIN [id number] 00:00:00 Test Item Value Reference Range Interpretation Comments HEMOGLOBIN A1c (test code = 07942) 5.2 % [id number] 00:00:00 Test Item Value Reference Range Interpretation Comments TSH, THIRD GENERATION (test code 2.780 UIU/ML = 2821) [id number] 00:00:00 Test Item Value Reference Range Interpretation Comments TSH, THIRD GENERATION (test code 2.780 UIU/ML = 2821) [id number] 00:00:00 Test Item Value Reference Range Interpretation Comments TSH, THIRD GENERATION (test code 2.780 UIU/ML = 2821) LIPID [id number] 00:00:00 Test Item Value Reference Range Interpretation Comments CHOLESTEROL (test code = 2210) 195 MG/DL TRIGLYCERIDES (test code = 2232) 61 MG/DL HDL CHOLESTEROL (test code = 2220) 64 MG/DL CALC LDL CHOL (test code = 2237) 116 MG/DL RISK RATIO LDL/HDL (test code = 1.81 RATIO 2238) LIPID [id number] 00:00:00 Test Item Value Reference Range Interpretation Comments CHOLESTEROL (test code = 2210) 195 MG/DL TRIGLYCERIDES (test code = 2232) 61 MG/DL HDL CHOLESTEROL (test code = 2220) 64 MG/DL CALC LDL CHOL (test code = 2237) 116 MG/DL RISK RATIO LDL/HDL (test code = 1.81 RATIO 2238) [id number] 00:00:00 Test Item Value Reference Range Interpretation Comments NT-proBNP (test code = 59184) 204 PG/ML [id number] 00:00:00 Test Item Value Reference Range Interpretation Comments NT-proBNP (test code = 07812) 204 PG/ML [id number] 00:00:00 Test Item Value Reference Range Interpretation Comments NT-proBNP (test code = 08002) 204 PG/ML COMPREHENSIVE METABOLIC [id number] 00:00:00 Test Item Value Reference Range Interpretation Comments GLUCOSE (test code = 2217) 99 MG/DL BUN (test code = 2208) 14 MG/DL CREATININE (test code = 2214) 0.79 MG/DL eGFR AMER. (test code 95 ML/MIN/1.73 = 21842) eGFR NON- AMER. (test 82 ML/MIN/1.73 code = 02646) CALC BUN/CREAT (test code = 18 RATIO 2235) SODIUM (test code = 2231) 143 MEQ/L POTASSIUM (test code = 2228) 3.9 MEQ/L CHLORIDE (test code = 2215) 105 MEQ/L CARBON DIOXIDE (test code = 26 MEQ/L 2205) CALCIUM (test code = 2209) 9.8 MG/DL PROTEIN, TOTAL (test code = 7.4 G/DL 2228) ALBUMIN (test code = 2201) 4.3 G/DL CALC GLOBULIN (test code = 3.1 G/DL 2240) CALC A/G RATIO (test code = 1.4 RATIO 4) BILIRUBIN, TOTAL (test code = 0.5 MG/DL 2206) ALKALINE PHOSPHATASE (test 105 U/L code = 2204) AST (test code = 2218) 18 U/L ALT (test code = 2219) 14 U/L COMPREHENSIVE METABOLIC [id number] 00:00:00 Test Item Value Reference Range Interpretation Comments GLUCOSE (test code = 2217) 99 MG/DL BUN (test code = 2208) 14 MG/DL CREATININE (test code = 2214) 0.79 MG/DL eGFR AMER. (test code 95 ML/MIN/1.73 = 34079) eGFR NON- AMER. (test 82 ML/MIN/1.73 code = 71402) CALC BUN/CREAT (test code = 18 RATIO 2235) SODIUM (test code = 2231) 143 MEQ/L POTASSIUM (test code = 2228) 3.9 MEQ/L CHLORIDE (test code = 2215) 105 MEQ/L CARBON DIOXIDE (test code = 26 MEQ/L 2205) CALCIUM (test code = 2209) 9.8 MG/DL PROTEIN, TOTAL (test code = 7.4 G/DL 2228) ALBUMIN (test code = 2201) 4.3 G/DL CALC GLOBULIN (test code = 3.1 G/DL 2239) CALC A/G RATIO (test code = 1.4 RATIO 2233) BILIRUBIN, TOTAL (test code = 0.5 MG/DL 2206) ALKALINE PHOSPHATASE (test 105 U/L code = 2204) AST (test code = 2218) 18 U/L ALT (test code = 2219) 14 U/L HEMOGLOBIN [id number] 00:00:00 Test Item Value Reference Range Interpretation Comments HEMOGLOBIN A1c (test code = 84408) 5.2 % HEMOGLOBIN [id number] 00:00:00 Test Item Value Reference Range Interpretation Comments HEMOGLOBIN A1c (test code = 11058) 5.2 % HEMOGLOBIN [id number] 00:00:00 Test Item Value Reference Range Interpretation Comments HEMOGLOBIN A1c (test code = 92164) 5.2 % [id number] 00:00:00 Test Item Value Reference Range Interpretation Comments TSH, THIRD GENERATION (test code 2.780 UIU/ML = 2821) [id number] 00:00:00 Test Item Value Reference Range Interpretation Comments TSH, THIRD GENERATION (test code 2.780 UIU/ML = 2821) [id number] 00:00:00 Test Item Value Reference Range Interpretation Comments TSH, THIRD GENERATION (test code 2.780 UIU/ML = 2821) LIPID [id number] 00:00:00 Test Item Value Reference Range Interpretation Comments CHOLESTEROL (test code = 2210) 195 MG/DL TRIGLYCERIDES (test code = 2232) 61 MG/DL HDL CHOLESTEROL (test code = 2220) 64 MG/DL CALC LDL CHOL (test code = 2237) 116 MG/DL RISK RATIO LDL/HDL (test code = 1.81 RATIO 2238) LIPID [id number] 00:00:00 Test Item Value Reference Range Interpretation Comments CHOLESTEROL (test code = 2210) 195 MG/DL TRIGLYCERIDES (test code = 2232) 61 MG/DL HDL CHOLESTEROL (test code = 2220) 64 MG/DL CALC LDL CHOL (test code = 2237) 116 MG/DL RISK RATIO LDL/HDL (test code = 1.81 RATIO 2238) [id number] 00:00:00 Test Item Value Reference Range Interpretation Comments NT-proBNP (test code = 19513) 204 PG/ML [id number] 00:00:00 Test Item Value Reference Range Interpretation Comments NT-proBNP (test code = 28504) 204 PG/ML [id number] 00:00:00 Test Item Value Reference Range Interpretation Comments NT-proBNP (test code = 75764) 204 PG/ML COMPREHENSIVE METABOLIC [id number] 00:00:00 Test Item Value Reference Range Interpretation Comments GLUCOSE (test code = 2217) 99 MG/DL BUN (test code = 2208) 14 MG/DL CREATININE (test code = 2214) 0.79 MG/DL eGFR AMER. (test code 95 ML/MIN/1.73 = 22890) eGFR NON- AMER. (test 82 ML/MIN/1.73 code = 88217) CALC BUN/CREAT (test code = 18 RATIO 2235) SODIUM (test code = 2231) 143 MEQ/L POTASSIUM (test code = 2228) 3.9 MEQ/L CHLORIDE (test code = 2215) 105 MEQ/L CARBON DIOXIDE (test code = 26 MEQ/L 2205) CALCIUM (test code = 2209) 9.8 MG/DL PROTEIN, TOTAL (test code = 7.4 G/DL 2228) ALBUMIN (test code = 2201) 4.3 G/DL CALC GLOBULIN (test code = 3.1 G/DL 2240) CALC A/G RATIO (test code = 1.4 RATIO 2234) BILIRUBIN, TOTAL (test code = 0.5 MG/DL 2206) ALKALINE PHOSPHATASE (test 105 U/L code = 2204) AST (test code = 2218) 18 U/L ALT (test code = 2219) 14 U/L COMPREHENSIVE METABOLIC [id number] 00:00:00 Test Item Value Reference Range Interpretation Comments GLUCOSE (test code = 2217) 99 MG/DL BUN (test code = 2208) 14 MG/DL CREATININE (test code = 2214) 0.79 MG/DL eGFR AMER. (test code 95 ML/MIN/1.73 = 43991) eGFR NON- AMER. (test 82 ML/MIN/1.73 code = 96019) CALC BUN/CREAT (test code = 18 RATIO 5) SODIUM (test code = 2231) 143 MEQ/L POTASSIUM (test code = 2228) 3.9 MEQ/L CHLORIDE (test code = 2215) 105 MEQ/L CARBON DIOXIDE (test code = 26 MEQ/L 2205) CALCIUM (test code = 2209) 9.8 MG/DL PROTEIN, TOTAL (test code = 7.4 G/DL 2228) ALBUMIN (test code = 2201) 4.3 G/DL CALC GLOBULIN (test code = 3.1 G/DL 2239) CALC A/G RATIO (test code = 1.4 RATIO 2233) BILIRUBIN, TOTAL (test code = 0.5 MG/DL 2206) ALKALINE PHOSPHATASE (test 105 U/L code = 2204) AST (test code = 2218) 18 U/L ALT (test code = 2219) 14 U/L HEMOGLOBIN [id number] 00:00:00 Test Item Value Reference Range Interpretation Comments HEMOGLOBIN A1c (test code = 65159) 5.2 % HEMOGLOBIN [id number] 00:00:00 Test Item Value Reference Range Interpretation Comments HEMOGLOBIN A1c (test code = 61562) 5.2 % HEMOGLOBIN [id number] 00:00:00 Test Item Value Reference Range Interpretation Comments HEMOGLOBIN A1c (test code = 38459) 5.2 % [id number] 00:00:00 Test Item Value Reference Range Interpretation Comments TSH, THIRD GENERATION (test code 2.780 UIU/ML = 2821) [id number] 00:00:00 Test Item Value Reference Range Interpretation Comments TSH, THIRD GENERATION (test code 2.780 UIU/ML = 2821) [id number] 00:00:00 Test Item Value Reference Range Interpretation Comments TSH, THIRD GENERATION (test code 2.780 UIU/ML = 2821) LIPID [id number] 00:00:00 Test Item Value Reference Range Interpretation Comments CHOLESTEROL (test code = 2210) 195 MG/DL TRIGLYCERIDES (test code = 2232) 61 MG/DL HDL CHOLESTEROL (test code = 2220) 64 MG/DL CALC LDL CHOL (test code = 2237) 116 MG/DL RISK RATIO LDL/HDL (test code = 1.81 RATIO 2238) LIPID [id number] 00:00:00 Test Item Value Reference Range Interpretation Comments CHOLESTEROL (test code = 2210) 195 MG/DL TRIGLYCERIDES (test code = 2232) 61 MG/DL HDL CHOLESTEROL (test code = 2220) 64 MG/DL CALC LDL CHOL (test code = 2237) 116 MG/DL RISK RATIO LDL/HDL (test code = 1.81 RATIO 2238) [id number] 00:00:00 Test Item Value Reference Range Interpretation Comments NT-proBNP (test code = 65332) 204 PG/ML [id number] 00:00:00 Test Item Value Reference Range Interpretation Comments NT-proBNP (test code = 86091) 204 PG/ML [id number] 00:00:00 Test Item Value Reference Range Interpretation Comments NT-proBNP (test code = 78717) 204 PG/ML HEMOGLOBIN [id number] 00:00:00 Test Item Value Reference Range Interpretation Comments HEMOGLOBIN A1c (test code = 68871) 5.1 % HEMOGLOBIN [id number] 00:00:00 Test Item Value Reference Range Interpretation Comments HEMOGLOBIN A1c (test code = 93148) 5.1 % HEMOGLOBIN [id number] 00:00:00 Test Item Value Reference Range Interpretation Comments HEMOGLOBIN A1c (test code = 60152) 5.1 % HEMOGLOBIN [id number] 00:00:00 Test Item Value Reference Range Interpretation Comments HEMOGLOBIN A1c (test code = 69700) 5.1 % HEMOGLOBIN [id number] 00:00:00 Test Item Value Reference Range Interpretation Comments HEMOGLOBIN A1c (test code = 00581) 5.1 % HEMOGLOBIN [id number] 00:00:00 Test Item Value Reference Range Interpretation Comments HEMOGLOBIN A1c (test code = 38381) 5.1 % HEMOGLOBIN [id number] 00:00:00 Test Item Value Reference Range Interpretation Comments HEMOGLOBIN A1c (test code = 98026) 5.1 % HEMOGLOBIN [id number] 00:00:00 Test Item Value Reference Range Interpretation Comments HEMOGLOBIN A1c (test code = 76140) 5.1 % HEMOGLOBIN [id number] 00:00:00 Test Item Value Reference Range Interpretation Comments HEMOGLOBIN A1c (test code = 49592) 5.1 % HEMOGLOBIN [id number] 00:00:00 Test Item Value Reference Range Interpretation Comments HEMOGLOBIN A1c (test code = 92621) 5.1 % HEMOGLOBIN [id number] 00:00:00 Test Item Value Reference Range Interpretation Comments HEMOGLOBIN A1c (test code = 97413) 5.1 % PAP TEST, THINPREP, [id number] 00:00:00 Test Item Value Reference Range Interpretation Comments SOURCE: (test code = Cervical/Endocervical 8001) SLIDES: (test code = 1 8011) LMP: (test code = 8021) 06/11/2018 SPECIMEN ADEQUACY: (test (NOTE) code = 53852) INTERPRETATION: (test NILM/NO EPITH. code = 28180) ABNORMALITY;SEE BELOW MECHANICAL OPERATOR: (test [place] code = 8101) Gray,CT(ASCP)IAC LOCATION: (test code = (NOTE) 05023) CPT: (test code = 8140) (NOTE) HPV HIGH RISK WITH GENOTYPE, [id number] 00:00:00 Test Item Value Reference Range Interpretation Comments HPV HIGH RISK INTERP (test code = NEGATIVE 44845) HPV 16 (test code = 16789) NEGATIVE HPV 18 (test code = 91587) NEGATIVE HPV, HR, OTHER GENOTYPES (test code NEGATIVE = 72634) PAP TEST, THINPREP, [id number] 00:00:00 Test Item Value Reference Range Interpretation Comments SOURCE: (test code = Cervical/Endocervical 8001) SLIDES: (test code = 1 8011) LMP: (test code = 8021) 06/11/2018 SPECIMEN ADEQUACY: (test (NOTE) code = 96512) INTERPRETATION: (test NILM/NO EPITH. code = 26542) ABNORMALITY;SEE BELOW MECHANICAL OPERATOR: (test [place] code = 8101) Gray,CT(ASCP)IAC LOCATION: (test code = (NOTE) 74456) CPT: (test code = 8140) (NOTE) PAP TEST, THINPREP, [id number] 00:00:00 Test Item Value Reference Range Interpretation Comments SOURCE: (test code = Cervical/Endocervical 8001) SLIDES: (test code = 1 8011) LMP: (test code = 8021) 06/11/2018 SPECIMEN ADEQUACY: (test (NOTE) code = 42702) INTERPRETATION: (test NILM/NO EPITH. code = 02551) ABNORMALITY;SEE BELOW MECHANICAL OPERATOR: (test [place] code = 8101) Gray,CT(ASCP)IAC LOCATION: (test code = (NOTE) 54816) CPT: (test code = 8140) (NOTE) HPV HIGH RISK WITH GENOTYPE, [id number] 00:00:00 Test Item Value Reference Range Interpretation Comments HPV HIGH RISK INTERP (test code = NEGATIVE 36220) HPV 16 (test code = 83555) NEGATIVE HPV 18 (test code = 30365) NEGATIVE HPV, HR, OTHER GENOTYPES (test code NEGATIVE = 72418) HPV HIGH RISK WITH GENOTYPE, [id number] 00:00:00 Test Item Value Reference Range Interpretation Comments HPV HIGH RISK INTERP (test code = NEGATIVE 18354) HPV 16 (test code = 86260) NEGATIVE HPV 18 (test code = 71106) NEGATIVE HPV, HR, OTHER GENOTYPES (test code NEGATIVE = 84199) PAP TEST, THINPREP, [id number] 00:00:00 Test Item Value Reference Range Interpretation Comments SOURCE: (test code = Cervical/Endocervical 8001) SLIDES: (test code = 1 8011) LMP: (test code = 8021) 06/11/2018 SPECIMEN ADEQUACY: (test (NOTE) code = 01832) INTERPRETATION: (test NILM/NO EPITH. code = 40083) ABNORMALITY;SEE BELOW MECHANICAL OPERATOR: (test [place] code = 8101) Gray,CT(ASCP)IAC LOCATION: (test code = (NOTE) 88727) CPT: (test code = 8140) (NOTE) PAP TEST, THINPREP, [id number] 00:00:00 Test Item Value Reference Range Interpretation Comments SOURCE: (test code = Cervical/Endocervical 8001) SLIDES: (test code = 1 8011) LMP: (test code = 8021) 06/11/2018 SPECIMEN ADEQUACY: (test (NOTE) code = 48457) INTERPRETATION: (test NILM/NO EPITH. code = 93716) ABNORMALITY;SEE BELOW MECHANICAL OPERATOR: (test [place] code = 8101) Gray,CT(ASCP)IAC LOCATION: (test code = (NOTE) 91517) CPT: (test code = 8140) (NOTE) HPV HIGH RISK WITH GENOTYPE, [id number] 00:00:00 Test Item Value Reference Range Interpretation Comments HPV HIGH RISK INTERP (test code = NEGATIVE 07196) HPV 16 (test code = 49129) NEGATIVE HPV 18 (test code = 54378) NEGATIVE HPV, HR, OTHER GENOTYPES (test code NEGATIVE = 22258) HPV HIGH RISK WITH GENOTYPE, [id number] 00:00:00 Test Item Value Reference Range Interpretation Comments HPV HIGH RISK INTERP (test code = NEGATIVE 60924) HPV 16 (test code = 01763) NEGATIVE HPV 18 (test code = 58731) NEGATIVE HPV, HR, OTHER GENOTYPES (test code NEGATIVE = 00996) PAP TEST, THINPREP, [id number] 00:00:00 Test Item Value Reference Range Interpretation Comments SOURCE: (test code = Cervical/Endocervical 8001) SLIDES: (test code = 1 8011) LMP: (test code = 8021) 06/11/2018 SPECIMEN ADEQUACY: (test (NOTE) code = 32220) INTERPRETATION: (test NILM/NO EPITH. code = 41768) ABNORMALITY;SEE BELOW MECHANICAL OPERATOR: (test [facility] [place] code = 8101) Gary,CT(ASCP)IAC LOCATION: (test code = (NOTE) 33141) CPT: (test code = 8140) (NOTE) PAP TEST, THINPREP, [id number] 00:00:00 Test Item Value Reference Range Interpretation Comments SOURCE: (test code = Cervical/Endocervical 8001) SLIDES: (test code = 1 8011) LMP: (test code = 8021) 06/11/2018 SPECIMEN ADEQUACY: (test (NOTE) code = 66991) INTERPRETATION: (test NILM/NO EPITH. code = 54988) ABNORMALITY;SEE BELOW MECHANICAL OPERATOR: (test [facility] [place] code = 8101) Gray,CT(ASCP)IAC LOCATION: (test code = (NOTE) 59148) CPT: (test code = 8140) (NOTE) HPV HIGH RISK WITH GENOTYPE, [id number] 00:00:00 Test Item Value Reference Range Interpretation Comments HPV HIGH RISK INTERP (test code = NEGATIVE 17628) HPV 16 (test code = 80407) NEGATIVE HPV 18 (test code = 96313) NEGATIVE HPV, HR, OTHER GENOTYPES (test code NEGATIVE = 23468) HPV HIGH RISK WITH GENOTYPE, [id number] 00:00:00 Test Item Value Reference Range Interpretation Comments HPV HIGH RISK INTERP (test code = NEGATIVE 84474) HPV 16 (test code = 25163) NEGATIVE HPV 18 (test code = 41859) NEGATIVE HPV, HR, OTHER GENOTYPES (test code NEGATIVE = 99154) CBC W/AUTO [id number] 00:00:00 Test Item Value Reference Range Interpretation Comments WBC (test code = 1001) 6.5 K/UL RBC (test code = 1002) 4.32 M/UL HEMOGLOBIN (test code = 1003) 13.0 G/DL HEMATOCRIT (test code = 1004) 39.1 % MCV (test code = 1005) 90.5 fL MCH (test code = 1006) 30.1 PG MCHC (test code = 1007) 33.2 G/DL RDW (test code = 1038) 12.7 % NEUTROPHILS (test code = 1008) 70.4 % LYMPHOCYTES (test code = 1010) 22.7 % MONOCYTES (test code = 1011) 5.4 % EOSINOPHILS (test code = 1012) 0.6 % BASOPHILS (test code = 1013) 0.9 % PLATELET COUNT (test code = 1015) 295 K/UL CBC W/AUTO [id number] 00:00:00 Test Item Value Reference Range Interpretation Comments WBC (test code = 1001) 6.5 K/UL RBC (test code = 1002) 4.32 M/UL HEMOGLOBIN (test code = 1003) 13.0 G/DL HEMATOCRIT (test code = 1004) 39.1 % MCV (test code = 1005) 90.5 fL MCH (test code = 1006) 30.1 PG MCHC (test code = 1007) 33.2 G/DL RDW (test code = 1038) 12.7 % NEUTROPHILS (test code = 1008) 70.4 % LYMPHOCYTES (test code = 1010) 22.7 % MONOCYTES (test code = 1011) 5.4 % EOSINOPHILS (test code = 1012) 0.6 % BASOPHILS (test code = 1013) 0.9 % PLATELET COUNT (test code = 1015) 295 K/UL COMPREHENSIVE METABOLIC [id number] 00:00:00 Test Item Value Reference Range Interpretation Comments GLUCOSE (test code = 2217) 127 MG/DL BUN (test code = 2208) 14 MG/DL CREATININE (test code = 2214) 0.89 MG/DL eGFR AMER. (test code 83 ML/MIN/1.73 = 32286) eGFR NON- AMER. (test 72 ML/MIN/1.73 code = 79556) CALC BUN/CREAT (test code = 16 RATIO 2235) SODIUM (test code = 2231) 144 MEQ/L POTASSIUM (test code = 2228) 3.5 MEQ/L CHLORIDE (test code = 2215) 101 MEQ/L CARBON DIOXIDE (test code = 28 MEQ/L 2205) CALCIUM (test code = 2209) 10.0 MG/DL PROTEIN, TOTAL (test code = 7.5 G/DL 2228) ALBUMIN (test code = 2201) 4.5 G/DL CALC GLOBULIN (test code = 3.0 G/DL 2239) CALC A/G RATIO (test code = 1.5 RATIO 2233) BILIRUBIN, TOTAL (test code = 0.5 MG/DL 2206) ALKALINE PHOSPHATASE (test 101 U/L code = 2204) AST (test code = 2218) 27 U/L ALT (test code = 2219) 22 U/L [id number] 00:00:00 Test Item Value Reference Range Interpretation Comments TSH, THIRD GENERATION (test code 2.320 UIU/ML = 2821) [id number] 00:00:00 Test Item Value Reference Range Interpretation Comments TSH, THIRD GENERATION (test code 2.320 UIU/ML = 2821) CBC W/AUTO [id number] 00:00:00 Test Item Value Reference Range Interpretation Comments WBC (test code = 1001) 6.5 K/UL RBC (test code = 1002) 4.32 M/UL HEMOGLOBIN (test code = 1003) 13.0 G/DL HEMATOCRIT (test code = 1004) 39.1 % MCV (test code = 1005) 90.5 fL MCH (test code = 1006) 30.1 PG MCHC (test code = 1007) 33.2 G/DL RDW (test code = 1038) 12.7 % NEUTROPHILS (test code = 1008) 70.4 % LYMPHOCYTES (test code = 1010) 22.7 % MONOCYTES (test code = 1011) 5.4 % EOSINOPHILS (test code = 1012) 0.6 % BASOPHILS (test code = 1013) 0.9 % PLATELET COUNT (test code = 1015) 295 K/UL CBC W/AUTO [id number] 00:00:00 Test Item Value Reference Range Interpretation Comments WBC (test code = 1001) 6.5 K/UL RBC (test code = 1002) 4.32 M/UL HEMOGLOBIN (test code = 1003) 13.0 G/DL HEMATOCRIT (test code = 1004) 39.1 % MCV (test code = 1005) 90.5 fL MCH (test code = 1006) 30.1 PG MCHC (test code = 1007) 33.2 G/DL RDW (test code = 1038) 12.7 % NEUTROPHILS (test code = 1008) 70.4 % LYMPHOCYTES (test code = 1010) 22.7 % MONOCYTES (test code = 1011) 5.4 % EOSINOPHILS (test code = 1012) 0.6 % BASOPHILS (test code = 1013) 0.9 % PLATELET COUNT (test code = 1015) 295 K/UL CBC W/AUTO [id number] 00:00:00 Test Item Value Reference Range Interpretation Comments WBC (test code = 1001) 6.5 K/UL RBC (test code = 1002) 4.32 M/UL HEMOGLOBIN (test code = 1003) 13.0 G/DL HEMATOCRIT (test code = 1004) 39.1 % MCV (test code = 1005) 90.5 fL MCH (test code = 1006) 30.1 PG MCHC (test code = 1007) 33.2 G/DL RDW (test code = 1038) 12.7 % NEUTROPHILS (test code = 1008) 70.4 % LYMPHOCYTES (test code = 1010) 22.7 % MONOCYTES (test code = 1011) 5.4 % EOSINOPHILS (test code = 1012) 0.6 % BASOPHILS (test code = 1013) 0.9 % PLATELET COUNT (test code = 1015) 295 K/UL COMPREHENSIVE METABOLIC [id number] 00:00:00 Test Item Value Reference Range Interpretation Comments GLUCOSE (test code = 2217) 127 MG/DL BUN (test code = 2208) 14 MG/DL CREATININE (test code = 2214) 0.89 MG/DL eGFR AMER. (test code 83 ML/MIN/1.73 = 78417) eGFR NON- AMER. (test 72 ML/MIN/1.73 code = 91699) CALC BUN/CREAT (test code = 16 RATIO 2235) SODIUM (test code = 2231) 144 MEQ/L POTASSIUM (test code = 2228) 3.5 MEQ/L CHLORIDE (test code = 2215) 101 MEQ/L CARBON DIOXIDE (test code = 28 MEQ/L 220) CALCIUM (test code = 2209) 10.0 MG/DL PROTEIN, TOTAL (test code = 7.5 G/DL 222) ALBUMIN (test code = 2201) 4.5 G/DL CALC GLOBULIN (test code = 3.0 G/DL 2240) CALC A/G RATIO (test code = 1.5 RATIO 2234) BILIRUBIN, TOTAL (test code = 0.5 MG/DL 2206) ALKALINE PHOSPHATASE (test 101 U/L code = 2204) AST (test code = 2218) 27 U/L ALT (test code = 2219) 22 U/L COMPREHENSIVE METABOLIC [id number] 00:00:00 Test Item Value Reference Range Interpretation Comments GLUCOSE (test code = 2217) 127 MG/DL BUN (test code = 2208) 14 MG/DL CREATININE (test code = 2214) 0.89 MG/DL eGFR AMER. (test code 83 ML/MIN/1.73 = 77126) eGFR NON- AMER. (test 72 ML/MIN/1.73 code = 74529) CALC BUN/CREAT (test code = 16 RATIO 2235) SODIUM (test code = 2231) 144 MEQ/L POTASSIUM (test code = 2228) 3.5 MEQ/L CHLORIDE (test code = 2215) 101 MEQ/L CARBON DIOXIDE (test code = 28 MEQ/L 2206) CALCIUM (test code = 2209) 10.0 MG/DL PROTEIN, TOTAL (test code = 7.5 G/DL 222) ALBUMIN (test code = 2201) 4.5 G/DL CALC GLOBULIN (test code = 3.0 G/DL 2240) CALC A/G RATIO (test code = 1.5 RATIO 2234) BILIRUBIN, TOTAL (test code = 0.5 MG/DL 2207) ALKALINE PHOSPHATASE (test 101 U/L code = 2204) AST (test code = 2218) 27 U/L ALT (test code = 2219) 22 U/L [id number] 00:00:00 Test Item Value Reference Range Interpretation Comments TSH, THIRD GENERATION (test code 2.320 UIU/ML = 2821) [id number] 00:00:00 Test Item Value Reference Range Interpretation Comments TSH, THIRD GENERATION (test code 2.320 UIU/ML = 2821) [id number] 00:00:00 Test Item Value Reference Range Interpretation Comments TSH, THIRD GENERATION (test code 2.320 UIU/ML = 2821) CBC W/AUTO [id number] 00:00:00 Test Item Value Reference Range Interpretation Comments WBC (test code = 1001) 6.5 K/UL RBC (test code = 1002) 4.32 M/UL HEMOGLOBIN (test code = 1003) 13.0 G/DL HEMATOCRIT (test code = 1004) 39.1 % MCV (test code = 1005) 90.5 fL MCH (test code = 1006) 30.1 PG MCHC (test code = 1007) 33.2 G/DL RDW (test code = 1038) 12.7 % NEUTROPHILS (test code = 1008) 70.4 % LYMPHOCYTES (test code = 1010) 22.7 % MONOCYTES (test code = 1011) 5.4 % EOSINOPHILS (test code = 1012) 0.6 % BASOPHILS (test code = 1013) 0.9 % PLATELET COUNT (test code = 1015) 295 K/UL CBC W/AUTO [id number] 00:00:00 Test Item Value Reference Range Interpretation Comments WBC (test code = 1001) 6.5 K/UL RBC (test code = 1002) 4.32 M/UL HEMOGLOBIN (test code = 1003) 13.0 G/DL HEMATOCRIT (test code = 1004) 39.1 % MCV (test code = 1005) 90.5 fL MCH (test code = 1006) 30.1 PG MCHC (test code = 1007) 33.2 G/DL RDW (test code = 1038) 12.7 % NEUTROPHILS (test code = 1008) 70.4 % LYMPHOCYTES (test code = 1010) 22.7 % MONOCYTES (test code = 1011) 5.4 % EOSINOPHILS (test code = 1012) 0.6 % BASOPHILS (test code = 1013) 0.9 % PLATELET COUNT (test code = 1015) 295 K/UL CBC W/AUTO [id number] 00:00:00 Test Item Value Reference Range Interpretation Comments WBC (test code = 1001) 6.5 K/UL RBC (test code = 1002) 4.32 M/UL HEMOGLOBIN (test code = 1003) 13.0 G/DL HEMATOCRIT (test code = 1004) 39.1 % MCV (test code = 1005) 90.5 fL MCH (test code = 1006) 30.1 PG MCHC (test code = 1007) 33.2 G/DL RDW (test code = 1038) 12.7 % NEUTROPHILS (test code = 1008) 70.4 % LYMPHOCYTES (test code = 1010) 22.7 % MONOCYTES (test code = 1011) 5.4 % EOSINOPHILS (test code = 1012) 0.6 % BASOPHILS (test code = 1013) 0.9 % PLATELET COUNT (test code = 1015) 295 K/UL COMPREHENSIVE METABOLIC [id number] 00:00:00 Test Item Value Reference Range Interpretation Comments GLUCOSE (test code = 2217) 127 MG/DL BUN (test code = 2208) 14 MG/DL CREATININE (test code = 2214) 0.89 MG/DL eGFR AMER. (test code 83 ML/MIN/1.73 = 43311) eGFR NON- AMER. (test 72 ML/MIN/1.73 code = 88833) CALC BUN/CREAT (test code = 16 RATIO 2235) SODIUM (test code = 2231) 144 MEQ/L POTASSIUM (test code = 2228) 3.5 MEQ/L CHLORIDE (test code = 2215) 101 MEQ/L CARBON DIOXIDE (test code = 28 MEQ/L 220) CALCIUM (test code = 2209) 10.0 MG/DL PROTEIN, TOTAL (test code = 7.5 G/DL 2228) ALBUMIN (test code = 2201) 4.5 G/DL CALC GLOBULIN (test code = 3.0 G/DL 224) CALC A/G RATIO (test code = 1.5 RATIO 2234) BILIRUBIN, TOTAL (test code = 0.5 MG/DL 2206) ALKALINE PHOSPHATASE (test 101 U/L code = 2204) AST (test code = 2218) 27 U/L ALT (test code = 2219) 22 U/L COMPREHENSIVE METABOLIC [id number] 00:00:00 Test Item Value Reference Range Interpretation Comments GLUCOSE (test code = 2217) 127 MG/DL BUN (test code = 2208) 14 MG/DL CREATININE (test code = 2214) 0.89 MG/DL eGFR AMER. (test code 83 ML/MIN/1.73 = 16393) eGFR NON- AMER. (test 72 ML/MIN/1.73 code = 60353) CALC BUN/CREAT (test code = 16 RATIO 2235) SODIUM (test code = 2231) 144 MEQ/L POTASSIUM (test code = 2228) 3.5 MEQ/L CHLORIDE (test code = 2215) 101 MEQ/L CARBON DIOXIDE (test code = 28 MEQ/L 2205) CALCIUM (test code = 2209) 10.0 MG/DL PROTEIN, TOTAL (test code = 7.5 G/DL 2228) ALBUMIN (test code = 2201) 4.5 G/DL CALC GLOBULIN (test code = 3.0 G/DL 2240) CALC A/G RATIO (test code = 1.5 RATIO 4) BILIRUBIN, TOTAL (test code = 0.5 MG/DL 2206) ALKALINE PHOSPHATASE (test 101 U/L code = 2204) AST (test code = 2218) 27 U/L ALT (test code = 2219) 22 U/L [id number] 00:00:00 Test Item Value Reference Range Interpretation Comments TSH, THIRD GENERATION (test code 2.320 UIU/ML = 2821) [id number] 00:00:00 Test Item Value Reference Range Interpretation Comments TSH, THIRD GENERATION (test code 2.320 UIU/ML = 2821) [id number] 00:00:00 Test Item Value Reference Range Interpretation Comments TSH, THIRD GENERATION (test code 2.320 UIU/ML = 2821) CBC W/AUTO [id number] 00:00:00 Test Item Value Reference Range Interpretation Comments WBC (test code = 1001) 6.5 K/UL RBC (test code = 1002) 4.32 M/UL HEMOGLOBIN (test code = 1003) 13.0 G/DL HEMATOCRIT (test code = 1004) 39.1 % MCV (test code = 1005) 90.5 fL MCH (test code = 1006) 30.1 PG MCHC (test code = 1007) 33.2 G/DL RDW (test code = 1038) 12.7 % NEUTROPHILS (test code = 1008) 70.4 % LYMPHOCYTES (test code = 1010) 22.7 % MONOCYTES (test code = 1011) 5.4 % EOSINOPHILS (test code = 1012) 0.6 % BASOPHILS (test code = 1013) 0.9 % PLATELET COUNT (test code = 1015) 295 K/UL CBC W/AUTO [id number] 00:00:00 Test Item Value Reference Range Interpretation Comments WBC (test code = 1001) 6.5 K/UL RBC (test code = 1002) 4.32 M/UL HEMOGLOBIN (test code = 1003) 13.0 G/DL HEMATOCRIT (test code = 1004) 39.1 % MCV (test code = 1005) 90.5 fL MCH (test code = 1006) 30.1 PG MCHC (test code = 1007) 33.2 G/DL RDW (test code = 1038) 12.7 % NEUTROPHILS (test code = 1008) 70.4 % LYMPHOCYTES (test code = 1010) 22.7 % MONOCYTES (test code = 1011) 5.4 % EOSINOPHILS (test code = 1012) 0.6 % BASOPHILS (test code = 1013) 0.9 % PLATELET COUNT (test code = 1015) 295 K/UL CBC W/AUTO [id number] 00:00:00 Test Item Value Reference Range Interpretation Comments WBC (test code = 1001) 6.5 K/UL RBC (test code = 1002) 4.32 M/UL HEMOGLOBIN (test code = 1003) 13.0 G/DL HEMATOCRIT (test code = 1004) 39.1 % MCV (test code = 1005) 90.5 fL MCH (test code = 1006) 30.1 PG MCHC (test code = 1007) 33.2 G/DL RDW (test code = 1038) 12.7 % NEUTROPHILS (test code = 1008) 70.4 % LYMPHOCYTES (test code = 1010) 22.7 % MONOCYTES (test code = 1011) 5.4 % EOSINOPHILS (test code = 1012) 0.6 % BASOPHILS (test code = 1013) 0.9 % PLATELET COUNT (test code = 1015) 295 K/UL COMPREHENSIVE METABOLIC [id number] 00:00:00 Test Item Value Reference Range Interpretation Comments GLUCOSE (test code = 2217) 127 MG/DL BUN (test code = 2208) 14 MG/DL CREATININE (test code = 2214) 0.89 MG/DL eGFR AMER. (test code 83 ML/MIN/1.73 = 13039) eGFR NON- AMER. (test 72 ML/MIN/1.73 code = 90010) CALC BUN/CREAT (test code = 16 RATIO 2235) SODIUM (test code = 2231) 144 MEQ/L POTASSIUM (test code = 2228) 3.5 MEQ/L CHLORIDE (test code = 2215) 101 MEQ/L CARBON DIOXIDE (test code = 28 MEQ/L 2205) CALCIUM (test code = 2209) 10.0 MG/DL PROTEIN, TOTAL (test code = 7.5 G/DL 2228) ALBUMIN (test code = 2201) 4.5 G/DL CALC GLOBULIN (test code = 3.0 G/DL 2240) CALC A/G RATIO (test code = 1.5 RATIO 2234) BILIRUBIN, TOTAL (test code = 0.5 MG/DL 2206) ALKALINE PHOSPHATASE (test 101 U/L code = 2204) AST (test code = 2218) 27 U/L ALT (test code = 2219) 22 U/L COMPREHENSIVE METABOLIC [id number] 00:00:00 Test Item Value Reference Range Interpretation Comments GLUCOSE (test code = 2217) 127 MG/DL BUN (test code = 2208) 14 MG/DL CREATININE (test code = 2214) 0.89 MG/DL eGFR AMER. (test code 83 ML/MIN/1.73 = 48685) eGFR NON- AMER. (test 72 ML/MIN/1.73 code = 04944) CALC BUN/CREAT (test code = 16 RATIO 2235) SODIUM (test code = 2231) 144 MEQ/L POTASSIUM (test code = 2228) 3.5 MEQ/L CHLORIDE (test code = 2215) 101 MEQ/L CARBON DIOXIDE (test code = 28 MEQ/L 2205) CALCIUM (test code = 2209) 10.0 MG/DL PROTEIN, TOTAL (test code = 7.5 G/DL 2228) ALBUMIN (test code = 220) 4.5 G/DL CALC GLOBULIN (test code = 3.0 G/DL 2239) CALC A/G RATIO (test code = 1.5 RATIO 2233) BILIRUBIN, TOTAL (test code = 0.5 MG/DL 2206) ALKALINE PHOSPHATASE (test 101 U/L code = 2204) AST (test code = 2218) 27 U/L ALT (test code = 2219) 22 U/L [id number] 00:00:00 Test Item Value Reference Range Interpretation Comments TSH, THIRD GENERATION (test code 2.320 UIU/ML = 2821) [id number] 00:00:00 Test Item Value Reference Range Interpretation Comments TSH, THIRD GENERATION (test code 2.320 UIU/ML = 2821) [id number] 00:00:00 Test Item Value Reference Range Interpretation Comments TSH, THIRD GENERATION (test code 2.320 UIU/ML = 2821)
[2022-01-06 23:52] LABS: Urine Blood 3+ (Negative); Urine Glucose Negative (Negative); Urine Protein 2+ (Negative)
[2022-01-07 00:06] LABS: Urine Bacteria <20 /HPF (<20); Urine RBC 21-50 /HPF (None Seen)
[2022-01-07 00:48] LABS: Absolute Lymphocytes (CBC) 1.3 K/uL (0.7-4.9); Hematocrit 37.6 % (36.0-45.0); Lymphocytes % 14.7 % (15.3-44.8); MCV 92.3 fL (80-100); RBC Red Blood Cell Count 4.07 M/uL (3.86-4.86)
[2022-01-07 01:04] LABS: Albumin 3.5 g/dL (3.4-5.0); Bilirubin Total 0.6 mg/dL (0.2-1.0); Potassium 3.6 mmol/L (3.5-5.1); Protein, Total 7.5 g/dL (6.4-8.2)
[2022-01-07] MEDS ORDERED: NA CHLORIDE 0.9% 50 ML IV ONE (01:42)
[2022-01-07] MEDS ORDERED: CEFTRIAXONE 1000 MG/VIAL ONE (01:42)
--- NOTE | 2022-01-07 01:42 | ER ---
Nurse's Notes [facility] Name: Mica Baker Age: 61 yrs Sex: Female : 1960 Arrival Date: 01/06/2022 Time: 22:08 Bed 8 Private MD: Diagnosis: Pyelonephritis acute;Unspecified hydronephrosis Presentation: 01/06 22:57 Chief complaint: Patient states: my stomach hurts and it goes around to my back. I am kd3 not sure if i have some kind of UTI. I have had stents placed before. But it was removed. My urine is also very dark. The pain started today after i left my wound care appointment. 22:57 Method Of Arrival: Ambulatory kd3 22:59 Coronavirus screen: Vaccine status: Patient reports being unvaccinated. Ebola Screen: kd3 No symptoms or risks identified at this time. Initial Sepsis Screen: Does the patient meet any 2 criteria? No. Patient's initial sepsis screen is negative. Does the patient have a suspected source of infection? No. Patient's initial sepsis screen is negative. Risk Assessment: Do you want to hurt yourself or someone else? Patient reports no desire to harm self or others. Onset of symptoms was January 06, 2022. 22:59 Acuity: LUCIANO 3 kd3 Triage Assessment: 23:02 General: Appears in no apparent distress. chills . Behavior is calm, cooperative. Pain: kd3 Complains of pain in right lower quadrant and left lower quadrant Pain radiates to back. GI: Abdomen is non-distended, Reports lower abdominal pain. Historical: - Allergies: 23:02 hydrochlorothiazide; kd3 23:02 Iodine; kd3 23:02 Latex, Natural Rubber; kd3 23:02 oxybutynin; kd3 23:02 sulfa drugs; kd3 23:02 telisitine; kd3 23:02 SHELLFISH; kd3 - PMHx: 23:02 Cellulitis; Lymphadema; varicose veins; Hypertension; kd3 - PSHx: 23:02 section; kidney stent; kd3 - Immunization history:: Adult Immunizations up to date. - Social history:: Smoking status: Patient denies any tobacco usage or history of. - Family history:: not pertinent. - Hospitalizations: : No recent hospitalization is reported. Screenin/18 00:11 Abuse screen: Denies threats or abuse. Denies injuries from another. Nutritional kd3 screening: No deficits noted. Tuberculosis screening: No symptoms or risk factors identified. Fall Risk None identified. Assessment: 00:36 General: Reports "I saw my doc today for my foot. I felt fine until about noon when I tw5 started to get a pain in my stomach around my belly buttton and the pain has just gotten worse. ". Pain: Complains of pain in umbilical area and left lower quadrant Pain currently is 6 out of 10 on a pain scale. Neuro: No deficits noted. Respiratory: No deficits noted. GI: Bowel sounds present X 4 quads. Abd is soft X 4 quads. 01:52 Reassessment: No changes from previously documented assessment. Patient and/or family tw5 updated on plan of care and expected duration. Pain level reassessed. Patient is alert, oriented x 3, equal unlabored respirations, skin warm/dry/pink. Vital Signs: 01/06 22:59 BP 155 / 69; Pulse 85; Resp 18; Temp 99.2(O); Pulse Ox 100% on R/A; Weight 147.42 kg; kd3 Height 5 ft. 7 in. (170.18 cm); Pain 5/10; 01/07 00:36 BP 148 / 65; Pulse 72; Resp 18; Pulse Ox 100% on R/A; Pain 6/10; tw5 02:41 BP 128 / 49; Pulse 70; Resp 19; Pulse Ox 100% on R/A; kd3 04:16 BP 129 / 54; Pulse 70; Resp 16; Pulse Ox 100% on R/A; kd3 05:00 BP 120 / 70; Pulse 65; Resp 16; Pulse Ox 100% ; aa9 01/06 22:59 Body Mass Index 50.90 (147.42 kg, 170.18 cm) kd3 ED Course: 01/06 22:08 Patient arrived in ED. ja2 22:20 Vaibhav Verde MD is Attending Physician. rn 23:02 Triage completed. kd3 23:02 Arm band placed on right wrist. kd3 01/07 00:36 Lorena Diggs is Primary Nurse. tw5 00:36 Patient has correct armband on for positive identification. Placed in gown. Bed in low tw5 position. Call light in reach. Pulse ox on. NIBP on. Door closed. Noise minimized. Lights dimmed. Warm blanket given. Verbal reassurance given. 00:36 No provider procedures requiring assistance completed. Initial lab(s) drawn, by me, tw5 sent to lab. Inserted saline lock: 22 gauge in left antecubital area, using aseptic technique. Blood collected. 01:09 Stone Protocol In Process Unspecified. EDMS 01:41 Faith Roper MD is Hospitalizing Provider. rn 01:41 Blood Culture Adult (2) Sent. tw5 01:41 Urine Culture Sent. tw5 01:51 SARS RAPID Sent. tw5 01:52 Blood Culture Adult (2) Sent. tw 01:52 COVID swab sent to lab. tw5 04:15 Patient admitted, IV remains in place. kd3 Administered Medications: 01:52 Drug: Rocephin (cefTRIAXone) 1 grams Route: IV; Rate: calculated rate; Site: left tw5 antecubital; 04:16 Follow up: Response: No adverse reaction; IV Status: Completed infusion kd3 Medication: 01:52 VIS not applicable for this client. tw5 Outcome: 01:42 Decision to Hospitalize by Provider. rn 04:15 Admitted to ER Hold. Please see [facility] for further documentation. kd3 04:15 Condition: stable 04:15 Discharge instructions given to patient, Instructed on follow up and referral plans. the need for admit, Demonstrated understanding of instructions. 10:43 Patient left the ED. ph Signatures: Dispatcher [employer] EDCA Vaibhav Verde MD MD rn Hall, Patricia, RN RN Irais Nelson Tiffany tw5 Bee Carlin RN RN kd3 Jyoti Alexander RN RN aa9
--- NOTE | 2022-01-07 01:42 | EDPHYS ---
Physician Documentation [facility] Name: Mica Baker Age: 61 yrs Sex: Female : 1960 Arrival Date: 01/06/2022 Time: 22:08 Bed 8 Private MD: ED Physician Vaibhav Verde HPI: 01/06 23:32 This 61 yrs old Female presents to ER via Ambulatory with complaints of Abdominal Pain, rn Back Pain, Urinary Problem. 23:32 The patient presents with pain that is acute, with no known mechanism of injury. The rn symptoms are located in the low back. Onset: The symptoms/episode began/occurred this morning. The pain radiates to the abdomen. Associated signs and symptoms: Pertinent positives: abdominal pain, dysuria, chills, Pertinent negatives: chest pain, incontinence, urinary retention. Modifying factors: The patient symptoms are alleviated by nothing, the patient symptoms are aggravated by nothing. Severity of symptoms: At their worst the symptoms were moderate, in the emergency department the symptoms have improved. The patient has not experienced similar symptoms in the past. The patient has not recently seen a physician. Pt reports left flank pain and dysuria, began this AM, no trauma, + chills, no fever. Thinks has urine infection. Reports has had "Swelling" in past, stent placed by Dr. Palm, no longer has stent. No vomiting. No cough/sob/chest pain.. Historical: - Allergies: 23:02 hydrochlorothiazide; kd3 23:02 Iodine; kd3 23:02 Latex, Natural Rubber; kd3 23:02 oxybutynin; kd3 23:02 sulfa drugs; kd3 23:02 telisitine; kd3 23:02 SHELLFISH; kd3 - PMHx: 23:02 Cellulitis; Lymphadema; varicose veins; Hypertension; kd3 - PSHx: 23:02 section; kidney stent; kd3 - Immunization history:: Adult Immunizations up to date. - Social history:: Smoking status: Patient denies any tobacco usage or history of. - Family history:: not pertinent. - Hospitalizations: : No recent hospitalization is reported. ROS: 23:32 Constitutional: Negative for fever, and weight loss, Eyes: Negative for injury, pain, rn redness, and discharge, Neck: Negative for injury, pain, and swelling, Cardiovascular: Negative for chest pain, palpitations, and edema, Respiratory: Negative for shortness of breath, cough, wheezing, and pleuritic chest pain, Abdomen/GI: Negative for vomiting, diarrhea, and constipation, Back: Negative for injury and pain, MS/Extremity: Negative for injury and deformity, Skin: Negative for injury, rash, and discoloration, Neuro: Negative for headache, numbness, tingling, and seizure. Exam: 23:32 Constitutional: This is a well developed, well nourished patient who is awake, alert, rn and in no acute distress. Head/Face: Normocephalic, atraumatic. Cardiovascular: Regular rate and rhythm. No pulse deficits. Respiratory: No increased work of breathing, no retractions or nasal flaring. Abdomen/GI: soft, mild LLQ tenderness, no rebound, no peritoneal signs. Skin: Warm, dry MS/ Extremity: Pulses equal, no cyanosis. Neuro: Awake and alert, GCS 15 Vital Signs: 22:59 BP 155 / 69; Pulse 85; Resp 18; Temp 99.2(O); Pulse Ox 100% on R/A; Weight 147.42 kg; kd3 Height 5 ft. 7 in. (170.18 cm); Pain 5/10; 01/07 00:36 BP 148 / 65; Pulse 72; Resp 18; Pulse Ox 100% on R/A; Pain 6/10; tw5 02:41 BP 128 / 49; Pulse 70; Resp 19; Pulse Ox 100% on R/A; kd3 04:16 BP 129 / 54; Pulse 70; Resp 16; Pulse Ox 100% on R/A; kd3 05:00 BP 120 / 70; Pulse 65; Resp 16; Pulse Ox 100% ; aa9 01/06 22:59 Body Mass Index 50.90 (147.42 kg, 170.18 cm) kd3 MDM: 01/06 22:20 Patient medically screened. rn 01/07 01:38 Differential diagnosis: Pyelonephritis hydronephrosis, ureteral stone. Data reviewed: rn vital signs, nurses notes, lab test result(s), radiologic studies, CT scan, and as a result, I will admit patient. Counseling: I had a detailed discussion with the patient and/or guardian regarding: the historical points, exam findings, and any diagnostic results supporting the discharge/admit diagnosis, lab results, radiology results, the need for further work-up and treatment in the hospital. Response to treatment: the patient's symptoms have mildly improved after treatment, and as a result, I will admit patient. 01:40 Admission orders: after a detailed discussion of the patient's condition and case, the utilization review rn orders are written by me. ED course: Pt with hydronephrosis and signs and symptoms of pyelonephritis, is one of Dr. Roe's patient, has had stent in past by Dr. Palm. Past 11PM so Dr. Palm not called. Will admit to hospitalist service for IV abx and Dr. Palm consult. . 01/06 23:00 Order name: CBC with Diff; Complete Time: 01:35 rn 01/06 23:00 Order name: CMP; Complete Time: 01:35 rn 01/06 23:00 Order name: Lipase; Complete Time: 01:35 rn 01/06 23:52 Order name: Urine Dipstick-Ancillary; Complete Time: 23:56 EDIN 01/07 00:01 Order name: Urine Microscopic Only; Complete Time: 00:30 EDIN 01/06 23:00 Order name: IV Saline Lock; Complete Time: 01:12 rn 01/07 00:01 Order name: Stone Protocol EDIN 01/07 00:22 Order name: Urine Culture EDIN 01/07 01:38 Order name: Blood Culture Adult (2) rn 01/07 01:42 Order name: SARS RAPID; Complete Time: 02:41 rn 01/06 23:00 Order name: Labs collected and sent; Complete Time: 01:12 rn 01/06 23:00 Order name: Urine Dipstick-Ancillary (obtain specimen); Complete Time: 23:56 rn Administered Medications: 01:52 Drug: Rocephin (cefTRIAXone) 1 grams Route: IV; Rate: calculated rate; Site: left tw5 antecubital; 04:16 Follow up: Response: No adverse reaction; IV Status: Completed infusion kd3 Disposition Summary: 01/07/22 01:42 Hospitalization Ordered Hospitalization Status: Inpatient Admission rn Provider: Faith Roper rn Condition: Stable rn Problem: new rn Symptoms: have improved rn Bed/Room Type: Standard rn Location: Telemetry/MedSurg (Inpatient)(01/07/22 09:26) nicholas Room Assignment: 229(10/18/22 09:26) nicholas Diagnosis - Pyelonephritis acute rn - Unspecified hydronephrosis rn Forms: - Medication Reconciliation Form rn - SBAR form rn Signatures: Dispatcher [employer] EDMS Vaibhav Verde MD MD rn Garcia, Cindy RN RN Gulshan cMguire RN RN kina1 Lorena Diggs tw5 Bee Carlin RN RN talat3 Mandi Mixon PAYunior PAShaeC sb4 Corrections: (The following items were deleted from the chart) 00:32 00:26 Abdomen Pelvis W Con+CT.RAD.BRZ ordered. EDMS EDMS 00:34 00:26 UA MICROSCOPIC+U.LAB.BRZ ordered. EDMS EDMS 02:51 01:42 Telemetry/MedSurg (Inpatient) margot acevedo 02:51 01:42 margot acevedo 09: 02:51 BR ER HOLD kina 09: 02:51 ERHOLD- [facility]
[2022-01-07 02:20] LABS: SARS-CoV-2 Antigen Rapid Res Negative (Negative)
[2022-01-07] MEDS: NA CHLORIDE 0.9% 1,000 ML IV SCH ×3 (03:32→21:27)
[2022-01-07] MEDS ORDERED: ONDANSETRON 4 MG/2 ML VIAL IV PRN (03:32)
[2022-01-07 03:40] VITALS: BMI 51.0
[2022-01-07] MEDS ORDERED: NA CHLORIDE 0.9% 1,000 ML ONE (03:48)
--- NOTE | 2022-01-07 04:16 | P.HP ---
Certification for Inpatient Patient admitted to: Inpatient With expected LOS: <2 Midnights Patient will require the following post-hospital care: None Practitioner: I am a practitioner with admitting privileges, knowledge of patient current condition, hospital course, and medical plan of care. Services: Services provided to patient in accordance with Admission requirements found in Title 42 Section 412.3 of the Code of Federal Regulations Patient History Date of Service: 01/07/22 Reason for admission: Pyelonephritis History of Present Illness: Patient is a 61-year-old female with history of lymphedema, hypertension, recent BLE cellulitus, and UTI with hydronephrosis requiring ureteral stent who presented to the ED with complaints of abdominal pain rating to the left flank. She reports that the pain began this morning and is also complaining of dysuria. urine positive for UTI. WBC WNL and vitals stable. no concern for sepsis. CT abdomen pelvis showed "severe left hydronephrosis, diffuse hydroureter with ureothelial thickening. Enlargement of the left kidney with advanced perinephric stranding. No obstructive stone." "She has seen Dr. Palm in the past for stent placement. He will be consulted. Patient was started on Rocephin in ED and is admitted for further management. Allergies hydrochlorothiazide Allergy (Intermediate, Verified 05/17/21 12:13) Itching iodine Allergy (Intermediate, Verified 05/17/21 12:13) unknown but allergic to latex and shellfish latex Allergy (Intermediate, Verified 05/17/21 12:13) Itching shellfish derived Allergy (Verified 05/17/21 12:13) Itching/Hives/Rash sulfamethoxazole [From Bactrim] Allergy (Verified 05/17/21 12:13) Swelling/Redness trimethoprim [From Bactrim] Allergy (Verified 05/17/21 12:13) Swelling/Redness tellisitin Allergy (Intermediate, Uncoded 05/17/21 12:13) Swelling, Redness Home Medications: Gabapentin 300 mg PO TID 01/07/22 Tramadol HCl [Ultram] 50 mg PO Q6HR PRN 01/07/22 - Past Medical/Surgical History Has patient received pneumonia vaccine in the past: No Diabetic: No -: Lymphedema -: UTIs/Hydronephrosis -: Hypertension -: -: Left kidney stent Psychosocial/ Personal History: Unemployed, lives with family - Family History Mother -: Heart disease, Diabetes, Cancer Father -: Cancer Brother -: Diabetes - Social History Smoking Status: Never smoker Alcohol use: Yes CD- Drugs: No Caffeine use: No Place of Residence: Home Review of Systems Gastrointestinal: Abdominal Pain Genitourinary: Dysuria Physical Examination - Vital Signs Blood Pressure: 129/54 Pulse: 66 Respirations: 16 Pulse Ox (%): 100 - Physical Exam General: Alert, In no apparent distress HEENT: Atraumatic, PERRLA, EOMI, Sclerae nonicteric Neck: Supple, 2+ carotid pulse no bruit, No LAD, Without JVD or thyroid abnormality Respiratory: Clear to auscultation bilaterally, Normal air movement Cardiovascular: Regular rate/rhythm, Normal S1 S2 Gastrointestinal: Normal bowel sounds, No tenderness Musculoskeletal: No tenderness Integumentary: No rashes Neurological: Normal gait, Normal speech, Normal strength at 5/5 x4 extr, Normal tone, Normal affect - Studies Laboratory Data (last 24 hrs) 01/07/22 00:40: Sodium 139, Potassium 3.6, BUN 22 H, Creatinine 1.04, Glucose 106, Total Bilirubin 0.6, AST 17, ALT 24, Alkaline Phosphatase 93, Lipase 105 01/07/22 00:40: WBC 8.80, Hgb 12.7, Hct 37.6, Plt Count 231 Assessment and Plan - Problems (Diagnosis) (1) UTI (urinary tract infection) Current Visit: Yes Status: Acute Qualifiers: Urinary tract infection type: acute pyelonephritis Qualified Code(s): N10 - Acute pyelonephritis (2) Hydronephrosis, left Current Visit: Yes Status: Acute (3) Lymphedema Current Visit: Yes Status: Chronic - Plan -Continue IV Rocephin. Follow urine culture. Previous have grown pansensitive e coli and group b strep -Urology consulted. -NPO. IV fluids -Pain management -Monitor and replete electrolytes per protocol -Reconcile and continue home medications -Lovenox for VTE ppx -Full code Discharge Plan: Home Plan to discharge in: 48 Hours - Advance Directives Does patient have a Living Will: No Does patient have a Durable POA for Healthcare: No - Code Status/Comfort Care Code Status Assessed: Yes (Full) Critical Care: No Time Spent Managing Pts Care (In Minutes): 50
[2022-01-07] MEDS ORDERED: INFLUENZA VACCINE (for 6+ mo) 0.5 ML DOSE IMVAC ONE (08:00)
[2022-01-07] MEDS: ENOXAPARIN 40 MG/0.4 ML SQ SCH (09:00)
[2022-01-07] MEDS ORDERED: MORPHINE 4 MG/ML SYR ONE (09:10)
[2022-01-07] MEDS ORDERED: ONDANSETRON 4 MG/2 ML VIAL ONE (09:10)
[2022-01-07] MEDS: MORPHINE 4 MG/ML SYR IV PRN ×2 (09:15→20:28)
--- NOTE | 2022-01-07 14:01 | P.PN ---
Date of Service: 01/07/22 Patient seen and examined. She denies any flank pain today. She denies any fever. Renal function is stable. Acute cystitis-complicated. Left hydronephrosis. History of left ureteral stent Plan: Patient with recurrent left hydronephrosis despite the presence of ureteral stent. Urology-Dr. Palm consulted. He has been informed. Continue antibiotic. Follow urine culture. Supportive measures-pain management as needed.
--- NOTE | 2022-01-07 14:25 | RAD REPORT ---
EXAM DESCRIPTION: CT Abdomen and Pelvis Without Intravenous Contrast CLINICAL HISTORY: The patient is 61 years old and is Female; flank pain TECHNIQUE: Axial computed tomography images of the abdomen and pelvis without intravenous contrast. Sagittal and coronal reformatted images were created and reviewed. This CT exam was performed usi ng one or more of the following dose reduction techniques: automated exposure control, adjustment o f the mA and/or kV according to patient size, and/or use of iterative reconstruction technique. DLP: 2571 mGy*cm COMPARISON: None. FINDINGS: LUNG BASES: Lung bases are clear. HEART: Visualized heart is normal. ABDOMEN: LIVER: Unremarkable. GALLBLADDER AND BILE DUCTS: Cholelithiasis. No pericholecystic fluid. No ductal dilation. PANCREAS: Unremarkable. No ductal dilation. SPLEEN: Unremarkable. No splenomegaly. ADRENALS: Unremarkable. No mass. KIDNEYS AND URETERS: Severe left hydronephrosis, diffuse hydroureter with urothelial thickening. En largement of the left kidney with advanced perinephric stranding. No obstructive stone. Bilateral renal atrophy. STOMACH AND BOWEL: Distal colonic diverticulosis. No acute diverticulitis. No obstruction. PELVIS: APPENDIX: The appendix is seen and is within normal limits. BLADDER: Unremarkable. No stones. REPRODUCTIVE: Unremarkable as visualized. ABDOMEN and PELVIS: INTRAPERITONEAL SPACE: Unremarkable. No free air. No significant fluid collection. BONES/JOINTS: No acute fracture. No dislocation. Lower lumbar degenerative changes. Diffuse osteo penia. SOFT TISSUES: Unremarkable. VASCULATURE: Unremarkable. No abdominal aortic aneurysm. LYMPH NODES: Unremarkable. No enlarged lymph nodes. IMPRESSION: 1. Severe left hydronephrosis, diffuse hydroureter with urothelial thickening. Enlarge ment of the left kidney with advanced perinephric stranding. No obstructive stone. Findings highly suggestive of pyelonephritis and urothelial infectious process. Correlate with urinalysis. 2. Distal colonic diverticulosis. No acute diverticulitis. Electronically signed by: Nehemias Reid DO 01/07/2022 1:32 AM CDT Due to temporary technical issues with the PACS/Fluency reporting system, reports are being signed by the in house radiologists without review as a courtesy to insure prompt reporting. The interpreting radiologist is fully responsible for the content of the report.
[2022-01-07] MEDS: ACETAMINOPHEN 500 MG TAB PO PRN (14:56)
--- NOTE | 2022-01-07 16:45 | CON ---
Reason For Consultation: Left-sided hydronephrosis. History Of Present Illness: Ms. Baker is a 61-year-old woman, who presented to the Emergency Depart ment after developing some left upper quadrant and flank pain yesterday evening. That morning, she h ad undergone debridement of a left foot wound associated with her history of venous stasis. That was performed in the morning, but in the afternoon she developed some rigors around 7 p.m. She had some queasiness associated with the left upper quadrant discomfort and the pain was achy and as severe as 7/10 in intensity. Since her admission, the left upper quadrant and flank pain have essentially bee n eliminated and she acknowledges only minimal dull ache at this time 1/10 in intensity. She denied any associated dysuria, though she did note some odor as well as cloudiness of the urine. Physical Examination: The patient is well-appearing and in no acute distress. There is no dyspnea or sign of respiratory d istress. Her abdomen is soft and nontender. She is lying in a stretcher. Laboratory Data: Review of the imaging of the CT scan performed without IV contrast yesterday, 01/06 revealed the presence of known left hydronephrosis with pelviectasis extending down to the uret eropelvic junction where there does appear to be a crossing vessel. Beyond this heading distally, th e ureter returns to normal caliber down to the level of the bladder. The bladder is otherwise relati vely unremarkable. The remainder of the CT scan was without significant abnormality identified. White blood count 8.8, creatinine 1.04, previously 0.79 from 05/16/2021, urinalysis with microscopic assessment greater than 50 WBCs per HPF. 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 I counseled the patient that the options for management at this time do include placement of a ureteral stent versus a percutaneous nephrostomy tube. If we we re to manage the obstruction at this point, my recommendation would be a nephrostomy tube in preparat ion for definitive pyeloplasty if she were ready for surgical therapy. She expressed that she was no t ready for definitive surgical therapy at this time, stating she had too much else going on with her life relative to the foot and other issues. As a result, we discussed that should she fail to clear the infection with improvement, which would be suggestive that this is unrelated to her hydronephros is, then we would need to consider placement of a percutaneous nephrostomy tube in preparation for de finitive correction of the UPJ obstruction. As a result, we will simply observe for now the medical management relative to her clinical improvement and determine intervally whether additional surgical management at this time is required. If not and she is successfully subjected to discharge, we would plan MAG3 Lasix renogram to assess the degree of obstruction and relative to her split renal functio n to determine if there is decline sufficient to require surgical therapy despite her relative retice nt at this time. BETTY/AMANDA Voice ID: [id number] Report ID: [id number]
[2022-01-07] MEDS: CEFTRIAXONE 1,000 MG in NA CHLORIDE 0.9% 50 ML IVPB SCH (20:28)
[2022-01-08 03:45] LABS: Absolute Lymphocytes (CBC) 1.5 K/uL (0.7-4.9); Hematocrit 31.8 % (36.0-45.0); Lymphocytes % 26.8 % (15.3-44.8); MCV 93.2 fL (80-100); MPV 8.3 fL (7.6-11.3); RBC Red Blood Cell Count 3.42 M/uL (3.86-4.86)
[2022-01-08 03:56] LABS: Magnesium 2.1 mg/dL (1.8-2.4); Phosphorus 2.6 mg/dL (2.5-4.9); Potassium 3.6 mmol/L (3.5-5.1)
[2022-01-08] MEDS ORDERED: POTASSIUM 25 MEQ EFFERV TAB PO ONE (06:06)
[2022-01-08] MEDS: NA CHLORIDE 0.9% 1,000 ML IV SCH ×2 (08:24→17:45)
[2022-01-08] MEDS: ENOXAPARIN 40 MG/0.4 ML SQ SCH (08:24)
--- NOTE | 2022-01-08 13:44 | P.PN ---
Subjective Date of Service: 01/08/22 Chief Complaint: Pyelonephritis Patient states her left flank pain is better. No fever and no leukocytosis. Physical Examination - Vital Signs Temperature: 98.0 F Blood Pressure: 134/54 Pulse: 63 Respirations: 16 Pulse Ox (%): 96 Assessment And Plan - Current Problems (Diagnosis) (1) Acute pyelonephritis Current Visit: Yes Status: Acute (2) Hydronephrosis, left Current Visit: Yes Status: Acute (3) Lymphedema Current Visit: Yes Status: Chronic (4) Morbid obesity with BMI of 50.0-59.9, adult Current Visit: No Status: Acute (5) Chronic venous hypertension (idiopathic) with ulcer of bilateral lower extremity Current Visit: No Status: Chronic - Plan Physical Exam General: Alert, In no apparent distress Neck: Supple, no JVD elevation. Respiratory: Clear to auscultation bilaterally, Normal air movement Cardiovascular: Regular rate/rhythm, Normal S1 S2 Gastrointestinal: Normal bowel sounds, No tenderness Musculoskeletal: Bilateral lower extremity lymphedema Integumentary: Right lower extremity venous stasis ulcer. Neurological: No focal motor deficit. Plan: Continue antibiotics. Supportive measures with pain medications as needed. IV hydration Follow cultures. Infectious disease consulted to assist with management of complicated UTI. Presence of ureteral. Urology input appreciated. Nephrostomy tube placement recommended but patient declined. Plan is to treat medically and monitor for improvement. Patient may need surgical decompression if no improvement. Wound care consult for right lower extremity venous stasis ulcer.
[2022-01-08] MEDS: GABAPENTIN 300 MG CAP PO SCH ×2 (13:53→20:07)
[2022-01-08] MEDS: MORPHINE 4 MG/ML SYR IV PRN (13:57)
[2022-01-08] MEDS: ACETAMINOPHEN 500 MG TAB PO PRN (19:22)
[2022-01-08] MEDS: CEFTRIAXONE 1,000 MG in NA CHLORIDE 0.9% 50 ML IVPB SCH (20:07)
--- NOTE | 2022-01-09 03:01 | CON ---
History Of Present Illness: This is a 61-year-old female consulted for evaluation of pyelonephritis, treatment and management. The patient with significant past medical history of lymphedema, hyperten cele, recent bilateral lower extremity cellulitis, urinary tract infection with hydronephrosis and re cent urethral stent put in 3 months ago by Urology Team. The patient coming in with left flank pain, nausea, vomiting, and burning urination. Urine shows positive culture of more than 100,000 gram-neg ative rods. Sensitivity specificity pending. Patient is currently being treated with Rocephin 1 g e very 24 hours. Past Medical History: As per HPI. Social History: Nonsmoker, nondrinker. Family History: Noncontributory. Medications: Rocephin. See MAR for other medications. Allergies: HYDROCHLOROTHIAZIDE AND IODINE. Past Surgical History: and left kidney stent. Family History: Diabetes mellitus, heart disease, and cancer. Review of Systems: A 10-point review was performed. Physical Examination: General: This is a 61-year-old female lying in bed, not in any acute cardiopulmonary distress. Vital Signs: Temperature 97.6, pulse 74, respirations 17, blood pressure 126/54. HEENT: Unremarkable. Neck: Supple. Lungs: Basal crackles. Heart: S1, S2. Regular. Abdomen: Soft, nontender. Bowel sounds present. Extremities: 2+ nonpitting edema. Laboratory Data: WBC 5.5, hemoglobin 10.6, platelets 190. Sodium 142, potassium 4.2, chloride 110, bicarb 27, BUN 16, creatinine 0.9, glucose 106. Blood cultures not available. Urine culture growing gram-negative rods. Assessment And Plan: Pyelonephritis in a 61-year-old female with recent urinary tract infection and kidney stent placement. The patient is improving on Rocephin. We will continue to monitor patient's lab data. Anemia of chronic disease, lymphedema, and left-sided hydronephrosis with diffuse hydrour eter and urethral thickening. We will recommend to continue antibiotic for 14 days and adjust antibi otic accordingly. NF/MODL Voice ID: [id number] Report ID: [id number]
[2022-01-09 03:44] LABS: Absolute Lymphocytes (CBC) 1.6 K/uL (0.7-4.9); Hematocrit 32.6 % (36.0-45.0); Lymphocytes % 41.3 % (15.3-44.8); MCV 93.5 fL (80-100); MPV 8.1 fL (7.6-11.3); RBC Red Blood Cell Count 3.48 M/uL (3.86-4.86)
[2022-01-09 04:04] LABS: Potassium 4.1 mmol/L (3.5-5.1)
[2022-01-09] MEDS: ACETAMINOPHEN 500 MG TAB PO PRN ×2 (08:40→21:35)
[2022-01-09] MEDS: GABAPENTIN 300 MG CAP PO SCH ×3 (08:40→21:29)
[2022-01-09] MEDS: ENOXAPARIN 40 MG/0.4 ML SQ SCH (08:41)
[2022-01-09] MEDS: NA CHLORIDE 0.9% 1,000 ML IV SCH ×3 (13:04→23:59)
--- NOTE | 2022-01-09 13:27 | P.PN ---
Subjective Date of Service: 01/09/22 Chief Complaint: Pyelonephritis Patient denies any flank pain today. No fever and no leukocytosis. Physical Examination - Vital Signs Temperature: 97.9 F Blood Pressure: 141/57 Pulse: 59 Respirations: 16 Pulse Ox (%): 98 - Studies Microbiology Data (last 24 hrs): 01/06/22 23:53 Clean Catch Urine Challenge Count - Final >100,000 CFU/ML. 01/06/22 23:53 Clean Catch Urine - Final Escherichia Coli Assessment And Plan - Current Problems (Diagnosis) (1) Acute pyelonephritis Current Visit: Yes Status: Acute (2) Hydronephrosis, left Current Visit: Yes Status: Acute (3) Lymphedema Current Visit: Yes Status: Chronic (4) Morbid obesity with BMI of 50.0-59.9, adult Current Visit: No Status: Acute (5) Chronic venous hypertension (idiopathic) with ulcer of bilateral lower extremity Current Visit: No Status: Chronic - Plan Physical Exam General: Alert, In no apparent distress Respiratory: Clear to auscultation bilaterally, Normal air movement Cardiovascular: Regular rate/rhythm, Normal S1 S2 Gastrointestinal: Normal bowel sounds, No tenderness Musculoskeletal: Bilateral lower extremity lymphedema Integumentary: Right lower extremity venous stasis ulcer. Neurological: No focal motor deficit. Plan: Urine culture is growing pansensitive E. coli Continue IV Rocephin. Supportive measures with pain medications as needed. IV hydration Follow cultures. Infectious disease consulted to assist with management of complicated UTI. Presence of ureteral stent. Urology input appreciated. Nephrostomy tube placement recommended but patient declined. She is responding to treatment. Urology is following. Wound care input regarding right lower extremity venous stasis ulcer is appreciated. Continue current wound care.
[2022-01-09 15:50] LABS: Absolute Lymphocytes (CBC) 1.3 K/uL (0.7-4.9); Hematocrit 35.6 % (36.0-45.0); Lymphocytes % 32.7 % (15.3-44.8); MCV 93.2 fL (80-100); RBC Red Blood Cell Count 3.82 M/uL (3.86-4.86)
[2022-01-09] MEDS ORDERED: CEFTRIAXONE 1000 MG/VIAL ONE (20:47)
[2022-01-09] MEDS ORDERED: NA CHLORIDE 0.9% 50 ML ONE (20:52)
[2022-01-09] MEDS: CEFTRIAXONE 1,000 MG in NA CHLORIDE 0.9% 50 ML IVPB SCH (21:29)
[2022-01-10] MEDS: NA CHLORIDE 0.9% 1,000 ML IV SCH ×2 (01:32→10:20)
[2022-01-10 04:55] LABS: Absolute Lymphocytes (CBC) 1.8 K/uL (0.7-4.9); Hematocrit 31.1 % (36.0-45.0); MPV 8.1 fL (7.6-11.3); RBC Red Blood Cell Count 3.34 M/uL (3.86-4.86)
[2022-01-10 05:13] LABS: Potassium 3.8 mmol/L (3.5-5.1)
[2022-01-10] MEDS: GABAPENTIN 300 MG CAP PO SCH ×2 (08:35→13:21)
[2022-01-10] MEDS: ENOXAPARIN 40 MG/0.4 ML SQ SCH (08:35)
[2022-01-10] MEDS ORDERED: POTASSIUM CL SA 10 MEQ TAB PO ONE (09:00)
[2022-01-10 10:37] VITALS: O2SAT 98
[2022-01-10] MEDS: ACETAMINOPHEN 500 MG TAB PO PRN ×2 (11:20→16:27)
--- NOTE | 2022-01-10 14:29 | PN ---
Subjective: Patient is lying in bed. Denies any headache, nausea, vomiting, chest pain, abdominal p ain, constipation, or diarrhea. Objective: Vital Signs: Temperature 98, pulse 60, respirations 18, blood pressure 123/46. Lungs: Clear to auscultation. Heart: S1, S2. Regular. Abdomen: Soft, nontender. Bowel sounds present. Extremities: 2+ edema. There is a stasis ulcer noted. Laboratory Data: Shows WBC 3.9, hemoglobin 10.6, platelets are 211. Chemistry shows sodium 143, pot assium 3.8, chloride 111, bicarb 27, BUN 18, creatinine 0.8, glucose 117. Micro data shows E coli in the urine. Blood cultures were canceled. Assessment And Plan: Left-sided pyelonephritis with Escherichia coli in urine culture growing. We w ill recommend to switch patient to Levaquin as patient is having leukopenia most likely secondary to cephalosporins. Continue total course of 14 days of antibiotic. We will follow the patient closely. Can be switched to oral Levaquin on discharge. Stasis ulcer. Keep leg elevated and consider Medih oney with alginate. Lymphedema. Followup with Urology as outpatient. NF/MODL Voice ID: [id number] Report ID: [id number]
--- NOTE | 2022-01-10 14:59 | P.DS ---
Admission Date: 01/07/22 Discharge Date: 01/10/22 Disposition: ROUTINE DISCHARGE Discharge Condition: FAIR Reason for Admission: Pyelonephritis - Problems (1) Acute pyelonephritis Current Visit: Yes Status: Acute (2) Hydronephrosis, left Current Visit: Yes Status: Acute (3) Lymphedema Current Visit: Yes Status: Chronic (4) Morbid obesity with BMI of 50.0-59.9, adult Current Visit: No Status: Acute (5) Chronic venous hypertension (idiopathic) with ulcer of bilateral lower extremity Current Visit: No Status: Chronic Brief History of Present Illness: Patient is a 61-year-old female with history of lymphedema, hypertension, recent BLE cellulitus, and UTI with hydronephrosis requiring ureteral stent who presented to the ED with complaints of abdominal pain rating to the left flank. She reports that the pain began on the morning of admission. Symptoms associated with dysuria. and is also complaining of dysuria. urine positive for UTI. WBC WNL and vitals stable. no concern for sepsis. CT abdomen pelvis showed "severe left hydronephrosis, diffuse hydroureter with ureothelial thickening. Enlargement of the left kidney with advanced perinephric stranding. No obstructive stone." "She has seen Dr. Palm in the past for stent placement. Patient was started on Rocephin in ED and admitted for further management. Hospital Course: Patient admitted to the medical floor and started on IV Rocephin Urine culture grew pansensitive E. coli. Patient seen by urology and nephrostomy tube placement recommended but patient declined. Dr. Roe then recommended follow-up with him as outpatient for further imaging and procedure as needed if she responds to treatment Patient responded well to treatment. Dr. Roe is recommending MAG3 Renogram and follow-up as outpatient. Patient states she feels much better, stated her flank pain has resolved. No leukocytosis. Renal function has been stable. She was seen by infectious disease consulted to assist with management of complicated UTI. She was also seen by Wound care team regarding left lower extremity venous stasis ulcer which was dressed and wrapped. Patient is deemed clinically stable for discharge. She will follow with Dr. Palm as outpatient and also at the wound care clinic. She is prescribed Levaquin to complete 14 days of antibiotic treatment per Infectious disease Dr. Weinstein's recommendation. Vital Signs/Physical Exam: Temp Pulse Resp BP Pulse Ox 97.1 F 62 16 129/64 97 01/10/22 11:55 01/10/22 11:55 01/10/22 11:55 01/10/22 11:55 01/10/22 11:55 General: Alert, In no apparent distress, Oriented x3, Obese HEENT: Mucous membr. moist/pink Neck: JVD not distended Respiratory: Clear to auscultation bilaterally, Normal air movement Cardiovascular: Regular rate/rhythm, Normal S1 S2 Gastrointestinal: Normal bowel sounds, Soft and benign, Non-distended Musculoskeletal: Other (Bilateral lymphedema wrap) Neurological: Normal strength at 5/5 x4 extr Laboratory Data at Discharge: WBC 3.90 K/uL (4.3-10.9) L 01/10/22 04:31 Hgb 10.6 g/dL (12.0-15.0) L D 01/10/22 04:31 Hct 31.1 % (36.0-45.0) L 01/10/22 04:31 Plt Count 211 K/uL (152-406) 01/10/22 04:31 Sodium 143 mmol/L (136-145) 01/10/22 04:31 Potassium 3.6 mmol/L (3.5-5.1) 01/10/22 10:24 BUN 18 mg/dL (7-18) 01/10/22 04:31 Creatinine 0.89 mg/dL (0.55-1.3) 01/10/22 04:31 Glucose 117 mg/dL (74-106) H 01/10/22 04:31 Phosphorus 2.6 mg/dL (2.5-4.9) 01/08/22 03:10 Magnesium 2.1 mg/dL (1.8-2.4) 01/08/22 03:10 Total Bilirubin 0.6 mg/dL (0.2-1.0) 01/07/22 00:40 AST 17 U/L (15-37) 01/07/22 00:40 ALT 24 U/L (12-78) 01/07/22 00:40 Alkaline Phosphatase 93 U/L (45-117) 01/07/22 00:40 Lipase 105 U/L (73-393) 01/07/22 00:40 Home Medications: Gabapentin 300 mg PO TID 01/07/22 Tramadol HCl [Ultram] 50 mg PO Q6HR PRN 01/07/22 L. Acidophilus/L.bulgaricus [Lactobacillus Tablet] 1 each PO BID #30 tab 01/10/22 levoFLOXacin [Levaquin*] 500 mg PO DAILY #11 tab 01/10/22 New Medications: L. Acidophilus/L.bulgaricus [Lactobacillus Tablet] 1 each PO BID #30 tab levoFLOXacin [Levaquin*] 500 mg PO DAILY #11 tab Diet: AHA Activity: Ad ramesh Followup: NONE,NONE [Primary Care Provider] - Osvaldo Palm [ACTIVE - CAN ADMIT] - 1-2 Weeks Time spent managing pt's care (in minutes): 37
[2022-01-10 16:48] VITALS: BP 157/83; TEMP 98
[2022-01-11] MEDS ORDERED: levoFLOXacin 500 MG TAB PO SCH (09:00)
== END 2022-01-10 18:33 | disposition home or self-care (01) | DRG 690 ==
LOC: ER 22:03 → ERHOLD 01-07 02:40 → 2ND 01-07 10:01
PROVIDERS: ADMIT Internal Medicine; ATTEND Internal Medicine
DX: N13.6 Pyonephrosis (principal); Z68.43 Body mass index [BMI] 50.0-59.9, adult; I87.313 Chronic venous hypertension (idiopathic) with ulcer of bilateral lower extremity; E66.01 Morbid (severe) obesity due to excess calories; D63.8 Anemia in other chronic diseases classified elsewhere; I10 Essential (primary) hypertension; D70.2 Other drug-induced agranulocytosis; I89.0 Lymphedema, not elsewhere classified; T36.1X5A Adverse effect of cephalosporins and other beta-lactam antibiotics, initial encounter; B95.1 Streptococcus, group B, as the cause of diseases classified elsewhere; B96.20 Unspecified Escherichia coli [E. coli] as the cause of diseases classified elsewhere; Z88.1 Allergy status to other antibiotic agents; Z56.0 Unemployment, unspecified; Z88.8 Allergy status to other drugs, medicaments and biological substances; Z91.040 Latex allergy status; Z91.013 Allergy to seafood; Z79.899 Other long term (current) drug therapy; Z91.048 Other nonmedicinal substance allergy status; Z20.822 Contact with and (suspected) exposure to COVID-19
CPT/HCPCS: 11042; 29581; 36415; 74176; 76377; 80048; 80053; 81003; 81015; 83690; 83735; 84100; 84132; 85025; 87077; 87086; 87088; 87186; 87811; 96365; 96366; 99251; 99285; A6010; J1650; J2405; J7030

== ENCOUNTER 2022-09-16 11:41 | Day surgery (SDC) | payer OTHER ==
[2022-09-11 12:56] LABS: Absolute Lymphocytes (CBC) 1.8 K/uL (0.7-4.9); Hematocrit 36.3 % (36.0-45.0); Lymphocytes % 32.3 % (15.3-44.8); MCV 92.8 fL (80-100); MPV 7.9 fL (7.6-11.3); RBC Red Blood Cell Count 3.91 M/uL (3.86-4.86)
[2022-09-11 13:08] LABS: Potassium 3.9 mEq/L (3.5-5.1)
--- NOTE | 2022-09-15 17:19 | EKG ---
Test Date: 2022-09-11 Test Time: 12:39:02 [employer]: SUNSHINE MEASUREMENT RESULTS: Intervals: Rate: 59 MN: 144 QRSD: 100 QT: 444 QTc: 439 [place]: P: 48 MN: 144 QRS: 72 T: 52 INTERPRETIVE STATEMENTS: Sinus bradycardia Otherwise normal ECG Compared to ECG 10/01/2021 02:13:13 Myocardial infarct finding no longer present Electronically Signed On 09-15-22 17:13:02 CDT by Saul Blandon
[2022-09-16] MEDS ORDERED: Ringers Lactate 1,000 ML IV ONE (12:22)
[2022-09-16] MEDS: CEFAZOLIN SODIUM 2 GM/VIAL ONE ×2 (13:09→14:12)
[2022-09-16] MEDS ORDERED: ROCURONIUM 50 MG/5 ML VIAL IV ONE (13:41)
[2022-09-16] MEDS ORDERED: FENTANYL CITR 100 MCG/2 ML ONE (13:41)
[2022-09-16] MEDS ORDERED: propofoL 200 MG/20 ML VIAL IV ONE ×2 (13:41→14:26)
[2022-09-16] MEDS ORDERED: MIDAZOLAM HCL 2 MG/2 ML INJ ONE (13:41)
[2022-09-16] MEDS ORDERED: ONDANSETRON 4 MG/2 ML VIAL ONE (13:42)
[2022-09-16 15:03] VITALS: O2SAT 100
[2022-09-16 16:19] VITALS: BP 120/57; TEMP 97.5
--- NOTE | 2022-09-16 16:33 | RAD REPORT ---
EXAM DESCRIPTION: RAD - Urethrocystogrphy Retrograde - 09/16/2022 2:44 pm CLINICAL HISTORY: LEFT STENT PLACEMENT COMPARISON: None available. FINDINGS: Ten Images were sent to PACS, documenting needle positions during an image guided left ure teral stent placement procedure. No radiologist was available for the procedure, nor will any image i nterpretation he provided. Please refer to the procedural report for additional details. Fluoroscopy time: 0.21 minutes. IMPRESSION: Documentation of fluoroscopy utilization as above.
--- NOTE | 2022-09-16 16:49 | OP ---
Surgeon: ALESHIA MCGOWAN Preoperative Diagnoses: 1.Left ureteropelvic junction obstruction. 2.Acute kidney injury. 3.Left hydronephrosis. Postoperative Diagnoses: 1.Left ureteropelvic junction obstruction. 2.Acute kidney injury. 3.Left hydronephrosis. Principal Procedures: 1.Cystoscopy with left retrograde pyelography. 2.Left ureteral stent placement. Findings: Massive pelvocaliectasis with the appearance potentially of an anatomic UPJ. Indication For Procedure: Ms. Baker is a 62-year-old female who was diagnosed with UPJ obstruction over a year ago, but was not prepared at the time to undergo definitive surgical correction. She ini tially had a stent placed, but she elected to have the stent removed and to observe for progression o r deterioration of her renal function over time with the UPJ obstruction. After an initial 6 months of observation, the kidney function had only declined marginally, but after an additional 6 months, a dramatic decline in her renal function occurred; so she was recommended for prompt decompression and stent placement in preparation for salvage of the kidney with reconstructive surgery. Procedure In Detail: The patient was consented in the preoperative holding area before being transfe rred to operative suite where general anesthesia was induced. She was given Ancef 2 g IV antimicrobi al prophylaxis and pneumo boots were provided for DVT prophylaxis. She was placed in the lithotomy p osition, padded and secured to the table appropriately. Her genitalia were prepped with Hibiclens an d draped in standard fashion. The case was begun using a 22-Nauruan rigid cystoscope to traverse the urethra and into the bladder with ease. The bladder was decompressed of fluid and urine, and the lef t ureteral orifice was cannulated using the tip of a 5-Nauruan ureteral access catheter. A retrograde pyelogram was then performed. Left retrograde pyelography: Using a 70:30 mixture of Omnipaque and saline, contrast was injected via the lumen of the 5-Nauruan ur eteral access catheter and did propagate up the distal into the mid ureter before there was delayed p rogress of the contrast into the proximal ureter likely secondary to the obstruction. As a result, I advanced the tip of the 5-Nauruan ureteral access catheter into the mid distal ureter and injected mo re contrast. This time it did propagate up to a point of beaking obstruction beyond which there was massive pelviectasis and subsequently caliectasis observed. As a result, I passed a Sensor wire via the 5-Nauruan ureteral access catheter and was able to successfully navigate into the renal pelvis and calices. I removed the 5-Nauruan ureteral access catheter and passed a 6-Nauruan x 26 cm double-J ure teral stent successfully with a coil observed fluoroscopically in the renal pelvis. An additional co il was formed cystoscopically within her bladder. I then decompressed her bladder of fluid and urine , and observed briefly to see if the kidney and pelvis would decompress. After several minutes of ob servation, it remained hydronephrotic, but to prevent the development of subcapsular hematoma associa jeremiah with rapid decompression, I instead allowed the kidney to passively decompress over time with the stent in place. So, the patient was taken out of the lithotomy position, awakened from general anes thesia, transferred to a stretcher, and then transferred to the recovery room in good condition. Complications: None. Discharge Disposition: She should follow up in the Urology Clinic sometime within the next few month s to discuss the next steps in definitive left pyeloplasty that would be required. We would prepare to remove the stent at least 2 or 3 weeks prior to the pyeloplasty, perhaps only 1 week prior, to decrease the periureteral fibrotic reaction that typically occurs with the stent placement. BETTY/AMANDA Voice ID: [id number] Report ID: [id number]
== END 2022-09-16 17:08 | disposition home or self-care (01) ==
LOC: OR 11:41
PROVIDERS: ATTEND Urology
PROC: 0T778DZ Dilation of Left Ureter with Intraluminal Device, Via Natural or Artificial Opening Endoscopic (ICD-10-PCS; principal; 2022-09-16 13:00)
DX: N13.1 Hydronephrosis with ureteral stricture, not elsewhere classified (principal); N13.5 Crossing vessel and stricture of ureter without hydronephrosis; N17.9 Acute kidney failure, unspecified
CPT/HCPCS: 93005; 87088; 85025; 87086; 80048; 36415; 74450; 51610; 52332; J2704 ×2; J2250; J3010; J2405; J7120

== ENCOUNTER 2022-12-08 15:49 | Emergency (ER) | payer OTHER ==
--- OUTSIDE RECORDS SUMMARY | 2022-12-08 15:56 | XMS REPORT | Continuity of Care Document ---
:1960 Author Organization [facility] t Address [address] [place] [address] [place] [id number] Care Team Providers Name Role Phone Pcp, Patient Does Not Have A Primary Care Physician +[id number] Doctor Unassigned, [place] Attending Clinician Unavailable Clinton England MD Attending [...] Active Univers [facility] [place] [facility] Social History Social Habit Start Date Stop Date Quantity Comments Source Sex Assigned At [birth year] [facility] 00:00:00 00:00:00 Medical Branch Smoking Status Start Date Stop Date Source Tobacco smoking consumption [facility] Medical unknown Branch Medications Ordered Filled [...] BY 8-11 MOUTH EVERY 00:00: DAY FOR DAYS Dose 2022-0 No Unknown 10-31 00:00: 00 Dose 2022-0 No 500 Unknown 10-31 00:00: 00 TAKE 1 2022-0 No 500 TABLET BY 8-11 MOUTH EVERY 00:00: DAY 00 TAKE 1 2022-0 No TABLET BY 8-11 MOUTH EVERY 00:00: 6 HOURS 00 NEEDED FOR PAIN Dose 2022-0 No Unknown 10-31 00:00: 00 &lt 2022-0 [...] NEEDED FOR PAIN Dose 2022-0 No Unknown 8 00:00: 00 AMOX/K CLAV 2022-0 No TAB 875-125 8 00:00: 00 TAKE 1 2022-0 No 5 TABLET BY 8-11 MOUTH EVERY 00:00: DAY FOR 30 00 DAYS Dose 2022-0 No Unknown 8 00:00: 00 Dose 2022-0 No 500 Unknown 10-31 00:00: 00 TAKE 1 2022-0 No 500 TABLET BY 8-11 MOUTH EVERY 00:00: DAY 00 TAKE 1 2-0 No TABLET BY 8-11 MOUTH EVERY 00:00: 6 HOURS 00 NEEDED FOR PAIN Dose 2022-0 No Unknown 10-31 00:00: 00 AMOX/K CLAV 2022-0 No TAB 875-125 10-31 00:00: 00 &lt 2022-0 No 500 8-10 00:00: 00 TAKE 1 2-0 No TABLET BY 8-10 MOUTH EVERY 00:00: 6 HOURS 00 NEEDED FOR PAIN &lt 2022-0 No 50 8-10 00:00: 00 Dose 2022-0 No Unknown 8-10 00:00: 00 &lt 2022-0 No 500 8-10 00:00: 00 TAKE 1 2-0 No TABLET BY 8-10 MOUTH EVERY 00:00: 6 HOURS 00 NEEDED FOR PAIN &lt 2022-0 No 50 8-10 00:00: 00 Dose 2022-0 No Unknown 8-10 00:00: 00 &lt 2022-0 No 500 8-10 00:00: 00 TAKE 1 2-0 No TABLET BY 8-10 MOUTH EVERY 00:00: 6 HOURS 00 NEEDED FOR PAIN &lt 2022-0 No 50 8-10 00:00: 00 Dose 2022-0 No Unknown 8-10 00:00: 00 &lt 2022-0 No 500 8-10 00:00: 00 TAKE 1 2-0 No TABLET BY 8-10 MOUTH EVERY 00:00: 6 HOURS 00 NEEDED FOR PAIN &lt 2022-0 No 50 8-10 00:00: 00 Dose 2022-0 No Unknown 8-10 00:00: 00 &lt 2022-0 No 500 8-06 00:00: 00 TAKE 1 2-0 No 500 TABLET BY 8 MOUTH EVERY 00:00: DAY 00 &lt 2022-0 No 500 10-26 00:00: 00 TAKE 1 2-0 No 500 TABLET BY 8 MOUTH EVERY 00:00: DAY 00 &lt 2022-0 No 500 10-26 00:00: 00 TAKE 1 2-0 No 500 TABLET BY 8 MOUTH EVERY 00:00: DAY 00 &lt 2022-0 No 500 10-26 00:00: 00 TAKE 1 2-0 No 500 TABLET BY 8 MOUTH EVERY 00:00: DAY 00 &lt 2022-0 No 8- 00:00: 00 &lt 2022-0 No 8- 00:00: 00 &lt 2022-0 No 8-05 00:00: 00 &lt 2022-0 No 8- 00:00: 00 TAKE 1 2021-0 No 5 TABLET BY 10-22 MOUTH EVERY 00:00: DAY FOR 30 00 DAYS &lt 2022-0 No 500 10-22 00:00: 00 Dose 2022-0 No Unknown 10-22 00:00: 00 TAKE 1 2021-0 No 500 TABLET TWO - TIMES DAILY 00:00: FOR 7 DAYS 00 &lt 2022-0 No 500 10-22 00:00: 00 Dose 2022-0 No Unknown 10-22 00:00: 00 Santyl 250 2-0 No 1unit/g unit/gram 10-22 zohra topical 00:00: ointment 00 TAKE 1 2021-0 No 5 TABLET BY 10-22 MOUTH EVERY 00:00: DAY FOR 30 00 DAYS &lt 2022-0 No 500 10-22 00:00: 00 Dose 2022-0 No Unknown 10-22 00:00: 00 TAKE 1 2-0 No 500 TABLET TWO - TIMES DAILY 00:00: FOR 7 DAYS 00 &lt 2022-0 No 500 10-22 00:00: 00 Dose 2022-0 No Unknown 10-22 00:00: 00 Santyl 250 2022-0 No 1unit/g unit/gram 10-22 zohra topical 00:00: ointment 00 TAKE 1 [...] 00 Santyl 250 2022-0 No 1unit/g unit/gram - zohra topical 00:00: ointment 00 TAKE 1 2-0 No 5 TABLET BY 8- MOUTH EVERY 00:00: DAY FOR 30 00 DAYS &lt 2022-0 No 500 10-22 00:00: 00 Dose 2022-0 No Unknown 10-22 00:00: 00 TAKE 1 2-0 No 500 TABLET TWO - TIMES DAILY 00:00: FOR 7 DAYS 00 &lt 2022-0 No 500 10-22 00:00: 00 Dose 2022-0 No Unknown 10-22 00:00: 00 Santyl 250 2-0 No 1unit/g unit/gram 10-22 zohra topical 00:00: ointment 00 TAKE 1 2021-0 No 5 TABLET BY 10-22 MOUTH EVERY 00:00: DAY FOR 30 00 DAYS &lt 2022-0 No 500 10-22 00:00: 00 Dose 2022-0 No Unknown 10-22 00:00: 00 TAKE 1 2-0 No 500 TABLET TWO 10-22 TIMES DAILY 00:00: FOR 7 DAYS 00 &lt 2022-0 No 500 10-22 00:00: 00 Dose 2022-0 No Unknown 10-22 00:00: 00 &lt 2022-0 No 300 8- 00:00: 00 &lt 2022-0 No 20 8 00:00: 00 &lt 2022-0 No 300 8- 00:00: 00 &lt 2022-0 No 20 8- 00:00: 00 &lt 2022-0 No 300 8- 00:00: 00 &lt 2022-0 No 20 8- 00:00: 00 &lt 2022-0 No 300 8- 00:00: 00 &lt 2022-0 No 20 8- 00:00: 00 &lt 2022-0 No 300 8- 00:00: 00 &lt 2022-0 No 20 8 00:00: 00 &lt 2022-0 No 500 7 00:00: 00 &lt 2022-0 No 20 7 00:00: 00 Dose 2022-0 No Unknown 7 00:00: 00 &lt 2022-0 No 20 7 00:00: 00 Dose 2022-0 No Unknown 10-08 [...] HOURS 00 NEEDED FOR PAIN TAKE 1 2022-0 No 500 TABLET BY 7-19 MOUTH EVERY 00:00: DAY 00 &lt 2022-0 No 500 7-19 00:00: 00 &lt 2022-0 No 20 7-19 00:00: 00 Dose 2022-0 No Unknown 7-19 00:00: 00 &lt 2022-0 No 20 7-19 00:00: 00 Dose 2022-0 No Unknown 7-19 00:00: 00 TAKE 1 2-0 No TABLET BY 7-19 MOUTH EVERY 00:00: 6 HOURS 00 NEEDED FOR PAIN TAKE 1 2-0 No 500 TABLET BY 7-19 MOUTH EVERY 00:00: DAY 00 Dose 2022-0 No Unknown 4-22 00:00: [...] Dose 2022-0 No Unknown 4-22 00:00: 00 prednisone 2022-0 No 1mg 20 [...] % topical 7-07 ointment 00:00: 00 amoxicillin 2021-0 No 1mg 875 [...] mg 7-07 tablet 00:00: 00 mupirocin 2 2021-0 No 1% [...] mg-trimetho 00:00: prim 160 mg 00 tablet mupirocin 2 0 No 1% % topical 7-07 ointment 00:00: 00 amoxicillin 2020-0 No 1mg 875 7-07 mg-potassiu 00:00: m 00 clavulanate 125 mg tablet sulfamethox 2020-0 No 1mg azole 800 7-07 mg-trimetho 00:00: prim 160 mg 00 tablet ibuprofen 2020-0 No 1mg 800 mg 7-07 tablet 00:00: 00 ibuprofen 2020-0 No 1mg 800 mg 7-07 tablet 00:00: 00 Vital Signs Vital Name Observation Time Observation Value Comments Source BP Diastolic 2021-12-12 15:13:00 77 mm[Hg] Weight Measured 2021-12-12 15:13:00 317.00 pounds Height Measured 2021-12-12 15:13:00 67.50 inches Body Temperature 2021-12-12 15:13:00 98.20 degrees Heart Rate 2021-12-12 15:13:00 67.00 /min Respiratory Rate 2021-12-12 15:13:00 18.00 /min BP Systolic 2021-12-12 15:13:00 158 mm[Hg] BP Systolic 2021-10-31 17:23:00 128 mm[Hg] BP [...] Performed AUTHORIZATION TO RELEASE 2021-12-10 05:01:00 Doctor Slick, [facility] PHI TO [facility] LOWER EXTREMITY ARTERIAL 2020-11-15 16:42:00 Danette Vargas [facility] DUPLEX BILATERAL - BY Medical Br anch VASCULAR LAB DUPLEX VENOUS LEGS 2020-11-15 15:29:00 Danette Vargas [facility] BILATERAL - BY VASCULAR Medical Branch LAB [facility] PATIENT FINANCIAL 2020-11-15 14:05:44 Doctor Unassigned, [facility] POLICY [facility] NO SHOW OR MISSED 2020-11-15 14:05:20 Doctor Slick, [facility] APPOINTMENT POLICY [place] [facility] ACKNOWLEDGEMENT NOTICE OF PRIVACY 2020-11-15 14:05:00 Doctor Slick, [facility] PRACTICES [facility] CONSENT/REFUSAL FOR 2020-11-15 14:04:43 Doctor Slick, [facility] DIAGNOSIS AND TREATMENT [facility] ASSIGNMENT OF BENEFITS 2020-11-15 14:04:27 Doctor [place], [facility] Plan of Care Planned Activity Planned Date Details Comments Source Goal Plan of Care Note [code = 69919-5] Goal Plan of Care Note [code = 10860-9] Goal Plan of Care Note [code = 11677-4] Goal Plan of Care Note [code = 40205-4] Goal Plan of Care Note [code = 00562-4] Goal Plan of Care Note [code = 35903-1] Goal Plan of Care Note [code = 52940-9] Goal Plan of Care Note [code = 22678-1] Goal Plan of Care Note [code = 39433-2] Goal Plan of Care Note [code = 62454-5] Goal Plan of Care Note [code = 20835-2] Goal Plan of Care Note [code = 71027-8] Goal Plan of Care Note [code = 75941-7] Goal Plan of Care Note [code = 26997-1] Goal Plan of Care Note [code = 33734-9] Goal Plan of Care Note [code = 61086-1] Goal Plan of Care Note [code = 11766-6] Goal Plan of Care Note [code = 21684-6] Goal Plan of Care Note [code = 40458-7] Goal Plan of Care Note [code = 17270-4] Goal Plan of Care Note [code = 65300-3] Goal Plan of Care Note [code = 79556-7] Goal Plan of Care Note [code = 71351-2] Goal Plan of Care Note [code = 28717-4] Goal Plan of Care Note [code = 53238-5] Goal Plan of Care Note [code = 94017-7] Goal Plan of Care Note [code = 96546-7] Goal Plan of Care Note [code = 02049-4] Goal Plan of Care Note [code = 02773-8] Goal Plan of Care Note [code = 29468-0] Goal Plan of Care Note [code = 03606-7] Goal Plan of Care Note [code = 13474-3] Goal Plan of Care Note [code = 12852-7] Goal Plan of Care Note [code = 74170-8] Goal Plan of Care Note [code = 34238-7] Goal Plan of Care Note [code = 26730-6] Goal Plan of Care Note [code = 96791-9] Goal Plan of Care Note [code = 35813-1] Goal Plan of Care Note [code = 80589-1] Goal Plan of Care Note [code = 21134-4] Goal Plan of Care Note [code = 56302-3] Goal Plan of Care Note [code = 20465-1] Goal Plan of Care Note [code = 50063-3] Goal Plan of Care Note [code = 39323-5] Goal Plan of Care Note [code = 10790-8] Goal Plan of Care Note [code = 35763-5] Goal Plan of Care Note [code = 51892-2] Goal Plan of Care Note [code = 76124-1] Goal Plan of Care Note [code = 00778-3] Goal Plan of Care Note [code = 00052-8] Goal Plan of Care Note [code = 62021-6] Goal Plan of Care Note [code = 21811-0] Goal Plan of Care Note [code = 79224-8] Goal Plan of Care Note [code = 35464-2] Goal Plan of Care Note [code = 23528-3] Goal Plan of Care Note [code = 78366-5] Goal Plan of Care Note [code = 83772-9] Goal Plan of Care Note [code = 54459-6] Goal Plan of Care Note [code = 20062-8] Goal Plan of Care Note [code = 97594-1] Goal Plan of Care Note [code = 00480-1] Goal Plan of Care Note [code = 53207-1] Goal Plan of Care Note [code = 46758-7] Goal Plan of Care Note [code = 18549-3] Goal Plan of Care Note [code = 86486-6] Goal Plan of Care Note [code = 57266-8] Goal Plan of Care Note [code = 98625-5] Goal Plan of Care Note [code = 68079-8] Goal Plan of Care Note [code = 45827-0] Goal Plan of Care Note [code = 02811-3] Goal Plan of Care Note [code = 09725-1] Goal Plan of Care Note [code = 31494-6] Goal Plan of Care Note [code = 87648-6] Goal Plan of Care Note [code = 28234-9] Goal Plan of Care Note [code = 88587-6] Goal Plan of Care Note [code = 31416-5] Goal Plan of Care Note [code = 13729-9] Goal Plan of Care Note [code = 51665-4] Goal Plan of Care Note [code = 20438-3] Goal Plan of Care Note [code = 50069-4] Goal Plan of Care Note [code = 16508-2] Goal Plan of Care Note [code = 83916-0] Goal Plan of Care Note [code = 56110-0] Goal Plan of Care Note [code = 82452-2] Goal Plan of Care Note [code = 83146-1] Goal Plan of Care Note [code = 30236-7] Goal Plan of Care Note [code = 20682-5] Goal Plan of Care Note [code = 95034-5] Goal Plan of Care Note [code = 47519-2] Goal Plan of Care Note [code = 30883-1] Goal Plan of Care Note [code = 27241-1] Goal Plan of Care Note [code = 99342-5] Goal Plan of Care Note [code = 25129-8] Goal Plan of Care Note [code = 75198-8] Goal Plan of Care Note [code = 55041-6] Goal Plan of Care Note [code = 74166-2] Goal Plan of Care Note [code = 03440-6] Goal Plan of Care Note [code = 06357-1] Goal Plan of Care Note [code = 88101-9] Goal Plan of Care Note [code = 54783-4] Goal Plan of Care Note [code = 86630-5] Goal Plan of Care Note [code = 42697-2] Goal Plan of Care Note [code = 20410-7] Goal Plan of Care Note [code = 02076-7] Goal Plan of Care Note [code = 97484-6] Goal Plan of Care Note [code = 23534-2] Goal Plan of Care Note [code = 64925-0] Goal Plan of Care Note [code = 67890-3] Goal Plan of Care Note [code = 21166-2] Goal Plan of Care Note [code = 59099-7] Goal Plan of Care Note [code = 52335-5] Goal Plan of Care Note [code = 41996-3] Goal Plan of Care Note [code = 72845-4] Goal Plan of Care Note [code = 84927-5] Goal Plan of Care Note [code = 40297-8] Goal Plan of Care Note [code = 71224-3] Goal Plan of Care Note [code = 02574-3] Encounters Start End Encounter Admission Attending Care Care Encounter Source Date/Time Date/Time Type Type Clinicians Facility Department ID 2022-11-06 Outpatient [facility] [id number] Common 17:03:00 [id number] [facility] 2022-09-11 Outpatient [facility] [id number] Common 10:06:03 [id number] [facility] 2022-12-08 2022-12-08 Outpatient [facility] SFA [id number] 023 [place] 15:16:37 15:16:37 0918 [facility] 2022-12-03 2022-12-03 Outpatient SFA SFA [id number] 023 [place] 09:51:40 09:51:40 0913 F [facility] 2022-07-22 2022-07-22 Outpatient SFA SFA [id number] 023 [place] 13:21:34 13:21:34 0502 [facility] 2022-07-09 2022-07-09 Outpatient SFA SFA [id number] 023 [place] 11:21:15 11:21:15 0419 [facility] 2022-07-07 2022-07-07 Outpatient SFA SFA [id number] 023 [place] 13:33:47 13:33:47 0417 [facility] 2022-07-01 2022-07-01 Outpatient SFA SFA [id number] 023 [place] 15:10:38 15:10:38 0411 [facility] 2022-06-30 2022-06-30 Outpatient SFA SFA [id number] 023 [place] 17:36:14 17:36:14 0410 [facility] 2022-06-10 2022-06-10 Outpatient SFA SFA [id number] 023 [place] 11:55:54 11:55:54 0321 [facility] 2022-05-29 2022-05-29 Outpatient SFA SFA [id number] 023 [place] 10:52:52 10:52:52 0309 [facility] 2022-04-24 2022-04-24 Outpatient SFA SFA [id number] 023 [place] 11:25:02 11:25:02 0202 [facility] 2022-02-05 2022-02-05 Outpatient SFA SFA [id number] 022 [place] 15:43:44 15:43:44 1116 [facility] 2021-12-19 2021-12-19 Outpatient SFA SFA [id number] 022 [place] 14:45:29 14:45:29 0929 [facility] 2021-12-19 2021-12-19 Outpatient [id number] [id number]-3 00:00:00 00:00:00 Visit 8m1s-638g c7v-722r-q -pd0x-67z d8f-95z411 035i4q4dr b0d1ab 2021-12-12 2021-12-12 Outpatient [id number]- [id number] [id number]-d 00:00:00 00:00:00 Visit xu90-6ax9 c38-8bl1-2 -990a-keri 90a-efe2b5 [id number] 021bb1 2021-12-10 2021-12-10 [facility] Doctor CALHOUN [id number] Univers 00:00:00 00:00:00 Only Unassigned, [place] 350.1.13.10 [facility]y [facility] 4.2.7.2.686 Sae as [id number] [facility] 009 Branch 2021-10-31 2021-10-31 Outpatient [id number] 00:00:00 00:00:00 Visit z0y2-7491 8j1-3484-p -ri55-270 m78-117z1p [id number] 5811-08-02 2021-10-22 Outpatient [id number] [id number]-2 00:00:00 00:00:00 Visit 2e7h-21de a7e-14zz-p -i340-8fo 945-6dcbf4 [id number] 6702a1 2021-10-08 2021-10-08 Outpatient [id number] 00:00:00 00:00:00 Visit k838-7qdp 575-4faf-8 -89ff-038 [id number] 836kl32r1 fa84c2 2020-12-25 2020-12-25 [facility] [id number] [facility] 00:00:00 00:00:00 [place] [facility] 350.1.13.10 ity of [facility] [place] [id number] [facility] 059 Branch 2020-11-15 2020-11-15 [facility] [id number] Univers 09:10:44 23:59:00 Encounter [place] 350.1.13.10 [place] [id number] [facility] [address] 2020-11-15 2020-11-15 [facility] [id number] Univers 09:00:00 09:09:00 Encounter Clinton [place] 350.1.13.10 [place] [id number] [place] [address] [place] 2020-11-15 2020-11-15 Outpatient R TOMÁS, [facility] [id number] Univers 00:00:00 00:00:00 CLINTON castillo [facility] Results Test Description Test Time Test Comments Results Result Comments Source CULTURE, URINE 2022-12-05 SPECIMEN NUMBER: 09:02:01 [id number] CULTURE, URINE SPECIMEN NUMBER: [id number] SPECIMEN COMMENT: URINE SOURCE: URINE REPORT STATUS: FINAL FINAL REPORT: 12/05/2022 50-100,000 CFU/ML UROGENITAL RADHA PRESENT NO COMMON PATHOGENS UNLESS OTHERWISE INDICATED, ALL TESTING PERFORMED AT [facility], [facility]. [address] [place] [address] HOME ENERGY RATER: TAYLER MCDOWELL M.D. CLIA NUMBER [id number] [place]. [id number] OCCULT BLD,FECAL,IMMUNOASSAY DIAG 2022-07-18 12:39:44 Test Item Value Reference Range Interpretation Comme nts OCCULT BLD, FECAL (test NEGATIVE NEGATIVE [facility] has important pathology staff code = 11034) changes effect abdi 05/21/2022. New pathology staff will provide uninterrupted, excellent patient care and clinical co nsultation. See URL: [email or web address]. UNLESS OTHERWISE INDIC ATED, [facility]. [address] [place] [address] KELLY MCCAIN DIRECTOR: TAYLER MCDOWLEL M.D. C MARCY NUMBER [id number] CAP ACCREDITATION N O. [id number] PARMJIT (ANTI-NUCLEAR AB) WITH REFLEX [id number] 02:36:39 Test Item Value Reference Range Interpretation Comments ANTI-NUCLEAR NEGATIVE NEGATIVE Methodology is ANTIBODIES (test Indirect code = 3506) Immunofluoresce nt Assay (IFA) with a Q-Sensei system using He p2000 cells (Hep2 gavin ls transfected wit h SS-A/Ro). PARMJIT PATTERN SEE BELOW (REPORTED TITER) (test code = 41667) HOMOGENEOUS (test NEGATIVE TITER NEGATIVE code = 86934) SPECKLED (test NEGATIVE TITER NEGATIVE code = 137060) DENSE FINE NEGATIVE TITER NEGATIVE SPECKLED (test code = 19615) CENTROMERE (test NEGATIVE TITER NEGATIVE code = 952234) COARSE SPECKLED NEGATIVE TITER NEGATIVE (test code = 299952) DISCRETE NUCLEAR NEGATIVE TITER NEGATIVE DOTS (test code = 374411) NUCLEOLAR (test NEGATIVE TITER NEGATIVE code = 536988) NUCLEAR MEMBRANE NEGATIVE TITER NEGATIVE (test code = 736276) CYTO. RETICULAR NEGATIVE NEGATIVE (JEANNETTE) (test code = 484367) COMMENTS (test NONE code = 706804) METHOD (test code (NOTE) TESTING P ERFORMED BY = 25148) [facility] DIAGNOST[facility] CS NOVA VIEW IFA PLATFO RM.THE METHOD INCLUDES A SCREEN THRESHOL D OF 1:80, DIGITIZED AND COMPUTER ALGORITHM-KIEL CAMDEN INTERPRETATION OF TITERS AND DIGI DARLENE PATTERNS, AND H Ep-2 CELL LINE SUBST RATE. ADDITIONAL UNUS UAL PATTERNS WILL B E GIVEN COMMENTS.FOR MORE INFORMATION, SE E [email or web address] URIC [id number] 06:50:13 Test Item Value Reference Range Interpretation Comments URIC ACID (test code = 2233) 3.9 MG/DL 2.7-6.1 COMPREHENSIVE METABOLIC [id number] 06:50:13 Test Item Value Reference Range Interpretation Comments GLUCOSE (test code = 100 MG/DL 70-99 H 2216) BUN (test code = 20 MG/DL -2207) CREATININE (test 1.10 MG/DL 0.60-1.30 code = 2214) eGFR (2020 CKD-EPI) 57 ML/MIN/1.73 >60 L The N KF-ASN (test code = 23412) Taskforc e recommends use of Cystatin C to confirm eGFR inadults at ris k for CKD. [facility] offers eGFR with Cystatin C-Creatinineusi ng the 2020 CKD-EP I eGFR_creat-cyst at equation (order code 3057) toincreas e the accuracy of estimated GFR. For more informatio n, contactyour acc ount executive or se e announcement [email or web address] [email or web address] CALC BUN/CREAT (test 18 RATIO - code = 2235) SODIUM (test code = 145 MEQ/L 972-080 0954) POTASSIUM (test code 4.1 MEQ/L 3.5-5.4 = 2227) CHLORIDE (test code 108 MEQ/L 95-107 H = 2214) CARBON DIOXIDE (test 25 MEQ/L 19-31 code = 2206) CALCIUM (test code = 9.4 MG/DL 8.5-10.5 2208) PROTEIN, TOTAL (test 6.8 G/DL 6.1-8.3 code = 2229) ALBUMIN (test code = 4.3 G/DL 3.5-5.2 2200) CALC GLOBULIN (test 2.5 G/DL 1.9-3.7 code = 2240) CALC A/G RATIO (test 1.7 RATIO 1.0-2.6 code = 2234) BILIRUBIN, TOTAL 0.3 MG/DL See_Comment [Automated message] (test code = 2207) The syste m which generated this result transmit camden reference range : <=1.2. The refe rence range was not u sed to interpret th is result as normal/abnormal . ALKALINE PHOSPHATASE 98 U/L 40-140 (test code = 2204) AST (test code = 15 U/L 9-40 2217) ALT (test code = 8 U/L 5-40 2218) LIPID [id number] 06:50:13 Test Item Value Reference Range Interpretation Comments CHOLESTEROL (test 189 MG/DL <200 code = 2210) TRIGLYCERIDES (test 57 MG/DL <150 code = 2232) HDL CHOLESTEROL (test 59 MG/DL >39 code = 2220) CALC LDL CHOL (test 116 MG/DL <100 H NOTE: C ALCULATED LDL code = 2237) IS BASED ON MARY-CRUZ METHOD WHICHINCLUDES ADJUSTABLE TRIGLYCERIDE:VL DL CHOLESTEROL RAT IO.THIS FACTOR VARIES B Y MEASURED TRIGLY CERIDE AND NON-HDLCHOL ESTEROL CONCENTRATIONS WITH INCREASED CALCU LATED LDL SEENIN HIGH ER TRIGLYCERIDE OR LOWER NON-HDL SPECIME NS. FOR MOREINFORMATION , SEE CLIENT ANNOUNCE MENT AT [email or web address] RATIO LDL/HDL 1.97 RATIO <3.22 [facility] has important (test code = 2238) pathology staff changes effecti ve 05/21/2022. New pathology staff will provide uninter rupted, excellent patie nt care and clinical consultation. S ee URL: [email or web address] [email or web address]. UNLES S OTHERWISE INDIC ATED, ALL TESTING PER FORMED AT [facility] DrAvailable, I [place]. [address] [facility] [place] [address] [facility] DIRECTOR: RAI MCDOWELL M.D. C MARCY NUMBER [id number] CAP ACCREDITATION N O. [id number] RHEUMATOID FACTOR, [id number] 06:48:54 Test Item Value Reference Range Interpretation Comments RHEUMATOID FACTOR, QUANT (test code 10 IU/ML <14 = 3502) CCP [id number] 05:19:04 Test Item Value Reference Range Interpretation Comments CCP IgG (test <0.5 U/ML <3.0 INTERPRET ABDI code = 71678) INFORMATION * INTERPRETATION RESULT NEGATIVE <3.0 U /ML POSITIVE >=3.0 U/ML HEMOGLOBIN [id number] 04:37:25 Test Item Value Reference Range Interpretation Comments HEMOGLOBIN A1c (test code = 77612) 5.2 % 4.2-5.6 CULTURE, [id number] 14:35:34SPECIMEN NUMBER: [id number] CULTURE, URINE SPECIMEN NUMBER: [id number] SPECIMEN COMMENT: URINE SOURCE:URINE REPORT STATUS: FINAL FINAL REPORT: 05/31/2022 >100,000 CFU/ML UROGENITAL RADHA PRESENT NO CO MMON PATHOGENS [facility] has important pathology staff changes effective 05/21/2022. New pathologystaff will provide uninterrupted, excellent patient care and clinical consultation. See URL: [email or web address]. UNLESS OTHERWISE INDICATED, ALL TESTING PERFORMED AT [facility] [address] [place] [id number] HOME [employer]ERGY RATER: Bessie FAMIA [id number] [place]. [id number], [id number] 15:09:51SPECIMEN NUMBER: [id number] CULTURE, ANAEROBIC SPECIMEN NUMBER: [id number] SPECIMEN COMMENT: LEFT FOOT;[id number] SOURCE: FOOT REPORT STATUS: FINAL FINAL REPORT: 10/31/2021 NO ANAEROBES RECOVERED AFTER 5 DAYS UNLESS OTHERWISE INDICATED, [facility] [address] [place] [id number] HOME ENERGY RATER: ISIDRA AYERS M.D. CLIA NUMBER [id number] [place]. [id number], ANAEROBIC [ADDED] 2021-10-31 00:00:00 Test Item Value Reference Range Interpretation Comments CULTURE, ANAEROBIC SPECIMEN NUMBER: (test code = 35441) [id number] CULTURE, ANAEROBIC [ADDED]2021-10-31 00:00:00 Test Item Value Reference Range Interpretation Comments CULTURE, ANAEROBIC SPECIMEN NUMBER: (test code = 03221) [id number] CULTURE, ANAEROBIC [ADDED]2021-10-31 00:00:00 Test Item Value Reference Range Interpretation Comments CULTURE, ANAEROBIC SPECIMEN NUMBER: (test code = 23932) [id number] CULTURE, ANAEROBIC [ADDED]2021-10-31 00:00:00 Test Item Value Reference Range Interpretation Comments CULTURE, ANAEROBIC SPECIMEN NUMBER: (test code = 94329) [id number] CULTURE, ANAEROBIC [ADDED]2021-10-31 00:00:00 Test Item Value Reference Range Interpretation Comments CULTURE, ANAEROBIC SPECIMEN NUMBER: (test code = 19168) [id number] CULTURE, ANAEROBIC [ADDED]2021-10-31 00:00:00 Test Item Value Reference Range Interpretation Comments CULTURE, ANAEROBIC SPECIMEN NUMBER: (test code = 49481) [id number] CULTURE, ANAEROBIC [ADDED]2021-10-31 00:00:00 Test Item Value Reference Range Interpretation Comments CULTURE, ANAEROBIC SPECIMEN NUMBER: (test code = 83049) [id number] CULTURE, ANAEROBIC [ADDED]2021-10-31 00:00:00 Test Item Value Reference Range Interpretation Comments CULTURE, ANAEROBIC SPECIMEN NUMBER: (test code = 79842) [id number] CULTURE, [id number] 15:04:12SPECIMEN NUMBER: [id number] CULTURE, ROUTINE SPECIMEN NUMBER: [id number] SPECIMEN COMMENT: L FOOT WOU SOURCE: FOOT REPORT STATUS: FINAL DIRECT GRAM STAIN: NO WBCs SEEN RARE GRAM POSITIVE COCCI ABUNDANT GRAM NEGATIVE BACILLI ISOLATE NUMBER 1: ORGANISM: 10/25/2021 ABUNDANT GRAM NEGATIVE BACILLI IDENTIFICATION: 10/26/2021 PSEUDOMONAS AERUGINOSA ISOLATE NUMBER 2: ORGANISM: 10/29/2021 ABUNDANT GRAM NEGATIVEBACILLI IDENTIFICATION: 10/30/2021 KLEBSIELLA AEROGENES ISOLATE NUMBER 3: IDENTIFICATION: 10/30/2021 MODERATE BETA-STREPTOCOCCUS GROUP B ADDITIONAL OBSERVATIONS: PENICILLIN AND AMPICILLIN ARE DRUGS OF CHOICE FOR TREATMENT OF B-HEMOLYTIC STREPTOCOCCAL INFECTIONS. SUSCEPTIBILITY TESTING OF PENICILLIN AND OTHER B-LACTAMS APPROVED BY THE [place] FOOD AND DRUG ADMINISTRATION FOR TREATMENT OF B-HEMOLYTIC STREPTOCOCCAL INFECTIONS NEED NOT BE PERFORMED ROUTINELY. P. AERUGINOSA K. AEROGENES AMIKACIN SENSITIVE <=16AMOXICILLIN/CA RESISTANT <=8/4AMPICILLIN RESISTANT <=8CEFAZOLIN RESISTANT >16CEFEPIME SENSITIVE <=2CEFTAZIDIME SENSITIVE 4CIPROFLOXACIN SENSITIVE <=1INTERMED 2LEVOFLOXACIN SENSITIVE <=2 SENSITIVE <=2MEROPENEM SENSITIVE <=1PIP/TAZOBAC SENSITIVE <=16 SENSITIVE <=16TETRACYCLINE SENSITIVE <=4TOBRAMYCIN SENSITIVE <=4 SENSITIVE <=4TRIMETH/SULFA SENSITIVE <=2/38 NOTE: NUMBERS DISPLAYED REPRESENT MINIMUM INHIBITORY CONCENTRATION (ABHISHEK) WHICH IS EXPRESSED IN MCG/ML. UNLESS OTHERWISE INDICATED, ALL TESTING PERFORMED [facility] [address] [place] [address] HOME ENERGY RATER: ISIDRA AYERS M.D. CLIA NUMBER [id number] [facility] [place]. [id number], [id number] 00:00:00 Test Item Value Reference Range Interpretation Comments CULTURE, ROUTINE (test SPECIMEN NUMBER: code = 70585) [id number] CULTURE, [id number] 00:00:00 Test Item Value Reference Range Interpretation Comments CULTURE, ROUTINE (test SPECIMEN NUMBER: code = 39093) [id number] CULTURE, [id number] 00:00:00 Test Item Value Reference Range Interpretation Comments CULTURE, ROUTINE (test SPECIMEN NUMBER: code = 44527) [id number] CULTURE, [id number] 00:00:00 Test Item Value Reference Range Interpretation Comments CULTURE, ROUTINE (test SPECIMEN NUMBER: code = 25330) [id number] CULTURE, [id number] 00:00:00 Test Item Value Reference Range Interpretation Comments CULTURE, ROUTINE (test SPECIMEN NUMBER: code = 09232) [id number] CULTURE, [id number] 00:00:00 Test Item Value Reference Range Interpretation Comments CULTURE, ROUTINE (test SPECIMEN NUMBER: code = 54999) [id number] CULTURE, [id number] 00:00:00 Test Item Value Reference Range Interpretation Comments CULTURE, ROUTINE (test SPECIMEN NUMBER: code = 61843) [id number] CULTURE, [id number] 00:00:00 Test Item Value Reference Range Interpretation Comments CULTURE, ROUTINE (test SPECIMEN NUMBER: code = 23657) [id number] CULTURE, [id number] 00:00:00 Test Item Value Reference Range Interpretation Comments CULTURE, ROUTINE (test SPECIMEN NUMBER: code = 90811) [id number] CULTURE, [id number] 00:00:00 Test Item Value Reference Range Interpretation Comments CULTURE, ROUTINE (test SPECIMEN NUMBER: code = 78119) [id number] CULTURE, [id number] 00:00:00 Test Item Value Reference Range Interpretation Comments CULTURE, ROUTINE (test SPECIMEN NUMBER: code = 45829) [id number] CULTURE, [id number] 00:00:00 Test Item Value Reference Range Interpretation Comments CULTURE, ROUTINE (test SPECIMEN NUMBER: code = 13731) [id number] CBC W/AUTO DIFF WITH [id number] 11:25:56 Test Item Value Reference Range Interpretation [...] = 1008) DIFFERENTIAL CONFIRMED WITH MANUAL SLIDE REVIEW. LYMPHOCYTES (test 28.3 % code = 1010) MONOCYTES (test code 7.2 % = 1011) EOSINOPHILS (test 0.7 % code = 1012) BASOPHILS (test code 0.7 % = 1013) IMMATURE 0.6 % GRANULOCYTES (test code = 1036) NUCLEATED RBCS (test 0.0 /100 See_Comment [Autom ated message] code = 1065) WBC'S The system [employer] h generated this result transmitted ref erence range: [...] RBCS 0.00 K/UL 0.00-0.11 (test code = 12967) COMMENTS (test code (NOTE) NO SPEC IFIC RBC = 1016) ABNORMALITIES IDENTIFIED SEE ADDITIONAL COMM ENTS BELOW: PLATELET CLUMPING PRESEN T; TRUE PLATELET C OUNT MAY BE HIGHER. IF CLINICALLY BARBARA CATED, ORDER REPEAT PL ATELET COUNT WITH CITR ATE ANTICOAGULATED TUBE (CPL ORDER CODE 1047). HEMOGLOBIN [id number] 06:07:51 Test Item Value Reference Range Interpretation Comments HEMOGLOBIN A1c (test 5.2 % 4.2-5.6 UNLESS OTHERWISE code = 53909) INDICATED, ALL TESTING PERFORMED [facility], [facility]. [address] [place] [id number] [place] [address] DIRECTOR: ISIDRA AYERS M.D. CLIA NUMBER [id number] CAP ACCREDITATION N O. [id number] COMPREHENSIVE METABOLIC [id number] 05:35:34 Test Item Value Reference Range Interpretation Comments GLUCOSE (test code = 95 MG/DL 70-99 2216) BUN (test code = 18 MG/DL -2207) CREATININE (test 0.94 MG/DL 0.60-1.30 code = 2214) eGFR (2020 CKD-EPI) 69 ML/MIN/1.73 >60 (test code = 12624) CALC BUN/CREAT (test 19 RATIO 6-28 code = 2235) SODIUM (test code = 143 MEQ/L 181-544 1822) POTASSIUM (test code 3.9 MEQ/L 3.5-5.4 = 2228) CHLORIDE (test code 104 MEQ/L 95-107 = 2215) CARBON DIOXIDE (test 26 MEQ/L 19-31 code = 2206) CALCIUM (test code = 9.7 MG/DL 8.5-10.5 2208) PROTEIN, TOTAL (test 7.5 G/DL 6.1-8.3 code = 2229) ALBUMIN (test code = 4.3 G/DL 3.5-5.2 2200) CALC GLOBULIN (test 3.2 G/DL 1.9-3.7 code = 2240) CALC A/G RATIO (test 1.3 RATIO 1.0-2.6 code = 2234) BILIRUBIN, TOTAL 0.4 MG/DL See_Comment [Automated message] (test code = 2207) The syste m which generated this result transmit [place] reference range : <=1.2. The refe rence range was not u sed to interpret th is result as normal/abnormal . ALKALINE PHOSPHATASE 89 U/L 40-136 (test code = 2204) AST (test code = 18 U/L 9-40 2217) ALT (test code = 15 U/L 5-40 2218) LIPID [id number] 05:35:34 Test Item Value Reference Range Interpretation [...] MOREINFORMATION , SEE CLIENT ANNOUNCE MENT AT [email or web address] RISK RATIO LDL/HDL 1.88 RATIO <3.22 (test code = 2238) CBC W/AUTO [id number] 00:00:00 Test Item Value Reference Range Interpretation [...] NUCLEATED RBCS (test code = 0.00 K/UL 17830) COMMENTS (test code = 1016) (NOTE) CBC W/AUTO [id number] 00:00:00 Test Item Value Reference Range Interpretation [...] NUCLEATED RBCS (test code = 0.00 K/UL 44152) COMMENTS (test code = 1016) (NOTE) CBC W/AUTO [id number] 00:00:00 Test Item Value Reference Range Interpretation [...] NUCLEATED RBCS (test code = 0.00 K/UL 53074) COMMENTS (test code = 1016) (NOTE) COMPREHENSIVE METABOLIC [id number] 00:00:00 Test Item Value Reference Range Interpretation Comments GLUCOSE (test code = 2217) 95 MG/DL BUN (test code = 2208) 18 MG/DL CREATININE (test code = 2214) 0.94 MG/DL eGFR (2020 CKD-EPI) (test code 69 ML/MIN/1.73 = 18654) CALC BUN/CREAT (test code = 19 RATIO [...] CALC GLOBULIN (test code = 3.2 G/DL 224) CALC A/G RATIO (test code = 1.3 RATIO 2234) BILIRUBIN, TOTAL (test code = 0.4 MG/DL 2206) ALKALINE PHOSPHATASE (test 89 U/L code = 2204) AST (test code = 2218) 18 U/L ALT (test code = 2219) 15 U/L COMPREHENSIVE METABOLIC [id number] 00:00:00 Test Item Value Reference Range Interpretation Comments GLUCOSE (test code = 2217) 95 MG/DL BUN (test code = 2208) 18 MG/DL CREATININE (test code = 2214) 0.94 MG/DL eGFR (2020 CKD-EPI) (test code 69 ML/MIN/1.73 = 54775) CALC BUN/CREAT (test code = 19 RATIO [...] (test code = 2219) 15 U/L LIPID [id number] 00:00:00 Test Item Value Reference Range Interpretation Comments CHOLESTEROL (test code = 2210) 186 MG/DL TRIGLYCERIDES (test code = 2232) 94 MG/DL HDL CHOLESTEROL (test code = 2220) 58 MG/DL CALC LDL CHOL (test code = 2237) 109 MG/DL RISK RATIO LDL/HDL (test code = 1.88 RATIO 2238) LIPID [id number] 00:00:00 Test Item Value Reference Range Interpretation Comments CHOLESTEROL (test code = 2210) 186 MG/DL TRIGLYCERIDES (test code = 2232) 94 MG/DL HDL CHOLESTEROL (test code = 2220) 58 MG/DL CALC LDL CHOL (test code = 2237) 109 MG/DL RISK RATIO LDL/HDL (test code = 1.88 RATIO 2238) HEMOGLOBIN [id number] 00:00:00 Test Item Value Reference Range Interpretation Comments HEMOGLOBIN A1c (test code = 08495) 5.2 % HEMOGLOBIN [id number] 00:00:00 Test Item Value Reference Range Interpretation Comments HEMOGLOBIN A1c (test code = 49211) 5.2 % HEMOGLOBIN [id number] 00:00:00 Test Item Value Reference Range Interpretation Comments HEMOGLOBIN A1c (test code = 14949) 5.2 % CBC W/AUTO [id number] 00:00:00 Test Item Value Reference Range Interpretation [...] NUCLEATED RBCS (test code = 0.00 K/UL 88462) COMMENTS (test code = 1016) (NOTE) CBC W/AUTO [id number] 00:00:00 Test Item Value Reference Range Interpretation [...] NUCLEATED RBCS (test code = 0.00 K/UL 77342) COMMENTS (test code = 1016) (NOTE) CBC W/AUTO [id number] 00:00:00 Test Item Value Reference Range Interpretation [...] NUCLEATED RBCS (test code = 0.00 K/UL 73524) COMMENTS (test code = 1016) (NOTE) COMPREHENSIVE METABOLIC [id number] 00:00:00 Test Item Value Reference Range Interpretation Comments GLUCOSE (test code = 2217) 95 MG/DL BUN (test code = 2208) 18 MG/DL CREATININE (test code = 2214) 0.94 MG/DL eGFR (2020 CKD-EPI) (test code 69 ML/MIN/1.73 = 68000) CALC BUN/CREAT (test code = 19 RATIO [...] code = 2219) 15 U/L COMPREHENSIVE METABOLIC [id number] 00:00:00 Test Item Value Reference Range Interpretation Comments GLUCOSE (test code = 2217) 95 MG/DL BUN (test code = 2208) 18 MG/DL CREATININE (test code = 2214) 0.94 MG/DL eGFR (2020 CKD-EPI) (test code 69 ML/MIN/1.73 = 75009) CALC BUN/CREAT (test code = 19 RATIO [...] (test code = 2219) 15 U/L LIPID [id number] 00:00:00 Test Item Value Reference Range Interpretation Comments CHOLESTEROL (test code = 2210) 186 MG/DL TRIGLYCERIDES (test code = 2232) 94 MG/DL HDL CHOLESTEROL (test code = 2220) 58 MG/DL CALC LDL CHOL (test code = 2237) 109 MG/DL RISK RATIO LDL/HDL (test code = 1.88 RATIO 2238) LIPID [id number] 00:00:00 Test Item Value Reference Range Interpretation Comments CHOLESTEROL (test code = 2210) 186 MG/DL TRIGLYCERIDES (test code = 2232) 94 MG/DL HDL CHOLESTEROL (test code = 2220) 58 MG/DL CALC LDL CHOL (test code = 2237) 109 MG/DL RISK RATIO LDL/HDL (test code = 1.88 RATIO 2238) HEMOGLOBIN [id number] 00:00:00 Test Item Value Reference Range Interpretation Comments HEMOGLOBIN A1c (test code = 41550) 5.2 % HEMOGLOBIN [id number] 00:00:00 Test Item Value Reference Range Interpretation Comments HEMOGLOBIN A1c (test code = 08810) 5.2 % HEMOGLOBIN [id number] 00:00:00 Test Item Value Reference Range Interpretation Comments HEMOGLOBIN A1c (test code = 12131) 5.2 % CBC W/AUTO [id number] 00:00:00 Test Item Value Reference Range Interpretation [...] NUCLEATED RBCS (test code = 0.00 K/UL 67785) COMMENTS (test code = 1016) (NOTE) CBC W/AUTO [id number] 00:00:00 Test Item Value Reference Range Interpretation [...] NUCLEATED RBCS (test code = 0.00 K/UL 07495) COMMENTS (test code = 1016) (NOTE) CBC W/AUTO [id number] 00:00:00 Test Item Value Reference Range Interpretation [...] NUCLEATED RBCS (test code = 0.00 K/UL 24617) COMMENTS (test code = 1016) (NOTE) COMPREHENSIVE METABOLIC [id number] 00:00:00 Test Item Value Reference Range Interpretation Comments GLUCOSE (test code = 2217) 95 MG/DL BUN (test code = 2208) 18 MG/DL CREATININE (test code = 2214) 0.94 MG/DL eGFR (2020 CKD-EPI) (test code 69 ML/MIN/1.73 = 38314) CALC BUN/CREAT (test code = 19 RATIO [...] code = 2219) 15 U/L COMPREHENSIVE METABOLIC [id number] 00:00:00 Test Item Value Reference Range Interpretation Comments GLUCOSE (test code = 2217) 95 MG/DL BUN (test code = 2208) 18 MG/DL CREATININE (test code = 2214) 0.94 MG/DL eGFR (2020 CKD-EPI) (test code 69 ML/MIN/1.73 = 76332) CALC BUN/CREAT (test code = 19 RATIO [...] CALC GLOBULIN (test code = 3.2 G/DL 2239) CALC A/G RATIO (test code = 1.3 RATIO 2233) BILIRUBIN, TOTAL (test code = 0.4 MG/DL 2206) ALKALINE PHOSPHATASE (test 89 U/L code = 2204) AST (test code = 2218) 18 U/L ALT (test code = 2219) 15 U/L LIPID [id number] 00:00:00 Test Item Value Reference Range Interpretation Comments CHOLESTEROL (test code = 2210) 186 MG/DL TRIGLYCERIDES (test code = 2232) 94 MG/DL HDL CHOLESTEROL (test code = 2220) 58 MG/DL CALC LDL CHOL (test code = 2237) 109 MG/DL RISK RATIO LDL/HDL (test code = 1.88 RATIO 2238) LIPID [id number] 00:00:00 Test Item Value Reference Range Interpretation Comments CHOLESTEROL (test code = 2210) 186 MG/DL TRIGLYCERIDES (test code = 2232) 94 MG/DL HDL CHOLESTEROL (test code = 2220) 58 MG/DL CALC LDL CHOL (test code = 2237) 109 MG/DL RISK RATIO LDL/HDL (test code = 1.88 RATIO 2238) HEMOGLOBIN [id number] 00:00:00 Test Item Value Reference Range Interpretation Comments HEMOGLOBIN A1c (test code = 69638) 5.2 % HEMOGLOBIN [id number] 00:00:00 Test Item Value Reference Range Interpretation Comments HEMOGLOBIN A1c (test code = 35772) 5.2 % HEMOGLOBIN [id number] 00:00:00 Test Item Value Reference Range Interpretation Comments HEMOGLOBIN A1c (test code = 30699) 5.2 % CBC W/AUTO [id number] 00:00:00 Test Item Value Reference Range Interpretation [...] NUCLEATED RBCS (test code = 0.00 K/UL 86366) COMMENTS (test code = 1016) (NOTE) CBC W/AUTO [id number] 00:00:00 Test Item Value Reference Range Interpretation [...] NUCLEATED RBCS (test code = 0.00 K/UL 25095) COMMENTS (test code = 1016) (NOTE) CBC W/AUTO [id number] 00:00:00 Test Item Value Reference Range Interpretation [...] NUCLEATED RBCS (test code = 0.00 K/UL 41793) COMMENTS (test code = 1016) (NOTE) COMPREHENSIVE METABOLIC [id number] 00:00:00 Test Item Value Reference Range Interpretation Comments GLUCOSE (test code = 2217) 95 MG/DL BUN (test code = 2208) 18 MG/DL CREATININE (test code = 2214) 0.94 MG/DL eGFR (2020 CKD-EPI) (test code 69 ML/MIN/1.73 = 84387) CALC BUN/CREAT (test code = 19 RATIO [...] code = 2219) 15 U/L COMPREHENSIVE METABOLIC [id number] 00:00:00 Test Item Value Reference Range Interpretation Comments GLUCOSE (test code = 2217) 95 MG/DL BUN (test code = 2208) 18 MG/DL CREATININE (test code = 2214) 0.94 MG/DL eGFR (2020 CKD-EPI) (test code 69 ML/MIN/1.73 = 23665) CALC BUN/CREAT (test code = 19 RATIO [...] (test code = 2219) 15 U/L LIPID [id number] 00:00:00 Test Item Value Reference Range Interpretation Comments CHOLESTEROL (test code = 2210) 186 MG/DL TRIGLYCERIDES (test code = 2232) 94 MG/DL HDL CHOLESTEROL (test code = 2220) 58 MG/DL CALC LDL CHOL (test code = 2237) 109 MG/DL RISK RATIO LDL/HDL (test code = 1.88 RATIO 2238) LIPID [id number] 00:00:00 Test Item Value Reference Range Interpretation Comments CHOLESTEROL (test code = 2210) 186 MG/DL TRIGLYCERIDES (test code = 2232) 94 MG/DL HDL CHOLESTEROL (test code = 2220) 58 MG/DL CALC LDL CHOL (test code = 2237) 109 MG/DL RISK RATIO LDL/HDL (test code = 1.88 RATIO 2238) HEMOGLOBIN [id number] 00:00:00 Test Item Value Reference Range Interpretation Comments HEMOGLOBIN A1c (test code = 04033) 5.2 % HEMOGLOBIN [id number] 00:00:00 Test Item Value Reference Range Interpretation Comments HEMOGLOBIN A1c (test code = 28909) 5.2 % HEMOGLOBIN [id number] 00:00:00 Test Item Value Reference Range Interpretation Comments HEMOGLOBIN A1c (test code = 63426) 5.2 % CULTURE, [id number] 00:00:00 Test Item Value Reference Range Interpretation Comments CULTURE, URINE (test SPECIMEN NUMBER: code = 23259) [id number] CULTURE, [id number] 00:00:00 Test Item Value Reference Range Interpretation Comments CULTURE, URINE (test SPECIMEN NUMBER: code = 16211) [id number] CULTURE, [id number] 00:00:00 Test Item Value Reference Range Interpretation Comments CULTURE, URINE (test SPECIMEN NUMBER: code = 83377) [id number] CULTURE, [id number] 00:00:00 Test Item Value Reference Range Interpretation Comments CULTURE, URINE (test SPECIMEN NUMBER: code = 62760) [id number] CULTURE, [id number] 00:00:00 Test Item Value Reference Range Interpretation Comments CULTURE, URINE (test SPECIMEN NUMBER: code = 24573) [id number] CULTURE, [id number] 00:00:00 Test Item Value Reference Range Interpretation Comments CULTURE, URINE (test SPECIMEN NUMBER: code = 16182) [id number] CULTURE, [id number] 00:00:00 Test Item Value Reference Range Interpretation Comments CULTURE, URINE (test SPECIMEN NUMBER: code = 29474) [id number] CULTURE, [id number] 00:00:00 Test Item Value Reference Range Interpretation Comments CULTURE, URINE (test SPECIMEN NUMBER: code = 30015) [id number] CULTURE, [id number] 00:00:00 Test Item Value Reference Range Interpretation Comments CULTURE, URINE (test SPECIMEN NUMBER: code = 13002) [id number] COMPREHENSIVE METABOLIC [id number] 00:00:00 Test Item Value Reference Range Interpretation Comments GLUCOSE (test code = 2217) 99 MG/DL BUN (test code = 2208) 14 MG/DL CREATININE (test code = 2214) 0.79 MG/DL eGFR AMER. (test code 95 ML/MIN/1.73 = 04628) eGFR NON- AMER. (test 82 ML/MIN/1.73 code = 12987) CALC BUN/CREAT (test code = 18 RATIO [...] (test code = 2219) 14 U/L HEMOGLOBIN [id number] 00:00:00 Test Item Value Reference Range Interpretation Comments HEMOGLOBIN A1c (test code = 92594) 5.2 % HEMOGLOBIN [id number] 00:00:00 Test Item Value Reference Range Interpretation Comments HEMOGLOBIN A1c (test code = 25901) 5.2 % [id number] 00:00:00 Test Item Value Reference Range Interpretation Comments TSH, THIRD GENERATION (test code 2.780 UIU/ML = 2821) [id number] 00:00:00 Test Item Value Reference Range Interpretation Comments TSH, THIRD GENERATION (test code 2.780 UIU/ML = 2821) LIPID [id number] 00:00:00 Test Item Value Reference Range Interpretation Comments CHOLESTEROL (test code = 2210) 195 MG/DL TRIGLYCERIDES (test code = 2232) 61 MG/DL HDL CHOLESTEROL (test code = 2220) 64 MG/DL CALC LDL CHOL (test code = 2237) 116 MG/DL RISK RATIO LDL/HDL (test code = 1.81 RATIO 2238) [id number] 00:00:00 Test Item Value Reference Range Interpretation Comments NT-proBNP (test code = 57876) 204 PG/ML [id number] 00:00:00 Test Item Value Reference Range Interpretation Comments NT-proBNP (test code = 79443) 204 PG/ML COMPREHENSIVE METABOLIC [id number] 00:00:00 Test Item Value Reference Range Interpretation Comments GLUCOSE (test code = 2217) 99 MG/DL BUN (test code = 2208) 14 MG/DL CREATININE (test code = 2214) 0.79 MG/DL eGFR AMER. (test code 95 ML/MIN/1.73 = 97258) eGFR NON- AMER. (test 82 ML/MIN/1.73 code = 44518) CALC BUN/CREAT (test code = 18 RATIO [...] ALKALINE PHOSPHATASE (test 105 U/L code = 220) AST (test code = 2218) 18 U/L ALT (test code = 2219) 14 U/L COMPREHENSIVE METABOLIC [id number] 00:00:00 Test Item Value Reference Range Interpretation Comments GLUCOSE (test code = 2217) 99 MG/DL BUN (test code = 2208) 14 MG/DL CREATININE (test code = 2214) 0.79 MG/DL eGFR AMER. (test code 95 ML/MIN/1.73 = 02561) eGFR NON- AMER. (test 82 ML/MIN/1.73 code = 19649) CALC BUN/CREAT (test code = 18 RATIO [...] (test code = 2219) 14 U/L HEMOGLOBIN [id number] 00:00:00 Test Item Value Reference Range Interpretation Comments HEMOGLOBIN A1c (test code = 90541) 5.2 % HEMOGLOBIN [id number] 00:00:00 Test Item Value Reference Range Interpretation Comments HEMOGLOBIN A1c (test code = 88370) 5.2 % HEMOGLOBIN [id number] 00:00:00 Test Item Value Reference Range Interpretation Comments HEMOGLOBIN A1c (test code = 39170) 5.2 % [id number] 00:00:00 Test Item Value Reference Range Interpretation Comments TSH, THIRD GENERATION (test code 2.780 UIU/ML = 2821) [id number] 00:00:00 Test Item Value Reference Range Interpretation Comments TSH, THIRD GENERATION (test code 2.780 UIU/ML = 2821) [id number] 00:00:00 Test Item Value Reference Range Interpretation Comments TSH, THIRD GENERATION (test code 2.780 UIU/ML = 2821) LIPID [id number] 00:00:00 Test Item Value Reference Range Interpretation Comments CHOLESTEROL (test code = 2210) 195 MG/DL TRIGLYCERIDES (test code = 2232) 61 MG/DL HDL CHOLESTEROL (test code = 2220) 64 MG/DL CALC LDL CHOL (test code = 2237) 116 MG/DL RISK RATIO LDL/HDL (test code = 1.81 RATIO 2238) LIPID [id number] 00:00:00 Test Item Value Reference Range Interpretation Comments CHOLESTEROL (test code = 2210) 195 MG/DL TRIGLYCERIDES (test code = 2232) 61 MG/DL HDL CHOLESTEROL (test code = 2220) 64 MG/DL CALC LDL CHOL (test code = 2237) 116 MG/DL RISK RATIO LDL/HDL (test code = 1.81 RATIO 2238) [id number] 00:00:00 Test Item Value Reference Range Interpretation Comments NT-proBNP (test code = 58062) 204 PG/ML [id number] 00:00:00 Test Item Value Reference Range Interpretation Comments NT-proBNP (test code = 82621) 204 PG/ML [id number] 00:00:00 Test Item Value Reference Range Interpretation Comments NT-proBNP (test code = 02853) 204 PG/ML COMPREHENSIVE METABOLIC [id number] 00:00:00 Test Item Value Reference Range Interpretation Comments GLUCOSE (test code = 2217) 99 MG/DL BUN (test code = 2208) 14 MG/DL CREATININE (test code = 2214) 0.79 MG/DL eGFR AMER. (test code 95 ML/MIN/1.73 = 84818) eGFR NON- AMER. (test 82 ML/MIN/1.73 code = 22518) CALC BUN/CREAT (test code = 18 RATIO [...] code = 2219) 14 U/L COMPREHENSIVE METABOLIC [id number] 00:00:00 Test Item Value Reference Range Interpretation Comments GLUCOSE (test code = 2217) 99 MG/DL BUN (test code = 2208) 14 MG/DL CREATININE (test code = 2214) 0.79 MG/DL eGFR AMER. (test code 95 ML/MIN/1.73 = 42939) eGFR NON- AMER. (test 82 ML/MIN/1.73 code = 16170) CALC BUN/CREAT (test code = 18 RATIO [...] (test code = 2219) 14 U/L HEMOGLOBIN [id number] 00:00:00 Test Item Value Reference Range Interpretation Comments HEMOGLOBIN A1c (test code = 98301) 5.2 % HEMOGLOBIN [id number] 00:00:00 Test Item Value Reference Range Interpretation Comments HEMOGLOBIN A1c (test code = 76268) 5.2 % HEMOGLOBIN [id number] 00:00:00 Test Item Value Reference Range Interpretation Comments HEMOGLOBIN A1c (test code = 56242) 5.2 % [id number] 00:00:00 Test Item Value Reference Range Interpretation Comments TSH, THIRD GENERATION (test code 2.780 UIU/ML = 2821) [id number] 00:00:00 Test Item Value Reference Range Interpretation Comments TSH, THIRD GENERATION (test code 2.780 UIU/ML = 2821) [id number] 00:00:00 Test Item Value Reference Range Interpretation Comments TSH, THIRD GENERATION (test code 2.780 UIU/ML = 2821) LIPID [id number] 00:00:00 Test Item Value Reference Range Interpretation Comments CHOLESTEROL (test code = 2210) 195 MG/DL TRIGLYCERIDES (test code = 2232) 61 MG/DL HDL CHOLESTEROL (test code = 2220) 64 MG/DL CALC LDL CHOL (test code = 2237) 116 MG/DL RISK RATIO LDL/HDL (test code = 1.81 RATIO 2238) LIPID [id number] 00:00:00 Test Item Value Reference Range Interpretation Comments CHOLESTEROL (test code = 2210) 195 MG/DL TRIGLYCERIDES (test code = 2232) 61 MG/DL HDL CHOLESTEROL (test code = 2220) 64 MG/DL CALC LDL CHOL (test code = 2237) 116 MG/DL RISK RATIO LDL/HDL (test code = 1.81 RATIO 2238) [id number] 00:00:00 Test Item Value Reference Range Interpretation Comments NT-proBNP (test code = 91779) 204 PG/ML [id number] 00:00:00 Test Item Value Reference Range Interpretation Comments NT-proBNP (test code = 08698) 204 PG/ML [id number] 00:00:00 Test Item Value Reference Range Interpretation Comments NT-proBNP (test code = 06804) 204 PG/ML COMPREHENSIVE METABOLIC [id number] 00:00:00 Test Item Value Reference Range Interpretation Comments GLUCOSE (test code = 2217) 99 MG/DL BUN (test code = 2208) 14 MG/DL CREATININE (test code = 2214) 0.79 MG/DL eGFR AMER. (test code 95 ML/MIN/1.73 = 07781) eGFR NON- AMER. (test 82 ML/MIN/1.73 code = 58571) CALC BUN/CREAT (test code = 18 RATIO 2235) SODIUM (test code = 2231) 143 MEQ/L POTASSIUM (test code = 2228) 3.9 MEQ/L CHLORIDE (test code = 2215) 105 MEQ/L CARBON DIOXIDE (test code = 26 MEQ/L 220) CALCIUM (test code = 2209) 9.8 MG/DL PROTEIN, TOTAL (test code = 7.4 G/DL 222) ALBUMIN (test code = 2201) 4.3 G/DL CALC GLOBULIN (test code = 3.1 G/DL 2240) CALC A/G RATIO (test code = 1.4 RATIO 2234) BILIRUBIN, TOTAL (test code = 0.5 MG/DL 220) ALKALINE PHOSPHATASE (test 105 U/L code = 2204) AST (test code = 2218) 18 U/L ALT (test code = 2219) 14 U/L COMPREHENSIVE METABOLIC [id number] 00:00:00 Test Item Value Reference Range Interpretation Comments GLUCOSE (test code = 2217) 99 MG/DL BUN (test code = 2208) 14 MG/DL CREATININE (test code = 2214) 0.79 MG/DL eGFR AMER. (test code 95 ML/MIN/1.73 = 13186) eGFR NON- AMER. (test 82 ML/MIN/1.73 code = 92130) CALC BUN/CREAT (test code = 18 RATIO [...] (test code = 2219) 14 U/L HEMOGLOBIN [id number] 00:00:00 Test Item Value Reference Range Interpretation Comments HEMOGLOBIN A1c (test code = 98917) 5.2 % HEMOGLOBIN [id number] 00:00:00 Test Item Value Reference Range Interpretation Comments HEMOGLOBIN A1c (test code = 88479) 5.2 % HEMOGLOBIN [id number] 00:00:00 Test Item Value Reference Range Interpretation Comments HEMOGLOBIN A1c (test code = 69113) 5.2 % [id number] 00:00:00 Test Item Value Reference Range Interpretation Comments TSH, THIRD GENERATION (test code 2.780 UIU/ML = 2821) [id number] 00:00:00 Test Item Value Reference Range Interpretation Comments TSH, THIRD GENERATION (test code 2.780 UIU/ML = 2821) [id number] 00:00:00 Test Item Value Reference Range Interpretation Comments TSH, THIRD GENERATION (test code 2.780 UIU/ML = 2821) LIPID [id number] 00:00:00 Test Item Value Reference Range Interpretation Comments CHOLESTEROL (test code = 2210) 195 MG/DL TRIGLYCERIDES (test code = 2232) 61 MG/DL HDL CHOLESTEROL (test code = 2220) 64 MG/DL CALC LDL CHOL (test code = 2237) 116 MG/DL RISK RATIO LDL/HDL (test code = 1.81 RATIO 2238) LIPID [id number] 00:00:00 Test Item Value Reference Range Interpretation Comments CHOLESTEROL (test code = 2210) 195 MG/DL TRIGLYCERIDES (test code = 2232) 61 MG/DL HDL CHOLESTEROL (test code = 2220) 64 MG/DL CALC LDL CHOL (test code = 2237) 116 MG/DL RISK RATIO LDL/HDL (test code = 1.81 RATIO 2238) [id number] 00:00:00 Test Item Value Reference Range Interpretation Comments NT-proBNP (test code = 66810) 204 PG/ML [id number] 00:00:00 Test Item Value Reference Range Interpretation Comments NT-proBNP (test code = 81953) 204 PG/ML [id number] 00:00:00 Test Item Value Reference Range Interpretation Comments NT-proBNP (test code = 01161) 204 PG/ML COMPREHENSIVE METABOLIC [id number] 00:00:00 Test Item Value Reference Range Interpretation Comments GLUCOSE (test code = 2217) 99 MG/DL BUN (test code = 2208) 14 MG/DL CREATININE (test code = 2214) 0.79 MG/DL eGFR AMER. (test code 95 ML/MIN/1.73 = 77764) eGFR NON- AMER. (test 82 ML/MIN/1.73 code = 53288) CALC BUN/CREAT (test code = 18 RATIO 2235) SODIUM (test code = 2231) 143 MEQ/L POTASSIUM (test code = 2228) 3.9 MEQ/L CHLORIDE (test code = 2215) 105 MEQ/L CARBON DIOXIDE (test code = 26 MEQ/L 6) CALCIUM (test code = 2209) 9.8 MG/DL [...] code = 2219) 14 U/L COMPREHENSIVE METABOLIC [id number] 00:00:00 Test Item Value Reference Range Interpretation Comments GLUCOSE (test code = 2217) 99 MG/DL BUN (test code = 2208) 14 MG/DL CREATININE (test code = 2214) 0.79 MG/DL eGFR AMER. (test code 95 ML/MIN/1.73 = 25167) eGFR NON- AMER. (test 82 ML/MIN/1.73 code = 42101) CALC BUN/CREAT (test code = 18 RATIO [...] (test code = 2219) 14 U/L HEMOGLOBIN [id number] 00:00:00 Test Item Value Reference Range Interpretation Comments HEMOGLOBIN A1c (test code = 67413) 5.2 % HEMOGLOBIN [id number] 00:00:00 Test Item Value Reference Range Interpretation Comments HEMOGLOBIN A1c (test code = 38565) 5.2 % HEMOGLOBIN [id number] 00:00:00 Test Item Value Reference Range Interpretation Comments HEMOGLOBIN A1c (test code = 54412) 5.2 % [id number] 00:00:00 Test Item Value Reference Range Interpretation Comments TSH, THIRD GENERATION (test code 2.780 UIU/ML = 2821) [id number] 00:00:00 Test Item Value Reference Range Interpretation Comments TSH, THIRD GENERATION (test code 2.780 UIU/ML = 2821) [id number] 00:00:00 Test Item Value Reference Range Interpretation Comments TSH, THIRD GENERATION (test code 2.780 UIU/ML = 2821) LIPID [id number] 00:00:00 Test Item Value Reference Range Interpretation Comments CHOLESTEROL (test code = 2210) 195 MG/DL TRIGLYCERIDES (test code = 2232) 61 MG/DL HDL CHOLESTEROL (test code = 2220) 64 MG/DL CALC LDL CHOL (test code = 2237) 116 MG/DL RISK RATIO LDL/HDL (test code = 1.81 RATIO 2238) LIPID [id number] 00:00:00 Test Item Value Reference Range Interpretation Comments CHOLESTEROL (test code = 2210) 195 MG/DL TRIGLYCERIDES (test code = 2232) 61 MG/DL HDL CHOLESTEROL (test code = 2220) 64 MG/DL CALC LDL CHOL (test code = 2237) 116 MG/DL RISK RATIO LDL/HDL (test code = 1.81 RATIO 2238) [id number] 00:00:00 Test Item Value Reference Range Interpretation Comments NT-proBNP (test code = 21089) 204 PG/ML [id number] 00:00:00 Test Item Value Reference Range Interpretation Comments NT-proBNP (test code = 43279) 204 PG/ML [id number] 00:00:00 Test Item Value Reference Range Interpretation Comments NT-proBNP (test code = 45957) 204 PG/ML HEMOGLOBIN [id number] 00:00:00 Test Item Value Reference Range Interpretation Comments HEMOGLOBIN A1c (test code = 65176) 5.1 % HEMOGLOBIN [id number] 00:00:00 Test Item Value Reference Range Interpretation Comments HEMOGLOBIN A1c (test code = 30910) 5.1 % HEMOGLOBIN [id number] 00:00:00 Test Item Value Reference Range Interpretation Comments HEMOGLOBIN A1c (test code = 79222) 5.1 % HEMOGLOBIN [id number] 00:00:00 Test Item Value Reference Range Interpretation Comments HEMOGLOBIN A1c (test code = 38221) 5.1 % HEMOGLOBIN [id number] 00:00:00 Test Item Value Reference Range Interpretation Comments HEMOGLOBIN A1c (test code = 91818) 5.1 % HEMOGLOBIN [id number] 00:00:00 Test Item Value Reference Range Interpretation Comments HEMOGLOBIN A1c (test code = 16880) 5.1 % HEMOGLOBIN [id number] 00:00:00 Test Item Value Reference Range Interpretation Comments HEMOGLOBIN A1c (test code = 65185) 5.1 % HEMOGLOBIN [id number] 00:00:00 Test Item Value Reference Range Interpretation Comments HEMOGLOBIN A1c (test code = 76581) 5.1 % HEMOGLOBIN [id number] 00:00:00 Test Item Value Reference Range Interpretation Comments HEMOGLOBIN A1c (test code = 61992) 5.1 % HEMOGLOBIN [id number] 00:00:00 Test Item Value Reference Range Interpretation Comments HEMOGLOBIN A1c (test code = 27544) 5.1 % HEMOGLOBIN [id number] 00:00:00 Test Item Value Reference Range Interpretation Comments HEMOGLOBIN A1c (test code = 83946) 5.1 % HEMOGLOBIN [id number] 00:00:00 Test Item Value Reference Range Interpretation Comments HEMOGLOBIN A1c (test code = 54227) 5.1 % HEMOGLOBIN [id number] 00:00:00 Test Item Value Reference Range Interpretation Comments HEMOGLOBIN A1c (test code = 32803) 5.1 % HEMOGLOBIN [id number] 00:00:00 Test Item Value Reference Range Interpretation Comments HEMOGLOBIN A1c (test code = 76423) 5.1 % PAP TEST, THINPREP, [id number] 00:00:00 Test Item Value Reference Range Interpretation Comments SOURCE: (test code = Cervical/Endocervical 8001) SLIDES: (test code = 1 8011) LMP: (test code = 8021) 06/11/2018 SPECIMEN ADEQUACY: (test (NOTE) code = 49911) INTERPRETATION: (test NILM/NO EPITH. code = 20878) ABNORMALITY;SEE BELOW AUTOMOTIVE ARTIST: (test [place] code = 8101) Gray,CT(ASCP)IAC LOCATION: (test code = (NOTE) 29856) CPT: (test code = 8140) (NOTE) HPV HIGH RISK WITH GENOTYPE, [id number] 00:00:00 Test Item Value Reference Range Interpretation Comments HPV HIGH RISK INTERP (test code = NEGATIVE 83053) HPV 16 (test code = 24909) NEGATIVE HPV 18 (test code = 41988) NEGATIVE HPV, HR, OTHER GENOTYPES (test code NEGATIVE = 85808) PAP TEST, THINPREP, [id number] 00:00:00 Test Item Value Reference Range Interpretation Comments SOURCE: (test code = Cervical/Endocervical 8001) SLIDES: (test code = 1 8011) LMP: (test code = 8021) 06/11/2018 SPECIMEN ADEQUACY: (test (NOTE) code = 83289) INTERPRETATION: (test NILM/NO EPITH. code = 91704) ABNORMALITY;SEE BELOW AUTOMOTIVE ARTIST: (test [place] code = 8101) Gray,CT(ASCP)IAC LOCATION: (test code = (NOTE) 86157) CPT: (test code = 8140) (NOTE) PAP TEST, THINPREP, [id number] 00:00:00 Test Item Value Reference Range Interpretation Comments SOURCE: (test code = Cervical/Endocervical 8001) SLIDES: (test code = 1 8011) LMP: (test code = 8021) 06/11/2018 SPECIMEN ADEQUACY: (test (NOTE) code = 13643) INTERPRETATION: (test NILM/NO EPITH. code = 54175) ABNORMALITY;SEE BELOW AUTOMOTIVE ARTIST: (test [place] code = 8101) Gray,CT(ASCP)IAC LOCATION: (test code = (NOTE) 85076) CPT: (test code = 8140) (NOTE) HPV HIGH RISK WITH GENOTYPE, [id number] 00:00:00 Test Item Value Reference Range Interpretation Comments HPV HIGH RISK INTERP (test code = NEGATIVE 52320) HPV 16 (test code = 08656) NEGATIVE HPV 18 (test code = 79939) NEGATIVE HPV, HR, OTHER GENOTYPES (test code NEGATIVE = 85504) HPV HIGH RISK WITH GENOTYPE, [id number] 00:00:00 Test Item Value Reference Range Interpretation Comments HPV HIGH RISK INTERP (test code = NEGATIVE 44017) HPV 16 (test code = 97074) NEGATIVE HPV 18 (test code = 86933) NEGATIVE HPV, HR, OTHER GENOTYPES (test code NEGATIVE = 74394) PAP TEST, THINPREP, [id number] 00:00:00 Test Item Value Reference Range Interpretation Comments SOURCE: (test code = Cervical/Endocervical 8001) SLIDES: (test code = 1 8011) LMP: (test code = 8021) 06/11/2018 SPECIMEN ADEQUACY: (test (NOTE) code = 96940) INTERPRETATION: (test NILM/NO EPITH. code = 17967) ABNORMALITY;SEE BELOW AUTOMOTIVE ARTIST: (test [place] code = 8101) Gray,CT(ASCP)IAC LOCATION: (test code = (NOTE) 22635) CPT: (test code = 8140) (NOTE) PAP TEST, THINPREP, [id number] 00:00:00 Test Item Value Reference Range Interpretation Comments SOURCE: (test code = Cervical/Endocervical 8001) SLIDES: (test code = 1 8011) LMP: (test code = 8021) 06/11/2018 SPECIMEN ADEQUACY: (test (NOTE) code = 01944) INTERPRETATION: (test NILM/NO EPITH. code = 50173) ABNORMALITY;SEE BELOW AUTOMOTIVE ARTIST: (test [place] code = 8101) Gray,CT(ASCP)IAC LOCATION: (test code = (NOTE) 77445) CPT: (test code = 8140) (NOTE) HPV HIGH RISK WITH GENOTYPE, [id number] 00:00:00 Test Item Value Reference Range Interpretation Comments HPV HIGH RISK INTERP (test code = NEGATIVE 71759) HPV 16 (test code = 26904) NEGATIVE HPV 18 (test code = 82654) NEGATIVE HPV, HR, OTHER GENOTYPES (test code NEGATIVE = 43380) HPV HIGH RISK WITH GENOTYPE, [id number] 00:00:00 Test Item Value Reference Range Interpretation Comments HPV HIGH RISK INTERP (test code = NEGATIVE 53901) HPV 16 (test code = 00268) NEGATIVE HPV 18 (test code = 46040) NEGATIVE HPV, HR, OTHER GENOTYPES (test code NEGATIVE = 75778) PAP TEST, THINPREP, [id number] 00:00:00 Test Item Value Reference Range Interpretation Comments SOURCE: (test code = Cervical/Endocervical 8001) SLIDES: (test code = 1 8011) LMP: (test code = 8021) 06/11/2018 SPECIMEN ADEQUACY: (test (NOTE) code = 09812) INTERPRETATION: (test NILM/NO EPITH. code = 84786) ABNORMALITY;SEE BELOW AUTOMOTIVE ARTIST: (test [place] code = 8101) Gray,CT(ASCP)IAC LOCATION: (test code = (NOTE) 95621) CPT: (test code = 8140) (NOTE) PAP TEST, THINPREP, [id number] 00:00:00 Test Item Value Reference Range Interpretation Comments SOURCE: (test code = Cervical/Endocervical 8001) SLIDES: (test code = 1 8011) LMP: (test code = 8021) 06/11/2018 SPECIMEN ADEQUACY: (test (NOTE) code = 46567) INTERPRETATION: (test NILM/NO EPITH. code = 82736) ABNORMALITY;SEE BELOW AUTOMOTIVE ARTIST: (test [place] code = 8101) Gray,CT(ASCP)IAC LOCATION: (test code = (NOTE) 55730) CPT: (test code = 8140) (NOTE) HPV HIGH RISK WITH GENOTYPE, [id number] 00:00:00 Test Item Value Reference Range Interpretation Comments HPV HIGH RISK INTERP (test code = NEGATIVE 90972) HPV 16 (test code = 87099) NEGATIVE HPV 18 (test code = 04800) NEGATIVE HPV, HR, OTHER GENOTYPES (test code NEGATIVE = 40137) HPV HIGH RISK WITH GENOTYPE, [id number] 00:00:00 Test Item Value Reference Range Interpretation Comments HPV HIGH RISK INTERP (test code = NEGATIVE 51380) HPV 16 (test code = 59407) NEGATIVE HPV 18 (test code = 30220) NEGATIVE HPV, HR, OTHER GENOTYPES (test code NEGATIVE = 33622) PAP TEST, THINPREP, [id number] 00:00:00 Test Item Value Reference Range Interpretation Comments SOURCE: (test code = Cervical/Endocervical 8001) SLIDES: (test code = 1 8011) LMP: (test code = 8021) 06/11/2018 SPECIMEN ADEQUACY: (test (NOTE) code = 56828) INTERPRETATION: (test NILM/NO EPITH. code = 59956) ABNORMALITY;SEE BELOW AUTOMOTIVE ARTIST: (test [place] code = 8101) Gray,CT(ASCP)IAC LOCATION: (test code = (NOTE) 28208) CPT: (test code = 8140) (NOTE) PAP TEST, THINPREP, [id number] 00:00:00 Test Item Value Reference Range Interpretation Comments SOURCE: (test code = Cervical/Endocervical 8001) SLIDES: (test code = 1 8011) LMP: (test code = 8021) 06/11/2018 SPECIMEN ADEQUACY: (test (NOTE) code = 98598) INTERPRETATION: (test NILM/NO EPITH. code = 15854) ABNORMALITY;SEE BELOW AUTOMOTIVE ARTIST: (test [place] code = 8101) Gray,CT(ASCP)IAC LOCATION: (test code = (NOTE) 74885) CPT: (test code = 8140) (NOTE) HPV HIGH RISK WITH GENOTYPE, [id number] 00:00:00 Test Item Value Reference Range Interpretation Comments HPV HIGH RISK INTERP (test code = NEGATIVE 05744) HPV 16 (test code = 06145) NEGATIVE HPV 18 (test code = 04627) NEGATIVE HPV, HR, OTHER GENOTYPES (test code NEGATIVE = 04127) HPV HIGH RISK WITH GENOTYPE, [id number] 00:00:00 Test Item Value Reference Range Interpretation Comments HPV HIGH RISK INTERP (test code = NEGATIVE 70018) HPV 16 (test code = 56963) NEGATIVE HPV 18 (test code = 13217) NEGATIVE HPV, HR, OTHER GENOTYPES (test code NEGATIVE = 97858) CBC W/AUTO [id number] 00:00:00 Test Item Value Reference Range Interpretation [...] code = 1015) 295 K/UL CBC W/AUTO [id number] 00:00:00 Test Item Value Reference Range Interpretation [...] code = 1015) 295 K/UL COMPREHENSIVE METABOLIC [id number] 00:00:00 Test Item Value Reference Range Interpretation Comments GLUCOSE (test code = 2217) 127 MG/DL BUN (test code = 2208) 14 MG/DL CREATININE (test code = 2214) 0.89 MG/DL eGFR AMER. (test code 83 ML/MIN/1.73 = 14088) eGFR NON- AMER. (test 72 ML/MIN/1.73 code = 59293) CALC BUN/CREAT (test code = 16 RATIO [...] ALT (test code = 2219) 22 U/L [id number] 00:00:00 Test Item Value Reference Range Interpretation Comments TSH, THIRD GENERATION (test code 2.320 UIU/ML = 2821) [id number] 00:00:00 Test Item Value Reference Range Interpretation Comments TSH, THIRD GENERATION (test code 2.320 UIU/ML = 2821) CBC W/AUTO [id number] 00:00:00 Test Item Value Reference Range Interpretation [...] code = 1015) 295 K/UL CBC W/AUTO [id number] 00:00:00 Test Item Value Reference Range Interpretation [...] code = 1015) 295 K/UL CBC W/AUTO [id number] 00:00:00 Test Item Value Reference Range Interpretation [...] code = 1015) 295 K/UL COMPREHENSIVE METABOLIC [id number] 00:00:00 Test Item Value Reference Range Interpretation Comments GLUCOSE (test code = 2217) 127 MG/DL BUN (test code = 2208) 14 MG/DL CREATININE (test code = 2214) 0.89 MG/DL eGFR AMER. (test code 83 ML/MIN/1.73 = 77261) eGFR NON- AMER. (test 72 ML/MIN/1.73 code = 21151) CALC BUN/CREAT (test code = 16 RATIO [...] code = 2219) 22 U/L COMPREHENSIVE METABOLIC [id number] 00:00:00 Test Item Value Reference Range Interpretation Comments GLUCOSE (test code = 2217) 127 MG/DL BUN (test code = 2208) 14 MG/DL CREATININE (test code = 2214) 0.89 MG/DL eGFR AMER. (test code 83 ML/MIN/1.73 = 97334) eGFR NON- AMER. (test 72 ML/MIN/1.73 code = 14988) CALC BUN/CREAT (test code = 16 RATIO [...] ALT (test code = 2219) 22 U/L [id number] 00:00:00 Test Item Value Reference Range Interpretation Comments TSH, THIRD GENERATION (test code 2.320 UIU/ML = 2821) [id number] 00:00:00 Test Item Value Reference Range Interpretation Comments TSH, THIRD GENERATION (test code 2.320 UIU/ML = 2821) [id number] 00:00:00 Test Item Value Reference Range Interpretation Comments TSH, THIRD GENERATION (test code 2.320 UIU/ML = 2821) CBC W/AUTO [id number] 00:00:00 Test Item Value Reference Range Interpretation [...] code = 1015) 295 K/UL CBC W/AUTO [id number] 00:00:00 Test Item Value Reference Range Interpretation [...] code = 1015) 295 K/UL CBC W/AUTO [id number] 00:00:00 Test Item Value Reference Range Interpretation [...] code = 1015) 295 K/UL COMPREHENSIVE METABOLIC [id number] 00:00:00 Test Item Value Reference Range Interpretation Comments GLUCOSE (test code = 2217) 127 MG/DL BUN (test code = 2208) 14 MG/DL CREATININE (test code = 2214) 0.89 MG/DL eGFR AMER. (test code 83 ML/MIN/1.73 = 54923) eGFR NON- AMER. (test 72 ML/MIN/1.73 code = 55175) CALC BUN/CREAT (test code = 16 RATIO [...] code = 2219) 22 U/L COMPREHENSIVE METABOLIC [id number] 00:00:00 Test Item Value Reference Range Interpretation Comments GLUCOSE (test code = 2217) 127 MG/DL BUN (test code = 2208) 14 MG/DL CREATININE (test code = 2214) 0.89 MG/DL eGFR AMER. (test code 83 ML/MIN/1.73 = 21616) eGFR NON- AMER. (test 72 ML/MIN/1.73 code = 86278) CALC BUN/CREAT (test code = 16 RATIO [...] ALT (test code = 2219) 22 U/L [id number] 00:00:00 Test Item Value Reference Range Interpretation Comments TSH, THIRD GENERATION (test code 2.320 UIU/ML = 2821) [id number] 00:00:00 Test Item Value Reference Range Interpretation Comments TSH, THIRD GENERATION (test code 2.320 UIU/ML = 2821) [id number] 00:00:00 Test Item Value Reference Range Interpretation Comments TSH, THIRD GENERATION (test code 2.320 UIU/ML = 2821) CBC W/AUTO [id number] 00:00:00 Test Item Value Reference Range Interpretation [...] code = 1015) 295 K/UL CBC W/AUTO [id number] 00:00:00 Test Item Value Reference Range Interpretation [...] code = 1015) 295 K/UL CBC W/AUTO [id number] 00:00:00 Test Item Value Reference Range Interpretation [...] code = 1015) 295 K/UL COMPREHENSIVE METABOLIC [id number] 00:00:00 Test Item Value Reference Range Interpretation Comments GLUCOSE (test code = 2217) 127 MG/DL BUN (test code = 2208) 14 MG/DL CREATININE (test code = 2214) 0.89 MG/DL eGFR AMER. (test code 83 ML/MIN/1.73 = 31945) eGFR NON- AMER. (test 72 ML/MIN/1.73 code = 71159) CALC BUN/CREAT (test code = 16 RATIO [...] code = 2219) 22 U/L COMPREHENSIVE METABOLIC [id number] 00:00:00 Test Item Value Reference Range Interpretation Comments GLUCOSE (test code = 2217) 127 MG/DL BUN (test code = 2208) 14 MG/DL CREATININE (test code = 2214) 0.89 MG/DL eGFR AMER. (test code 83 ML/MIN/1.73 = 17077) eGFR NON- AMER. (test 72 ML/MIN/1.73 code = 29728) CALC BUN/CREAT (test code = 16 RATIO [...] CALC GLOBULIN (test code = 3.0 G/DL 0) CALC A/G RATIO (test code = 1.5 RATIO 2233) BILIRUBIN, TOTAL (test code = 0.5 MG/DL 2206) ALKALINE PHOSPHATASE (test 101 U/L code = 2204) AST (test code = 2218) 27 U/L ALT (test code = 2219) 22 U/L [id number] 00:00:00 Test Item Value Reference Range Interpretation Comments TSH, THIRD GENERATION (test code 2.320 UIU/ML = 2821) [id number] 00:00:00 Test Item Value Reference Range Interpretation Comments TSH, THIRD GENERATION (test code 2.320 UIU/ML = 2821) [id number] 00:00:00 Test Item Value Reference Range Interpretation Comments TSH, THIRD GENERATION (test code 2.320 UIU/ML = 2821) CBC W/AUTO [id number] 00:00:00 Test Item Value Reference Range Interpretation [...] code = 1015) 295 K/UL CBC W/AUTO [id number] 00:00:00 Test Item Value Reference Range Interpretation [...] code = 1015) 295 K/UL CBC W/AUTO [id number] 00:00:00 Test Item Value Reference Range Interpretation [...] code = 1015) 295 K/UL COMPREHENSIVE METABOLIC [id number] 00:00:00 Test Item Value Reference Range Interpretation Comments GLUCOSE (test code = 2217) 127 MG/DL BUN (test code = 2208) 14 MG/DL CREATININE (test code = 2214) 0.89 MG/DL eGFR AMER. (test code 83 ML/MIN/1.73 = 44400) eGFR NON- AMER. (test 72 ML/MIN/1.73 code = 83226) CALC BUN/CREAT (test code = 16 RATIO [...] BILIRUBIN, TOTAL (test code = 0.5 MG/DL 220) ALKALINE PHOSPHATASE (test 101 U/L code = 2204) AST (test code = 2218) 27 U/L ALT (test code = 2219) 22 U/L COMPREHENSIVE METABOLIC [id number] 00:00:00 Test Item Value Reference Range Interpretation Comments GLUCOSE (test code = 2217) 127 MG/DL BUN (test code = 2208) 14 MG/DL CREATININE (test code = 2214) 0.89 MG/DL eGFR AMER. (test code 83 ML/MIN/1.73 = 23115) eGFR NON- AMER. (test 72 ML/MIN/1.73 code = 38276) CALC BUN/CREAT (test code = 16 RATIO [...] ALT (test code = 2219) 22 U/L [id number] 00:00:00 Test Item Value Reference Range Interpretation Comments TSH, THIRD GENERATION (test code 2.320 UIU/ML = 2821) [id number] 00:00:00 Test Item Value Reference Range Interpretation Comments TSH, THIRD GENERATION (test code 2.320 UIU/ML = 2821) [id number] 00:00:00 Test Item Value Reference Range Interpretation Comments TSH, THIRD GENERATION (test code 2.320 UIU/ML = 2821)
[2022-12-08] MEDS ORDERED: LIDOCAINE 1% MPF 5 ML VIAL ONE (16:37)
--- NOTE | 2022-12-08 16:47 | RAD REPORT ---
EXAM DESCRIPTION: US - Extremity Nonvascular Limited - 12/08/2022 4:21 pm CLINICAL HISTORY: Palpable abnormality right lateral forearm COMPARISON: None. TECHNIQUE: Real-time sonographic evaluation of the right lateral forearm was perform. FINDINGS: Targeted sonographic evaluation of the right lateral forearm reveals an ill-defined hypoec hoic hypo dermal crescentic abnormality measuring 1.5 x 1.1 x 0.3 cm in greatest dimensions, may repr esent a developing phlegmon or early abscess. This underlies the palpable abnormality. IMPRESSION: Hypoechoic hypo dermal 1.5 cm structure underlying the palpable right lateral forearm ab normality, may represent a developing phlegmon or early abscess.
--- NOTE | 2022-12-08 16:50 | EDPHYS ---
Physician Documentation [facility] Name: Mica Baker Age: 62 yrs Sex: Female : 1960 Arrival Date: 12/08/2022 Time: 15:49 Bed 10 Private MD: ED Physician Dex Garcia HPI: 12/08 16:05 This 62 yrs old Female presents to ER via Ambulatory with complaints of Abscess. snw 16:05 The patient presents with an abscess of the palmar aspect of right forearm. Onset: The snw symptoms/episode began/occurred acutely, since November 14, on Augmentin without improvement. Possible cause(s): unknown. Severity of symptoms: At their worst the symptoms were moderate. The patient has not experienced similar symptoms in the past. The patient has been recently seen by a physician: the patient's primary care provider, with similar presenting complaints, and was sent to the [facility] Emergency Department for further evaluation. Historical: - Allergies: 16:03 hydrochlorothiazide; me1 16:03 Iodine; me1 16:03 Latex, Natural Rubber; me1 16:03 oxybutynin; me1 16:03 SHELLFISH; me1 16:03 sulfa drugs; me1 16:03 telisitine; me1 - PMHx: 16:03 Cellulitis; Hypertension; Lymphadema; varicose veins; me1 - PSHx: 16:03 section; kidney stent; me1 - Immunization history:: Adult Immunizations up to date. - Social history:: Smoking status: Patient denies any tobacco usage or history of. ROS: 16:04 Constitutional: Negative for fever, chills, and weight loss, Eyes: Negative for injury, snw pain, redness, and discharge, ENT: Negative for injury, pain, and discharge, Neck: Negative for injury, pain, and swelling, Cardiovascular: Negative for chest pain, palpitations, and edema, Respiratory: Negative for shortness of breath, cough, wheezing, and pleuritic chest pain, Abdomen/GI: Negative for abdominal pain, nausea, vomiting, diarrhea, and constipation, Back: Negative for injury and pain, : Negative for injury, bleeding, discharge, and swelling, MS/Extremity: Negative for injury and deformity, Neuro: Negative for headache, weakness, numbness, tingling, and seizure, Psych: Negative for depression, anxiety, suicide ideation, homicidal ideation, and hallucinations, 16:04 Skin: Positive for abscess, Exam: 16:04 Constitutional: This is a well developed, well nourished patient who is awake, alert, snw and in no acute distress. Head/Face: Normocephalic, atraumatic. Eyes: Pupils equal round and reactive to light, extra-ocular motions intact. Lids and lashes normal. Conjunctiva and sclera are non-icteric and not injected. Cornea within normal limits. Periorbital areas with no swelling, redness, or edema. ENT: Nares patent. No nasal discharge, no septal abnormalities noted. Tympanic membranes are normal and external auditory canals are clear. Oropharynx with no redness, swelling, or masses, exudates, or evidence of obstruction, uvula midline. Mucous membranes moist. Neck: Trachea midline, no thyromegaly or masses palpated, and no cervical lymphadenopathy. Supple, full range of motion without nuchal rigidity, or vertebral point tenderness. No Meningismus. Chest/axilla: Normal chest wall appearance and motion. Nontender with no deformity. No lesions are appreciated. Cardiovascular: Regular rate and rhythm with a normal S1 and S2. No gallops, murmurs, or rubs. Normal PMI, no JVD. No pulse deficits. Respiratory: Lungs have equal breath sounds bilaterally, clear to auscultation and percussion. No rales, rhonchi or wheezes noted. No increased work of breathing, no retractions or nasal flaring. Abdomen/GI: Soft, non-tender, with normal bowel sounds. No distension or tympany. No guarding or rebound. No evidence of tenderness throughout. Back: No spinal tenderness. No costovertebral tenderness. Full range of motion. MS/ Extremity: Pulses equal, no cyanosis. Neurovascular intact. Full, normal range of motion. Neuro: Awake and alert, GCS 15, oriented to person, place, time, and situation. Cranial nerves II-XII grossly intact. Motor strength 5/5 in all extremities. Sensory grossly intact. Cerebellar exam normal. Normal gait. Psych: Awake, alert, with orientation to person, place and time. Behavior, mood, and affect are within normal limits. 16:04 Skin: Appearance: normal except for affected area, abscess, that is moderate sized, of the palmar aspect of right forearm, with induration, Vital Signs: 16:00 BP 132 / 59; Pulse 66; Resp 17; Temp 97.9(O); Pulse Ox 99% on R/A; Weight 160.12 kg; me1 Height 5 ft. 8 in. ; Pain 4/10; 16:00 Body Mass Index 53.67 (160.12 kg, 172.72 cm) me1 16:00 Pain Scale: Adult [facility] Procedures: 16:50 I \T\ D: Incision and drainage was performed for an abscess of the right palmar aspect of snw right forearm Prepped with hibiclens. Anesthetized with 4 ml's 1% Lidocaine. Incised with #10 blade. Drained small amount bloody fluid. Abscess cavity explored. Dressing: sterile 4x4 gauze, the patient tolerated the procedure well. MDM: 16:02 Patient medically screened. snw 16:51 Differential diagnosis: abscess, cellulitis. Data reviewed: vital signs, nurses notes. snw I considered the following discharge prescriptions or medication management in the emergency department Medications were administered in the Emergency Department. See MAR. Counseling: I had a detailed discussion with the patient and/or guardian regarding the historical points, exam findings, and any diagnostic results supporting the discharge/admit diagnosis, the need for outpatient follow up, for definitive care, to return to the emergency department if symptoms worsen or persist or if there are any questions or concerns that arise at home. Special discussion: Based on the history and exam findings, there is no indication for further emergent testing or inpatient evaluation. I discussed with the patient/guardian the need to see the primary care provider for further evaluation of the symptoms. 12/08 16:03 Order name: US Extrmty Nonvasular Limited: right lateral forearm abscess eval; Complete snw Time: 16:49 12/08 16:22 Order name: Suture Tray Setup; Complete Time: 16:31 snw 12/08 16:50 Order name: Wound dressing; Complete Time: 17:06 snw Administered Medications: 16:27 Drug: Lidocaine Infiltration (1 %) 5 mg Infiltration once {Note: GIVEN TO PROVIDER.} db Route: Infiltration; 17:07 Follow up: Response: No adverse reaction db Disposition: 16:10 I was immediately available on-site in the Emergency Department for consultation in the ms3 care of the patient. Disposition Summary: 12/08/22 16:50 Discharge Ordered Notes: Location: Home snw Condition: Stable snw Diagnosis - Cutaneous abscess of limb, unspecified snw Followup: snw - With: Private Physician - When: 2 - 3 days - Reason: Recheck today's complaints, Continuance of care, Re-evaluation by your physician Followup: snw - With: Emergency Department - When: As needed - Reason: Worsening of condition Discharge Instructions: - Discharge Summary Sheet snw - Skin Abscess snw - Incision and Drainage snw - Incision and Drainage, Care After snw Forms: - Medication Reconciliation Form snw - Thank You Letter snw - Antibiotic Education snw - Prescription Opioid Use snw - Patient Portal Instructions snw - Leadership Thank You Letter snw Prescriptions: - Mobic 7.5 mg Oral Tablet - take 1 tablet by ORAL route once daily take with food; 20 tablet; Refills: 0, snw Product Selection Permitted - Doxycycline Hyclate 100 mg Oral Tablet - take 1 tablet by ORAL route every 12 hours; 20 tablet; Refills: 0, Product snw Selection Permitted Signatures: Dispatcher [employer] EDMS Kareen Hernandez, CASE BRIEFER-C CASE BRIEFER-Csnw Dex Garcia DO DO ms3 Marisa Mitchell, RN RN db Anna Ferrer, RN RN me1
--- NOTE | 2022-12-08 16:50 | ER ---
Nurse's Notes [facility] Name: Mica Baker Age: 62 yrs Sex: Female : 1960 Arrival Date: 12/08/2022 Time: 15:49 Bed 10 Private MD: Diagnosis: Cutaneous abscess of limb, unspecified Presentation: 12/08 16:00 Chief complaint: Patient states: abscess to right forearm since November 14. On me1 antibiotic but it continues to get worse. Coronavirus screen: Vaccine status: Patient reports being unvaccinated. Ebola Screen: No symptoms or risks identified at this time. Initial Sepsis Screen: Does the patient meet any 2 criteria? No. Patient's initial sepsis screen is negative. Does the patient have a suspected source of infection? Yes: Skin breakdown/wound. Risk Assessment: Do you want to hurt yourself or someone else? Patient reports no desire to harm self or others. Onset of symptoms was November 14, 2022. 16:00 Method Of Arrival: Ambulatory wa1 16:00 Acuity: LUCIANO 3 me1 Historical: - Allergies: 16:03 hydrochlorothiazide; me1 16:03 Iodine; me1 16:03 Latex, Natural Rubber; me1 16:03 oxybutynin; me1 16:03 SHELLFISH; me1 16:03 sulfa drugs; me1 16:03 telisitine; me1 - PMHx: 16:03 Cellulitis; Hypertension; Lymphadema; varicose veins; me1 - PSHx: 16:03 section; kidney stent; me1 - Immunization history:: Adult Immunizations up to date. - Social history:: Smoking status: Patient denies any tobacco usage or history of. Screenin:33 [facility] ED Fall Risk Assessment (Adult) History of falling in the last 3 months, db including since admission No falls in past 3 months (0 pts) Confusion or Disorientation No (0 pts) Intoxicated or Sedated No (0 pts) Impaired Gait No (0 pts) Mobility Assist Device Used No (0 pt) Altered Elimination No (0 pt) Score/Fall Risk Level 0 - 2 = Low Risk Oriented to surroundings, Maintained a safe environment. Abuse screen: Denies threats or abuse. Denies injuries from another. Nutritional screening: No deficits noted. Tuberculosis screening: No symptoms or risk factors identified. Assessment: 16:32 Reassessment: Patient appears in no apparent distress at this time. Patient and/or db family updated on plan of care and expected duration. Pain level reassessed. Patient is alert, oriented x 3, equal unlabored respirations, skin warm/dry/pink. ABSCESS TO RIGHT FOREARM. General: Appears in no apparent distress. comfortable, Behavior is calm, cooperative. Pain: Complains of pain in right arm and palmar aspect of right forearm. Neuro: Level of Consciousness is awake, alert, obeys commands, Oriented to person, place, time, situation. Cardiovascular: No deficits noted. Respiratory: Airway is patent Respiratory effort is even, unlabored, Respiratory pattern is regular, symmetrical. GI: No deficits noted. No signs and/or symptoms were reported involving the gastrointestinal system. : No deficits noted. No signs and/or symptoms were reported regarding the genitourinary system. EENT: No deficits noted. No signs and/or symptoms were reported regarding the EENT system. Derm: Abscess located on palmar aspect of right forearm. Vital Signs: 16:00 BP 132 / 59; Pulse 66; Resp 17; Temp 97.9(O); Pulse Ox 99% on R/A; Weight 160.12 kg; me1 Height 5 ft. 8 in. ; Pain 4/10; 16:00 Body Mass Index 53.67 (160.12 kg, 172.72 cm) me1 16:00 Pain Scale: Adult wa1 ED Course: 15:52 Patient arrived in ED. mr 15:54 Kareen Hernandez, AURE-C [facility] snw 15:55 Dex Garcia DO is Attending Physician. snw 16:03 Triage completed. me1 16:03 Arm band placed on Patient placed in waiting room. me1 16:22 US Extrmty Nonvasular Limited: right lateral forearm abscess eval In Process EDMS Unspecified. 16:26 Marisa Mitchell, RN is Primary Nurse. db 16:31 Assist provider with I \T\ D: Set up I\T\D tray. db 16:33 Patient has correct armband on for positive identification. Bed in low position. Call db light in reach. Side rails up X 1. 17:07 Provided Education on: POC. Verbalized understanding. . me1 17:07 Patient did not have IV access during this emergency room visit. me1 Administered Medications: 16:27 Drug: Lidocaine Infiltration (1 %) 5 mg Infiltration once {Note: GIVEN TO PROVIDER.} db Route: Infiltration; 17:07 Follow up: Response: No adverse reaction db Medication: 17:07 VIS not applicable for this client. me1 Outcome: 16:50 Discharge ordered by MD. moss 17:07 Discharged to home ambulatory, me1 17:07 Condition: stable 17:07 Discharge instructions given to patient, Instructed on discharge instructions, follow up and referral plans. medication usage, Demonstrated understanding of instructions, follow-up care, medications, Prescriptions given X 2, 17:08 Patient left the ED. me1 Signatures: Dispatcher [employer] EDMS Kareen Hernandez, DATA REVIEW SPECIALIST-C DATA REVIEW SPECIALIST-CsnSommer Pham Reg Reg mr Marisa Mitchell, RN RN db Anna Ferrer, ALFONSO RN me1
[2022-12-08 17:12] VITALS: BP 132/59; TEMP 97.9; O2SAT 99
== END 2022-12-08 17:08 | disposition home or self-care (01) ==
LOC: ER 15:49
PROC: 0H9DXZZ Drainage of Right Lower Arm Skin, External Approach (ICD-10-PCS; principal; 2022-12-08)
DX: L02.413 Cutaneous abscess of right upper limb (principal); Z88.2 Allergy status to sulfonamides; Z88.5 Allergy status to narcotic agent; Z88.8 Allergy status to other drugs, medicaments and biological substances; Z91.013 Allergy to seafood; Z91.040 Latex allergy status; Z91.048 Other nonmedicinal substance allergy status
CPT/HCPCS: 76882; 99283; 10060; J2001

== ENCOUNTER → 2023-04-28 | Emergency (ER) | payer OTHER ==
[~2023-04-28] MED LIST: FLUORESCEIN SODIUM 1 MG/WRAP ONE; KETOROLAC 30 MG/ML INJ ONE; ONDANSETRON 4 MG/2 ML VIAL ONE; TETRACAINE HCL 0.5% 4ML OPTH ONE
--- OUTSIDE RECORDS SUMMARY | 2023-04-28 00:30 | XMS REPORT | Continuity of Care Document ---
Author Name Unknown Address [address] [facility] [address] [place] [address] [facility] thconnect Address [address] [facility] [address] [place] [address] Care Team Providers Care Slate Cutter Name Role Phone Pcp, Patient Does Not Have A Primary Care Physic chalo Doctor Unassigned, [place] Attending Clinician U Clinton Carroll MD Attending Clinician [place] Attending Clinician Unavailable Payers Payer Name Policy Type Policy Number Effective Date Expirati on Date Source Problems Condition Name Condition Details Condition Category Status Onset Date Resolution Date Last Treatment Date Treating Clinician Comments Source [id number] Hydronephr osis, left Problem [facility] [id number] UPJ (ureterope lvic junction) obstructio n Problem [facility] Calculus of kidney Calculus of kidney Problem [facility] [id number] Pre-op exam Problem [facility] [id number] Urinary tract infection without hematuria, site unspecifie d Problem [facility] Allergies, Adverse Reactions, Alerts Allergy Name Allergy Type Status Severity Reaction(s) Onset Date Inactive Date Treating Clinician Comments Source 463 Drug allergy Active Unknown [facility] Latex Latex Active Unknown [facility] Substanc e with sulfonam alessandro structur e and antibact erial mechanis m of action (substan ce) Substanc e with sulfonam alessandro structur e and antibact erial mechanis m of action (substan ce) Active Unknown [facility] NO KNOWN ALLERGIE S Drug Class Active [facility] Shellfis h (FN) Shellfis h (FN) Active Unknown [facility] Social History Social Habit Start Date Stop Date Quantity Comments Source History of Tobacco Use [facility] Sex Assigned At [facility] Smoking Status Start Date Stop Date Source Tobacco smoking consumption unknown [facility] Never Smoker [facility] Medications Ordered Medication Name Filled Medication Name Start Date Stop Date Current Medication? Ordering Clinician Indication Dosage Frequency Signature (SIG) Comments Components Source methylPREDN ISolone 32 MG methylPREDN ISolone 32 MG 2022-03 00:00: 00 No methylPRED NISolone 32 MG diphenhydrA MINE HCl 50 MG diphenhydrA MINE HCl 50 MG 2022-03 00:00: 00 No diphenhydr AMINE HCl 50 MG methylPREDN ISolone 32 MG methylPREDN ISolone 32 MG 2022-03 00:00: 00 No methylPRED NISolone 32 MG diphenhydrA MINE HCl 50 MG diphenhydrA MINE HCl 50 MG 2022-03 00:00: 00 No diphenhydr AMINE HCl 50 MG methylPREDN ISolone 32 MG methylPREDN ISolone 32 MG 2022-03 00:00: 00 No methylPRED NISolone 32 MG diphenhydrA MINE HCl 50 MG diphenhydrA MINE HCl 50 MG 2022-03 00:00: 00 No diphenhydr AMINE HCl 50 MG diphenhydrA MINE HCl 50 MG diphenhydrA MINE HCl 50 MG 2022-03 00:00: 00 No diphenhydr AMINE HCl 50 MG methylPREDN ISolone 32 MG methylPREDN ISolone 32 MG 2022-03 00:00: 00 No methylPRED NISolone 32 MG diphenhydrA MINE HCl 50 MG diphenhydrA MINE HCl 50 MG 2022-03 00:00: 00 No diphenhydr AMINE HCl 50 MG methylPREDN ISolone 32 MG methylPREDN ISolone 32 MG 2022-03 00:00: 00 No methylPRED NISolone 32 MG diphenhydrA MINE HCl 50 MG diphenhydrA MINE HCl 50 MG 2022-03 00:00: 00 No diphenhydr AMINE HCl 50 MG methylPREDN ISolone 32 MG methylPREDN ISolone 32 MG 2022-03 00:00: 00 No methylPRED NISolone 32 MG Lisinopril 5 MG Lisinopril 5 MG No 1{table t} QD Lisinopril 5 MG Tylenol Tylenol No Tylenol Tylenol Tylenol No Tylenol Ibuprofen 800 MG Ibuprofen 800 MG No TID Ibuprofen 800 MG Lisinopril 5 MG Lisinopril 5 MG No 1{table t} QD Lisinopril 5 MG Gabapentin Gabapentin No Gabapentin Tylenol Tylenol No Tylenol Ibuprofen 800 MG Ibuprofen 800 MG No TID Ibuprofen 800 MG Lisinopril 5 MG Lisinopril 5 MG No 1{table t} QD Lisinopril 5 MG Gabapentin Gabapentin No Gabapentin Tylenol Tylenol No Tylenol Ibuprofen 800 MG Ibuprofen 800 MG No TID Ibuprofen 800 MG Lisinopril 5 MG Lisinopril 5 MG No 1{table t} QD Lisinopril 5 MG Gabapentin Gabapentin No Gabapentin Ibuprofen 800 MG Ibuprofen 800 MG No TID Ibuprofen 800 MG Gabapentin Gabapentin No Gabapentin Lisinopril 5 MG Lisinopril 5 MG No 1{table t} QD Lisinopril 5 MG Tylenol Tylenol No Tylenol Ibuprofen 800 MG Ibuprofen 800 MG No TID Ibuprofen 800 MG Gabapentin Gabapentin No Gabapentin Lisinopril 5 MG Lisinopril 5 MG No 1{table t} QD Lisinopril 5 MG Tylenol Tylenol No Tylenol Ibuprofen 800 MG Ibuprofen 800 MG No TID Ibuprofen 800 MG Gabapentin Gabapentin No Gabapentin Vital Signs Vital Name Observation Time Observation Value Comments S ource height 2023-04-08 13:15:00 67.5 [in_i] Comm on [facility] weight 2023-04-08 13:15:00 365.2 [lb_av] Co mmon [facility] temperature 2023-04-08 13:15:00 98.1 [degF] Com mon [facility] bmi 2023-04-08 13:15:00 56.35 kg/m2 Comm on [facility] oximetry 2023-04-08 13:15:00 98 % Commo n [facility] respiratory rate 2023-04-08 13:15:00 17 /min Common [facility] blood pressure systolic 2023-04-08 13:15:00 164 mm[Hg] Common [facility] blood pressure diastolic 2023-04-08 13:15:00 67 mm[Hg] Common [facility] height 2023-01-21 14:00:00 67.5 [in_i] Comm on [facility] weight 2023-01-21 14:00:00 355.6 [lb_av] Co mmon [facility] temperature 2023-01-21 14:00:00 97.9 [degF] Com mon [facility] bmi 2023-01-21 14:00:00 54.87 kg/m2 Comm on [facility] oximetry 2023-01-21 14:00:00 100 % Commo n [facility] respiratory rate 2023-01-21 14:00:00 18 /min [facility] blood pressure systolic 2023-01-21 14:00:00 149 mm[Hg] [facility] blood pressure diastolic 2023-01-21 14:00:00 70 mm[Hg] Common [facility] height 2022-09-11 10:30:00 67.5 [in_i] Comm on [facility] weight 2022-09-11 10:30:00 344.2 [lb_av] Co mmon [facility] temperature 2022-09-11 10:30:00 98 [degF] Comm on [facility] bmi 2022-09-11 10:30:00 53.11 kg/m2 Comm on [facility] oximetry 2022-09-11 10:30:00 99 % Commo n [facility] respiratory rate 2022-09-11 10:30:00 18 /min [facility] blood pressure systolic 2022-09-11 10:30:00 141 mm[Hg] Common Spiri t [facility] blood pressure diastolic 2022-09-11 10:30:00 65 mm[Hg] [facility] Procedures Procedure Date / Time Performed Performing Clinician Source AUTHORIZATION TO RELEASE PHI TO [facility] 2021-12-10 05:01:00 Doctor Unassigned, [place] [facility] LOWER EXTREMITY ARTERIAL DUPLEX BILATERAL - BY VASCULAR LAB 2020-11-15 16:42:00 Danette Vargas [facility] DUPLEX VENOUS LEGS BILATERAL - BY VASCULAR LAB 2020-11-15 15:29:00 Danette Vargas [facility] PATIENT FINANCIAL POLICY 2020-11-15 14:05:44 Doctor Unassigned, [place] [facility] NO SHOW OR MISSED APPOINTMENT POLICY ACKNOWLEDGEMENT 2020-11-15 14:05:20 Doctor Unassigned, [place] [facility] NOTICE OF PRIVACY PRACTICES 2020-11-15 14:05:00 Doctor Unassigned, [place] [facility] CONSENT/REFUSAL FOR DIAGNOSIS AND TREATMENT 2020-11-15 14:04:43 Doctor Unassigned, [place] [facility] ASSIGNMENT OF BENEFITS 2020-11-15 14:04:27 Docto r Unassigned, [place] [facility] Encounters Start Date/Time End Date/Time Encounter Type Admission Type Attending [facility] Care Facility Care Department Encounter ID Source 2023-01-21 13:57:01 [facility] [id number] [facility] 2022-11-06 17:03:00 Outpatient [facility] [id number] [facility] 2022-09-11 10:06:03 Outpatient [facility] [id number] [facility] 2023-04-13 00:00:00 2023-04-13 00:00:00 (TEL) [facility] [id number] [facility] 2023-04-08 00:00:00 2023-04-08 00:00:00 OFFICE VISIT ESTAB PT LEVEL 4 [facility]LMLC ST[facility]C [id number] [facility] 2023-02-24 00:00:00 2023-02-24 00:00:00 (TEL) [facility]LMLC ST[facility]C [id number] [facility] 2023-01-21 00:00:00 2023-01-21 00:00:00 OFFICE VISIT ESTAB PT LEVEL 4 STLMLC STLMLC [id number] [facility] 2022-11-10 00:00:00 2022-11-10 00:00:00 OFFICE VISIT ESTAB PT LEVEL 2 [facility]LMLC STLMLC [id number] [facility] 2022-09-11 00:00:00 2022-09-11 00:00:00 OFFICE VISIT ESTAB PT LEVEL 4 STLMLC STLMLC [id number] [facility] 2021-12-10 00:00:00 2021-12-10 00:00:00 Orders Only Doctor Unassigned, [place] [facility] [id number] [facility] 2020-12-25 00:00:00 2020-12-25 00:00:00 [facility] [id number] [facility] 2020-11-15 09:10:44 2020-11-15 23:59:00 [facility] [id number] [facility] 2020-11-15 09:00:00 2020-11-15 09:09:00 Hospital Encounter [facility] [id number] [facility] 2020-11-15 00:00:00 2020-11-15 00:00:00 Outpatient [facility] [id number] [facility] Results Test Description Test Time Test Comments Results Result Co mments Source CULTURE, URINE 2022-12-05 09:02:01 SPECIMEN NUMBER: [id number] CULTURE, URINE SPECIMEN NUMBER: [id number] SPECIMEN COMMENT: URINE SOURCE: URINE REPORT STATUS: FINAL FINAL REPORT: 12/05/2022 50-100,000 CFU/ML UROGENITAL RADHA PRESENT NO COMMON PATHOGENS UNLESS OTHERWISE INDICATED, ALL TESTING PERFORMED AT [facility] [address] [place] [address] ALMOND SORTER: TAYLER MCDOWELL M.D. CLIA NUMBER [id number] [facility] [place]. [id number] PARMJIT (ANTI-NUCLEAR AB) WITH REFLEX [id number] 02:36:39* Test Item Value Reference Range Interpretation Comme nts ANTI-NUCLEAR ANTIBODIES (test code = 3506) NEGATIVE NEGATIVE Methodology is I ndirect Immunofluorescent Assay (IFA) with a titering system using [id number] cells (Hep2 cells transfected with SS-A/Ro). PARMJIT PATTERN (REPORTED TITER) (test code = 45134) SEE BELOW HOMOGENEOUS (test code = 68138) NEGATIVE TITER NEGATIVE SPECKLED (test code = 571260) NEGATIVE TITER NEGATIVE DENSE FINE SPECKLED (test code = 05635) NEGATIVE TITER NEGATIVE CENTROMERE (test code = 114657) NEGATIVE TITER NEGATIVE COARSE SPECKLED (test code = 144133) NEGATIVE TITER NEGATIVE DISCRETE NUCLEAR DOTS (test code = 136643) NEGATIVE TITER NEGATIVE NUCLEOLAR (test code = 142401) NEGATIVE TITER NEGATIVE NUCLEAR MEMBRANE (test code = 761189) NEGATIVE TITER NEGATIVE CYTO. RETICULAR (JEANNETTE) (test code = 009647) NEGATIVE NEGATIVE COMMENTS (test code = 781305) NONE METHOD (test code = 85375) (NOTE) TESTING PERFORME D BY [employer] IFA PLATFORM.THE METHOD INCLUDES A SCREEN THRESHOLD OF 1:80, DIGITIZED AND COMPUTER ALGORITHM-ASSISTED INTERPRETATION OF TITERS AND DIGITAL PATTERNS, AND HEp-2 CELL LINE SUBSTRATE. ADDITIONAL UNUSUAL PATTERNS WILL BE GIVEN COMMENTS.FOR MORE INFORMATION, SEE [email or web address] [id number] 06:50:13* Test Item Value Reference Range Interpretation Comme nts URIC ACID (test code = 2233) 3.9 MG/DL 2.7-6.1 COMPREHENSIVE METABOLIC [id number] 06:50:13* Test Item Value Reference Range Interpretation Comme nts GLUCOSE (test code = 2217) 100 MG/DL 70-99 H BUN (test code = 2208) 20 MG/DL 8-23 CREATININE (test code = 221) 1.10 MG/DL 0.60-1.30 eGFR (2020 CKD-EPI) (test code = 97096) 57 ML/MIN/1.73 >60 L The NKF-ASN Taskforce recommends use of Cystatin C to confirm eGFR inadults at risk for CKD. [facility] offers eGFR with Cystatin C-Creatinineusing the 2020 CKD-EPI eGFR_creat-cystat equation (order code 3057) toincrease the accuracy of estimated GFR. For more information, contactur account manager relief or see announcement [email or web address] CALC BUN/CREAT (test code = 2234) 18 RATIO 6-28 SODIUM (test code = 223) 145 MEQ/L 133-146 POTASSIUM (test code = 2228) 4.1 MEQ/L 3.5-5.4 CHLORIDE (test code = 2215) 108 MEQ/L 95-107 H CARBON DIOXIDE (test code = 2206) 25 MEQ/L 19-31 CALCIUM (test code = 220) 9.4 MG/DL 8.5-10.5 PROTEIN, TOTAL (test code = 222) 6.8 G/DL 6.1-8.3 ALBUMIN (test code = 220) 4.3 G/DL 3.5-5.2 CALC GLOBULIN (test code = 2240) 2.5 G/DL 1.9-3.7 CALC A/G RATIO (test code = 223) 1.7 RATIO 1.0-2.6 BILIRUBIN, TOTAL (test code = 220) 0.3 MG/DL See_Comment [Automated me ssage] The system which generated this result transmitted reference range: <=1.2. The reference range was not used to interpret this result as normal/abnormal. ALKALINE PHOSPHATASE (test code = 2204) 98 U/L 40-140 AST (test code = 2218) 15 U/L 9-40 ALT (test code = 2219) 8 U/L 5-40 LIPID [id number] 06:50:13* Test Item Value Reference Range Interpretation Comme nts CHOLESTEROL (test code = 2210) 189 MG/DL <200 TRIGLYCERIDES (test code = 2232) 57 MG/DL <150 HDL CHOLESTEROL (test code = 2220) 59 MG/DL >39 CALC LDL CHOL (test code = 2237) 116 MG/DL <100 H NOTE: CALCULATED LDL IS BASED ON MARY-CRUZ METHOD WHICHINCLUDES ADJUSTABLE TRIGLYCERIDE:VLDL CHOLESTEROL RATIO.THIS FACTOR VARIES BY MEASURED TRIGLYCERIDE AND NON-HDLCHOLESTEROL CONCENTRATIONS WITH INCREASED CALCULATED LDL SEENIN HIGHER TRIGLYCERIDE OR LOWER NON-HDL SPECIMENS. FOR MOREINFORMATION, SEE CLIENT ANNOUNCEMENT AT [email or web address] RISK RATIO LDL/HDL (test code = 2238) 1.97 RATIO <3.22 [facility] has i mportant pathology staff changes effective 05/21/2022. New pathology staff will provide uninterrupted, excellent patient care and clinical consultation. See URL: [email or web address]. UNLESS OTHERWISE INDICATED, ALL TESTING PERFORMED AT [facility] [address] [place] [address] ALMOND SORTER: TAYLER MCDOWELL M.D. CLIA NUMBER [id number] [facility] [place]. [id number] RHEUMATOID FACTOR, [id number] 06:48:54* Test Item Value Reference Range Interpretation Comme nts RHEUMATOID FACTOR, QUANT (te st code = 3502) 10 IU/ML <14 CCP [id number] 05:19:04* Test Item Value Reference Range Interpretation Comme nts CCP IgG (test code = 88066) <0.5 U/ML <3.0 INTERPRETIVE INFORMATION INTERPRETATION RESULT NEGATIVE <3.0 U/ML POSITIVE >=3.0 U/ML HEMOGLOBIN [id number] 04:37:25* Test Item Value Reference Range Interpretation Comme nts HEMOGLOBIN A1c (test code = 42126) 5.2 % 4.2-5.6 CULTURE, [id number] 14:35:34SPECIMEN NUMBER: [id number] CULTURE, URINE SPECIMEN NUMBER: [id number] SPECIMEN COMMENT: URINE SOURCE: URINE REPORT STATUS: FINAL FINAL REPORT: 05/31/2022 >100,000 CFU/ML UROGENITAL RADHA PRESENT NOCOMMON PATHOGENS [facility] has important pathology staff changes effective 05/21/2022. New pathology staff will provide uninterrupted, excellent patient care and clinical consultation. See URL: [email or web address]. UNLESS OTHERWISE INDICATED, ALL TESTING PERFORMED AT [facility], [facility]. [address] [place] [address] ALMOND SORTER: Bessie FAMIA Margarita BERNSTIENER [id number] [place]. [id number], [id number] 15:09:51SPECIMEN NUMBER: [id number] CULTURE, ANAEROBIC SPECIMEN NUMBER: [id number] SPECIMEN COMMENT: LEFT FOOT;[id number] SOURCE: FOOT REPORT STATUS: FINAL FINAL REPORT: 10/31/2021 NO ANAEROBES RECOVERED AFTER 5 DAYS UNLESS OTHERWISE INDICATED, ALL TESTING PERFORMED [facility] [address] [place] [address] ALMOND SORTER: ISIDRA AYERS M.D. CLIA NUMBER [id number] [place]. [id number], [id number] 15:04:12SPECIMEN NUMBER: [id number] CULTURE, ROUTINE SPECIMEN NUMBER: [id number] SPECIMEN COMMENT: L FOOT WOUSOURCE: FOOT REPORT STATUS: FINAL DIRECT GRAM STAIN: NO WBCs SEEN RARE GRAM POSITIVE COCCI ABUNDANTGRAM NEGATIVE BACILLI ISOLATE NUMBER 1: ORGANISM: 10/25/2021 [...] <=8CEFAZOLIN RESISTANT >16CEFEPIME SENSITIVE <=2CEFTAZIDIME SENSITIVE 4CIPROFLOXACIN SEN SITIVE <=1 INTERMED 2LEVOFLOXACIN SENSITIVE <=2 SENSITIVE <=2MEROPENEM SENSITIVE <=1PIP/TAZOBAC SENSITIVE <=16 SENSITIVE <=16TETRACYCLINE SENSITIVE <=4TOBRAMYCIN SENSITIVE <=4 SENSITIVE <=4TRIMETH/SULFA SENSITIVE <=2/38 NOTE: NUMBERS DISPLAYED REPRESENT MINIMUM INHIBITORY CONCENTRATION (ABHISHEK) WHICH IS EXPRESSED IN MCG/ML. UNLESS OTHERWISE INDICATED, ALL TESTING PERFORMED [facility] [address] [place] [address] ALMOND SORTER: ISIDRA AYERS M.D. CLIA NUMBER [id number] [place]. [id number] W/AUTO DIFF WITH [id number] 11:25:56* Test Item Value Reference Range Interpretation Comme nts WBC (test code = 1001) 5.5 K/UL 3.5-11.0 RBC (test code = 1002) 4.16 M/UL 3.80-5.40 HEMOGLOBIN (test code = 1003) 12.8 G/DL 11.5-15.5 HEMATOCRIT (test code = 1004) 39.1 % 34.0-45.0 MCV (test code = 1005) 94.0 fL 80.0-99.0 MCH (test code = 1006) 30.8 PG 25.0-33.0 MCHC (test code = 1007) 32.7 G/DL 31.0-36.0 RDW (test code = 1038) 13.2 % 11.5-15.0 NEUTROPHILS (test code = 1008) 62.5 % AUTOMATED DIFFERENTIAL CONFIRMED WITH MANUAL SLIDE REVIEW. LYMPHOCYTES (test code = 1010) 28.3 % MONOCYTES (test code = 1011) 7.2 % EOSINOPHILS (test code = 1012) 0.7 % BASOPHILS (test code = 1013) 0.7 % IMMATURE GRANULOCYTES (test code = 1036) 0.6 % NUCLEATED RBCS (test code = 1065) 0.0 /100 WBC'S See_Comment [Automated message] The system which generated this result transmitted reference range: 0.0. The reference range was not used to interpret this result as normal/abnormal. PLATELET COUNT (test code = 1015) 101 K/UL 130-400 L ABSOLUTE NEUTROPHILS (test code = 1066) 3.41 K/UL 1.50-7.50 ABSOLUTE LYMPHOCYTES (test code = 1067) 1.54 K/UL 1.00-4.00 ABSOLUTE MONOCYTES (test code = 1068) 0.39 K/UL 0.20-1.00 ABSOLUTE EOSINOPHILS (test code = 1040) 0.04 K/UL 0.00-0.50 ABSOLUTE BASOPHILS (test code = 1069) 0.04 K/UL 0.00-0.20 ABS IMMATURE GRANULOCYTES (test code = 1020) 0.03 K/UL 0.00-0.10 ABS NUCLEATED RBCS (test code = 26149) 0.00 K/UL 0.00-0.11 COMMENTS (test code = 1016) (NOTE) NO SPECIFIC RBC ABNORMALITIES IDENTIFIED SEE ADDITIONAL COMMENTS BELOW: PLATELET CLUMPING PRESENT; TRUE PLATELET COUNT MAY BE HIGHER. IF CLINICALLY INDICATED, ORDER REPEAT PLATELET COUNT WITH CITRATE ANTICOAGULATED TUBE (CPL ORDER CODE 1047). HEMOGLOBIN [id number] 06:07:51* Test Item Value Reference Range Interpretation Comme [facility] HEMOGLOBIN A1c (test code = 98185) 5.2 % 4.2-5.6 UNLESS OTHERWISE INDICATED, ALL TESTING [facility]MED [facility] [address] [place] [address] ALMOND SORTER: ISIDRA AYERS M.D. CLIA NUMBER [id number] [facility] [place]. [id number] COMPREHENSIVE METABOLIC [id number] 05:35:34* Test Item Value Reference Range Interpretation Comme nts GLUCOSE (test code = 2217) 95 MG/DL 70-99 BUN (test code = 2208) 18 MG/DL 8-23 CREATININE (test code = 2214) 0.94 MG/DL 0.60-1.30 eGFR (2020 CKD-EPI) (test code = 17216) 69 ML/MIN/1.73 >60 CALC BUN/CREAT (test code = 2235) 19 RATIO 6-28 SODIUM (test code = 2231) 143 MEQ/L 133-146 POTASSIUM (test code = 2228) 3.9 MEQ/L 3.5-5.4 CHLORIDE (test code = 2215) 104 MEQ/L 95-107 CARBON DIOXIDE (test code = 2206) 26 MEQ/L 19-31 CALCIUM (test code = 220) 9.7 MG/DL 8.5-10.5 PROTEIN, TOTAL (test code = 2229) 7.5 G/DL 6.1-8.3 ALBUMIN (test code = 2201) 4.3 G/DL 3.5-5.2 CALC GLOBULIN (test code = 2240) 3.2 G/DL 1.9-3.7 CALC A/G RATIO (test code = 223) 1.3 RATIO 1.0-2.6 BILIRUBIN, TOTAL (test code = 2206) 0.4 MG/DL See_Comment [Automated me ssage] The system which generated this result transmitted reference range: <=1.2. The reference range was not used to interpret this result as normal/abnormal. ALKALINE PHOSPHATASE (test code = 2203) 89 U/L 40-136 AST (test code = 2217) 18 U/L 9-40 ALT (test code = 221) 15 U/L 5-40 LIPID [id number] 05:35:34* Test Item Value Reference Range Interpretation Comme nts CHOLESTEROL (test code = 2210) 186 MG/DL <200 TRIGLYCERIDES (test code = 223) 94 MG/DL <150 HDL CHOLESTEROL (test code = 2220) 58 MG/DL >39 CALC LDL CHOL (test code = 2236) 109 MG/DL <100 H NOTE: CALCULATED LDL IS BASED ON MARY-CRUZ METHOD WHICHINCLUDES ADJUSTABLE TRIGLYCERIDE:VLDL CHOLESTEROL RATIO.THIS FACTOR VARIES BY MEASURED TRIGLYCERIDE AND NON-HDLCHOLESTEROL CONCENTRATIONS WITH INCREASED CALCULATED LDL SEENIN HIGHER TRIGLYCERIDE OR LOWER NON-HDL SPECIMENS. FOR MOREINFORMATION, SEE CLIENT ANNOUNCEMENT AT [email or web address] RISK RATIO LDL/HDL (test code = 2238) 1.88 RATIO <3.22
[2023-04-28 01:29] LABS: Absolute Lymphocytes (CBC) 2.2 K/uL (0.7-4.9); Lymphocytes % 29.1 % (15.3-44.8); MCV 91.4 fL (80-100); MPV 7.9 fL (7.6-11.3); Platelets 251 thou/uL (152-406); RBC Red Blood Cell Count 3.94 M/uL (3.86-4.86)
--- NOTE | 2023-04-28 01:30 | ER ---
Nurse's Notes [facility] Name: Mica Baker Age: 62 yrs Sex: Female : 1960 Arrival Date: 04/28/2023 Time: 00:26 Bed 5 Private MD: Diagnosis: Acute right eye Pseudomonas keratitis, right eye corneal ulcer Presentation: 04/28 00:38 Chief complaint: Patient states: Swelling to the eye started Thursday. I went to the jb4 clinic Thursday and was given cipro eye drops. Now the pain is worse, there is a white dot on the upper part of my eye and my vision is blurry. Coronavirus screen: At this time, the client does not indicate any symptoms associated with coronavirus-19. Ebola Screen: No symptoms or risks identified at this time. Mechanism of Injury: No Mechanism of Injury. The patient reports a positive loss of vision. The patient's loss of vision began gradually 1 day ago. Initial Sepsis Screen: Does the patient meet any 2 criteria? No. Patient's initial sepsis screen is negative. Does the patient have a suspected source of infection? No. Patient's initial sepsis screen is negative. Risk Assessment: Do you want to hurt yourself or someone else? Patient reports no desire to harm self or others. Onset of symptoms was April 28, 2023. Transition of care: patient was not received from another setting of care. 00:38 Method Of Arrival: Ambulatory [facility] 00:38 Acuity: LUCIANO 3 jb4 Triage Assessment: 02:14 General: Appears in no apparent distress. comfortable, Behavior is calm, cooperative. rv Pain: Complains of pain in right eye. Neuro: Level of Consciousness is awake, alert, obeys commands, Oriented to person, place, time, situation. Cardiovascular: Capillary refill < 3 seconds Patient's skin is warm and dry. Respiratory: Airway is patent Respiratory effort is even, unlabored. GI: No signs and/or symptoms were reported involving the gastrointestinal system. : No signs and/or symptoms were reported regarding the genitourinary system. Derm: Skin is intact. Historical: - Allergies: 00:41 hydrochlorothiazide; jb4 00:41 Iodine; jb4 00:41 Latex; jb4 00:41 oxybutynin; jb4 00:41 SHELLFISH; jb4 00:41 sulfa drugs; jb4 00:41 telisitine; jb4 - PMHx: 00:41 Hypertension; Lymphadema; varicose veins; Cellulitis; jb4 - PSHx: 00:41 kidney stent; section; jb4 - Immunization history:: Adult Immunizations up to date. - Social history:: Smoking status: Patient denies any tobacco usage or history of. - Family history:: not pertinent. Screenin:27 [facility] ED Fall Risk Assessment (Adult) History of falling in the last 3 months, rv including since admission No falls in past 3 months (0 pts) Score/Fall Risk Level 0 - 2 = Low Risk Oriented to surroundings, Maintained a safe environment, Educated pt \T\ family on fall prevention, incl call for assistance when getting out of bed, Assessed \T\ reinforced patient's understanding of fall precautions. Abuse screen: Denies threats or abuse. Denies injuries from another. Nutritional screening: No deficits noted. Tuberculosis screening: No symptoms or risk factors identified. Assessment: 01:25 Reassessment: visual acuity: left eye: 20/40, pupils: 2mm. right eye: unable to test, rv cloudy vision, unable to see clearly. EENT: Eyes redness. Sclera/Cornea are reddened in outer aspect of conjuctiva of right eye, iris of right eye and inner aspect of conjuctiva of right eye. 02:17 Reassessment: REPORT GIVEN TO Malgorzata frost [facility] ED. rv Vital Signs: 00:38 BP 160 / 91; Pulse 67; Resp 16; Pulse Ox 100% on R/A; Weight 167.83 kg (R); Height 5 jb4 ft. 7 in. (R); Pain 5/10; 02:13 BP 167 / 79; Pulse 85; Resp 17; Temp 98; Pulse Ox 99% on R/A; rv 00:38 Body Mass Index 57.95 (167.83 kg, 170.18 cm) jb4 00:38 Pain Scale: Adult jb4 ED Course: 00:30 Patient arrived in ED. jj6 00:35 Kassidy Silveira FNP-C is PHCP. kb 00:35 Perez Roth MD is Attending Physician. kb 00:39 Yeison Carpenter RN is Primary Nurse. rv 00:41 Triage completed. jb4 00:41 Arm band placed on right wrist. jb4 01:10 initiated transfer with levi rock at [facility] [place]. kmf 01:[address] Campoverde, M \T\[id number] . pt will go to [facility] er. Number for f nurse to nurse report is [phone]. admin approval given by levi rock \T\0122. 01:24 Inserted saline lock: 20 gauge in left antecubital area, using aseptic technique. Blood rv collected. 01:27 Patient has correct armband on for positive identification. Client placed on continuous rv cardiac and pulse oximetry monitoring. NIBP monitoring applied. 02:14 Assist provider with eye exam of right eye. using fluorescein stain, Performed by franki Roth MD Patient tolerated well. Patient transferred, IV remains in place. Administered Medications: 01:23 Drug: Ketorolac IVP 30 mg IVP once Route: IVP; Site: left antecubital; rv Medication: 01:27 VIS not applicable for this client. rv Outcome: 01:30 ER care complete, transfer ordered by . [email or web address] 03:13 Transferred by ground EMS to [facility], Transfer form rv completed. X-rays sent w/ patient. 03:13 Condition: good 03:13 Instructed on the need for admit, 03:13 Patient left the ED. rv Signatures: Kassidy Silveira, UNDER GROUND MINER-C UNDER GROUND MINER-Ckb Andi Gutierrez RN RN jb4 Yeison Carpenter RN RN Tosha Arias Sergey, MD MD sp4 Romana Morin [facility]
--- NOTE | 2023-04-28 01:30 | EDPHYS ---
Physician Documentation [facility] Name: Mica Baker Age: 62 yrs Sex: Female : 1960 Arrival Date: 04/28/2023 Time: 00:26 Bed 5 Private MD: ED Physician Perez Roth HPI: 04/28 00:54 This 62 yrs old Female presents to ER via Ambulatory with complaints of Eye sp4 Pain, Redness of Eye, Eye Swelling, Drainage From Eye. 00:54 62-year-old female with history of hypertension, lymphedema, varicose veins, presents sp4 with right eye redness pain purulent discharge starting Thursday 2 days ago. Patient wears contact lenses. Patient went to the local clinic and was prescribed ciprofloxacin eyedrops . Since then patient has developed worsening redness irritation and corneal lesions on the right upper side of the cornea. Also reports worsening purulent discharge. . Historical: - Allergies: 00:41 hydrochlorothiazide; jb4 00:41 Iodine; jb4 00:41 Latex; jb4 00:41 oxybutynin; jb4 00:41 SHELLFISH; jb4 00:41 sulfa drugs; jb4 00:41 telisitine; jb4 - PMHx: 00:41 Hypertension; Lymphadema; varicose veins; Cellulitis; jb4 - PSHx: 00:41 kidney stent; section; jb4 - Immunization history:: Adult Immunizations up to date. - Social history:: Smoking status: Patient denies any tobacco usage or history of. - Family history:: not pertinent. ROS: 00:54 Constitutional: Negative for fever, chills, and weight loss, Eyes: Positive for right sp4 eye erythema, pain, purulent discharge, decreased vision. 00:54 All other systems are negative, Exam: 00:54 Visual Acuity: I have reviewed the nursing documentation. sp4 00:54 Constitutional: This is a well developed, well nourished patient who is awake, alert, and in no acute distress. Head/Face: Normocephalic, atraumatic. Eyes: Pupils equal round and reactive to light, extra-ocular motions intact. Left eye exam is normal Right eye exam - mild to moderate swelling of upper and lower Lids . Conjunctiva and sclera - moderate injection and purulent discharge. Right eye exam-moderate to severe conjunctival erythema associated with purulent discharge and signs of bacterial conjunctivitis. There is a right corneal ulcer with some devitalized tissue attached to the ulcer, at 11:00 O'Clock on the right cornea. Mild reight periorbital swelling. ENT: Nares patent. No nasal discharge, no septal abnormalities noted. Tympanic membranes are normal and external auditory canals are clear. Oropharynx with no redness, swelling, or masses, exudates, or evidence of obstruction, uvula midline. Mucous membranes moist. Neck: Trachea midline, no thyromegaly or masses palpated, and no cervical lymphadenopathy. Supple, full range of motion without nuchal rigidity, or vertebral point tenderness. Chest/axilla: Normal chest wall appearance and motion. Nontender with no deformity. No lesions are appreciated. Cardiovascular: Regular rate and rhythm with a normal S1 and S2. No gallops, murmurs, or rubs. Normal PMI, no JVD. No pulse deficits. Respiratory: Lungs have equal breath sounds bilaterally, clear to auscultation and percussion. No rales, rhonchi or wheezes noted. No increased work of breathing, no retractions or nasal flaring. Abdomen/GI: Soft, non-tender, with normal bowel sounds. No distension or tympany. No guarding or rebound. No evidence of tenderness throughout. Back: No spinal tenderness. No costovertebral tenderness. Skin: Warm, dry with normal turgor. Normal color with no rashes, no lesions, and no evidence of cellulitis. MS/ Extremity: Pulses equal, no cyanosis. Neurovascular intact. Full, normal range of motion. Neuro: Awake and alert, GCS 15, oriented to person, place, time, and situation. Cranial nerves II-XII grossly intact. Motor strength 5/5 in all extremities. Sensory grossly intact. Psych: Awake, alert, with orientation to person, place and time. Behavior, mood, and affect are within normal limits 01:26 Eyes: Corneas: Right cornea has 3 x 4 mm deep corneal ulcer with devitalized tissue sp4 with persistent purulent discharge, moderate conjunctival erythema, signs of bacterial conjunctivitis. Corneal ulcer presence confirmed with fluorescein eye exam, Vital Signs: 00:38 BP 160 / 91; Pulse 67; Resp 16; Pulse Ox 100% on R/A; Weight 167.83 kg (R); Height 5 jb4 ft. 7 in. (R); Pain 5/10; 02:13 BP 167 / 79; Pulse 85; Resp 17; Temp 98; Pulse Ox 99% on R/A; rv 00:38 Body Mass Index 57.95 (167.83 kg, 170.18 cm) jb4 00:38 Pain Scale: Adult jb4 MDM: 00:35 Patient medically screened. kb 01:26 Differential diagnosis: Corneal abrasion of Corneal ulcer of Foreign body in Acute sp4 iritis of Ultraviolet keratitis in. Data reviewed: vital signs, nurses notes, lab test result(s). Consideration of Admission/Observation Escalation of care including admission/observation considered. ED course: Patient discussed with fingernail former at [facility] for for official ER to ER transfer for ophthalmologic evaluation in the emergency department. Patient was accepted for ER to ER transfer for evaluation by fingernail former at [facility]. Condition on transfer stable. 04/28 00:49 Order name: CBC with Diff; Complete Time: 02:33 sp4 04/28 00:49 Order name: CMP; Complete Time: 02:33 sp4 04/28 00:50 Order name: SARS RAPID; Complete Time: 02:33 sp4 04/28 00:49 Order name: Eye Tray; Complete Time: : sp4 04/28 00:49 Order name: Fluoresene Opth strip; Complete Time: : sp4 04/28 00:49 Order name: Visual Acuity; Complete Time: : sp4 04/28 00:49 Order name: IV Saline Lock; Complete Time: : sp4 04/28 00:49 Order name: Labs collected and sent; Complete Time: : sp4 04/28 01:15 Order name: NPO; Complete Time: 01:23 sp4 Administered Medications: 01:23 Drug: Ketorolac IVP 30 mg IVP once Route: IVP; Site: left antecubital; rv Disposition Summary: 04/28/23 01:30 Transfer Ordered Notes: Transfer Location: [facility] sp4 Reason: Higher level of care sp4 Condition: Stable sp4 Problem: new sp4 Symptoms: are unchanged sp4 Accepting Physician: Dr. Tyra Cuevas Ophthalmology (04/28/23 03:13) rv Diagnosis - Acute right eye Pseudomonas keratitis, right eye corneal ulcer sp4 Forms: - Medication Reconciliation Form sp4 - SBAR form sp4 Signatures: Dispatcher [employer] EDKassidy Payne, FINANCIAL HEALTH COUNSELOR-C FINANCIAL HEALTH COUNSELOR-Andi Gill, RN RN jb4 Yeison Carpenter RN RN rv Perez Roth MD MD sp4 Corrections: (The following items were deleted from the chart) 03:13 01:30 Dr. Tyra Cuevas Ophthalmology sp4 rv
[2023-04-28 01:35] LABS: SARS-CoV-2 Antigen Rapid Res Negative (Negative)
[2023-04-28 02:28] LABS: Albumin 3.4 g/dL (3.4-5.0); Bilirubin Total 0.5 mg/dL (0.2-1.0); Potassium 3.7 mEq/L (3.5-5.1); Protein, Total 7.5 g/dL (6.4-8.2)
[2023-04-28 19:52] VITALS: BP 167/79; TEMP 98; O2SAT 99
== END ==
LOC: ER 00:26
DX: H16.8 Other keratitis (principal); H16.001 Unspecified corneal ulcer, right eye; Z11.52 Encounter for screening for COVID-19; Z88.2 Allergy status to sulfonamides; Z88.5 Allergy status to narcotic agent; Z88.8 Allergy status to other drugs, medicaments and biological substances; Z91.013 Allergy to seafood; Z91.040 Latex allergy status; Z91.048 Other nonmedicinal substance allergy status
CPT/HCPCS: 36415; 80053; 85025; 87811; J2405

== ENCOUNTER 2023-06-23 10:30 | Day surgery (SDC) | payer OTHER ==
[2023-06-17 16:14] LABS: Absolute Eosinophils 0.1 K/uL (0-0.5); Absolute Monocytes 0.5 K/uL (0.1-1.3); Absolute Neutrophil 3.8 K/uL (1.8-8.0); Basophils % 0.7 % (0-1.3); Eosinophils % 2.2 % (0-4.4); Hematocrit 37.4 % (36.0-45.0); Hemoglobin 12.3 g/dL (12.0-15.0); Lymphocytes % 30.6 % (15.3-44.8); MCH 29.9 pg (27.0-35.0); MCHC 32.8 g/dL (32.0-36.0); MCV 91.2 fL (80-100); MPV 8.3 fL (7.6-11.3); Monocytes % 7.7 % (3.3-12.3); Neutrophils % 58.8 % (41.7-73.7); Nucleated Red Blood Cells % 0.1 % (0-0); Platelets 262 thou/uL (152-406); Red Cell Distribution Width 13.7 % (12.1-15.2)
[2023-06-17 16:17] LABS: PT Prothrombin Time 11.5 SECONDS (9.5-12.5); Protime INR 1.05
[2023-06-17 16:28] LABS: Anion Gap 7.8 mEq/L (5.0-15.0); Potassium 3.8 mEq/L (3.5-5.1)
--- NOTE | 2023-06-18 14:00 | EKG ---
Test Date: 2023-06-17 Test Time: 15:31:07 Youth Development Specialist: SEBAS MEASUREMENT RESULTS: Intervals: Rate: 61 IN: 136 QRSD: 92 QT: 426 QTc: 428 [place]: P: 29 IN: 136 QRS: 35 T: 37 INTERPRETIVE STATEMENTS: Normal sinus rhythm Normal ECG Compared to ECG 09/11/2022 12:39:02 Sinus bradycardia no longer present Electronically Signed On 06-18-23 13:59:34 CDT by Saul Blandon
[2023-06-23] MEDS: Ringers Lactate 1,000 ML IV ONE (11:30)
[2023-06-23] MEDS ORDERED: LIDOCAINE 1% MPF 5 ML VIAL ONE (14:10)
[2023-06-23] MEDS ORDERED: propofoL 200 MG/20 ML VIAL IV ONE (14:11)
[2023-06-23] MEDS ORDERED: FENTANYL CITR 100 MCG/2 ML ONE (14:12)
[2023-06-23] MEDS ORDERED: MIDAZOLAM HCL 2 MG/2 ML INJ ONE (14:12)
[2023-06-23] MEDS: CEFAZOLIN SODIUM 2 GM/VIAL ONE (15:35)
[2023-06-23] MEDS ORDERED: ONDANSETRON 4 MG/2 ML VIAL ONE (15:43)
--- NOTE | 2023-06-23 16:03 | RAD REPORT ---
EXAM DESCRIPTION: RAD - Urethrocystogrphy Retrograde - 06/23/2023 3:57 pm CLINICAL HISTORY: LT STENT EXCHANGE COMPARISON: Urethrocystogrphy Retrograde dated 02/19/2023 FINDINGS: Total fluoro time: 0.14 minutes
[2023-06-23] MEDS ORDERED: PHENAZOPYRIDINE 100MG TAB PO ONE (16:18)
--- NOTE | 2023-06-23 17:27 | OP ---
Surgeon: ALESHIA MCGOWAN Preoperative Diagnoses: 1.Left ureteropelvic junction obstruction. 2.Morbid obesity. Postoperative Diagnoses: 1.Left ureteropelvic junction obstruction. 2.Morbid obesity. Principal Procedures: 1.Cystoscopy. 2.Left retrograde pyelography. 3.Left ureteral stent exchange with 7-Vietnamese stent. Indication For Procedure: Ms. Baker is a 63-year-old woman with anatomic UPJ obstruction, who was o riginally scheduled for pyeloplasty after significant decline in her renal function was observed with a 6 month period without a ureteral stent in place. Ultimately, because of some personal issues rel ative to her family and social situation that caused her a significant degree of stress, she did requ est to delay proceeding with the major reconstructive surgery, a pyeloplasty, and so instead, to pres erve her renal function, we plan to exchange her left ureteral stent. Procedure In Detail: The patient was consented in the preoperative holding area before being transfe rred to the operative suite where general anesthesia was induced. She was given Ancef 2 g IV antimic robial prophylaxis, and pneumo boots were provided for DVT prophylaxis. She was placed in the lithot omid position, padded and secured to the table appropriately. Because of her morbid obesity, addition al padding and manipulation was required in order to adequately position her without potential compre ssion injury, even though the case was only of a short duration. Once in appropriate position, her g enitalia was prepped with Hibiclens and draped in standard fashion. The case was then begun using a 22-Vietnamese rigid cystoscope to traverse the urethra and into the bladder with ease. I surveyed the bl adder in its entirety, and there were no papillary mucosal lesions or stones noted throughout. The l eft ureteral stent was emanating from the left ureteral orifice and was only minimally encrusted. I thus grasped the coil of the stent via the tip and delivered the entirety of the stent out of her bod y after delivering only the tip of the stent to the meatus and passing a Sensor wire up the stent coi ling it within the putative collecting system. Leaving the wire in place and removing the stent over the wire, I passed a 5-Vietnamese ureteral access catheter all the way into the putative collecting syst em. Left retrograde pyelography: Using a 70:30 mixture of Omnipaque and saline, contrast was injected vi a the lumen of the 5-Vietnamese ureteral access catheter and did opacify the upper pole calyx on the left . With live fluoroscopic imagery underway, I backed the 5-Vietnamese ureteral access catheter into the r enal pelvis which then did fill with contrast and opacify completely with no filling defects. I then continued to retract the 5-Vietnamese ureteral access catheter beyond the UPJ into the mid ureter where further injection of contrast revealed the continued presence of the anatomic UPJ with significant pe lviectasis and the absence of caliectasis. As a result, I passed the Sensor wire up the 5-Vietnamese ure teral access catheter coiling it within the upper pole calyx. I removed the 5-Vietnamese ureteral access catheter leaving the wire in place and backloaded the cystoscope over the wire. I then passed a 7-F rench x 26 cm double-J ureteral stent over the wire coiling it within the renal pelvis and with a coi l observed cystoscopically formed within her bladder. I then decompressed her bladder of fluid and u rine, and took the patient out of the lithotomy position. She was then transferred to a stretcher wi th additional assistance required due to the shear mass, and additional padding was provided as she w as a bit wide for the stretcher to avoid again compression of any pressure points at her hips or shou lders. Once adequately positioned, she was then transferred to the recovery room in good condition. Complications: None. Discharge Disposition: She should follow up in the Urology Clinic somewhere in the next 3 to 5 month s where we will reconsider scheduling for a pyeloplasty at that time. She would greatly benefit from an effort at significant weight loss between now and then, and consideration should be given to one of the newer weight loss agents like Ozempic or semaglutide or some of the others in order to advance her weight loss prospects to make her a safer candidate for the laparoscopic and robotic operation. At present, her morbid obesity would make that almost prohibitiv alex HERNÁNDEZ/MODL Voice ID: [id number] Report ID: [id number]
[2023-06-23 18:06] VITALS: BP 144/68; TEMP 97; O2SAT 100
== END 2023-06-23 17:30 | disposition home or self-care (01) ==
LOC: OR 10:30
PROVIDERS: ATTEND Urology
PROC: 0T778DZ Dilation of Left Ureter with Intraluminal Device, Via Natural or Artificial Opening Endoscopic (ICD-10-PCS; principal; 2023-06-23 12:00)
DX: N13.5 Crossing vessel and stricture of ureter without hydronephrosis (principal); N20.0 Calculus of kidney; N39.0 Urinary tract infection, site not specified; T83.84XD Pain due to genitourinary prosthetic devices, implants and grafts, subsequent encounter
CPT/HCPCS: 93005; 85025; 87086; 80048; 36415; 85610; 74450; 51610; 52332; J2704; J2001; J2250; J3010; J2405; J7120; 87088

== ENCOUNTER 2024-03-15 09:20 | Day surgery (SDC) | payer OTHER ==
[2024-03-10 13:56] LABS: Absolute Basophils 0.1 K/uL (0-0.5); Absolute Eosinophils 0.1 K/uL (0-0.5); Absolute Lymphocytes (CBC) 1.7 K/uL (0.7-4.9); Absolute Monocytes 0.4 K/uL (0.1-1.3); Basophils % 0.8 % (0-1.3); Hematocrit 36.5 % (36.0-45.0); Hemoglobin 11.7 g/dL (12.0-15.0); Lymphocytes % 27.1 % (15.3-44.8); MCH 30.8 pg (27.0-35.0); MCHC 32.2 g/dL (32.0-36.0); MCV 95.7 fL (80-100); MPV 8.7 fL (7.6-11.3); Monocytes % 6.6 % (3.3-12.3); Neutrophils % 63.5 % (41.7-73.7); Nucleated Red Blood Cells % 0.1 % (0-0); Platelets 251 thou/uL (152-406); RBC Red Blood Cell Count 3.81 M/uL (3.86-4.86); Red Cell Distribution Width 14.1 % (12.1-15.2)
[2024-03-10 14:01] LABS: PT Prothrombin Time 11.1 SECONDS (9.4-12.5); Protime INR 0.99
[2024-03-10 14:12] LABS: Anion Gap 4.6 mEq/L (5.0-15.0); Potassium 3.6 mEq/L (3.5-5.1)
[2024-03-15] MEDS: Ringers Lactate 1,000 ML IV ONE (09:50)
[2024-03-15] MEDS ORDERED: ONDANSETRON 4 MG/2 ML VIAL ONE (12:59)
[2024-03-15] MEDS ORDERED: LIDOCAINE 1% MPF 5 ML VIAL ONE (12:59)
[2024-03-15] MEDS ORDERED: FENTANYL CITR 100 MCG/2 ML ONE ×2 (12:59→13:46)
[2024-03-15] MEDS ORDERED: propofoL 200 MG/20 ML VIAL IV ONE (12:59)
[2024-03-15] MEDS ORDERED: MIDAZOLAM HCL 2 MG/2 ML INJ ONE (12:59)
[2024-03-15] MEDS: CEFAZOLIN SODIUM 2 GM/VIAL ONE (13:30)
[2024-03-15] MEDS ORDERED: CEFAZOLIN SODIUM 1 GM/VIAL ONE (13:49)
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
[2024-03-15] MEDS ORDERED: PHENAZOPYRIDINE 100MG TAB PO ONE (14:38)
[2024-03-15 14:48] VITALS: BP 132/58; TEMP 97.1; O2SAT 100
[2024-03-15] MEDS: PHENAZOPYRIDINE 100MG TAB PO ONE (14:48)
--- NOTE | 2024-03-15 15:15 | RAD REPORT ---
EXAMUrethrocystogrphy Retrograde CLINICAL HISTORY:Left ureteral stent exchange FINDINGS: 6 fluoroscopic spot images obtained. Fluoroscopy time 0.1 minute Left ureter was cannulated and contrast administered. A ureteral stent exchange was performed. Procedure done by Dr. Riley
== END 2024-03-15 15:21 | disposition home or self-care (01) ==
LOC: OR 09:20
PROVIDERS: ATTEND Urology
PROC: 0TJB8ZZ Inspection of Bladder, Via Natural or Artificial Opening Endoscopic (ICD-10-PCS; 2024-03-15)
PROC: 0T778DZ Dilation of Left Ureter with Intraluminal Device, Via Natural or Artificial Opening Endoscopic (ICD-10-PCS; principal; 2024-03-15 10:45)
DX: N13.5 Crossing vessel and stricture of ureter without hydronephrosis (principal); N13.30 Unspecified hydronephrosis; T83.193A Other mechanical complication of other urinary stent, initial encounter; R10.9 Unspecified abdominal pain
CPT/HCPCS: 52332; 52351; 87088; 85025; 87086; 80048; 36415; 85610; 74450; 51610; J2704; J2003; J2250; J3010 ×2; J2405; J7120; J0690

== ENCOUNTER 2024-12-28 19:11 | Emergency (ER) | payer OTHER ==
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
[2024-12-28 21:22] LABS: Absolute Lymphocytes (CBC) 1.8 K/uL (0.7-4.9); Hematocrit 36.7 % (36.0-45.0); Hemoglobin 12.5 g/dL (12.0-15.0); MCH 31.2 pg (27.0-35.0); MCHC 34.1 g/dL (32.0-36.0); MCV 91.3 fL (80-100); MPV 8.3 fL (7.6-11.3); Nucleated RBC Absolute Count 0.0 (0-0); Nucleated Red Blood Cells % 0.0 % (0-0); RBC Red Blood Cell Count 4.02 M/uL (3.86-4.86); White Blood Count 6.10 thou/uL (4.3-10.9)
[2024-12-28 21:41] LABS: ALT/SGPT 21.0 U/L (13-56); AST/SGOT 15.0 U/L (15-37); Albumin 3.4 g/dL (3.4-5.0); Albumin/Globulin Ratio 0.8 (1.1-1.8); Alkaline Phosphatase 119.0 U/L (45-117); Anion Gap 6.6 mEq/L (5.0-15.0); BUN Blood Urea Nitrogen 21.0 mg/dL (7-18); Globulin 4.1 g/dL (2.3-3.5); Glucose Level 109.0 mg/dL (74-106); Lipase 36.0 U/L (13-75); Potassium 3.6 mEq/L (3.5-5.1)
[2024-12-28] MEDS ORDERED: HYDROCODONE/APAP 10/325 TAB ONE (22:24)
[2024-12-28 22:39] LABS: Sqamous Epithelial <5 /HPF (None Seen); Urine Culture Reflex Order REFLEXED; Urine Microscopic Reflex YN ORDER UMIC; Urine Yeast (Budding) Few /HPF (None Seen)
[2024-12-28] MEDS ORDERED: CEFTRIAXONE 2000 MG/VIAL ONE (22:49)
[2024-12-28] MEDS ORDERED: NA CHLORIDE 0.9% 100 ML ONE (22:49)
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
[2024-12-29 00:51] VITALS: TEMP 98.4
[2024-12-29 00:52] VITALS: BP 119/59; O2SAT 99
== END 2024-12-28 23:42 | disposition home or self-care (01) ==
LOC: ER 19:11
DX: N39.0 Urinary tract infection, site not specified (principal); S82.491A Other fracture of shaft of right fibula, initial encounter for closed fracture; V49.9XXA Car occupant (driver) (passenger) injured in unspecified traffic accident, initial encounter
CPT/HCPCS: 87088; 85025; 81001; 87086; 36415; 83690; 80053; 73590; 96374; 99284; J0696